=== PATIENT | female | born 2005 | race Caucasian/White ===

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

== ENCOUNTER 2025-02-23 19:00 | Inpatient (IN) | payer BC, MEDICAID, SELFPAY ==
--- OUTSIDE RECORDS SUMMARY | 2025-02-23 19:08 | XMS RPT_ITS | CCD ---
Author Organization [facility] Care Team Providers Care Porcelain Turner Name Role Phone Arcelia, Julisa Unavailable Unavailable LacledeKaterineah D Unavailable Unavailable Arcelia, Julisa Unavailable Unavailable Arcelia, Julisa L Unavailable Unavailable Laclede, Deyanira D Unavailable Unavailable Arcelia, Julisa L Unavailable Unavailable Unavailable Vivian, Deyanira D Unavailable Arcelia, Julisa L Unavailable Stentz, Freddy Unavailable Unavailable Alonso Schaeffer Unavailable Unavailable [place] Unavailable Unavailable Stentz, Freddy Unavailable Unavailable Unavailable Stentz, Freddy Unavailable Keerthi Rankin Unavailable Unavailabl e Moomaw, Juancarlos I Unavailable Unavailable Unavailable Primary Care Provider Unavailabl e Stentz, Mr. Freddy Primary Care Unavailable Stentz, Mr. Freddy Referring Unavailable Stentz, Mr. Freddy Attending Unavailable Stentz, Mr. Freddy Primary Care Unavailable Stentz, Mr. Freddy Referring Unavailable Stentz, Mr. Freddy Attending Unavailable Stentz, Mr. Freddy Primary Care Unavailable Stentz, Mr. Freddy Referring Unavailable Stentz, Mr. Freddy Attending Unavailable Stentz, Mr. Freddy Referring Unavailable Stentz, Mr. Freddy Primary Care Unavailable [place] Attending Unavailabl e Sandra Arreaga Attending Unavailable Stentz, Mr. Freddy Primary Care Unavailable Stentz, Mr. Freddy Attending Unavailable Stentz, Mr. Freddy Primary Care Unavailable Stentz, Mr. Freddy Referring Unavailable Stentz, Mr. Freddy Primary Care Unavailable Stentz, Mr. Freddy Referring Unavailable Stentz, Mr. Freddy Attending Unavailable Stentz, Mr. Freddy Primary Care Unavailable [place]oomaw, Mr. Juancarlos Hitchcock Attending Unavailable Stentz, Mr. Freddy Primary Care Unavailable Chucho, Keerthi Attending Unavailabl e Stentz, Mr. Freddy Primary Care Unavailable Bilderback, Keerthi Attending Unavailabl e Stentz, Mr. Freddy Primary Care Unavailable Bilderback, Keerthi Attending Unavailabl e Stentz PA-C, Freddy Primary Care Provider Unavailable Primary Care Provider Unavailabl e STENTZ, FREDDY Primary Care Unavailable STENTZ, FREDDY Primary Care Unavailable MECCA CABRAL Attending Unavailable STENTZ, FREDDY Primary Care Unavailable STENTZ, FREDDY Attending Unavailable STENTZ, FREDDY Primary Care Unavailable HEATHER ALCANTARA Attending Unavailable STENTZ, FREDDY Primary Care Unavailable Stentz PA-C, Freddy Primary Care Provider ETHEL CENTENO Attending Unavailable STENTZ, FREDDY Primary Care Unavailable ETHEL CENTENO Referring Unavailable STENTZ, FREDDY Primary Care Unavailable SHAN HAMMER Attending Unavailable Care Physician, No Primary Primary Care Unava ilable Katerine Gomeza Attending Unavailable Stentz PA-C, Freddy Primary Care Provider Kristel SALEH, Zohaib Unavailable Unavailable STENTZ, FREDDY Primary Care Unavailable AHMED, AHMED Referring Unavailable RAJESH DO Attending Unavailable STENTZ, FREDDY Primary Care Unavailable AHMED, AHMED Referring Unavailable STENTZ, FREDDY Primary Care Unavailable WISWELL, CHANCE Referring Unavailable WISWELL, CHANCE Referring Unavailable STENTZ, FREDDY Primary Care Unavailable TRAVIS BROWNE Attending Unavailable STENTZ, FREDDY Primary Care Unavailable STENTZ, FREDDY Primary Care Unavailable BACKIMBERLY MARCIANO Referring Unavailable STENTZ, FREDDY Primary Care Unavailable AHMED, AHMED Attending Unavailable AHMED, AHMED Referring Unavailable AHMED, AHMED Attending Unavailable STENTZ, FREDDY Primary Care Unavailable SIDDIQUI, NICOLE Referring Unavailable STENTZ, FREDDY Primary Care Unavailable STENTZ, FREDDY Primary Care Unavailable AHMED, AHMED Referring Unavailable WISWELL, CHANCE Attending Unavailable CHAMP RAWLS Referring Unavailable STENTZ, FREDDY Primary Care Unavailable STENTZ, FREDDY Primary Care Unavailable DIGNA FERNÁNDEZ Attending Unavail able SIDDIQUI, NICOLE Referring Unavailable STENTZ, FREDDY Primary Care Unavailable STENTZ, FREDDY Primary Care Unavailable COLLEEN ROTHMAN Attending Unavailable STENTZ, FREDDY Primary Care Unavailable PRIMITIVO DELGADO Referring Unavailable STENTZ, FREDDY Primary Care Unavailable PRIMITIVO DELGADO Referring Unavailable COLLEEN ROTHMAN Attending Unavailable HAURY, CHAMP Attending Unavailable STENTZ, FREDDY Primary Care Unavailable HAURY, CHAMP Referring Unavailable STENTZ, FREDDY Primary Care Unavailable STENTZ, FREDDY Primary Care Unavailable AMANDA AHMED Referring Unavailable TOAN OLIVARES Attending Unavailable COLLEEN ROTHMAN Attending Unavailable PRIMITIVO DELGADO Attending Unavailable HAURY, CHAMP Referring Unavailable STENTZ, FREDDY Primary Care Unavailable PRIMITIVO DELGADO Attending Unavailable AHMED, ROSALIOMED Attending Unavailable LOIS SEVILLAA B Attending Unavailable STENTZ, FREDDY Primary Care Unavailable BACKIMBERLY MARCIANO Referring Unavailable BRYCE NICOLE Referring Unavailable STENTZ, FREDDY Primary Care Unavailable LEILA MOODY Attending Unavailable WISWELL CHANCE Attending Unavailable STENTZ, FREDDY Primary Care Unavailable WISWELL CHANCE Referring Unavailable STENTZ, FREDDY Primary Care Unavailable Allergies Allergy Classification Reported Allergen(s) Allergy Type Date of Onset Reaction(s) Facility Penicillins (antibiotic) (4 sources) Penicillins; Translations: [Penicillins] Drug Allergy [facility] Work Phone: (20 sources) Amoxicillin; Translations: [amoxicillin] Drug Allergy [facility] (20 sources) Penicillins; Translations: [Penicillins] Allergy to drug (finding) [address] [facility] Work Phone: (1 source) Penicillins Allergy to substance 3 PT UNSURE OF REACTION [facility] (3 sources) Penicillins Drug Allergy [facility] Work Phone: (20 sources) NITROFURANTOIN, MACROCRYSTALS / Nitrofurantoin, Monohydrate; Translations: [NITROFURANTOIN MONOHYD/M-CRYST] Drug Allergy [facility] (4 sources) Ciprofloxacin; Translations: [CIPROFLOXACIN HCL] Drug Allergy [facility] (20 sources) Ciprofloxacin; Translations: [CIPROFLOXACIN] Drug Allergy 4 [facility] (20 sources) Penicillins Drug Allergy 3 [facility] (1 source) Penicillins Drug allergy (disorder) 3 [facility] Medications Current Medications Medication Drug Class(es) Dates Sig (Normalized) Sig (Original) aspirin 81 mg delayed release oral tablet (15 sources) Platelet Aggregation Inhibitor, Nonsteroidal Anti-inflammatory Drug Start: 11-24-2024 take 1 tablet by mouth once daily at bedtime aspirin, enteric coated (ECOTRIN LOW STRENGTH) 81 mg EC tablet Indications: Encounter for supervision of other normal in first trimester (HCC) Take 1 tablet by mouth daily at bedtime. Starting at 12 weeks. 90 tablet 2 11/24/2024 Active cetirizine hydrochloride 10 mg oral tablet (2 sources) Histamine-1 Receptor Antagonist Start: 09-16-2021 End: 09-30-2021 take 1 tablet by mouth once daily ZyrTEC 10 mg oral tablet ; 1 tab(s) orally once a day Quantity: 15 Refills: 0 Ordered: 16-Sep-2021 Alonso Schaeffer Start: 16-Sep-2021 End: 30-Sep-2021 Generic Substitution Allowed Comments: May cause drowsiness. Alcohol may intensify this effect. Use care when operating dangerous machinery.Obtain medical advice before taking any non-prescription drugs as some may affect the action of this medication. Comment on above: May cause drowsiness . Alcohol may intensify this effect. Use care when operating dangerous machinery.Obtain medical advice before taking any non-prescription drugs as some may affect the action of this medication. ciprofloxacin 500 mg oral tablet (3 sources) Quinolone Antimicrobial Start: 08-14-2023 End: 08-17-2023 take 1 tablet by mouth twice daily ciprofloxacin (Cipro) 500 mg tablet Indications: Urinary tract infection without hematuria, site unspecified Take 1 tablet (500 mg) by mouth 2 times a day for 3 days. 6 tablet 0 08/14/2023 08/16/2023 Discontinued (Med List Cleanup) diphenhydrAMINE hydrochloride 25 mg oral tablet (4 sources) Histamine-1 Receptor Antagonist Start: 08-14-2023 End: 08-19-2023 diphenhydrAMINE (Sominex) 25 mg tablet Indications: Hives Take 2 tablets (50 mg) by mouth every 6 hours for 5 days. May take 1 or 2 tablets every 6 hours as needed for allergies and rash 40 tablet 0 08/14/2023 08/19/2023 Active Start: 08-14-2023 diphenhydrAMIN E (BENADryl) capsule 50 mg [id number] 0.15 ml EPINEPHrine 1 mg/ml auto-injector (1 source) alpha-Adrenergic Agonist, beta-Adrenergic Agonist, Catecholamine Start: 08-16-2023 EPINEPHrine (AUVI -Q) 0.15 mg/0.15 mL inj auto-injector injection Indications: Allergy, initial encounter Use as directed. 1 each 1 08/16/2023 Active Start: 08-16-2023 EPINEPHrine (A UVI-Q) 0.15 mg/0.15 mL inj auto-injector injection Indications: Allergy, initial encounter Use as directed. 1 each 1 08/16/2023 Active Ethinyl Estradiol / norgestimate (20 sources) Progestin, Estrogen Start: 08-31-2022 End: 08-16-2023 take 1 tablet by mouth once daily norgestimate-ethinyl estradioL (Ortho Tri-Cyclen,Trinessa) 0.18/0.215/0.25 mg-35 mcg (28) tablet Indications: Menorrhagia with regular cycle Take 1 tablet by mouth once daily. 28 tablet 12 08/31/2022 08/16/2023 Discontinued (Med List Cleanup) Start: 08-31-2022 take 1 tablet by [facility] once daily norgestimate-ethinyl estradioL (Ortho Tri-Cyclen,Trinessa) 0.18/0.215/0.25 mg-35 mcg (28) tablet Indications: Menorrhagia with regular cycle Take 1 tablet by mouth once daily. 28 tablet 12 08/31/2022 Active Start: 07-20-2022 Norgestimate-E thinyl Estradiol Active TABLET July 20, 2022 12:00am Start: 06-29-2020 End: 11-02-2024 take 1 tablet by mouth once daily Norgestimate-Ethinyl Estradiol 0.18/0.215/0.25 mg-35 mcg (28) Take 1 tablet by mouth once daily. 06/29/2020 11/02/2024 Discontinued Start: 06-29-2020 take 1 tablet by tanvi th once daily Norgestimate-Ethinyl Estradiol 0.18/0.215/0.25 mg-35 mcg (28) Take 1 tablet by mouth once daily. 06/29/2020 Active Start: 06-29-2020 take 1 tablet by tanvi th once daily Norgestimate-Ethinyl Estradiol 0.18/0.215/0.25 mg-35 mcg (28) Take 1 tablet by mouth once daily. 0 06/29/2020 Active take 1 tablet by tanvi th once daily in the evening norgestimate-ethinyl estradiol 0.25 mg-35 mcg oral tablet ; 1 tab(s) orally once a day (in the evening) Quantity: 0 Refills: 0 Ordered: 12-Sep-2022 Erika Monae Generic Substitution Allowed take 1 tablet by tanvi th once daily Norgestim-Eth Estrad Triphasic 0.18/0.215/0.25 MG-35 MCG Oral Tablet TAKE 1 TABLET DAILY. Quantity: 1 Refills: 12 Julisa Burgos Active 28 Tablet Pack Comment on above: Take 1 tablet by tanvi th once daily. famotidine 20 mg oral tablet (15 sources) Histamine-2 Receptor Antagonist Start: 12-22-2024 take 1 tablet by mouth twice daily famotidine (PEPCID) 20 mg tablet Take 1 tablet by mouth two times a day. 60 tablet 5 12/22/2024 Active Start: 08-14-2023 End: 08-19-2023 take 2 tablets by mouth once daily famotidine (Pepcid) 20 mg tablet Indications: Hives Take 2 tablets (40 mg) by mouth once daily for 5 days. 10 tablet 0 08/14/2023 08/19/2023 Active Start: 08-14-2023 famotidine (Pe pcid) tablet 40 mg ferrous sulfate 325 mg oral tablet (7 sources) ferrous sulfate (IRON) 325 mg (65 mg iron) tablet Take 325 mg by mouth. Active hydrOXYzine hydrochloride 50 mg oral tablet (20 sources) Antihistamine Start: 08-16-2023 End: 08-26-2023 take 1 tablet by mouth every six hours for anxiety hydrOXYzine HCL (Atarax) 50 mg tablet Indications: Pruritus Take 1 tablet (50 mg) by mouth every 6 hours if needed for itching or anxiety for up to 10 days. 40 tablet 0 08/16/2023 08/26/2023 Active Start: 09-16-2021 take 1-2 tablets by mouth once hydrOXYzine hydrochloride 25 mg oral tablet ; 1 - 2 tab(s) orally once (at bedtime) for itching Quantity: 20 Refills: 0 Ordered: 16-Sep-2021 Alonso Schaeffer Start: 16-Sep-2021 Generic Substitution Allowed Comments: May cause drowsiness. Alcohol may intensify this effect. Use care when operating dangerous machinery.Obtain medical advice before taking any non-prescription drugs as some may affect the action of this medication. Start: 09-09-2021 End: 08-14-2023 take 1 tablet by mouth three times daily as needed for anxiety hydrOXYzine HCL (Atarax) 10 mg tablet Take 1 tablet (10 mg) by mouth 3 times a day as needed for anxiety. 0 09/09/2021 08/14/2023 Discontinued (Entered in Error) Start: 09-09-2021 End: 11-02-2024 hydrOXYzine HCl (ATARAX) 25 mg tablet Take by mouth. 09/09/2021 11/02/2024 Discontinued Comment on above: May cause drowsiness . Alcohol may intensify this effect. Use care when operating dangerous machinery.Obtain medical advice before taking any non-prescription drugs as some may affect the action of this medication. Take by mouth. naproxen 500 mg oral tablet (4 sources) Nonsteroidal Anti-inflammatory Drug Start: take 1 tablet by mouth every twelve hours naproxen (Naprosyn) 500 mg tablet Take 1 tablet (500 mg) by mouth every 12 hours if needed. 0 08/14/2023 Active Start: 12-15-2019 take 1 tablet by tanvi th every twelve hours as needed Naproxen 500 MG Oral Tablet TAKE 1 TABLET EVERY 12 HOURS NEEDED. Quantity: 30 Refills: 1 Julisa Burgos Start : 15-Dec-2019 Active nitrofurantoin, macrocrystals 25 mg / nitrofurantoin, monohydrate 75 mg oral capsule (5 sources) Nitrofuran Antibacterial Start: 08-14-2023 End: 08-16-2023 take 1 capsule by mouth twice daily nitrofurantoin, macrocrystal-monohydrate, (Macrobid) 100 mg capsule Take 1 capsule (100 mg) by mouth 2 times a day. FOR 7 DAYS 0 08/14/2023 08/16/2023 Discontinued (Side effects) Start: 07-15-2022 End: 07-21-2022 take 1 capsule by mouth twice daily at mealtime Macrobid 100 mg oral capsule ; 1 cap(s) orally 2 times a day x 7 days Quantity: 14 Refills: 0 Ordered: 15-Jul-2022 Keerthi Rankin Start: 15-Jul-2022 End: 21-Jul-2022 Generic Substitution Allowed Comments: Finish all this medication unless otherwise directed by prescriber.May discolor urine or feces.Take with food or milk. Comment on above: Finish all this medi cation unless otherwise directed by prescriber.May discolor urine or feces.Take with food or milk. ondansetron 4 mg disintegrating oral tablet (9 sources) Serotonin-3 Receptor Antagonist Start: take 1 tablet by mouth every eight hours as needed for nausea ondansetron orally disintegrating (ZOFRAN ODT) 4 mg disintegrating tablet Indications: Nausea and vomiting in (HCC) Take 1 tablet by mouth every 8 hours as needed for nausea/vomiting. 30 tablet 1 01/02/2025 Active PNV no.95/ferrous fum/folic ac ( ORAL) (17 sources) PNV no.95/ferrou s fum/folic ac ( ORAL) Take by mouth. Active predniSONE 10 mg oral tablet (8 sources) Start: End: predniSONE (DELTASONE) 10 mg tablet Take 4 tabs daily x 3 days, then 3 tabs x 3 days, 2 tabs x 3 days, then 1 tab x3 days with food. 30 tablet 10/07/2024 10/19/2024 Active Start: 08-15-2023 End: 08-15-2023 predniSONE (Deltasone) table t 40 mg Start: 08-14-2023 End: 08-19-2023 take 4 tablets by mouth once daily predniSONE (Deltasone) 10 mg tablet Indications: Hives Take 4 tablets (40 mg) by mouth once daily for 5 days. 20 tablet 0 08/14/2023 08/19/2023 Active Start: 08-14-2023 End: 08-14-2023 predniSONE (Deltasone) table t 40 mg Start: 09-16-2021 End: 09-20-2021 take 1 tablet by mouth once daily at mealtime predniSONE 50 mg oral tablet ; 1 tab(s) orally once a day Quantity: 5 Refills: 0 Ordered: 16-Sep-2021 Alonso Schaeffer Start: 16-Sep-2021 End: 20-Sep-2021 Generic Substitution Allowed Comments: It is very important that you take or use this exactly as directed. Do not skip doses or discontinue unless directed by your doctor.Obtain medical advice before taking any non-prescription drugs as some may affect the action of this medication.Take with food or milk. Comment on above: It is very important that you take or use this exactly as directed. Do not skip doses or discontinue unless directed by your doctor.Obtain medical advice before taking any non-prescription drugs as some may affect the action of this medication.Take with food or milk. vit 75/iron/folic/om3 (DAILY ORAL) (7 sources) vit 75/iron/folic/om3 (DAILY ORAL) Take by mouth. Active sertraline 50 mg oral tablet (4 sources) Serotonin Reuptake Inhibitor Start: 08-14-19 24 End: 08-16-19 24 take 1.5 tablets by mouth once daily sertraline (Zoloft) 50 mg tablet Take 1.5 tablets (75 mg) by mouth once daily. 0 08/14/2023 08/16/2023 Discontinued (Therapy completed) Start: 04-07-2019 Sertraline HCl - 50 MG Oral Tablet TAKE 1 AND 1/2 TABLETS DAILY. Quantity: 45 Refills: 2 Arcelia KENIAJulisa Start : 07-Apr-2019 Active Completed/Discontinued Medications Medication Drug Class(es) Dates Sig (Normalized) Sig (Original) brompheniramine maleate 0.4 mg/ml / dextromethorphan hydrobromide 2 mg/ml / pseudoephedrine hydrochloride 6 mg/ml oral solution (1 source) alpha-Adrenergic Agonist, Uncompetitive M-xsazsg-J-aspartat e Receptor Antagonist, Sigma-1 Agonist Start: 03-29-2022 Pseudoeph-Bromphe n-DM 30-2-10 MG/5ML Oral Syrup Quantity: 250 Refills: 0 Ordered: 29-Mar-2022 DO Start : 29-Mar-2022 Complete citalopram 10 mg oral tablet (13 sources) Serotonin Reuptake Inhibitor Start: 10-16-2021 End: 08-14-2023 take 1 tablet by mouth once daily Citalopram Hydrobromide 20 MG Oral Tablet Take 1 tablet daily Quantity: 90 Refills: 3 Ordered: 24-Jul-2022 Freddy Lee PA-C Start : 16-Oct-2021 Active Start: 10-16-2021 Citalopram Hyd robromide 10 MG Oral Tablet Quantity: 30 Refills: 0 Ordered: 14-Feb-2022 DO Start : 14-Feb-2022 Complete doxycycline monohydrate 100 mg oral capsule (2 sources) Tetracycline-class Drug Start: 08-25-2022 End: 09-04-2022 take 1 capsule by mouth twice daily doxycycline monohydrate (MONODOX) 100 mg capsule Take 1 capsule by mouth twice daily for 10 days. 20 capsule 0 08/25/2022 09/04/2022 Comment on above: Take 1 capsule by [facility] twice daily for 10 days. fluconazole 150 mg oral tablet (1 source) Azole Antifungal Start: 03-29-2022 take 1 tablet by mouth once Fluconazole 150 MG Oral Tablet take 1 tablet by mouth A ONE TIME DOSE repeat if needed in 72 ... (REFER TO PRESCRIPTION NOTES). Quantity: 2 Refills: 0 Ordered: 29-Mar-2022 DO Start : 29-Mar-2022 Complete FLUoxetine 10 mg oral capsule (20 sources) Serotonin Reuptake Inhibitor Start: 09-16-2020 End: 10-31-2020 take 1 capsule by mouth once daily FLUoxetine HCl - 10 MG Oral Capsule TAKE 1 CAPSULE Daily Quantity: 7 Refills: 0 Ordered: 16-Sep-2020 Julisa Burgos Start : 16-Sep-2020 End : 31-Oct-2020 Complete Start: 09-16-2020 End: 11-02-2024 take 1 capsule by mouth once daily FLUoxetine HCl - 20 MG Oral Capsule TAKE 1 CAPSULE Daily Quantity: 30 Refills: 3 Ordered: 21-Jan-2021 Julisa Burgos Start : 16-Sep-2020 Active Comment on above: Take 20 mg by mouth once daily. meloxicam 7.5 mg oral tablet (13 sources) Nonsteroidal Anti-inflammatory Drug Start: 08-26-19 End: 11-03-19 take 1 tablet by mouth once daily meloxicam (MOBIC) 7.5 mg tablet Take 1 tablet by mouth once daily. 14 tablet 08/25/2022 11/02/2024 Discontinued Comment on above: Take 1 tablet by tanvi th once daily. metroNIDAZOLE 0.0075 mg/mg vaginal gel (1 source) Nitroimidazole Antimicrobial Start: 08-27-19 End: 07-20-19 metroNIDAZOLE (METROGEL VAGINAL) 0.75 % Vaginal Gel Use 1 Applicator vaginally daily at bedtime. 1 Tube 0 08/26/2020 07/20/2022 Discontinued (Other) Comment on above: Use 1 Applicator vag inally daily at bedtime. Norgestim-Eth Estrad Triphasic 0.18/0.215/0.25 MG-35 MCG Oral Tablet (13 sources) Start: 02-12-20 take 1 tablet by mouth once daily Norgestim-Eth Estrad Triphasic 0.18/0.215/0.25 MG-35 MCG Oral Tablet take 1 tablet by mouth once daily Quantity: 28 Refills: 11 Ordered: 09-Sep-2021 Freddy Lee PA-C Start : 11-Feb-2021 Active Start: 02-11-2021 take 1 tablet by tanvi th once daily Norgestim-Eth Estrad Triphasic 0.18/0.215/0.25 MG-35 MCG Oral Tablet take 1 tablet by mouth once daily Quantity: 28 Refills: 8 Ordered: 11-Feb-2021 Javier AQUINO, Jessica Start : 11-Feb-2021 Active take 1 tablet by tanvi th once daily Norgestim-Eth Estrad Triphasic 0.18/0.215/0.25 MG-35 MCG Oral Tablet TAKE 1 TABLET DAILY. Quantity: 1 Refills: 1 Ordered: 23-Dec-2020 Javier CANDELARIA-RATNA, Jessica Active take 1 tablet by tanvi th once daily Norgestim-Eth Estrad Triphasic 0.18/0.215/0.25 MG-35 MCG Oral Tablet TAKE 1 TABLET DAILY. Quantity: 1 Refills: 12 Ordered: 15-Dec-2019 Julisa Burgos Active phenazopyridine hydrochloride 200 mg oral tablet (2 sources) Start: 05-21-2021 End: 07-20-2022 take 1 tablet by mouth every eight hours as needed phenazopyridine (PYRIDIUM) 200 mg tablet Take 1 tablet by mouth three times daily as needed. 6 tablet 0 05/21/2021 07/20/2022 Discontinued (Other) Start: 11-07-2020 End: 07-20-2022 take 1 tablet by mouth every eight hours as needed phenazopyridine (PYRIDIUM) 100 mg tablet Take 1 tablet by mouth three times daily as needed. 30 tablet 0 11/07/2020 07/20/2022 Discontinued (Other) Comment on above: Take 1 tablet by tanvi th three times daily as needed. SUMAtriptan 100 mg oral tablet (20 sources) Serotonin-1b and Serotonin-1d Receptor Agonist Start: 12-18-2021 End: 11-02-2024 SUMAtriptan (IMITREX) 100 mg tablet 06/01/2022 11/02/2024 Discontinued Start: 12-18-2021 SUMAtriptan Salguero ccinate 50 MG Oral Tablet Quantity: 2 Refills: 0 Ordered: 18-Dec-2021 DO Start : 18-Dec-2021 Complete Start: 12-18-2021 take 1 tablet by tanvi th every two hours SUMAtriptan Succinate 50 MG Oral Tablet TAKE 1 TABLET FOR MIGRAINE RELIEF. MAY REPEAT EVERY 2 HOURS. MAX 200MG/DAY. Quantity: 1 Refills: 3 Ordered: 18-Dec-2021 Freddy Lee PA-C Start : 18-Dec-2021 Active Comment on above: take 1 tablet by tanvi th AT ONSET OF HEADACHE may repeat in 2 hours... (REFER TO PRESCRIPTION NOTES). topiramate 25 mg oral tablet (11 sources) Start: 12-19-19 End: 08-16-19 24 take 1 tablet by mouth once daily Topiramate 25 MG Oral Tablet Take 1 tablet daily Quantity: 90 Refills: 3 Ordered: 24-Jul-2022 Jesus GOFF Freddy Start : 18-Dec-2021 Active 24 hr venlafaxine 75 mg extended release oral capsule (1 source) Serotonin and Norepinephrine Reuptake Inhibitor Start: 09-10-19 take 1 capsule by mouth once daily at mealtime Venlafaxine HCl ER 75 MG Oral Capsule Extended Release 24 Hour TAKE 1 CAPSULE ONCE DAILY WITH FOOD. Quantity: 90 Refills: 0 Ordered: 09-Sep-2021 Jesus GOFF Freddy Start : 09-Sep-2021 Active Problems Active Problems Problem Classification Problem Date Documented Date Episodic/Chronic Allergic reactions (20 sources) Acute urticaria; Translations: [Other specified urticaria] Onset: 01-27-2023 09-16-2021 Episodic Anxiety disorders (18 sources) Generalized anxiety disorder; Translations: [Generalized anxiety disorder] Onset: 07-15-2022 09-15-2022 Chronic Genitourinary symptoms and ill-defined conditions (8 sources) Dysuria; Translations: [Frequency of micturition] Onset: 07-18-2022 Episodic Headache; including migraine (9 sources) Migraine; Translations: [Migraine, unspecified, without mention of intractable migraine without mention of status migrainosus] Onset: 07-15-2022 09-15-2022 Chronic Hemorrhage during ; abruptio placenta; placenta previa (6 sources) Antepartum hemorrhage; Translations: [Hemorrhage in early , unspecified] Onset: 07-28-2024 07-31-2024 Episodic Immunizations and screening for infectious disease (4 sources) Patient encounter status; Translations: [Encounter for screening for infections with a predominantly sexual mode of transmission] Onset: 11-24-2024 11-24-2024 Episodic Inflammatory diseases of female pelvic organs (1 source) Bacterial vaginosis; Translations: [Bacterial vaginosis] Episodic Menstrual disorders (17 sources) Menorrhagia; Translations: [Excessive or frequent menstruation] Onset: 09-15-2022 09-15-2022 Chronic Mood disorders (18 sources) Depressive disorder; Translations: [Depressive disorder, not elsewhere classified] Onset: 09-15-2022 09-15-2022 Chronic Mood disorders (1 source) Mood disorders; Translations: [Depression, unspecified] Onset: 07-15-2022 Other acquired deformities (1 source) Curvature of spine; Translations: [Curvature of spine] Chronic Other acquired deformities (1 source) Scoliosis, unspecified; Translations: [Scoliosis, unspecified] Onset: 07-15-2022 Chronic Other aftercare (1 source) Other custodial (current) drug therapy; Translations: [Other custodial (current) drug therapy] Onset: 01-27-2023 Episodic Other bone disease and musculoskeletal deformities (10 sources) Adolescent idiopathic scoliosis; Translations: [Scoliosis [and kyphoscoliosis], idiopathic] Chronic Other bone disease and musculoskeletal deformities (3 sources) Adolescent idiopathic lumbosacral scoliosis; Translations: [Adolescent idiopathic scoliosis, lumbosacral region] Onset: 09-15-2022 09-15-2022 Chronic Other complications of ; puerperium affecting management of mother (8 sources) condition affecting obstetrical care of mother; Translations: [ complicated by cerebral ventriculomegaly, single or unspecified fetus (HCC)] Onset: 02-16-2025 02-16-2025 Episodic Other complications of ; puerperium affecting management of mother (1 source) Maternal care for (suspected) abnormality and damage, unspecified, not applicable or unspecified; Translations: [Suspected anomaly, antepartum, single or unspecified fetus (HCC)] Onset: 02-19-2025 Episodic Other complications of ; puerperium affecting management of mother (1 source) Maternal care for (suspected) abnormality and damage, unspecified, other fetus; Translations: [Suspected abnormality affecting management of mother, antepartum, other fetus (HCC)] Onset: 02-19-2025 Episodic Other complications of (3 sources) Pain in female pelvis; Translations: [Other specified related conditions, unspecified trimester] 11-03-2024 Episodic Other complications of (1 source) Uterine contractions problem; Translations: [Other specified related conditions, unspecified trimester] 11-10-2024 Episodic Other complications of (20 sources) Vomiting of , unspecified; Translations: [Unspecified vomiting of , unspecified as to episode of care or not applicable] Onset: 11-24-2024 11-24-2024 Episodic Other complications of (18 sources) Other mental disorders complicating , unspecified trimester; Translations: [Mental disorders of mother, antepartum condition or complication] Onset: 11-24-2024 11-24-2024 Episodic Other complications of (3 sources) Central nervous system malformation in fetus affecting obstetrical care; Translations: [Central nervous system malformation in fetus affecting obstetrical care, single or unspecified fetus (HCC)] 02-17-2025 Episodic Other connective tissue disease (1 source) Bilateral localized swelling of hands; Translations: [Swelling of limb] 09-16-2021 Episodic Other connective tissue disease (1 source) Swelling of bilateral feet; Translations: [Swelling of limb] 09-16-2021 Episodic Other female genital disorders (2 sources) Vaginal discharge; Translations: [Other specified noninflammatory disorders of vagina] 11-03-2024 Episodic Other female genital disorders (1 source) Vaginal odor; Translations: [Vaginal odor] Episodic Other injuries and conditions due to external causes (1 source) Allergic reaction to drug; Translations: [Allergy, unspecified, subsequent encounter] 08-15-2023 Episodic Other nutritional; endocrine; and metabolic disorders (1 source) Overweight in adulthood with body mass index of 25 or more but less than 30; Translations: [Overweight] Episodic Other and delivery including normal (20 sources) Early stage of ; Translations: [Encounter for supervision of normal , unspecified, unspecified trimester] Onset: 11-03-2024 11-03-2024 Episodic Other screening for suspected conditions (not mental disorders or infectious disease) (3 sources) Cancer cervix screening status; Translations: [Encounter for screening for malignant neoplasm of cervix] Onset: 11-24-2024 11-24-2024 Episodic Residual codes; unclassified (10 sources) Body mass index 20-24 - normal; Translations: [Body Mass Index between 19-24, adult] Episodic Residual codes; unclassified (9 sources) Normal body mass index; Translations: [Body Mass Index, pediatric, 5th percentile to less than 85th percentile for age] Episodic Residual codes; unclassified (18 sources) H/O: miscarriage; Translations: [Personal history of other complications of , childbirth and the puerperium] Onset: 11-24-2024 11-03-2024 Episodic Residual codes; unclassified (1 source) Gestation period, 6 weeks; Translations: [Less than 8 weeks gestation of ] 11-10-2024 Episodic Residual codes; unclassified (1 source) Gestation period, 8 weeks; Translations: [8 weeks gestation of ] 11-24-2024 Episodic Residual codes; unclassified (2 sources) Gestation period, 12 weeks; Translations: [12 weeks gestation of ] 12-22-2024 Episodic Residual codes; unclassified (1 source) Gestation period, 13 weeks; Translations: [13 weeks gestation of ] 01-02-2025 Episodic Residual codes; unclassified (1 source) Gestation period, 16 weeks; Translations: [16 weeks gestation of ] 01-19-2025 Episodic Residual codes; unclassified (2 sources) Gestation period, 20 weeks; Translations: [20 weeks gestation of ] 02-16-2025 Episodic Residual codes; unclassified (1 source) 16 weeks gestation of ; Translations: [16 weeks gestation of (HCC)] Onset: 01-19-2025 Episodic Residual codes; unclassified (1 source) 12 weeks gestation of ; Translations: [12 weeks gestation of (HCC)] Onset: 12-22-2024 Episodic Residual codes; unclassified (1 source) 8 weeks gestation of ; Translations: [8 weeks gestation of ([facility])] Onset: 11-24-2024 Episodic Residual codes; unclassified (1 source) Personal history of other complications of , childbirth and the puerperium; Translations: [History of miscarriage] Onset: 11-24-2024 Episodic Unclassified (2 sources) SKIN RASH, RED, SWOLLEN 09-16-2021 Comment on above: SKIN RASH, RED, SWOL SEVEN Unclassified (1 source) 1 MONTH OV 09-09-2021 Comment on above: 1 MONTH OV Unclassified (1 source) SCOLIOSIS/LUMBAR/ XRAY IN FILE/ NO MRI 09-15-2021 Comment on above: SCOLIOSIS/LUMBAR/ XR AY IN FILE/ NO MRI Unclassified (1 source) Localized swelling of both hands 09-16-2021 Unclassified (1 source) Bilateral swelling of feet 09-16-2021 Unclassified (2 sources) 3 MONTHS 04-21-2022 Comment on above: 3 MONTHS Unclassified (1 source) Cyst of right ovary 07-18-2022 Unclassified (1 source) Ovarian cyst 09-12-2022 Unclassified (15 sources) [facility] - COMMON Onset: 11-24-2024 11-24-2024 Unclassified (15 sources) Education - [place] Onset: 11-24-2024 11-24-2024 Unclassified (2 sources) complicated by cerebral ventriculomegaly, single or unspecified fetus (HCC); Translations: [ complicated by cerebral ventriculomegaly, single or unspecified fetus (HCC)] Onset: 02-16-2025 Unclassified (1 source) Central nervous system malformation in fetus affecting obstetrical care, single or unspecified fetus (HCC); Translations: [Central nervous system malformation in fetus affecting obstetrical care, single or unspecified fetus (HCC)] Onset: 02-19-2025 Past or Other Problems Problem Classification Problem Date Documented Date Episodic/Chronic Abdominal pain (20 sources) Flank pain; Translations: [Abdominal pain, other specified site] Onset: 07-18-2022 07-15-2022 Episodic Comment on above: ABD PAIN ABDOMINAL PAIN Asthma (9 sources) Exercise induced bronchospasm; Translations: [Exercise induced bronchospasm] Resolved: 12-18-2021 Chronic Nausea and vomiting (2 sources) Nausea; Translations: [Nausea] Onset: 09-12-2022 Episodic Other acquired deformities (16 sources) Curvature of spine; Translations: [Unspecified curvature of spine] Onset: 09-15-2022 09-15-2022 Episodic Other acquired deformities (16 sources) Finding of nasal deformity; Translations: [Acquired deformity of nose] Onset: 09-15-2022 09-15-2022 Episodic Other complications of (2 sources) Other specified related conditions, unspecified trimester; Translations: [Pelvic pain in (HCC)] Onset: 11-03-2024 Episodic Other female genital disorders (1 source) Other specified noninflammatory disorders of vagina; Translations: [Vaginal discharge] Onset: 11-03-2024 Episodic Other inflammatory condition of skin (3 sources) Pruritus, unspecified; Translations: [Unspecified pruritic disorder] Onset: 08-16-2023 08-16-2023 Episodic Other injuries and conditions due to external causes (2 sources) Allergy, unspecified, subsequent encounter; Translations: [Allergy, unspecified, subsequent encounter] Onset: 08-15-2023 Episodic Other lower respiratory disease (8 sources) Dyspnea; Translations: [Shortness of breath] Onset: 09-15-2022 09-15-2022 Episodic Ovarian cyst (10 sources) Cyst of ovary; Translations: [Other and unspecified ovarian cyst] Onset: 09-12-2022 07-18-2022 Episodic Residual codes; unclassified (14 sources) Tobacco use; Translations: [Nicotine-filled electronic cigarette user] Resolved: 09-09-2021 Episodic Spondylosis; intervertebral disc disorders; other back problems (15 sources) Low back pain; Translations: [Lumbago] Onset: 07-15-2022 07-15-2022 Episodic Comment on above: BACK PAIN Spontaneous (2 sources) Miscarriage; Translations: [Complete or unspecified spontaneous without complication] Onset: 08-04-2024 07-31-2024 Episodic Unclassified (1 source) Onset: 08-16-2023 08-16-2023 Urinary tract infections (6 sources) Urinary tract infectious disease; Translations: [Urinary tract infection, site not specified] Onset: 07-18-2022 07-15-2022 Episodic NEGATED: Highlighted row has not occurred!Residual codes; unclassified (2 sources) Disease Episodic NEGATED: Highlighted row has been ruled out!Unclassified (2 sources) No known active problems 11-10-2024 Results Test Name Value Interpretation Reference Range Facility [facility] 02-21-2025 [facility]CO Letter Text Normal [facility] MRI FETUS WO IVCONon 025 MRI FETUS WO IVCON * * *Final Report* * * DATE OF EXAM: Feb 21 2025 9:42AM QBM 0717 - MRI FETUS WO IVCON / PROCEDURE REASON: Encounter for screening of mother ([facility]) * * * * Physician Interpretation * * * * MRI: CLINICAL HISTORY: . Encounter for screening of mother ([facility]) . 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 COMPARISON: Prior obstetric ultrasound TECHNIQUE: MRI was performed without contrast to evaluate the uterus and fetus. This information is essential for the proper counseling and clinical care of the fetus by the care team. RESULTS: The gestational age of the is 21 weeks and 0 days by last menstrual period with ALCIRA of 07/04/2025. IMAGE QUALITY: Good Maternal findings: Unremarkable Findings of : : Bass Placental location: Anterior and fundal Placenta previa: No Placental signal: Homogeneous Placental thickness: 3 cm Uterus: Normal gravid Cervix: Closed Cervical length: 4.5 cm Findings: position: Vertex/normal motion: While not specifically assessed, motion is seen throughout the examination. Amniotic fluid volume: Subjectively normal Number of vessels in umbilical cord: Three Placental umbilical cord insertion site: Central Brain: Head size: Frontal-occipital diameter: 59 mm, normal for gestational age Cerebral biparietal diameter: 47 mm, normal for gestational age Bone biparietal diameter: 52 mm, normal for gestational age Sulcation: normal for age Pericerebral spaces: Normal Brain parenchyma signal: Normal Germinal matrix: Normal Lateral Ventricles: Right - 17 mm; Left - 17 mm Third/Fourth Ventricles: The third ventricle is mildly dilated. The fourth ventricle is normal. Midline Structures: Cavum septum pellucidum: There is a single septation at the midline the lateral ventricles. This is favored to be coapted leaflets of the cavum septum pellucidum from the severe hydrocephalus. Corpus callosum: Severely thinned. Posterior Fossa: Brainstem morphology: Normal Cerebellar Hemispheres: Normal Transverse cerebellar diameter: 20 mm, normal for gestational age Cerebellar vermis: Normal Vermis CC 9 mm, normal for gestational age Vermis AP: 6 mm, normal for gestational age Craniocervical junction/Posterior fossa fluid: patent Cerebral venous sinuses: Normal Face/Neck: Oropharynx/cervical airway: patent Facial profile: Normal Other: None Eyes Interocular distance: 14 mm Binocular distance: 32 mm Lips and nose: Normal Mandible: Normal Ears: within normal limits Spine: Vertebrae: Normal Spinal cord: Normal Conus position: normal Chest: Chest size/shape: Normal Airway/trachea: Patent Esophagus: Patent Mediastinum/thymus: Normal Lungs: Normal Diaphragm: Normal Pleural effusion: None Heart: Left sided apex Aorta: Left sided Abdomen: Abdominal wall/soft tissues: Normal Situs: Normal Liver: Normal Gallbladder: Normal Spleen: Normal Stomach: Normal Small bowel: Normal Colon: Normal Rectal cul-de-sac length: 11 mm Adrenals: Normal Right kidney: Mild pelviectasis with AP renal pelvis diameter of 4 mm Left kidney: Normal Urinary bladder: Normal Genitalia: Unremarkable Extremities: normal 2 x2 Note: Detailed evaluation of the extremities is limited on MRI. IMPRESSION: FINDINGS: 1. Severe hydrocephalus. Findings may represent aqueductal stenosis, although pattern is somewhat unusual as the third ventricle is only mildly enlarged compared to the severe enlargement of the lateral ventricles. 2. Corpus callosum is not well visualized but overall configuration of the brain suggest it is severely thinned rather than absent. 3. 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 4. Mild/borderline UTD A1 pelviectasis of the RIGHT kidney. Maternal findings: None. Road Traffic Controller: TYRESE Transcribe Date/Time: Feb 21 2025 9:52A Dictated by : LASHAWN CAPPS MD This examination was interpreted and the report reviewed and electronically signed by: YURIY FONG MD on Feb 21 2025 11:24AM EST [id number] Normal [facility] ([facility]) -- MICHELLE CHOI ([id number]) 1 F Date Time Provider Department 02/19/25 ZOHAIB HUMPHRIES [facility] During your visit today, we recorded the following information about you: Zohaib Humphries RN 02/19/2025 8:51 AM Signed Call to Michelle at the request of Dr Verduzco to introduce myself as customer care specialist and the Care Center. Michelle is able to go to [place] today for an Us and a consult with Dr Patel. Discussion of the services offered including support, education, coordination of care and appointment scheduling. My contact information was provided as well at directions via and Michelle was invited to call with any questions or concerns. Also reviewed the multi-disciplinary team meetings in which patient's case will be discussed to optimize care planning. Patient's questions answered to the best of my ability. 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 - ferrous sulfate (IRON) 325 mg (65 mg iron) tablet Take 325 mg by mouth. - ondansetron orally disintegrating (ZOFRAN ODT) 4 mg disintegrating tablet Take 1 tablet by mouth every 8 hours as needed for nausea/vomiting. - famotidine (PEPCID) 20 mg tablet Take 1 tablet by mouth two times a day. - aspirin, enteric coated (ECOTRIN LOW STRENGTH) 81 mg EC tablet Take 1 tablet by mouth daily at bedtime. Starting at 12 weeks. - PNV no.95/ferrous fum/folic ac ( ORAL) Take by mouth. Problem List As Of Date 02/19/2025 Noted Resolved Anxiety disorder affecting , antepartu*11/24/2024 History of miscarriage [Z87.59] 11/24/2024 Nausea and vomiting during (HCC) [O21*11/24/2024 Penicillin allergy [Z88.0] 11/24/2024 Supervision of normal (HCC) [Z34.90] 11/24/2024 complicated by cerebral ventric*02/16/2025 Encounter Status:Closed by ZOHAIB HUMPHRIES on 02/19/25 [facility] ECHO FETALon 02-19-2025 + --+-+ Pediatric Cardiology Echocardiogram Report + --+-+ NAME: MICHELLE CHOI : 2005 PT ID#: [id number] Age: 19 years Sex: F STUDY DATE: 02/19/2025 2:34:17 PM ALCIRA: 07/04/2025 GA: 20w5d Image Quality: The images were of adequate diagnostic quality. Referring Physician: Amanda Patel Diagnosing Physician: Rajesh Do MD Aboriginal Education Teacher: Isa Motta [facility] 2nd Aboriginal Education Teacher: Diagnosis: [id number] abnormality and damage, single fetus or unspecified Procedure Code: 59748, 30792, 38861 Echo, Complete (w/Doppler and color) Exam Location: OP (). Indications: Evaluate cardiac anatomy and function Color Doppler was utilized to interrogate the cardiac valves assessed. Spectral Doppler was utilized to determine the flow velocities and pressure gradients reported in this exam. 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 Umbilical artery flow Doppler is normal. Umbilical venous flow Doppler is normal. Ductus Venosus Doppler is normal. UA S/D 3.9 UA PI 1.31 MCA PI 2.92 Rate and Rhythm: heart rate is normal and regular. Normal heart rate and rhythm. HR 143 bpm Mechanical RI 114 ms Segmental Anatomy, Cardiac Position and Situs: The segmental anatomy and situs are normal. Normal visceral situs. The heart position is within the left hemithorax (levo position). Levocardia (apex to the left). The aorta is to the right of the pulmonary artery. Segmental anatomy is S,D,S. Systemic Veins: Right superior vena cava is right sided and drains normally to the right atrium. The inferior vena cava is right sided and inserts normally into the right atrium. Pulmonary Veins: At least one pulmonary vein on each side drains to the left atrium. Atria: The right atrium is normal in size. The left atrium is normal in size. Widely patent foramen ovale with normal intrauterine right to left flow. Tricuspid Valve: The tricuspid valve is normal. Tricuspid valve inflow Doppler is biphasic. There is trace tricuspid valve regurgitation. Right Ventricle: There is qualitatively normal right ventricular size and wall thickness with normal systolic function. Mitral Valve: The mitral valve is normal. There is no mitral valve regurgitation. Mitral valve inflow Doppler is biphasic. Left Ventricle: Normal left ventricular size and wall thickness with normal systolic function. VSD: There is no obvious ventricular septal defect. Conotruncal Anatomy: There is normal conotruncal anatomy. RVOT: There is no right ventricular outflow tract obstruction. Pulmonary Valve: The pulmonary valve is normal. There is no pulmonary valve stenosis. There is no pulmonary valve regurgitation. Pulmonary Arteries: The main and branch pulmonary arteries appear normal. LVOT: There is no left ventricular outflow tract obstruction. Aortic Valve: The aortic valve is normal with no stenosis and no regurgitation. Aorta: Aortic arch is widely patent. There is a left aortic arch. Ductus Arteriosus: Ductal arch is widely patent with normal intrauterine right to left flow. Pericardium: There is no pericardial effusion. Prior Exam's: No prior studies or reports for comparison. Measurements: 2D: Z-Score Aortic annulus 3.1 mm -0.58 MV annulus 5.1 mm -0.06 Pulmonary annulus 4.0 mm 0.18 TV annulus 5.0 mm -0.30 Summary 1. Segmental anatomy and situs are normal. 2. No structural abnormalities seen. 3. Normal left ventricular size and wall thickness with normal systolic function. 4. Qualitatively normal right ventricular size and wall thickness with normal systolic function. 5. No valvar abnormalities seen. 6. Trace tricuspid valve regurgitation. 7. Aortic arch is widely patent. 8. Ductal arch is widely patent with normal intrauterine right to left flow. 9. Normal heart rate and rhythm. 10. No pericardial effusion. 11. No prior studies or reports. The results and limitations of the echocardiogram and echocardiography in general, including the inability to exclude ASDs, some VSDs, minor valvar abnormalities, partial anomalous pulmonary venou (more content not included)... [facility] FETALon 02-19-2025 + ------ --+-+ Pediatric Cardiology Echocardiogram Report + --+-+ NAME: MICHELLE CHOI : 2005 PT ID#: [id number] Age: 19 years Sex: F STUDY DATE: 02/19/2025 2:34:17 PM ALCIRA: 07/04/2025 GA: 20w5d Image Quality: The images were of adequate diagnostic quality. Referring Physician: Amanda Patel Diagnosing Physician: Rajesh Do MD Aboriginal Education Teacher: Isa Motta [facility] 2nd Aboriginal Education Teacher: Diagnosis: [id number] abnormality and damage, single fetus or unspecified Procedure Code: 62558, 77659, 72088 Echo, Complete (w/Doppler and color) Exam Location: OP (). Indications: Evaluate cardiac anatomy and function Color Doppler was utilized to interrogate the cardiac valves assessed. Spectral Doppler was utilized to determine the flow velocities and pressure gradients reported in this exam. 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 Umbilical artery flow Doppler is normal. Umbilical venous flow Doppler is normal. Ductus Venosus Doppler is normal. UA S/D 3.9 UA PI 1.31 MCA PI 2.92 Rate and Rhythm: heart rate is normal and regular. Normal heart rate and rhythm. HR 143 bpm Mechanical RI 114 ms Segmental Anatomy, Cardiac Position and Situs: The segmental anatomy and situs are normal. Normal visceral situs. The heart position is within the left hemithorax (levo position). Levocardia (apex to the left). The aorta is to the right of the pulmonary artery. Segmental anatomy is S,D,S. Systemic Veins: Right superior vena cava is right sided and drains normally to the right atrium. The inferior vena cava is right sided and inserts normally into the right atrium. Pulmonary Veins: At least one pulmonary vein on each side drains to the left atrium. Atria: The right atrium is normal in size. The left atrium is normal in size. Widely patent foramen ovale with normal intrauterine right to left flow. Tricuspid Valve: The tricuspid valve is normal. Tricuspid valve inflow Doppler is biphasic. There is trace tricuspid valve regurgitation. Right Ventricle: There is qualitatively normal right ventricular size and wall thickness with normal systolic function. Mitral Valve: The mitral valve is normal. There is no mitral valve regurgitation. Mitral valve inflow Doppler is biphasic. Left Ventricle: Normal left ventricular size and wall thickness with normal systolic function. VSD: There is no obvious ventricular septal defect. Conotruncal Anatomy: There is normal conotruncal anatomy. RVOT: There is no right ventricular outflow tract obstruction. Pulmonary Valve: The pulmonary valve is normal. There is no pulmonary valve stenosis. There is no pulmonary valve regurgitation. Pulmonary Arteries: The main and branch pulmonary arteries appear normal. LVOT: There is no left ventricular outflow tract obstruction. Aortic Valve: The aortic valve is normal with no stenosis and no regurgitation. Aorta: Aortic arch is widely patent. There is a left aortic arch. Ductus Arteriosus: Ductal arch is widely patent with normal intrauterine right to left flow. Pericardium: There is no pericardial effusion. Prior Exam's: No prior studies or reports for comparison. Measurements: 2D: Z-Score Aortic annulus 3.1 mm -0.58 MV annulus 5.1 mm -0.06 Pulmonary annulus 4.0 mm 0.18 TV annulus 5.0 mm -0.30 Summary 1. Segmental anatomy and situs are normal. 2. No structural abnormalities seen. 3. Normal left ventricular size and wall thickness with normal systolic function. 4. Qualitatively normal right ventricular size and wall thickness with normal systolic function. 5. No valvar abnormalities seen. 6. Trace tricuspid valve regurgitation. 7. Aortic arch is widely patent. 8. Ductal arch is widely patent with normal intrauterine right to left flow. 9. Normal heart rate and rhythm. 10. No pericardial effusion. 11. No prior studies or reports. The results and limitations of the echocardiogram and echocardiography in general, including the inability to exclude ASDs, some VSDs, minor valvar abnormalities, partial anomalous pulmonary venous return, persistent patent ductus arteriosus, and coarctation of the aorta, were explained to the patient. Rajesh Do MD *Electronically signed on 02/19/2025 at 3:34:51 PM [id number] Final CC [employer] Image : [id number] [employer] (more content not included)... Normal [facility] Examination level ultrasound on 02-17-2025 Indication Detailed anatomic survey ENTRY LEVEL ASSISTANT MANAGER anomalies Impression REMOTE READ The patient is referred for a detailed anatomic survey. - Single, live, intrauterine . - biometry is consistent with the established gestational age. - Several ENTRY LEVEL ASSISTANT MANAGER abnormalities were visualized including bilateral ventriculomegaly (right lateral ventricle 1.4 cm, left lateral ventricle 1.7 cm), third ventricle dilation, and absent CSP. No additional malformations were visualized on a detailed anatomic survey, although some anatomical structures were suboptimally seen as detailed below. - The amniotic fluid volume is normal amount. - The placenta is anterior, fundal. - The Transabdominal cervical length measures 37.4 mm with no evidence of funneling or other dynamic changes. - Not all structural malformations can be detected by ultrasound examination. Ultrasound Consultation See Epic note Recommendations - Referral to the care center. - Additional follow up as clinically indicated. Maternal Assessment Height 155 cm Height (ft) 5 ft Height (in) 1 in Physical Exam Initial weight (lb) 135 lb Initial BMI 25.51 kg/m Maternal assessment other: 2 Para 0 Method Transabdominal ultrasound examination. View: Suboptimal view: limited by position Bass . Number of fetuses: 1 Dating LMP on: 09/27/2024 GA by LMP 20 w + 2 d ALCIRA by LMP: 07/04/2025 GA by prior assessment 20 w + 2 d ALCIRA by prior assessment: 07/04/2025 Ultrasound examination on: 02/16/2025 GA by U/S based upon: AC, BPD, Femur, HC GA by U/S 20 w + 4 d ALCIRA by U/S: 07/02/2025 Assigned: based on stated ALCIRA, selected on 02/16/2025 Assigned GA 20 w + 2 d Assigned ALCIRA: 07/04/2025 General Evaluation Cardiac activity present. FHR 141 bpm. movements: present. Presentation: breech Placenta: Placental site: anterior, fundal Umbilical cord: Cord vessels: 3 vessel cord. Insertion site: normal insertion Amniotic fluid: Amount of AF: normal amount. MVP 4.0 cm Growth Overview Exam date GA BPD (mm) HC (mm) AC (mm) FL (mm) HL (mm) EFW (g) 02/16/2025 20w 2d 49 72% 185.2 68% 148.5 38% 32.1 53% 30.7 47% 336 38% Biometry Standard BPD 49.0 mm 20w 6d 72% Hadlock OFD 66.4 mm 20w 6d 94% Nicolaides HC 185.2 mm 20w 6d 68% Dagmar Cerebellum tr 20.5 mm 19w 4d 48% Hill Nuchal fold 3.9 mm AC 148.5 mm 20w 1d 38% Hadlock Femur 32.1 mm 20w 1d 53% Dagmar Humerus 30.7 mm 20w 1d 47% Dagmar EFW 336 g 20w 1d 38% Hadlock EFW (lb) 0 lb EFW (oz) 12 oz EFW by: Hadlock (HC-AC-FL) Extended Bridge Leverman 12.8 mm CM 4.7 mm 37% Nicolaides Extremities / Bony Struc FL / HC 0.17 4% Hadlock Other Structures FHR 141 bpm Anatomy Cranium: normal Choroid plexus: normal Midline falx: normal Cavum septi pellucidi: not visualized Cerebellum: normal Cisterna magna: normal Head / Neck Rt lateral ventricle: abnormal Rt lateral ventricle: ventriculomegaly 1.4 cm Lt lateral ventricle: abnormal Lt lateral ventricle: ventriculomegaly 1.7 cm Vermis: normal Neck: normal Nuchal fold: normal Lips: normal Profile: normal Nose: normal Face Maxilla: normal Mandible: normal Orbits: normal Lens: normal 4-chamber view: normal RVOT view: normal LVOT view: normal 3-vessel view: normal 5-xhyqvu-ykydumc view: normal Heart / Thorax Situs: situs solitus (normal) Aortic arch view: normal SVC: normal IVC: normal Cardiac axis: normal Rt lung: normal Lt lung: normal Diaphragm: normal Cord insertion: normal Stomach: normal Kidneys: normal Bladder: normal Genitals: normal Abdomen Abdom. wall: normal Cervical spine: normal Thoracic spine: suboptimally visualized Lumbar spine: suboptimally visualized Sacral spine: suboptimally visualized Arms: normal Legs: normal Rt upper arm: normal Rt forearm: normal Rt hand: normal Rt fingers: normal Lt upper arm: normal Lt forearm: normal Lt hand: normal Lt fingers: normal Rt upper leg: normal Rt lower leg: normal Rt foot: normal Lt upper leg: normal Lt lower leg: normal Lt foot: normal sex: female Wants to know sex: yes Maternal Structures Uterus / Cervix Uterus: Visualized Cervix: Visualized Approach: Transabdominal Cervical length 37.4 mm Other: Patient declined transvaginal ultrasound for cervical length. Ovaries / Tubes / Adnexa Rt ovary: Not visualized Lt ovary: Visualized Performed By: Ban Andres RDMS, RVT Read By: Marciano Verduzco D.O. MATERNAL MEDICINE [facility] Examination level ultrasound on 02-16-2025 Radiology Study observation (narrative) [facility] [id number] PLUSon 01-08-2025 Cell-free DNA./Cell-adilia e DNA.total Dosage of chromosome-specifi c cfDNA (cfDNA) [Molar fraction] 20% Normal [facility] Comment on above: Order Comment: Speci men Type: BLOOD SPECIMEN Ordering Facility: [facility] Address: [address] [place] [address] Performed By: #### 5 195-3, 08544-2, 75813-1 #### [facility] CLIA [id number] [address] [place] [address] [place] Chr 13+18+21+X+Y aneuploidy Dosage of chromosome-specifi c cfDNA Ql (cfDNA) Negative Normal [facility] Comment on above: Order Comment: Speci men Type: BLOOD SPECIMEN Ordering Facility: [facility] Address: [address] [place] [address] Performed By: #### 5 195-3, 34917-0, 56396-2 #### [facility] CLIA [id number] [address] [place] [address] [place] Chr 21 trisomy Dosage of chromosome-specifi c cfDNA Ql (cfDNA) Negative Normal [facility] Comment on above: Order Comment: Speci men Type: BLOOD SPECIMEN Ordering Facility: [facility] Address: [address] [place] [address] Performed By: #### 5 195-3, 95838-8, 47546-5 #### [facility] CLIA [id number] [address] [place] [address] [place] Chr X and Y aneuploidy risk Sequencing Ql (cfDNA) [Interp] Not detected Normal [facility] Comment on above: Order Comment: Speci men Type: BLOOD SPECIMEN Ordering Facility: [facility] Address: [address] [place] [address] Result Comment: Not Detected Not Detected Performed By: #### 5 195-3, 81500-0, 14320-3 #### [facility] CLIA [id number] [address] [place] [address] [place] Citation Flex (Reference lab test) Comment Normal [facility] Comment on above: Order Comment: Speci men Type: BLOOD SPECIMEN Ordering Facility: [facility] Address: [address] [place] [address] Result Comment: 1. P segun MONTES, et al. [place] Med. 2012;14(3):296-305. 2. Dario PARDO et al. Prenat Diag. 2013;33(6):591-597. 3. Usman Zelaya, et al. Clin Chem. 2015 Apr;61(4):608-616. 4. Rober MONTES, et al. [place] Med. 2011;13(11):913-920. 5. ACOG/SMFM Practice Bulletin No. 226, Mar 2020. Performed By: #### 5 195-3, 80208-9, 02761-4 #### [facility] CLIA [id number] [address] [place] [address] [place] Gestational age Estimated from conception date Bass Normal [facility] Comment on above: Order Comment: Speci men Type: BLOOD SPECIMEN Ordering Facility: [facility] Address: [address] [place] [address] Performed By: #### 5 195-3, 26277-4, 82225-5 #### [facility] CLIA [id number] [address] [place] [address] [place] GESTATIONALAGE AGE > OR = 9W Yes Normal [facility] Comment on above: Order Comment: Speci men Type: BLOOD SPECIMEN Ordering Facility: [facility] Address: [address] [place] [address] Performed By: #### 5 195-3, 84334-6, 48254-3 #### [facility] CLIA [id number] [address] [place] [address] [place] Laboratory comment Felx (Report) Comment Normal [facility] Comment on above: Order Comment: Radha orellana Type: BLOOD SPECIMEN Ordering Facility: [facility] Address: [address] [place] [address] Result Comment: The MaterniT(R) 21 PLUS laboratory-developed test (LDT) analyzes circulating cell-free DNA from a maternal blood sample. This test is used for screening purposes and not diagnostic. Clinical correlation is recommended. Validation data on twin pregnancies is limited and the ability of this test to detect aneuploidy in higher multiple gestations has not yet been validated. Performed By: #### 5 195-3, 53594-9, 32131-7 #### [facility] CLIA [id number] [address] [place], [place] [id number] [place] care program director name Nom (Provider) Comment Normal [facility] Comment on above: Order Comment: Radha orellana Type: BLOOD SPECIMEN Ordering Facility: [facility] Address: [address] [place] [address] Result Comment: This specimen showed an expected representation of chromosome 21, 18 and 13 material. Clinical correlation is suggested. Comment Kory Dee MD, PhD, Director, [employer] Performed By: #### 5 195-3, 24188-1, 29129-8 #### [facility] CLIA [id number] [address] [place], [place] [id number] [place] LIMITATIONS OF THE TEST Comment Normal [facility] Comment on above: Order Comment: Radha orellana Type: BLOOD SPECIMEN Ordering Facility: [facility] Address: [address] [place] [address] Result Comment: Carlos mccann the results of these tests are highly reliable, discordant results, including inaccurate sex prediction, may occur due to placental, maternal, or mosaicism or neoplasm; vanishing twin; prior maternal organ transplant; or other causes. These tests are screening tests and not diagnostic; they do not replace the accuracy and precision of diagnosis with CVS or amniocentesis. A patient with a positive test result should be referred for genetic counseling and offered invasive diagnosis for confirmation of test results.[5] The results of this testing, including the benefits and limitations, should be discussed with a qualified healthcare provider. management decisions, including termination of the , should not be based on the results of these tests alone. The healthcare provider is responsible for the use of this information in the management of their patient. Sex chromosomal aneuploidies are not reportable for known multiple gestations. A negative result does not ensure an unaffected nor does it exclude the possibility of other chromosomal abnormalities or defects which are not a part of these tests. An uninformative result may be reported, the causes of which may include, but are not limited to, insufficient sequencing coverage, noise or artifacts in the region, amplification or sequencing bias, or insufficient fraction. These tests are not intended to identify pregnancies at risk for neural tube defects or ventral wall defects. Testing for whole chromosome abnormalities (including sex chromosomes) and for subchromosomal abnormalities could lead to the potential discovery of both and maternal genomic abnormalities that could have major, minor, or no, clinical significance. Evaluating the significance of a positive or a non-reportable result may involve both invasive testing and additional studies on the mother. Such investigations may lead to a diagnosis of maternal chromosomal or subchromosomal abnormalities, which on occasion may be associated with benign or malignant maternal neoplasms. These tests may not accurately identify triploidy, balanced rearrangements, or the precise location of subchromosomal duplications or deletions; these may be detected by diagnosis with CVS or amniocentesis. The ability to report results may be impacted by maternal BMI, maternal weight, maternal systemic lupus erythematosus (SLE) and/or by certain pharmaceutical agents such as low molecular weight heparin (for example: Lovenox(R), Xaparin(R), Clexane(R) and Fragmin(R)). Performed By: #### 5 195-3, 85507-1, 58824-9 #### [facility] CLIA [id number] [address] [place] [address] [place] Monosomy X risk Dosage of chromosome-specifi c cfDNA Ql (Plasma cell-free+WBC DNA) [Interp] Not detected Normal [facility] Comment on above: Order Comment: Speci men Type: BLOOD SPECIMEN Ordering Facility: [facility] Address: [address] [place] [address] Performed By: #### 5 195-3, 51443-3, 25894-9 #### [facility] CLIA [id number] [address] [place] [address] NEGATIVE PREDICTIVE VALUE Note Normal [facility] Comment on above: Order Comment: Radha esteban Type: BLOOD SPECIMEN Ordering Facility: [facility] Address: [address] [place] [address] Result Comment: The Negative Predictive Value (NPV) for trisomy 21, 18, and 13 is greater than 99%. The NPV for SCA and ESS cannot be calculated as SCA and ESS are only reported when an abnormality is detected. Performed By: #### 5 195-3, 93977-2, 63742-5 #### [facility] CLIA [id number] [address] [place] [address] PERFORMANCE CHARACTERISTICS Note Normal [facility] Comment on above: Order Comment: Radha esteban Type: BLOOD SPECIMEN Ordering Facility: [facility] Address: [address] [place] [address] Result Comment: ! Sex ! Accuracy: 99.4% ! ! ! ! Region (associated syndrome) ! Est. Sens# ! Est. Spec ! ! ! ! Trisomy 21 (Down Syndrome) ! 99.1% ! 99.9% ! ! ! ! Trisomy 18 (Agarwal Syndrome) ! >99.9% ! 99.6% ! ! ! ! Trisomy 13 ([place] Syndrome) ! 91.7% ! 99.7% ! ! ! ! Sex Chromosome Aneuploidies## ! 96.2% ! 99.7% ! ! ! * As reported in ISCA database nstd37 [https://www.ncbi.nlm.nih.gov/dbvar/studies/nstd37/ ] # Estimated Sensitivity. Sensitivity estimated across the observed size distribution of each syndrome [per ISCA database nstd37] and across the range of fractions observed in routine clinical NIPT. Actual sensitivity can also be influenced by other factors such as the size of the event, total sequence counts, amplification bias, or sequence bias. ## Bass gestation only. Performed By: #### 5 195-3, 21533-9, 53834-1 #### [facility] CLIA [id number] [address] [place] [address] [place] POSITIVE PREDICTIVE VALUE N/A Normal [facility] Comment on above: Order Comment: Speci men Type: BLOOD SPECIMEN Ordering Facility: [facility] Address: [address] [place] [address] Performed By: #### 5 195-3, 68235-7, 59210-1 #### [facility] CLIA [id number] [address] [place] [address] [place] Reference Lab Test Method Comment Normal [facility] Comment on above: Order Comment: Speci men Type: BLOOD SPECIMEN Ordering Facility: [facility] Address: [address] [place] [address] Result Comment: Circ ulating cell-free DNA was purified from the plasma component of maternal blood. The extracted DNA was then converted into a genomic DNA library for aneuploidy analysis of chromosomes 21, 18, and 13 via next generation sequencing.[1] Optional findings based on the test order include sex chromosome aneuploidy (SCA)[2], and enhanced sequencing series (ESS)[3], which will only be reported on as an additional finding when an abnormality is detected. SCA testing includes information on X and Y representation, while ESS testing includes deletions in selected regions (22q, 15q, 11q, 8q, 5p, 4p, 1p) and trisomy of chromosomes 16 and 22. Performed By: #### 5 195-3, 16292-9, 91785-9 #### [facility] CLIA [id number] [address] [place] [address] [place] Service comment (Unsp spec) [Interp] Comment Normal [facility] Comment on above: Order Comment: Speci men Type: BLOOD SPECIMEN Ordering Facility: [facility] Address: [address] [place] [address] Result Comment: [employer] is a subsidiary of [employer], using the brand [employer]. This test was developed and its performance characteristics determined by [employer]. It has not been cleared or approved by the Food and Drug Administration. This laboratory is certified under the Clinical Laboratory Improvement Amendments (CLIA) as qualified to perform high complexity clinical laboratory testing and accredited by the [employer] (CAP). If there is future clinical need for adding MaterniT GENOME testing, this specimen will be available until term. [facility] samples will not be retained beyond 60 days. [facility] patients will have to send a new sample for re-sequencing ([facility] Test Code: [id number]). Performed By: #### 5 195-3, 00194-2, 49708-6 #### [facility] CLIA [id number] [address] [place] [address] [place] Sex Dosage of chromosome-specifi c cfDNA Nom (cfDNA) Comment Normal [facility] Comment on above: Order Comment: Speci men Type: BLOOD SPECIMEN Ordering Facility: [facility] Address: [address] [place] [address] Result Comment: Cons istent with Female Performed By: #### 5 195-3, 78016-7, 27530-3 #### [facility] CLIA [id number] [address] [place] [address] [place] Test performance information Flex (Unsp spec) Comment Normal [facility] Comment on above: Order Comment: Speci men Type: BLOOD SPECIMEN Ordering Facility: [facility] Address: [address] [place] [address] Result Comment: The performance characteristics of the MaterniT(R) 21 PLUS laboratory-developed test (LDT) have been determined in a clinical validation study with women at increased risk for chromosomal aneuploidy.[1-4] Performed By: #### 5 195-3, 99918-1, 77944-0 #### [facility] CLIA [id number] [address] [place] [address] [place] Trisomy 13 risk Dosage of chromosome-specifi c cfDNA Ql (cfDNA) [Interp] Negative Normal [facility] Comment on above: Order Comment: Speci men Type: BLOOD SPECIMEN Ordering Facility: [facility] Address: [address] [place] [address] Performed By: #### 5 195-3, 46434-2, 51599-1 #### [facility] CLIA [id number] [address] [place] [address] [place] Trisomy 18 risk Dosage of chromosome-specifi c cfDNA Ql (Plasma cell-free+WBC DNA) [Interp] Negative Normal [facility] Comment on above: Order Comment: Speci men Type: BLOOD SPECIMEN Ordering Facility: [facility] Address: [address] [place] [address] Performed By: #### 5 195-3, 11701-4, 93717-1 #### [facility] CLIA [id number] [address] [place] [address] [place] CNPNon 01-02-2025 CNPN Telephone (OBGYWM) -- MICHELLE CHOI ([id number]) 1 F Date Time Provider Department 01/02/25 SOMMER GARCIA OBGYWM During your visit today, we recorded the following information about you: Livia Mcintosh RN 01/02/2025 8:17 AM Signed 13w6d C/o n/v. Able to keep waffles down last night and milk. Unable to keep anything else down including water/gatorade. She has been taking Vitamin B6, but not Unisom. Asking if she can get something more for nausea. No available openings today to discuss since schedules are on hold. Please advise. THERESE Kennedy Rebecca L, MD 01/02/2025 8:49 AM Signed ok for VV to discuss w/ anyone w/ opening today. MD Yayo Thurston Trisha, RN 01/02/2025 8:53 AM Signed Patient notified and scheduled for today. Livia Mcintosh RN Allergies As of Date: 01/02/2025 Noted Allergy Reaction CIPROFLOXACIN 08/16/2023 4 - Hives AMOXICILLIN 09/15/2022 4 - Hives NITROFURANTOIN MONOHYD/M-CRYST 08/15/2023 4 - Hives PENICILLINS 09/15/2022 4 - Hives Date Reviewed: 12/22/2024 Reviewed by: Primitivo Delgado MD - Fully Assessed Reason for Visit: Nausea AND Vomiting [237] Prescriptions as of 01/02/2025 - famotidine (PEPCID) 20 mg tablet Take 1 tablet by mouth two times a day. - aspirin, enteric coated (ECOTRIN LOW STRENGTH) 81 mg EC tablet Take 1 tablet by mouth daily at bedtime. Starting at 12 weeks. - PNV no.95/ferrous fum/folic ac ( ORAL) Take by mouth. 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 History of miscarriage [Z87.59] 11/24/2024 Nausea and vomiting during (HCC) [O21*11/24/2024 Penicillin allergy [Z88.0] 11/24/2024 Supervision of normal ([facility]) [Z34.90] 11/24/2024 Encounter Status:Closed by LIVIA MCINTOSH on 01/02/25 Normal [facility] CBC W Auto Differential pane l (Bld)on 12-22-2024 Basophils (Bld) [#/Vol] 0.04 10*3/uL Normal <0.11 [facility] Comment on above: Order Comment: Speci men Type: BLOOD SPECIMEN Ordering Facility: [facility] Address: [address] [place] [address] Performed By: #### 5 195-3, 46365-0, 45009-8 #### [facility] CLIA [id number] [address] [place] [address] [place] Basophils/100 WBC (Bld) 0.4 % Normal [facility] Comment on above: Order Comment: Speci men Type: BLOOD SPECIMEN Ordering Facility: [facility] Address: [address] [place] [address] Performed By: #### 5 195-3, 77181-9, 79025-2 #### [facility] CLIA [id number] [address] [id number] [address] [place] Differential cell count method Nom (Bld) Auto Normal [facility] Comment on above: Order Comment: Speci men Type: BLOOD SPECIMEN Ordering Facility: [facility] Address: [address] [place] [address] Performed By: #### 5 195-3, 07965-9, 09605-8 #### [facility] CLIA [id number] [address] [place] [address] [place] Eosinophils (Bld) [#/Vol] 0.11 10*3/uL Normal <0.46 [facility] Comment on above: Order Comment: Speci men Type: BLOOD SPECIMEN Ordering Facility: [facility] Address: [address] [place] [address] Performed By: #### 5 195-3, 08319-5, 13876-0 #### [facility] CLIA [id number] [address] [place] [address] [place] Eosinophils/100 WBC (Bld) 1.2 % Normal [facility] Comment on above: Order Comment: Speci men Type: BLOOD SPECIMEN Ordering Facility: [facility] Address: [address] [place] [address] Performed By: #### 5 195-3, 26572-1, 70653-5 #### [facility] CLIA [id number] [address] [place] [address] [place] Erythrocyte distribution width (RBC) [Ratio] 11.6 % Normal 11.5-15.0 [facility] Comment on above: Order Comment: Speci men Type: BLOOD SPECIMEN Ordering Facility: [facility] Address: [address] [place] [address] Performed By: #### 5 195-3, 62656-8, 60958-4 #### [facility] CLIA [id number] [address] [place] [address] [place] Hematocrit (Bld) [Volume fraction] 37.7 % Normal 36.0-46.0 [facility] Comment on above: Order Comment: Speci men Type: BLOOD SPECIMEN Ordering Facility: [facility] Address: [address] [place] [address] Performed By: #### 5 195-3, 85653-7, 64845-9 #### [facility] CLIA [id number] [address] [place] [address] [place] Hemoglobin (Bld) [Mass/Vol] 13.4 g/dL Normal 11.5-15.5 [facility] Comment on above: Order Comment: Speci men Type: BLOOD SPECIMEN Ordering Facility: [facility] Address: [address] [place] [address] Performed By: #### 5 195-3, 03791-2, 33621-9 #### [facility] CLIA [id number] [address] [place] [address] [place] Immature granulocytes (Bld) [#/Vol] 10*3/uL Normal <0.10 [facility] Comment on above: Order Comment: Speci men Type: BLOOD SPECIMEN Ordering Facility: [facility] Address: [address] [place] [address] Performed By: #### 5 195-3, 22929-0, 26645-4 #### [facility] CLIA [id number] [address] [place] [address] [place] Immature granulocytes/100 WBC (Bld) 0.2 % Normal [facility] Comment on above: Order Comment: Speci men Type: BLOOD SPECIMEN Ordering Facility: [facility] Address: [address] [place] [address] Performed By: #### 5 195-3, 87672-8, 85534-3 #### [facility] CLIA [id number] [address] [place] [address] [place] Lymphocytes (Bld) [#/Vol] 1.93 10*3/uL Normal 1.00-4.00 [facility] Comment on above: Order Comment: Speci men Type: BLOOD SPECIMEN Ordering Facility: [facility] Address: [address] [place] [address] Performed By: #### 5 195-3, 36344-2, 90902-7 #### [facility] CLIA [id number] [address] [place] [address] [place] Lymphocytes/100 WBC (Bld) 20.4 % Normal [facility] Comment on above: Order Comment: Speci men Type: BLOOD SPECIMEN Ordering Facility: [facility] Address: [address] [place] [address] Performed By: #### 5 195-3, 75111-4, 11116-8 #### [facility] CLIA [id number] [address] [place] [address] [place] MCH (RBC) [Entitic mass] 32.4 pg Normal 26.0-34.0 [facility] Comment on above: Order Comment: Speci men Type: BLOOD SPECIMEN Ordering Facility: [facility] Address: [address] [place] [address] Performed By: #### 5 195-3, 40633-0, 16852-2 #### [facility] CLIA [id number] [address] [place] [address] [place] MCHC (RBC) [Mass/Vol] 35.5 g/dL Normal 30.5-36.0 [facility] Comment on above: Order Comment: Speci men Type: BLOOD SPECIMEN Ordering Facility: [facility] Address: [address] [place] [address] Performed By: #### 5 195-3, 17633-1, 57591-8 #### [facility] CLIA [id number] [address] [place] [address] [place] MCV (RBC) [Entitic vol] 91.3 fL Normal 80.0-100.0 [facility] Comment on above: Order Comment: Speci men Type: BLOOD SPECIMEN Ordering Facility: [facility] Address: [address] [place] [address] Performed By: #### 5 195-3, 49501-4, 47220-1 #### [facility] CLIA [id number] [address] [place] [address] [place] Monocytes (Bld) [#/Vol] 0.54 10*3/uL Normal <0.87 [facility] Comment on above: Order Comment: Speci men Type: BLOOD SPECIMEN Ordering Facility: [facility] Address: [address] [place] [address] Performed By: #### 5 195-3, 97226-8, 65293-7 #### [facility] CLIA [id number] [address] [place] [address] [place] Monocytes/100 WBC (Bld) 5.7 % Normal [facility] Comment on above: Order Comment: Speci men Type: BLOOD SPECIMEN Ordering Facility: [facility] Address: [address] [place] [address] Performed By: #### 5 195-3, 42081-2, 86768-3 #### [facility] CLIA [id number] [address] [place] [address] [place] Neutrophils (Bld) [#/Vol] 6.80 10*3/uL Normal 1.45-7.50 [facility] Comment on above: Order Comment: Speci men Type: BLOOD SPECIMEN Ordering Facility: [facility] Address: [address] [place] [address] Performed By: #### 5 195-3, 25877-4, 75865-4 #### [facility] CLIA [id number] [address] [place] [address] [place] Neutrophils/100 WBC (Bld) 72.1 % Normal [facility] Comment on above: Order Comment: Speci men Type: BLOOD SPECIMEN Ordering Facility: [facility] Address: [address] [place] [address] Performed By: #### 5 195-3, 09436-7, 38578-5 #### [facility] CLIA [id number] [address] [place] [address] [place] Nucleated RBC (Bld) [#/Vol] 10*3/uL Normal <0.01 [facility] Comment on above: Order Comment: Speci men Type: BLOOD SPECIMEN Ordering Facility: [facility] Address: [address] [place] [address] Performed By: #### 5 195-3, 31191-4, 31932-4 #### [facility] CLIA [id number] [address] [place] [address] [place] Nucleated RBC/100 WBC (Bld) [Ratio] 0.0 /100 WBC Normal [facility] Comment on above: Order Comment: Speci men Type: BLOOD SPECIMEN Ordering Facility: [facility] Address: [address] [place] [address] Performed By: #### 5 195-3, 99952-3, 42085-1 #### [facility] CLIA [id number] [address] [place] [address] [place] Platelet mean volume (Bld) [Entitic vol] 9.4 fL Normal 9.0-12.7 [facility] Comment on above: Order Comment: Speci men Type: BLOOD SPECIMEN Ordering Facility: [facility] Address: [address] [place] [address] Performed By: #### 5 195-3, 67342-0, 45399-5 #### [facility] CLIA [id number] [address] [place] [address] [place] Platelets (Bld) [#/Vol] 191 10*3/uL Normal 150-400 [facility] Comment on above: Order Comment: Speci men Type: BLOOD SPECIMEN Ordering Facility: [facility] Address: [address] [place] [address] Performed By: #### 5 195-3, 23094-5, 44816-4 #### [facility] CLIA [id number] [address] [place], [place] [address] [place] RBC (Bld) [#/Vol] 4.13 10*6/uL Normal 3.90-5.20 [facility] Comment on above: Order Comment: Speci men Type: BLOOD SPECIMEN Ordering Facility: [facility] Address: [address] [place] [address] Performed By: #### 5 195-3, 89240-7, 20117-9 #### [facility] CLIA [id number] [address] [place] [address] [place] WBC (Bld) [#/Vol] 9.44 10*3/uL Normal 3.70-11.00 [facility] Comment on above: Order Comment: Speci men Type: BLOOD SPECIMEN Ordering Facility: [facility] Address: [address] [place] [address] Performed By: #### 5 195-3, 92989-7, 59230-2 #### [facility] CLIA [id number] [address] [place] [address] [place] Examination level ultrasound on 12-22-2024 Indication First trimester anatomic survey Impression The patient is referred for a first trimester anatomy scan including nuchal translucency measurement as clinically indicated. - Single, live, intrauterine . - [place] rump length measurement is consistent with the established gestational age. - No malformations visualized on a complete first trimester anatomic assessment. - The nuchal translucency measurement is 1.7 mm. - Not all structural malformations can be detected by ultrasound examination. Maternal Structures: Right Ovary: Size 22 mm x 22 mm x 17 mm Recommendations - An anatomic survey at 18-20 weeks is recommended given no identified risk factors. Maternal Assessment Height 155 cm Height (ft) 5 ft Height (in) 1 in Physical Exam Initial weight (lb) 135 lb Initial BMI 25.51 kg/m Maternal assessment other: 2 Para 0 REMOTE READ Method Transabdominal ultrasound examination Bass . Number of fetuses: 1 Dating LMP on: 09/27/2024 GA by LMP 12 w + 2 d ALCIRA by LMP: 07/04/2025 GA by prior assessment 12 w + 2 d ALCIRA by prior assessment: 07/04/2025 Ultrasound examination on: 12/22/2024 GA by U/S based upon: CRL GA by U/S 12 w + 3 d ALCIRA by U/S: 07/03/2025 Assigned: based on stated ALCIRA, selected on 12/22/2024 Assigned GA 12 w + 2 d Assigned ALCIRA: 07/04/2025 General Evaluation Cardiac activity present Placenta: posterior Cord vessels: 3 vessel cord Amniotic fluid: normal amount Biometry Standard FHR 157 bpm CRL 58.9 mm 12w 3d 45% Hadlock NT 1.70 mm First Trimester Anatomy Calvarium: normal Falx cerebri: normal Choroid plexus: normal Profile: normal Nasal bone: normal Retronasal triangle: normal Maxilla: normal Mandible: normal Nuchal translucency: Unremarkable Situs: normal Cardiac position: normal Cardiac axis: normal 4-chamber view: normal 4-chamber view with color: normal 3-mvjrxe-wybvhsr view: normal Abdominal cord insertion: normal Stomach: normal Kidneys: normal Bladder: normal Color doppler of perivesical umbilical arteries: normal Vertebral alignment: normal Arms: normal Hands: normal Legs: normal Feet: normal Maternal Structures Uterus / Cervix Uterus: Visualized Uterus length 98 mm Uterus width 99 mm Uterus height 69 mm Uterus Vol 347.1 cm Ovaries / Tubes / Adnexa Rt ovary: Visualized Rt ovary D1 22 mm Rt ovary D2 22 mm Rt ovary D3 17 mm Rt ovary Vol 4.3 cm Lt ovary: Not visualized Performed By: Ban Andres RDMS, RVT Read By: Carolann Barlow M.D. MATERNAL MEDICINE [facility] Radiology Study observation (narrative) [facility] HBV surface Ag Ser Qlon 12-05 HBV surface Ag Ql (S) Negative Normal Negative [facility] Comment on above: Order Comment: Speci men Type: BLOOD SPECIMEN Ordering Facility: [facility] Address: [address] [place] [address] Performed By: #### 5 195-3, 02726-0, 03610-9 #### [facility] CLIA [id number] [address] [place], [place] [address] [place] HCV Ab Ser Qlon 12-22-2024 HCV Ab Ql (S) Negative Normal Negative [facility] Comment on above: Order Comment: Speci men Type: BLOOD SPECIMEN Ordering Facility: [facility] Address: [address] [place] [address] Result Comment: The result suggests no evidence of infection with Hepatitis C virus. Should recent infection be suspected, repeat testing may be considered 4-6 weeks after this draw. Performed By: #### 5 195-3, 65495-9, 74249-4 #### [facility] CLIA [id number] [address] [place] [address] [place] HIV 1+2 Ab IA Qlon HIV 1 and 2 Ab IA.rapid Nom (S/P/Bld) Normal [facility] Comment on above: Order Comment: Speci men Type: BLOOD SPECIMEN Ordering Facility: [facility] Address: [address] [place] [address] Result Comment: Test not indicated. Performed By: #### 5 195-3, 05656-8, 85616-5 #### [facility] CLIA [id number] [address] [place] [address] [place] HIV 1+2 Ab+HIV1 p24 Ag IA Ql Non-Reactive Normal Nonreactive [facility] Comment on above: Order Comment: Speci men Type: BLOOD SPECIMEN Ordering Facility: [facility] Address: [address] [place] [address] Performed By: #### 5 195-3, 33996-9, 12712-3 #### [facility] CLIA [id number] [address] [place] [address] [place] HIV immunoassay testing algorithm interpretation (S/P/Bld) [Interp] Normal [facility] Comment on above: Order Comment: Speci men Type: BLOOD SPECIMEN Ordering Facility: [facility] Address: [address] [place] [address] Result Comment: No e vidence of HIV-1 or HIV-2 infection. Should recent infection be suspected, repeat testing may be considered 2-3 weeks after this draw. [place] Rev. Code 3701.243(E): This information has been disclosed to you from confidential records protected from disclosure by state law. You shall make no further disclosure of this information without the specific, written, and informed release of the individual to whom it pertains or as otherwise permitted by state law. A general authorization for the release of medical or other information is not sufficient for the purpose of the release of HIV test results or diagnoses. Performed By: #### 5 195-3, 86310-7, 45813-2 #### [facility] CLIA [id number] [address] [place] [address] [place] HbA1c (Bld)on 12-22-2024 Average glucose Estimated from glycated hemoglobin (Bld) [Mass/Vol] 80 mg/dL Normal [facility] Comment on above: Order Comment: Speci men Type: BLOOD SPECIMEN Ordering Facility: [facility] Address: [address] [place] [address] Result Comment: eAG: (Estimated average glucose) is a calculated value from HgbA1c and is representative government relations of the average blood glucose level in the last 2-3 month period. Performed By: #### 5 195-3, 94278-7, 79944-9 #### [facility] CLIA [id number] [address] [place] [address] [place] HbA1c (Bld) [Mass fraction] 4.4 % Normal 4.3-5.6 [facility] Comment on above: Order Comment: Speci men Type: BLOOD SPECIMEN Ordering Facility: [facility] Address: [address] [place] [address] Result Comment: [place] Diabetes Association guidelines indicate that patients with HgbA1c in the range 5.7-6.4% are at increased risk for development of diabetes, and intervention by lifestyle modification may be beneficial. HgbA1c greater or equal to 6.5% is considered diagnostic of diabetes. Performed By: #### 5 195-3, 17350-6, 51904-9 #### [facility] CLIA [id number] [address] [place] [address] [place] RUBELLA IGG ANTIBODYon 12-22 RUBELLA IGG AB, QUAL Positive Normal Positive [facility] Comment on above: Order Comment: Radha orellana Type: BLOOD SPECIMEN Ordering Facility: [facility] Address: [address] [place] [address] Result Comment: The result suggests recent or past exposure to Rubella virus or history of Rubella vaccination. Positive result may also be seen due to presence of passively-transferred antibodies. Please correlate with patient's history. Performed By: #### 5 195-3, 89298-8, 65305-8 #### [facility] CLIA [id number] [address] [place] [address] [place] Reagin and Treponema pallidu m IgG and IgM [Interp]on 12-22-2024 T. pallidum IgG+IgM IA Ql (S) Non-Reactive Normal Nonreactive [facility] Comment on above: Order Comment: Radha orellana Type: BLOOD SPECIMEN Ordering Facility: [facility] Address: [address] [place] [address] Performed By: #### 5 195-3, 82703-9, 22803-1 #### [facility] CLIA [id number] [address] [place] [address] [place] Reagin+T pallidum IgG+IgM Se rPl-Impon 12-22-2024 Reagin and Treponema pallidum IgG and IgM [Interp] Cannot exclude recent Treponemal infection if specimen collected within 7-10 days after appearance of suspect lesions or 2-3 weeks after an exposure. Clinical correlation is required. Normal [facility] Comment on above: Order Comment: Radha orellana Type: BLOOD SPECIMEN Ordering Facility: [facility] Address: [address] [place] [address] Performed By: #### 5 195-3, 56050-7, 76508-2 #### [facility] CLIA [id number] [address] [place] [address] [place] TYPE + SCREEN PRENATALon ABO O Normal [facility] Comment on above: Order Comment: Speci men Type: BLOOD SPECIMEN Ordering Facility: [facility] Address: [address] [place] [address] Performed By: #### 5 195-3, 08605-6, 03283-9 #### [facility] CLIA [id number] [address] [place] [address] [place] Rh Nom (Bld) Positive Normal [facility] Comment on above: Order Comment: Speci men Type: BLOOD SPECIMEN Ordering Facility: [facility] Address: [address] [place] [address] Performed By: #### 5 195-3, 22359-8, 23127-6 #### [facility] CLIA [id number] [address] [place] [address] [place] TYPE AND SCREEN EXPIRATION 12/25/2024 23:59 Normal [facility] Comment on above: Order Comment: Speci men Type: BLOOD SPECIMEN Ordering Facility: [facility] Address: [address] [place] [address] Performed By: #### 5 195-3, 04383-5, 28363-5 #### [facility] CLIA [id number] [address] [place] [address] [place] Bacteria Ur Culton Bacteria identified Cx Nom (U) ORGANISM ID: 1 50,000-<100,000 CFU/ml Normal urogenital cameron Normal [facility] Comment on above: Performed By: #### 6 30-4 ####[facility] [id number] [place] [address] [place] C. trachomatis+N. gonorrhoea e DNA JASMIN+probe Ql (Unsp spec)on 11-24-2024 C. trachomatis rRNA JASMIN+probe Ql (Unsp spec) Not detected Normal Not detected [facility] Comment on above: Order Comment: Speci men Type: BLOOD SPECIMEN Ordering Facility: [facility] Address: [address] [place] [address] Performed By: #### 5 195-3, 79033-4, 21950-2 #### [facility] CLIA [id number] [address] [place] [address] [place] N. gonorrhoeae rRNA JASMIN+probe Ql (Unsp spec) Not detected Normal Not detected [facility] Comment on above: Order Comment: Speci men Type: BLOOD SPECIMEN Ordering Facility: [facility] Address: [address] [place] [address] Performed By: #### 5 195-3, 07968-3, 22176-4 #### [facility] CLIA [id number] [address] [place] [address] [place] PAP TESTon 11-24-2024 ADEQUACY Normal [facility] Comment on above: Order Comment: Speci men Type: BLOOD SPECIMEN Ordering Facility: [facility] Address: [address] [place] [address] Result Comment: Sati sfactory for interpretation. Transformation zone present Performed By: #### 5 195-3, 93897-6, 30111-5 #### [facility] CLIA [id number] [address] [place] [address] [place] CASE REPORT Normal [facility] Comment on above: Order Comment: Speci men Type: BLOOD SPECIMEN Ordering Facility: [facility] Address: [address] [place] [address] Result Comment: Gyne cologic Cytology Report Case: [id number] Authorizing Provider: Champ Rawls APRN.ENGINE DYNAMOMETER TESTER Collected: 11/24/2024 11:37 AM Ordering Location: OB/Gynecology Received: 11/24/2024 04:25 PM First Screen: Giuseppe Colbert Tech Specimen: Pap Test, ThinPrep, Cervix Performed By: #### 5 195-3, 10087-7, 57441-5 #### [facility] CLIA [id number] [address] [place], [place] [address] [place] CLINICAL HISTORY, CYTOLOGY, CLOSET ORGANIZER Routine Exam Normal [facility] Comment on above: Order Comment: Speci men Type: BLOOD SPECIMEN Ordering Facility: [facility] Address: [address] [place] [address] Performed By: #### 5 195-3, 82399-5, 92533-2 #### [facility] CLIA [id number] [address] [place] [address] [place] FINAL PERFORMING LAB Normal [facility] Comment on above: Order Comment: Speci men Type: BLOOD SPECIMEN Ordering Facility: [facility] Address: [address] [place] [address] Result Comment: Maddy nictrey component, ripshear operator screening performed at: [facility], [address] [place], [place] [address] CLIA: [id number] Diagnostic interpretation performed at: [facility], [address] [place], [place] [address] CLIA# [id number] Whizzer Hand: Tien Covarrubias MD Performed By: #### 5 195-3, 74025-5, 28436-2 #### [facility] CLIA [id number] [address] [place] [address] [place] INTERPRETATION, CYTOLOGY, CLOSET ORGANIZER Normal [facility] Comment on above: Order Comment: Speci men Type: BLOOD SPECIMEN Ordering Facility: [facility] Address: [address] [place] [address] Result Comment: Nega tive for intraepithelial lesion or malignancy. at 1446 EDT Performed By: #### 5 195-3, 81684-5, 97054-1 #### [facility] CLIA [id number] [address] [place], [place] [address] [place] LMP 09/27/2024 Normal [facility] Comment on above: Order Comment: Speci men Type: BLOOD SPECIMEN Ordering Facility: [facility] Address: [address] [place] [address] Performed By: #### 5 195-3, 30685-4, 28333-8 #### [facility] CLIA [id number] [address] [place] [address] [place] PAP DISCLAIMER COMMENT The Pap Smear is a screening test for cervical cancer. False negative results occur with all screening tests, emphasizing the need for rescreening at recommended intervals, and clinical correlation. Normal [facility] Comment on above: Order Comment: Speci men Type: BLOOD SPECIMEN Ordering Facility: [facility] Address: [address] [place] [address] Performed By: #### 5 195-3, 90121-3, 06380-3 #### [facility] CLIA [id number] [address] [place] [address] [place] PAP HULL SORTER COMMENT This specimen has be en analyzed by the FDA-approved SapientTM System, which uses digital imaging and an enhanced artificial intelligence image analysis algorithm to identify goff of interest on the microscopic slide, to assist the scientific informatics leader and pathologist in evaluating cells on ThinPrep Pap tests. Following analysis, goff of interest on the microscopic slide selected by the algorithm are reviewed by a scientific informatics leader. If a sample requires hierarchical review, the pathologist will review the same goff of interest selected by the algorithm prior to final interpretation. Normal [facility] Comment on above: Order Comment: Speci men Type: BLOOD SPECIMEN Ordering Facility: [facility] Address: [address] [place] [address] Performed By: #### 5 195-3, 06399-9, 76163-4 #### [facility] CLIA [id number] [address] [place] [address] [place] TRICHOMONAS VAGINALIS NAATon 11-24-2024 T. vaginalis DNA JASMIN+probe Ql (Unsp spec) Not detected Normal Not detected [facility] Comment on above: Order Comment: Speci men Type: BLOOD SPECIMEN Ordering Facility: [facility] Address: [address] [place] [address] Performed By: #### 5 195-3, 93589-3, 03823-3 #### [facility] CLIA [id number] [address] [place] [address] [place] [address] [place] US Pelvison 11-12-2024 Indication Pelvic pain in Impression Multiplanar images of the pelvic organs were obtained. - Single, live, intrauterine . - An intrauterine gestational sac with a yolk sac and pole is present. - [place] rump length measurement is consistent with the established gestational age. - heart rate is within normal limits. Recommendations Follow up for 1st Trimester Anatomy with Nuchal Translucency as clinically indicated if desired. Method Transabdominal ultrasound examination, Transvaginal ultrasound examination, 3D ultrasound examination, Color Doppler examination. View: Adequate visualization Bass . Number of embryos: 1 Dating LMP on: 09/27/2024 GA by LMP 6 w + 2 d ALCIRA by LMP: 07/04/2025 Ultrasound examination on: 11/10/2024 GA by U/S based upon: CRL GA by U/S 6 w + 1 d ALCIRA by U/S: 07/05/2025 Assigned: based on the LMP, selected on 11/10/2024 Assigned GA 6 w + 2 d Assigned ALCIRA: 07/04/2025 Biometry Standard FHR 122 bpm CRL 4.6 mm 6w 1d 5% Hadlock Extended YS 1.8 mm <1% Grisolia Assessment Gestational sac: visualized Location: intrauterine Yolk sac: visualized YS 1.8 mm <1% Grisolia Embryo: visualized CRL 4.6 mm 6w 1d 5% Hadlock Cardiac activity: present FHR 122 bpm Maternal Structures Uterus / Cervix Uterus: Visualized Uterus position: anteverted Description of uterine malformations: normally shaped Myometrium: normal Uterus length 89 mm Uterus width 61 mm Uterus height 46 mm Uterus Vol 129.7 cm Endometrium: normal Fibroids: No fibroids identified Cervix details: normal Ovaries / Tubes / Adnexa Rt ovary: Visualized Rt ovary morphology: premenopausal normal follicular Rt ovary D1 36 mm Rt ovary D2 22 mm Rt ovary D3 18 mm Rt ovary Vol 7.5 cm Rt ovarian corpus luteum: cystic with fine diffuse internal echoes Rt ovarian corpus luteum D1 23.6 mm Rt ovarian corpus luteum D2 15.8 mm Rt ovarian corpus luteum D3 11.7 mm Lt ovary morphology: premenopausal normal follicular Lt ovary D1 35 mm Lt ovary D2 10 mm Lt ovary D3 12 mm Lt ovary Vol 2.1 cm Cul de Sac / Bladder / Kidneys / Other Cul de Sac: Visualized Free fluid: no free fluid visualized Performed By: Itzel Panda RDMS Read By: Slime Calero M.D. MATERNAL MEDICINE [facility] US Pelvison 11-10-2024 Radiology Study observation (narrative) [facility] CNPNon 11-07-2024 CNPN Telephone (OBGYWM) -- MICHELLE CHOI ([id number]) 1 F Date Time Provider Department 11/07/24 NICOLE SIDDIQUI During your visit today, we recorded the following information about you: Livia Mcintosh RN 11/07/2024 8:19 AM Signed Patient had 2nd hcg quant done with [facility]. Scanned into [facility] and linked below. Saw SW on 11/03. Please review since she is out of office today. hCG Quantitative, Blood (mIU/mL) Date Value 11/03/2024 3,845.0 At [facility] 11/06/2024 9,953.0 At [facility] Scan on 11/07/2024 8:13 AM by Provider, External, PAAlondra: HCG Quant THERESE Kennedy Jessica, APRN.CNM 11/07/2024 8:39 AM Signed Serum hCG increasing. Due to pain and history of SAB, would recommend formal ultrasound this week with visit to follow. Thank you, Nicole Siddiqui APRN.Elena Church RN 11/07/2024 9:49 AM Signed Pt notified. Appts scheduled. Elena Ritter RN Allergies As of Date: 11/07/2024 Noted Allergy Reaction CIPROFLOXACIN 08/16/2023 4 - Hives AMOXICILLIN 09/15/2022 4 - Hives NITROFURANTOIN MONOHYD/M-CRYST 08/15/2023 4 - Hives PENICILLINS 09/15/2022 4 - Hives Date Reviewed: 11/03/2024 Reviewed by: Ella Jaimes MA - Fully Assessed Reason for Visit: Results [95] Primary Visit Diagnosis:Bloody show and cramping in early (HCC) [O20.0] Other Visit Diagnosis:Pelvic pain in (HCC) [O26.899, R10.2] Order(s):PELVIC US WHI [[id number]] Order #: [id number]: 1 FUTURE Problem List As Of Date: 11/07/2024 (None) Encounter Status:Closed by ELENA RITTER on 11/07/24 Normal [facility] B-HCG SerPl-aCncon HCG.beta subunit Qn 3845.0 m[IU]/mL High <5.0 [facility] Comment on above: Order Comment: Speci men Type: BLOOD SPECIMEN Ordering Facility: [facility] Address: [address] [place] [address] Result Comment: CHINTAN TITATIVE HCG NORMAL RANGES Weeks of Gestation (Weeks Since LMP) 3 Weeks (5.8-71.2 mIU/mL) 4 Weeks (9.5-750 mIU/mL) 5 Weeks (217-7138 mIU/mL) 6 Weeks (158-01851 mIU/mL) 7 Weeks (3697-853249 mIU/mL) 8 Weeks (02264-201833 mIU/mL) 9 Weeks (94618-360729 mIU/mL) 10 Weeks (21744-839742 mIU/mL) 12 Weeks (40963-883733 mIU/mL) Referenced to 4th IS of [facility] Performed By: #### 5 195-3, 79425-0, 97022-2 #### [facility] CLIA [id number] [address] [place] [address] [place] [address] [place] BACTERIAL VAGINOSIS NAATon 0 11-03-2024 Lactobacillus crispatus+gasseri+ jensenii + Gardnerella vaginalis + Atopobium vaginae rRNA JASMIN+probe Ql (Vag fld) Not detected Normal Not detected [facility] Comment on above: Order Comment: Speci men Type: BLOOD SPECIMEN Ordering Facility: [facility] Address: [address] [place] [address] Performed By: #### 5 195-3, 58211-4, 03536-7 #### [facility] CLIA [id number] [address] [place] [address] [place] C. trachomatis+N. gonorrhoea e DNA JASMIN+probe Ql (Unsp spec)on 11-03-2024 C. trachomatis rRNA JASMIN+probe Ql (Unsp spec) Not detected Normal Not detected [facility] Comment on above: Order Comment: Speci men Type: BLOOD SPECIMEN Ordering Facility: [facility] Address: [address] [place] [address] Performed By: #### 5 195-3, 63777-5, 28253-7 #### [facility] CLIA [id number] [address] [place] [address] [place] N. gonorrhoeae rRNA JASMIN+probe Ql (Unsp spec) Not detected Normal Not detected [facility] Comment on above: Order Comment: Speci men Type: BLOOD SPECIMEN Ordering Facility: [facility] Address: [address] [place] [address] Performed By: #### 5 195-3, 17526-6, 60988-9 #### [facility] CLIA [id number] [address] [place] [address] [place] ANA MARIA/TRICHOMONAS NAATon 0 11-03-2024 C. glabrata RNA JASMIN+probe Ql (Vag fld) Not detected Normal Not detected [facility] Comment on above: Order Comment: Speci men Type: BLOOD SPECIMEN Ordering Facility: [facility] Address: [address] [place] [address] Performed By: #### 5 195-3, 16449-3, 12325-0 #### [facility] CLIA [id number] [address] [place] [address] [place] Ana Maria sp DNA JASMIN+probe Ql (Vag fld) Not detected Normal Not detected [facility] Comment on above: Order Comment: Speci men Type: BLOOD SPECIMEN Ordering Facility: [facility] Address: [address] [place] [address] Result Comment: The Ana Maria species group target includes C. albicans, C. tropicalis, C. parapsilosis, and C. dubliniensis. Performed By: #### 5 195-3, 05952-0, 42488-7 #### [facility] CLIA [id number] [address] [place] [address] [place] T. vaginalis DNA JASMIN+probe Ql (Unsp spec) Not detected Normal Not detected [facility] Comment on above: Order Comment: Speci men Type: BLOOD SPECIMEN Ordering Facility: [facility] Address: [address] [place] [address] Performed By: #### 5 195-3, 72105-9, 08555-8 #### [facility] CLIA [id number] [address] [place] [address] [place] CNOVon 11-03-2024 CNOV Office Visit (OBGYWM ) -- MICHELLE CHOI ([id number]) 1 F Date Time Provider Department 11/03/24 9:00 AM CHANCE GOMEZ OBCHANDLER During your visit today, we recorded the following information about you: Blood pressure Weight 100/64 62.8 kg Chance Gomez MD 11/03/2024 9:45 AM Signed Hat Sizer offered: Patient declines. Michelle Choi is a 19 year old female who presents for problem visit - LLQ pain, diarrhea, vaginal discharge. HPI: LMP approximately 09/26/24. Regular menstrual cycles since SAB. Had recent SAB. Has a left sided pressure pain that started yesterday. At times also has pain on the right side. Pain 3/10. The pain comes and goes. Nothing that makes the pain worse or better. No bleeding. The vaginal discharge and diarrhea started a few days ago. Tolerating PO. One episode of diarrhea a day. No fevers, chills, vomiting. No vaginal itching, burning, discomfort. OB History Gravida0 Para0 Term0 Preterm0 AB0 Living0 SAB0 IAB0 Ectopic0 Multiple0 Live Births0 Hydrochloric Acid Operator History LMP: 09/27/2024 (Exact Date), Having periods Age at Menarche: 8 Age at First : Age at Menopause: Hydrochloric Acid Operator History Comments: Sexual Activity: Yes; Male Contraception: None Menstrual Tracking History Flowsheet Row Office Visit from 05/26/2024 in OB/Gynecology Period Cycle (Days) 4 Period Duration (Days) 3 Menstrual Flow Light PAST MEDICAL HISTORY Diagnosis Date NEGATIVE MEDICAL HISTORY PAST SURGICAL HISTORY Procedure Laterality Date NONE FAMILY HISTORY Problem Relation Age of Onset Cancer Mother 30's- vaginal cancer Social History Tobacco Use Smoking status: Never Smokeless tobacco: Never Vaping Use Vaping status: Former Substance Use Topics Alcohol use: Not Currently Drug use: Not Currently No current outpatient medications on file. No current facility-administered medications for this visit. Allergies As of Date: 11/03/2024 Allergen Noted Reaction CIPROFLOXACIN 08/16/2023 Hives AMOXICILLIN 09/15/2022 Hives NITROFURANTOIN MONOHYD/M-CRYST 08/15/2023 Hives PENICILLINS 09/15/2022 Hives Fully Assessed 11/03/2024 REVIEW OF SYSTEMS Expanded ROS: See HPI. Allergies and current medication updated:Yes SENSITIVE EXAM: The sensitive examination was discussed with the Patient or Patient's Authorized Loan Officer Assistant. As applicable, any other physician, advance practice provider, medical student, or other health professional student that will be observing or involved in the sensitive examination for educational or training purposes was discussed with the Patient or Authorized Loan Officer Assistant. The Patient or Authorized Loan Officer Assistant has agreed to proceed with the sensitive examination. (Sensitive examination includes inspection and/or palpation of the breasts, pelvis, prostate and anorectal regions). EXAM: BP 100/64 Wt 138 lb 6.4 oz (62.8kg) LMP 09/27/2024 GENERAL: pleasant, female in no apparent distress HEENT: Normocephalic and atraumatic NECK: full range of motion DERMATOLOGY: Normal and without lesions CHEST: Normal inspiratory effort ABDOMEN: Non tender, soft, non distended, no rebounding, no guarding, no rigidity PELVIC: external genitalia normal, normal Bartholin's glands, urethra, [place]'s glands, no vulvar lesions, no cervical lesions, good vaginal support, physiologic discharge present, normal appearing perineal body and perianal region NEURO: exam grossly non-focal EXTREMITIES: normal ASSESSMENT AND PLAN: Assessment AND Plan Vaginal discharge Orders: BACTERIAL VAGINOSIS NAAT ANA MARIA/TRICHOMONAS NAAT GONORRHEA/CHLAMYDIA NAAT Early stage of (HCC) Orders: HCG QUANTITATIVE; Future HCG QUANTITATIVE; Future Pelvic pain during (HCC) Orders: HCG QUANTITATIVE; Future HCG QUANTITATIVE; Future History of miscarriage Check vaginal swabs as noted above. Discussed miscarriage and ectopic precautions. Serial HCG ordered. Chance Gomez, Medical Decision Making: Problems: Moderate: New problem with uncertain prognosis Data: Unique test(s) ordered: 3+ Medical Decision Making Level: 4 - Moderate Allergies As of Date: 11/03/2024 Noted Allergy Reaction CIPROFLOXACIN 08/16/2023 4 - Hives AMOXICILLIN 09/15/2022 4 - Hives NITROFURANTOIN MONOHYD/M-CRYST 08/15/2023 4 - Hives PENICILLINS 09/15/2022 4 - Hives Date Reviewed: 11/03/2024 Reviewed by: Ella Jaimes MA - Fully Assessed Reason for Visit: Follow Up [171] Cmt: Cramping Primary Visit Diagnosis:Pelvic pain during (HCC) [O26.899, R10.2] Other Visit Diagnoses:Vaginal discharge [N89.8] Early stage of (HCC) [Z34.90] History of miscarriage [Z87.59] Order(s):BACTERIAL VAGINOSIS NAAT [SQBVAMP] Order #: [id number]. #:[id number] ANA MARIA/TRICHOMONAS NAAT [SQCVTV] Order #: [id number]. #:[id number] GONORRHEA/CH (more content not included)... Normal [facility] CNPNon 11-02-2024 [facility] Telephone (OBGYWM) -- JIMBOMICHELLE M ([id number]) 1 F Date Time Provider Department 11/02/24 SOMMER GARCIA OBGYWM During your visit today, we recorded the following information about you: Elena Ritter RN 11/02/2024 9:20 AM Signed LMP 09/26/24, ega 5w2d Pt states this is her 3rd and other 2 ended in a miscarriage. Pt calling stating she is having left sided lower abdominal cramping. Sitting improves cramping. Has not taken tylenol. Denies vaginal bleeding. States at worse pain is 4/10. Pt states more nervous with past miscarriages. Advised Pt that she can take tylenol to see if it helps and may take 1,000mg every 6 hours as needed. Advised Pt to continue to monitor for severe abdominal pain AND vaginal bleeding and if noted to call the office/go to ER. Pt voiced understanding. Pt has NOB appt scheduled on 11/17. Advised Pt that would route message to o/c MD and if further guidance is needed, she'd be notified. THERESE Mcdonnell Rebecca L, MD 11/02/2024 9:54 AM Signed offer appointment tomorrow w/ SW she will be in office in am. MD Wing Thurston Tara, RN 11/02/2024 10:03 AM Signed Called Pt and offered appt. Appt scheduled with SW tomorrow. Elena Ritter RN Allergies As of Date: 11/02/2024 Noted Allergy Reaction CIPROFLOXACIN 08/16/2023 4 - Hives AMOXICILLIN 09/15/2022 4 - Hives NITROFURANTOIN MONOHYD/M-CRYST 08/15/2023 4 - Hives PENICILLINS 09/15/2022 4 - Hives Date Reviewed: 10/07/2024 Reviewed by: Marion Pulido OCCA - Fully Assessed Reason for Visit: Left lower abdominal cramping early [Other] Problem List As Of Date: 11/02/2024 (None) Medications Discontinued During This Encounter Prescriptions - FLUoxetine (PROZAC) 20 mg capsule (Discontinued) Reported on 08/21/2024 - hydrOXYzine HCl (ATARAX) 25 mg tablet (Discontinued) Reported on 08/21/2024 - meloxicam (MOBIC) 7.5 mg tablet (Discontinued) Reported on 08/21/2024 - Norgestimate-Ethinyl Estradiol 0.18/0.215/0.25 mg-35 mcg (28) (Discontinued) Reported on 08/21/2024 - SUMAtriptan (IMITREX) 100 mg tablet (Discontinued) Reported on 08/21/2024 Encounter Status:Closed by ELENA RITTER on 11/02/24 [facility] CNOVon 10-07-2024 CNOV Office Visit (UCWSTR ) -- MICHELLE CHOI ([id number]) 1 F Date Time Provider Department 10/07/24 1:45 PM [facility] During your visit today, we recorded the following information about you: Temperature Pulse Respiration Blood pressure 97.2 degrees 70/minute 16/minute 110/78 Weight Last Period 62.8 kg 09/27/24 Travis Browne PA 10/07/2024 1:57 PM Signed [facility] Subjective Michelle Choi is a 19 year old female. Patient presents with: Derm Problem: Possible poison fani on bilateral legs, bilateral arms, abdomen and back x 10 days, denies open sores HPI 19-year-old female presents for possible poison fani. She states that she noticed a rash on her legs, arms, abdomen, back for the past 10 days. Started on the arms, but has now spread. She states it is itchy. She has been using poison fani spray and lotion [id number] without improvement. She denies any fevers. No get difficulty swallowing or breathing. She states she was outside, but unknown if she was exposed to anything specific. No new medications, detergents, body washes, foods or medications. PAST MEDICAL HISTORY Diagnosis Date NEGATIVE MEDICAL HISTORY PAST SURGICAL HISTORY Procedure Laterality Date NONE ALLERGIES Ciprofloxacin, Amoxicillin, Nitrofurantoin Monohyd/M-Cryst, and Penicillins MEDICATIONS predniSONE (DELTASONE) 10 mg tablet Take 4 tabs daily x 3 days, then 3 tabs x 3 days, 2 tabs x 3 days, then 1 tab x3 days with food. meloxicam (MOBIC) 7.5 mg tablet Take 1 tablet by mouth once daily. (Patient not taking: Reported on 08/21/2024) hydrOXYzine HCl (ATARAX) 25 mg tablet Take by mouth. (Patient not taking: Reported on 08/21/2024) SUMAtriptan (IMITREX) 100 mg tablet (Patient not taking: Reported on 08/21/2024) FLUoxetine (PROZAC) 20 mg capsule Take 20 mg by mouth once daily. (Patient not taking: Reported on 08/21/2024) Norgestimate-Ethinyl Estradiol 0.18/0.215/0.25 mg-35 mcg (28) Take 1 tablet by mouth once daily. (Patient not taking: Reported on 08/21/2024) FAMILY HISTORY Problem Relation Age of Onset Cancer Mother 30's- vaginal cancer Social History Tobacco Use Smoking status: Never Smokeless tobacco: Never Vaping Use Vaping status: Former Substance Use Topics Alcohol use: Not Currently Drug use: Not Currently Review of Systems Constitutional: Negative for chills and fever. HENT: Negative for sore throat. Skin: Positive for rash. Objective BP 110/78 (BP Site: Left Arm, BP Position: Sitting) Pulse 70 Temp 36.2 ?C (97.2 ?F) Resp 16 Wt 62.8 kg (138 lb 7.2 oz) LMP 09/27/2024 (Exact Date) SpO2 99% BMI 26.79 kg/m? Physical Exam Vitals and nursing note reviewed. Constitutional: General: She is not in acute distress. Appearance: Normal appearance. She is not toxic-appearing. Skin: General: Skin is warm and dry. Findings: Rash present. Comments: Erythematous raised rash noted over bilateral arms, back, abdomen, legs. Some linear lesions. No drainage. No fluctuance or abscess. No oral or facial involvement Neurological: Mental Status: She is alert. {ASSESSMENT/PLAN: 1. Allergic contact dermatitis, unspecified trigger - ICD9: 692.9, ICD10: L23.9 - Oral Steriod tx -Prednisone taper - Anti itch therapy of Calomine lotion and Oral Benydryl recommended prn - discussed skin care of rash - follow up if symptoms persist or worsen. Diagnosis and treatment plan were discussed and questions were answered to the patient's satisfaction. Pt acknowledged understanding of concepts and follow up plan. Specific signs and symptoms that would indicate the need for higher level of care were discussed in detail warranting prompt ER evaluation. NOHEMI Serrato History and Record Review External record(s) reviewed: prior outpatient record. Differential Diagnoses - Contact dermatitis is more likely for the following reason(s): suggested by HANDP - Herpes zoster is less likely for the following reason(s): HANDP not suggestive - Cellulitis is less likely for the following reason(s): HANDP not suggestive Disposition The patient was discharged. Procedures Allergies As of Date: 10/07/2024 Noted Allergy Reaction CIPROFLOXACIN 08/16/2023 4 - Hives AMOXICILLIN 09/15/2022 4 - Hives NITROFURANTOIN MONOHYD/M-CRYST 08/15/2023 4 - Hives PENICILLINS 09/15/2022 4 - Hives Date Reviewed: 10/07/2024 Reviewed by: Marion Pulido OCCA - Fully Assessed Reason for Visit: Derm Problem [33] Cmt: Possible poison fani on bilateral legs, bilateral arms, abdomen and back x 10 days, denies open sores Primary Visit Diagnosis:Allergic contact dermatitis, unspecified trigger [L23.9] Order(s):predniSONE (DELTASONE) 10 mg tabletTake 4 tabs daily x 3 days, then 3 tabs x 3 days, 2 tabs x 3 days, then 1 tab x3 days with food.Disp: 30 tabletRfl: 0 Prescription (more content not included)... Normal [facility] Lactobacillus crispatus+gasseri+ jensenii + Gardnerella vaginalis + Atopobium vaginae rRNA JASMIN+probe Ql (Vag fld) Not detected Normal Not detected [facility] Comment on above: Order Comment: Speci men Type: SWAB Ordering Facility: [facility] Address: [address] [place] [address] Performed By: #### B VAMP #### [facility] CLIA [id number] [address] [place] [address] [place] Bacteria Ur Culton 5 Bacteria identified Cx Nom (U) ORGANISM ID: 1 >=100,000 CFU/ml Normal urogenital cameron Normal [facility] Comment on above: Performed By: #### 5 195-3, 14323-2, 10846-9 #### [facility] CLIA [id number] [address] [place] [address] [place] CNOVon 08-21-2024 CNOV Office Visit (UCWSTR ) -- MICHELLE CHOI Allan ([id number]) 1 F Date Time Provider Department 08/21/24 5:15 PM [facility] During your visit today, we recorded the following information about you: Temperature Pulse Respiration Blood pressure 99.1 degrees 78/minute 16/minute 110/76 Weight 62.2 kg Juancarlos Carmen APRN.ENGINE DYNAMOMETER TESTER 08/21/2024 5:58 PM Signed This note was created using NoteWriter. Subjective Michelle Choi is a 19 year old female. HPI Pt has had pelvic and back pain with intercourse and urination. Review of Systems Constitutional: Negative for fever. Gastrointestinal: Negative for nausea and vomiting. Genitourinary: Positive for dyspareunia and frequency. Negative for hematuria. Objective BP 110/76 Pulse 78 Temp 37.3 ?C (99.1 ?F) Resp 16 Wt 62.2 kg (137 lb 2 oz) LMP 06/09/2024 SpO2 99% BMI 26.54 kg/m? Physical Exam Vitals and nursing note reviewed. Constitutional: General: She is not in acute distress. Appearance: Normal appearance. She is not ill-appearing. HENT: Head: Normocephalic. Mouth/Throat: Mouth: Mucous membranes are moist. Eyes: Conjunctiva/sclera: Conjunctivae normal. Cardiovascular: Rate and Rhythm: Normal rate and regular rhythm. Pulmonary: Effort: Pulmonary effort is normal. Breath sounds: Normal breath sounds. Abdominal: Palpations: Abdomen is soft. Tenderness: There is no abdominal tenderness. There is no right CVA tenderness, left CVA tenderness or guarding. Musculoskeletal: General: Normal range of motion. Cervical back: Normal range of motion. Skin: General: Skin is warm and dry. Neurological: General: No focal deficit present. Mental Status: She is alert. Psychiatric: Mood and Affect: Mood normal. Behavior: Behavior normal. Assessment and Plan ASSESSMENT/PLAN: 1. Pelvic pressure in female - ICD9: 625.8, ICD10: R10.2 -Urinalysis negative today with no nitrates or leukocytes noted. Urine was sent for culture and should be treated based on culture results. Patient denies any concerns for STDs. She is approximately 3 weeks out from miscarriage with a negative test today. She did self swab for trichomonas and BV with no treatment initiated at this time and patient should be treated according to test results. Patient was otherwise instructed that she should continue to follow-up with STONECUTTER if symptoms are not improving - UA DIP, URINE (POC) - BACTERIAL CULTURE, URINE - BACTERIAL VAGINOSIS NAAT - TRICHOMONAS VAGINALIS NAAT Juancarlos Carmen APRN.ENGINE DYNAMOMETER TESTER Allergies As of Date: 08/21/2024 (No Known Allergies) Date Reviewed: 08/21/2024 Reviewed by: Juancarlos Carmen APRN.ENGINE DYNAMOMETER TESTER - Fully Assessed Reason for Visit: Pelvic Pain [282] Cmt: low back pain x 3 days Primary Visit Diagnosis:Pelvic pressure in female [R10.2] Order(s):UA DIP, URINE (POC) [[id number]] Order #: [id number]. #:[id number] 0-LAB BACTERIAL CULTURE, URINE [SQURCUL] Order #: [id number]. #:[id number] BACTERIAL VAGINOSIS NAAT [SQBVAMP] Order #: [id number]. #:[id number] TRICHOMONAS VAGINALIS NAAT [SQTRVAMP] Order #: [id number] FUTURE UA DIP,URINE HCG (POC) [2141150] Order #: [id number]. #:[id number] 0-LAB TRICHOMONAS VAGINALIS NAAT [SQTRVAMP] Order #: [id number]. #:[id number] Prescriptions as of 08/21/2024 - meloxicam (MOBIC) 7.5 mg tablet Take 1 tablet by mouth once daily. - hydrOXYzine HCl (ATARAX) 25 mg tablet Take by mouth. - SUMAtriptan (IMITREX) 100 mg tablet - FLUoxetine (PROZAC) 20 mg capsule Take 20 mg by mouth once daily. - Norgestimate-Ethinyl Estradiol 0.18/0.215/0.25 mg-35 mcg (28) Take 1 tablet by mouth once daily. Problem List As Of Date: 08/21/2024 (None) Encounter Status:Closed by JUANCARLOS CARMEN on 08/21/24 Normal [facility] UA DIP, URINE (POC)on 2024 BILIRUBIN UA (POCT) Negative Negative [facility] CLARITY UA (POCT) Clear [facility] COLOR UA (POCT) Yellow [facility] GLUCOSE UA (POCT) Negative Negative mg/dL [facility] Hemoglobin Ql (U) Trace-intact Abnormal Negative [facility] Interpretation and review of laboratory results Abnormal [facility] KETONE UA (POCT) Negative Negative mg/dL [facility] LEUKOCYTES UA (POCT) Negative Negative [facility] NITRITE UA (POCT) Negative Negative [facility] PH UA (POCT) 6.5 4.5 - 8.0 [facility] Protein Ql (U) Negative Negative mg/dL [facility] SPECIFIC GRAVITY UA (POCT) 1.01 1.005 - 1.030 [facility] UROBILINOGEN UA (POCT) 0.2 Normal E.U./dL [facility] Location:[facility], [address], [place], [address] [facility] POINT OF CARE [facility] UA DIP,URINE HCG (POC)on Beta HCG ( test) Ql (U) Negative Negative [facility] Comment on above: Location:[facility], [address], [place], [address] Occupational Therapist Aide (POCT) Internal QC OK [facility] Location:[facility], [address], [place], [address] [facility] POINT OF CARE [facility] B-HCG SerPl-aCncon 5 HCG.beta subunit Qn 205.0 m[IU]/mL High <5.0 [facility] Comment on above: Order Comment: Speci men Type: BLOOD SPECIMEN Ordering Facility: [facility] Address: [address] [place] [address] Result Comment: CHINTAN TITATIVE HCG NORMAL RANGES Weeks of Gestation (Weeks Since LMP) 3 Weeks (5.8-71.2 mIU/mL) 4 Weeks (9.5-750 mIU/mL) 5 Weeks (217-7138 mIU/mL) 6 Weeks (158-38882 mIU/mL) 7 Weeks (3697-649542 mIU/mL) 8 Weeks (28458-533951 mIU/mL) 9 Weeks (12683-625607 mIU/mL) 10 Weeks (70505-852654 mIU/mL) 12 Weeks (71935-504682 mIU/mL) Referenced to 4th IS of [facility] Performed By: #### 5 195-3, 11813-0, 60422-7 #### [facility] CLIA [id number] [address] [place] [address] [place] B-HCG SerPl-aCncon 5 HCG.beta subunit Qn 564.0 m[IU]/mL High <5.0 [facility] Comment on above: Order Comment: Speci men Type: BLOOD SPECIMEN Ordering Facility: [facility] Address: [address] [place] [address] Result Comment: CHINTAN TITATIVE HCG NORMAL RANGES Weeks of Gestation (Weeks Since LMP) 3 Weeks (5.8-71.2 mIU/mL) 4 Weeks (9.5-750 mIU/mL) 5 Weeks (217-7138 mIU/mL) 6 Weeks (158-86456 mIU/mL) 7 Weeks (3697-599544 mIU/mL) 8 Weeks (12558-964150 mIU/mL) 9 Weeks (92248-007941 mIU/mL) 10 Weeks (15570-094313 mIU/mL) 12 Weeks (14524-618522 mIU/mL) Referenced to 4th IS of [facility] Performed By: #### 5 195-3, 02833-4, 91363-6 #### [facility] CLIA [id number] [address] [place] [address] [place] CNCOon 08-01-2024 CNCO Letter Text Normal [facility] BASIC METABOLIC PANELon 07-09 Anion gap [Moles/Vol] 17 mmol/L Normal 10-20 [facility] Comment on above: Order Comment: [facility] has implemented the eGFR calculation approach that does not have a coefficient for race that conforms to the NKF-ASN Task Force Recommendations. Performed By: #### 4 6124 #### LAB [address] [place], [place] [address] David Santos M.D. [id number] Calcium [Mass/Vol] 9.5 mg/dL Normal 8.4-10.2 [facility] Comment on above: Order Comment: [facility] has implemented the eGFR calculation approach that does not have a coefficient for race that conforms to the NKF-ASN Task Force Recommendations. Performed By: #### 4 6124 #### LAB [address] [place], [place] [address] David Santos M.D. [id number] Chloride [Moles/Vol] 106 mmol/L Normal 98-108 [facility] Comment on above: Order Comment: [facility] has implemented the eGFR calculation approach that does not have a coefficient for race that conforms to the NKF-ASN Task Force Recommendations. Performed By: #### 4 6124 #### LAB [address] [place] [address] David Santos M.D. [id number] Creatinine [Mass/Vol] 0.78 mg/dL Normal 0.40-1.10 [facility] Comment on above: Order Comment: [facility] has implemented the eGFR calculation approach that does not have a coefficient for race that conforms to the NKF-ASN Task Force Recommendations. Performed By: #### 4 6124 #### LAB [address] [place] [address] David Santos M.D. [id number] EGFR 111 mL/min/1.73 m2 Normal >=60 [facility] Comment on above: Order Comment: [facility] has implemented the eGFR calculation approach that does not have a coefficient for race that conforms to the NKF-ASN Task Force Recommendations. Result Comment: Ovi mated GFR was calculated using the 2020 CKD-EPI creatinine equation. Performed By: #### 4 6124 #### LAB [address] [place] [address] David Santos M.D. [id number] Glucose [Mass/Vol] 93 mg/dL Normal 65-99 [facility] Comment on above: Order Comment: [facility] has implemented the eGFR calculation approach that does not have a coefficient for race that conforms to the NKF-ASN Task Force Recommendations. Performed By: #### 4 6124 #### LAB [address] [place] [address] David Santos M.D. [id number] HCO3 (Bld) [Moles/Vol] 22 mmol/L Normal 21-32 [facility] Comment on above: Order Comment: [facility] has implemented the eGFR calculation approach that does not have a coefficient for race that conforms to the NKF-ASN Task Force Recommendations. Performed By: #### 4 6124 #### LAB [address] [place] [address] David Santos M.D. [id number] Potassium [Moles/Vol] 4.6 mmol/L Normal 3.5-5.1 [facility] Comment on above: Order Comment: [facility] has implemented the eGFR calculation approach that does not have a coefficient for race that conforms to the NKF-ASN Task Force Recommendations. Result Comment: Slig htly Hemolyzed Performed By: #### 4 6124 #### [facility] [address] [place] [address] David Santos M.D. [id number] Sodium [Moles/Vol] 140 mmol/L Normal 135-145 [facility] Comment on above: Order Comment: [facility] has implemented the eGFR calculation approach that does not have a coefficient for race that conforms to the NKF-ASN Task Force Recommendations. Performed By: #### 4 6124 #### LAB [address] [place] [address] David Santos M.D. [id number] Urea nitrogen [Mass/Vol] 10 mg/dL Normal 8-25 [facility] Comment on above: Order Comment: [facility] has implemented the eGFR calculation approach that does not have a coefficient for race that conforms to the NKF-ASN Task Force Recommendations. Performed By: #### 4 6124 #### LAB [address] [place] [address] David Santos M.D. [id number] Urea nitrogen/Creatinin e [Mass ratio] 12.8 mg/mg Normal 10.0-20.0 [facility] Comment on above: Order Comment: [facility] has implemented the eGFR calculation approach that does not have a coefficient for race that conforms to the NKF-ASN Task Force Recommendations. Performed By: #### 4 6124 #### LAB [address] [place] [address] David Santos M.D. [id number] CBC WITH AUTO DIFFERENTIALon 07-28-2024 AUTO NRBC 0.0 % Normal [facility] Comment on above: Performed By: #### L [id number] #### [facility] [address] [place] [address] David Santos M.D. [id number] AUTO NRBC ABS COUNT 0.00 K/mcL Normal 0.00-0.00 [facility] Comment on above: Performed By: #### L [id number] #### LAB [address] [place] [address] David Santos M.D. [id number] BASOPHILS ABSOLUTE COUNT 0.04 K/mcL Normal 0.00-0.30 [facility] Comment on above: Performed By: #### L [id number] #### LAB [address] [place] [address] David Santos M.D. [id number] Basophils/100 WBC (Bld) 0.4 % Normal [facility] Comment on above: Performed By: #### L [id number] #### LAB [address] [place] [address] David Santos M.D. [id number] Eosinophils (Bld) [#/Vol] 0.09 10*3/uL Normal 0.00-0.50 [facility] Comment on above: Performed By: #### L [id number] #### LAB [address] [place] [address] David Santos M.D. [id number] Eosinophils/100 WBC (Bld) 0.9 % Normal [facility] Comment on above: Performed By: #### L [id number] #### LAB [address] [place] [address] David Santos M.D. [id number] Erythrocyte distribution width (RBC) [Ratio] 11.8 % Normal 11.6-14.8 [facility] Comment on above: Performed By: #### L [id number] #### LAB [address] [place] [address] David Santos M.D. [id number] Hematocrit (Bld) [Volume fraction] 44.8 % Normal 36.0-46.0 [facility] Comment on above: Performed By: #### L [id number] #### LAB [address] [place] [address] David Santos M.D. [id number] Hemoglobin (Bld) [Mass/Vol] 15.0 g/dL Normal 12.0-16.0 [facility] Comment on above: Performed By: #### L [id number] #### LAB [address] [place] [address] David Santos M.D. [id number] IG ABSOLUTE 0.04 K/mcL Normal 0.00-0.30 [facility] Comment on above: Performed By: #### L [id number] #### [facility] [address] [place] [address] David Santos M.D. [id number] IG PERCENT 0.40 % Normal [facility] Comment on above: Result Comment: The IG parameter is the percentage of metamyelocytes, myelocytes and promyelocytes. An immature granulocyte count (IG) of 1% or more suggests the possibility of infection, an IG count of 3% is very likely related to an infection. Performed By: #### L [id number] #### LAB [address] [place] [address] David Santos M.D. [id number] Lymphocytes (Bld) [#/Vol] 2.67 10*3/uL Normal 0.90-4.00 [facility] Comment on above: Performed By: #### L [id number] #### LAB [address] [place] [address] David Santos M.D. [id number] Lymphocytes/100 WBC (Bld) 28.0 % Normal [facility] Comment on above: Performed By: #### L [id number] #### [facility] [address] [place] [address] David Santos M.D. [id number] MCH (RBC) [Entitic mass] 32.2 pg Normal 26.0-34.0 [facility] Comment on above: Performed By: #### L [id number] #### LAB [address] [place] [address] David Santos M.D. [id number] MCV (RBC) [Entitic vol] 96.1 fL Normal 80.0-100.0 [facility] Comment on above: Performed By: #### L [id number] #### LAB [address] [place] [address] David Santos M.D. [id number] MEAN CORPUSCULAR HEMOGLOBIN CONC 33.5 g/dL Normal 31.0-37.0 [facility] Comment on above: Performed By: #### L [id number] #### LAB [address] [place] [address] David Santos M.D. [id number] Monocytes (Bld) [#/Vol] 0.56 10*3/uL Normal 0.30-0.90 [facility] Comment on above: Performed By: #### L [id number] #### LAB [address] [place] [address] David Santos M.D. [id number] Monocytes/100 WBC (Bld) 5.9 % Normal [facility] Comment on above: Performed By: #### L [id number] #### LAB [address] [place] [address] David Santos M.D. [id number] NEUTROPHILS ABSOLUTE COUNT 6.14 K/mcL Normal 1.70-7.00 [facility] Comment on above: Performed By: #### L [id number] #### LAB [address] [place] [address] David Santos M.D. [id number] Neutrophils/100 WBC (Bld) 64.4 % Normal [facility] Comment on above: Performed By: #### L [id number] #### LAB [address] [place] [address] David Santos M.D. [id number] Platelet mean volume (Bld) [Entitic vol] 9.7 fL Normal 9.4-12.4 [facility] Comment on above: Performed By: #### L [id number] #### LAB [address] [place] [address] David Santos M.D. [id number] Platelets (Bld) [#/Vol] 198 10*3/uL Normal 150-400 [facility] Comment on above: Performed By: #### L [id number] #### [facility] [address] [place], [place] [address] David Santos M.D. [id number] RBC (Bld) [#/Vol] 4.66 10*6/uL Normal 4.00-5.20 [facility] Comment on above: Performed By: #### L [id number] #### [facility] [address] [place], [place] [address] David Santos M.D. [id number] WBC (Bld) [#/Vol] 9.54 10*3/uL Normal 4.50-11.00 [facility] Comment on above: Performed By: #### L [id number] #### [facility] [address] [place], [place] [address] David Santos M.D. [id number] ED Prov Noteon 07-28-2024 ED Prov Note [facility] EMERGENCY DEPARTMENT [place] NOTE: NAME: Michelle Choi CSN: [id number] 19 y.o. PCP: Freddy Lee PA-C History: Chief Complaint: Vaginal Bleeding HPI: The history was obtained from the patient. Michelle is a 19 y.o. female who presents with a chief complaint of Vaginal Bleeding. Patient reports vaginal bleeding for the past 2 to 3 days. She advises it has been light spotting. Today she passed a clot got concerned. She does advise of being approximately 7 weeks . She does have an [facility] appointment set up in [place] for 07/27/2024. She rates her pain currently 2 out of 10. She did present to [facility] and was sent here for ultrasound. She advises they did not do any blood work at that time. She advises this is her first . PMHx: Past Medical History: Diagnosis Date Known health problems: none PMSx: Past Surgical History: Procedure Laterality Date WISDOM TOOTH EXTRACTION FAM. Hx: History reviewed. No pertinent family history. SOC. Hx: Social History Socioeconomic History Marital status: Single Tobacco Use Smoking status: Never Passive exposure: Never Smokeless tobacco: Never Vaping Use Vaping status: Never Used Substance and Sexual Activity Alcohol use: Never Drug use: Never MEDs: Previous Medications Medication Sig omeprazole (PRILOSEC) 40 MG capsule Take 1 (one) capsule (40 mg total) by mouth daily . sucralfate (CARAFATE) 1 gram tablet Take 1 (one) tablet (1 g total) by mouth 4 (four) times a day before meals . ALL: Allergies Allergen Reactions Amoxicillin Hives Ciprofloxacin Hives Macrobid [Nitrofurantoin Monohyd/M-Cryst] Hives Penicillins Hives ROS: Review of Systems All other systems reviewed and are negative. Positives and pertinent negatives as per HPI. All other systems were reviewed and are negative. Physical Exam: Patient Vitals for the past 24 hrs: BP Temp Temp src Pulse Resp SpO2 07/28/24 2250 111/76 98.2 degrees F (36.8 degrees C) Oral 70 18 99 % Physical Exam Vitals and nursing note reviewed. Constitutional: General: She is awake. She is not in acute distress. Appearance: She is not ill-appearing, toxic-appearing or diaphoretic. HENT: Head: Normocephalic and atraumatic. Right Ear: External ear normal. Left Ear: External ear normal. Nose: Nose normal. Mouth/Throat: Mouth: Mucous membranes are moist. Pharynx: Oropharynx is clear. Eyes: General: Lids are normal. No scleral icterus. Extraocular Movements: Extraocular movements intact. Conjunctiva/sclera: Conjunctivae normal. Pupils: Pupils are equal, round, and reactive to light. Cardiovascular: Rate and Rhythm: Normal rate and regular rhythm. Heart sounds: Normal heart sounds. No murmur heard. Pulmonary: Effort: Pulmonary effort is normal. No tachypnea or respiratory distress. Breath sounds: No wheezing. Abdominal: General: Abdomen is flat. Bowel sounds are normal. Palpations: Abdomen is soft. Skin: General: Skin is warm and dry. Capillary Refill: Capillary refill takes less than 2 seconds. Neurological: Mental Status: She is alert and oriented to person, place, and time. Psychiatric: Mood and Affect: Mood is anxious. Laboratory & Radiological Imaging (if done): Labs Reviewed URINALYSIS - Abnormal; Notable for the following components: Result Value Clarity, Urine Hazy (*) Specific [place] 1.029 (*) Blood, Urine Moderate (*) Bacteria, Urine Rare (*) Squamous Epithelial 9 (*) Amorphous Crystals Few (*) Mucus, Urine Few (*) All other components within normal limits Narrative: Microscopic examination is performed on all urinalysis samples and only positive findings are reported. The test for blood on the chemical analytic portion of urinalysis may also be positive due to hemoglobinuria and myoglobinuria and if red blood cells are present they are quantified by microscopic examination. HCG, BLOOD, QUANTITATIVE - Abnormal; Notable for the following components: hCG Quant 11,418 (*) All other components within normal limits Narrative: Males and non females: <5 mIU/mL Females during : 3-4 weeks 9-130 mIU/mL 4-5 weeks 75-2600 mIU/mL 5-6 weeks 850-20,800 mIU/mL 6-7 weeks 4000-100,200 mIU/mL 7-12 weeks 11,500-289,000 mIU/mL 12-16 weeks 18,300-137,000 mIU/mL 16-29 weeks 1,400-53,000 mIU/mL 29-41 weeks 940-60,000 mIU/mL BASIC METABOLIC PANEL - Normal Narrative: [facility] has implemented the eGFR calculation approach that does not have a coefficient for race that conforms to the NKF-ASN Task Force Recommendations. URINE AEROBIC CULTURE CBC AND DIFFERENTIAL Narrative: The following orders were created for panel order CBC w/ Diff. Procedure Abnormality Status --------- ------ CBC Auto Differential[[id number]] Final result Please view results for these tests on the individual orders. T (more content not included)... Normal [facility] ED Prov Note HPI: 07/28/2024, Time: @NORRIS@ Michelle Jimbo is a 19 y.o. female presenting to the ED for vaginal bleeding and crampy in first trimester patient is approximately 7 weeks by dates, beginning today ago. The complaint has been intermittent, moderate in severity, and worsened by nothing. No fever or chills and no urinary complaint. Patient is 1 para 0 ROS: Pertinent positives and negatives are stated within HPI, all other systems reviewed and are negative. PAST HISTORY Past Medical History: @[facility]@ Past Surgical History: has a past surgical history that includes [place] tooth extraction. Social History: reports that she has never smoked. She has never been exposed to tobacco smoke. She has never used smokeless tobacco. She reports that she does not drink alcohol and does not use drugs. Family History: family history is not on file. The patient's home medications have been reviewed. Allergies: Amoxicillin, Ciprofloxacin, Macrobid [nitrofurantoin monohyd/m-cryst], and Penicillins RESULTS All laboratory and radiology results have been personally reviewed by myself LABS: No results found for this or any previous visit. RADIOLOGY: Interpreted by Radiologist. No orders to display NURSING NOTES AND VITALS REVIEWED - The nursing notes within the ED encounter and vital signs as below have been reviewed. BP 107/74 (BP Location: Left arm, Patient Position: Sitting) Pulse 78 Temp 97.8 degrees F (36.6 degrees C) (Temporal) Resp 18 Ht 5' Wt 59 kg (130 lb) SpO2 99% BMI 25.39 kg/m Oxygen Saturation Interpretation: Normal P HYSICAL EXAM Constitutional/General: Alert and oriented x3, well appearing, non toxic in NAD Head: NC/AT Eyes: PERRL, EOMI Mouth: Oropharynx clear, handling secretions, no trismus Neck: Supple, full ROM, no meningeal signs Pulmonary: Lungs clear to auscultation bilaterally, no wheezes, rales, or rhonchi. Not in respiratory distress Cardiovascular: Regular rate and rhythm, no murmurs, gallops, or rubs. 2+ distal pulses Abdomen: Soft, non tender, non distended, Extremities: Moves all extremities x 4. Warm and well perfused Skin: warm and dry without rash Neurologic: GCS 15, Psych: Normal Affect ---- ED COURSE/MEDICAL DECISION MAKING -- Medications - No data to display Medical Decision Making: Will transfer patient over to [facility] for pelvic ultrasound to rule out ectopic patient has normal vital signs and is in no distress therefore would be sent by private auto Counseling: The emergency provider has spoken with the patient and discussed today's results, in addition to providing specific details for the plan of care and counseling regarding the diagnosis and prognosis. Questions are answered at this time and they are agreeable with the plan. ------- IMPRESSION AND DISPOSITION ------- IMPRESSION 1. Vaginal bleeding in , first trimester DISPOSITION Disposition: discharged to home Patient condition is stable Summation Patient Course: Stable ED Medications administered this visit: Medications - No data to display New Prescriptions from this visit: Follow-up: No follow-up provider specified. Final Impression: 1. Vaginal bleeding in , first trimester (Please note that portions of this note were completed with a voice recognition program. Efforts were made to edit the dictations but occasionally words are mis-transcribed.) Ethel Centeno MD 07/28/242137 AUTHENTICATED BY ETHEL CENTENO, ON 07/28/2024 21:38:51 [facility] HCG, BLOOD, QUANTITATIVEon 0 07-28-2024 HCG, QUANTITATIVE 91667 mIU/mL High 0-5 [facility] Comment on above: Order Comment: Males and non females: <5 mIU/mL Females during : 3-4 weeks 9-130 mIU/mL 4-5 weeks 75-2600 mIU/mL 5-6 weeks 850-20,800 mIU/mL 6-7 weeks 4000-100,200 mIU/mL 7-12 weeks 11,500-289,000 mIU/mL 12-16 weeks 18,300-137,000 mIU/mL 16-29 weeks 1,400-53,000 mIU/mL 29-41 weeks 940-60,000 mIU/mL Performed By: #### 4 [id number] #### LAB [address] [place], [place] [address] David Santos M.D. [id number] TYPE AND SCREENon 07-28-2024 TYPE AND SCREEN ABORH: O Positive AB SCREEN: Negative EXPIRATION DATE: 07/31/2024 23:59 EST Normal [facility] URINALYSISon 07-28-2024 AMORPHOUS CRYSTALS Few Abnormal None Seen , Rare [facility] Comment on above: Order Comment: Micro scopic examination is performed on all urinalysis samples and only positive findings are reported. The test for blood on the chemical analytic portion of urinalysis may also be positive due to hemoglobinuria and myoglobinuria and if red blood cells are present they are quantified by microscopic examination. Performed By: #### 4 6625 #### LAB [address] [place], [place] [address] David Santos M.D. [id number] BACTERIA, URINE Rare Abnormal None Seen [facility] Comment on above: Order Comment: Micro scopic examination is performed on all urinalysis samples and only positive findings are reported. The test for blood on the chemical analytic portion of urinalysis may also be positive due to hemoglobinuria and myoglobinuria and if red blood cells are present they are quantified by microscopic examination. Performed By: #### 4 6625 #### LAB [address] [place] [address] David Santos M.D. [id number] BILIRUBIN, URINE Negative Normal Negative [facility] Comment on above: Order Comment: Micro scopic examination is performed on all urinalysis samples and only positive findings are reported. The test for blood on the chemical analytic portion of urinalysis may also be positive due to hemoglobinuria and myoglobinuria and if red blood cells are present they are quantified by microscopic examination. Performed By: #### 4 6625 #### LAB [address] [place] [address] David Santos M.D. [id number] BLOOD, URINE Moderate Abnormal Negative [facility] [facility] Comment on above: Order Comment: Micro scopic examination is performed on all urinalysis samples and only positive findings are reported. The test for blood on the chemical analytic portion of urinalysis may also be positive due to hemoglobinuria and myoglobinuria and if red blood cells are present they are quantified by microscopic examination. Performed By: #### 4 6625 #### LAB [address] [address] David Santos M.D. [id number] Clarity (U) Hazy Abnormal Clear [facility] Comment on above: Order Comment: Micro scopic examination is performed on all urinalysis samples and only positive findings are reported. The test for blood on the chemical analytic portion of urinalysis may also be positive due to hemoglobinuria and myoglobinuria and if red blood cells are present they are quantified by microscopic examination. Performed By: #### 4 6625 #### LAB [address] [address] David Santos M.D. [id number] Color (U) Yellow Normal Colorless, Yellow [facility] Comment on above: Order Comment: Micro scopic examination is performed on all urinalysis samples and only positive findings are reported. The test for blood on the chemical analytic portion of urinalysis may also be positive due to hemoglobinuria and myoglobinuria and if red blood cells are present they are quantified by microscopic examination. Performed By: #### 4 6625 #### LAB [address] [id number] David Santos M.D. [id number] Glucose Ql (U) Negative Normal Negative [facility] Comment on above: Order Comment: Micro scopic examination is performed on all urinalysis samples and only positive findings are reported. The test for blood on the chemical analytic portion of urinalysis may also be positive due to hemoglobinuria and myoglobinuria and if red blood cells are present they are quantified by microscopic examination. Performed By: #### 4 6625 #### LAB [address] [address] David Santos M.D. [id number] Ketones Ql (U) Negative Normal Negative [facility] Comment on above: Order Comment: Micro scopic examination is performed on all urinalysis samples and only positive findings are reported. The test for blood on the chemical analytic portion of urinalysis may also be positive due to hemoglobinuria and myoglobinuria and if red blood cells are present they are quantified by microscopic examination. Performed By: #### 4 6625 #### LAB [address] [address] David Santos M.D. [id number] Leukocyte esterase Test strip Ql (U) Negative Normal Negative [facility] Comment on above: Order Comment: Micro scopic examination is performed on all urinalysis samples and only positive findings are reported. The test for blood on the chemical analytic portion of urinalysis may also be positive due to hemoglobinuria and myoglobinuria and if red blood cells are present they are quantified by microscopic examination. Performed By: #### 4 6625 #### LAB [address] [id number] David Santos M.D. [id number] MUCUS, URINE Few Abnormal None Seen, Rare [facility] Comment on above: Order Comment: Micro scopic examination is performed on all urinalysis samples and only positive findings are reported. The test for blood on the chemical analytic portion of urinalysis may also be positive due to hemoglobinuria and myoglobinuria and if red blood cells are present they are quantified by microscopic examination. Performed By: #### 4 6625 #### LAB [address] [address] David Santos M.D. [id number] NITRITE, URINE Negative Normal Negative [facility] Comment on above: Order Comment: Micro scopic examination is performed on all urinalysis samples and only positive findings are reported. The test for blood on the chemical analytic portion of urinalysis may also be positive due to hemoglobinuria and myoglobinuria and if red blood cells are present they are quantified by microscopic examination. Performed By: #### 4 6625 #### LAB [address] [address] David Santos M.D. [id number] pH (U) 6.5 [pH] Normal 5.0-7.0 [facility] Comment on above: Order Comment: Micro scopic examination is performed on all urinalysis samples and only positive findings are reported. The test for blood on the chemical analytic portion of urinalysis may also be positive due to hemoglobinuria and myoglobinuria and if red blood cells are present they are quantified by microscopic examination. Performed By: #### 4 6625 #### LAB [address] [address] David Santos M.D. [id number] PROTEIN, URINE Negative Normal Negative [facility] Comment on above: Order Comment: Micro scopic examination is performed on all urinalysis samples and only positive findings are reported. The test for blood on the chemical analytic portion of urinalysis may also be positive due to hemoglobinuria and myoglobinuria and if red blood cells are present they are quantified by microscopic examination. Performed By: #### 4 6625 #### LAB [address] [address] David Santos M.D. [id number] RBC LM.HPF (Urine sed) [#/Area] 1 /[HPF] Normal 0-3 [facility] Comment on above: Order Comment: Micro scopic examination is performed on all urinalysis samples and only positive findings are reported. The test for blood on the chemical analytic portion of urinalysis may also be positive due to hemoglobinuria and myoglobinuria and if red blood cells are present they are quantified by microscopic examination. Performed By: #### 4 6625 #### LAB [address] [address] David Santos M.D. [id number] Specific gravity (U) [Rel density] 1.029 High 1.005-1.025 [facility] Comment on above: Order Comment: Micro scopic examination is performed on all urinalysis samples and only positive findings are reported. The test for blood on the chemical analytic portion of urinalysis may also be positive due to hemoglobinuria and myoglobinuria and if red blood cells are present they are quantified by microscopic examination. Performed By: #### 4 6625 #### LAB [address] [place] [address] David Santos M.D. [id number] SQUAMOUS EPITHELIAL 9 /hpf High 0-4 [facility] Comment on above: Order Comment: Micro scopic examination is performed on all urinalysis samples and only positive findings are reported. The test for blood on the chemical analytic portion of urinalysis may also be positive due to hemoglobinuria and myoglobinuria and if red blood cells are present they are quantified by microscopic examination. Performed By: #### 4 6625 #### LAB [address] [place] [address] David Santos M.D. [id number] UROBILINOGEN, URINE <2.0 Normal <2.0 [facility] Comment on above: Order Comment: Micro scopic examination is performed on all urinalysis samples and only positive findings are reported. The test for blood on the chemical analytic portion of urinalysis may also be positive due to hemoglobinuria and myoglobinuria and if red blood cells are present they are quantified by microscopic examination. Performed By: #### 4 6625 #### LAB [address] [place] [address] David Santos M.D. [id number] WBC LM.HPF (Urine sed) [#/Area] 4 /[HPF] Normal 0-5 [facility] Comment on above: Order Comment: Micro scopic examination is performed on all urinalysis samples and only positive findings are reported. The test for blood on the chemical analytic portion of urinalysis may also be positive due to hemoglobinuria and myoglobinuria and if red blood cells are present they are quantified by microscopic examination. Performed By: #### 4 6625 #### LAB [address] [place] [address] David Santos M.D. [id number] URINE AEROBIC CULTUREon 07-09 URINE AEROBIC CULTURE URINE CULTURE No Growth (<1,000 CFU/mL) Normal [facility] Comment on above: Performed By: #### 4 4053 #### [facility] [address] [place], [place] [address] Aurelio Burgos M.D. [id number] US OB 1ST TRIMESTER WITH TRA NSVAGINAL AND TRANSABDOMINAL SINGLE FETUSon 07-28-2024 US OB 1ST TRIMESTER WITH TRANSVAGINAL AND TRANSABDOMINAL SINGLE FETUS EXAMINATION: PELVIC ULTRASOUND HISTORY: ORDERING SYSTEM PROVIDED HISTORY: Abnormal vaginal bleeding during ,, TECHNOLOGIST PROVIDED HISTORY: Illness/Other Reason for exam: APPROX 7 WEEKS ; VAGINAL BLEEDING Cancer History: NONE Surgery, RadiationHistory: NONE Encounter Type: Initial Additional signs and symptoms: NONE ORDERING SYSTEM PROVIDED DIAGNOSIS CODES: COMPARISON: There is no prior ultrasounds for comparison for this . TECHNIQUE: Transabdominal and transvaginal sonography of the pelvis was performed. FINDINGS: MEASUREMENTS: Uterus: 7.7 x 4.8 x 4.0 cm Right Ovary: Not visualized Left Ovary: Not visualized UTERUS: The uterus is normal in size and contour. There are no myometrial masses. There is a gestational sac with a yolk sac, pole and a heartbeat of 133 beats per minute. [place]-rump length is 0.45 cm yielding a gestational age of 6 weeks 2 days with estimated date of delivery of 03/11/2025. ADNEXA: Neither ovary is visualized. There are no adnexal masses. MISC: There is no free fluid in the pelvis. IMPRESSION: Single live intrauterine gestation. Gestational age is 6 weeks 2 days with estimated date of delivery of 03/11/2025. Workstation ID: [id number] Dictated by: CHICA BRASWELL on WedJul 28, 2024 11:49:15 PM EST Transcribed by: CHICA BRASWELL on WedJul 28, 2024 11:49:15 PM EST Finalized by: CHICA BRASWELL on WedJul 28, 2024 11:49:15 PM EST Normal [facility] Comment on above: Order Comment: Injur y/Trauma or Illness?:Illness/Other How long have you had these symptoms (acute/chronic)?:Acute Reason for exam?:APPROX 7 WEEKS ; VAGINAL BLEEDING History of cancer?:NONE Surgeries, chemotherapy, or radiation?:NONE Type of Exam?:Initial Additional signs and symptoms?:NONE Comprehensive metabolic 2000 panelon 06-16-2024 Albumin BCP dye [Mass/Vol] 4.7 g/dL Normal 3.4-5.0 [facility] Comment on above: Performed By: #### 2 4323-8 #### CHEY ANAYA ([id number]) [facility] ([facility]) [facility] [place] [address] ALP [Catalytic activity/Vol] 79 U/L Normal 33-110 [facility] Comment on above: Performed By: #### 2 4323-8 #### CHEY ANAYA ([id number]) [facility] ([facility]) [facility] [place] [address] ALT With P-5'-P [Catalytic activity/Vol] 9 U/L Normal 7-45 [facility] Comment on above: Result Comment: Mecca ents treated with Sulfasalazine may generate falsely decreased results for ALT. Performed By: #### 2 4323-8 #### CHEY ANAYA ([id number]) [facility] ([facility]) [address] [place] [address] Anion gap [Moles/Vol] 13 mmol/L Normal 10-20 [facility] Comment on above: Performed By: #### 2 4323-8 #### CHEY ANAYA ([id number]) [facility] ([facility]) [facility] [place] [address] AST With P-5'-P [Catalytic activity/Vol] 13 U/L Normal 9-39 [facility] Comment on above: Performed By: #### 2 4323-8 #### CHEY ANAYA ([id number]) [facility] ([facility]) [facility] [place] [address] Bilirubin [Mass/Vol] 1.1 mg/dL Normal 0.0-1.2 [facility] Comment on above: Performed By: #### 2 4323-8 #### CHEY ANAYA ([id number]) [facility] ([facility]) [address] [place] [address] Calcium [Mass/Vol] 9.5 mg/dL Normal 8.6-10.3 [facility] Comment on above: Performed By: #### 2 4323-8 #### CHEY ANAYA ([id number]) [facility] ([facility]) [address] [place] [address] Chloride [Moles/Vol] 106 mmol/L Normal 98-107 [facility] Comment on above: Performed By: #### 2 4323-8 #### CHEY ANAYA ([id number]) [facility] ([facility]) [address] [place] [address] CO2 [Moles/Vol] 26 mmol/L Normal 21-32 [facility] Comment on above: Performed By: #### 2 4323-8 #### CHEY ANAYA ([id number]) [facility] ([facility]) [address] [place] [address] Creatinine [Mass/Vol] 0.56 mg/dL Normal 0.50-1.05 [facility] Comment on above: Performed By: #### 2 4323-8 #### CHEY ANAYA ([id number]) [facility] ([facility]) [address] [place] [address] GFR/1.73 sq M.predicted MDRD (S/P/Bld) [Vol rate/Area] mL/min/{1.73_m2} Normal >60 [facility] Comment on above: Result Comment: Calc ulations of estimated GFR are performed using the 2020 CKD-EPI Study Refit equation without the race variable for the IDMS-Traceable creatinine methods. https://jasn.asnjournals.org/content/early//ASN.749777867 8 Performed By: #### 2 4323-8 #### CHEY ANAYA ([id number]) [facility] ([facility]) [address] [place] [address] Glucose [Mass/Vol] 84 mg/dL Normal 74-99 [facility] Comment on above: Performed By: #### 2 4323-8 #### CHEY ANAYA ([id number]) [facility] ([facility]) [address] [place] [address] Potassium [Moles/Vol] 3.8 mmol/L Normal 3.5-5.3 [facility] Comment on above: Performed By: #### 2 4323-8 #### CHEY ANAYA ([id number]) [facility] ([facility]) [address] [place] [address] Protein [Mass/Vol] 7.1 g/dL Normal 6.4-8.2 [facility] Comment on above: Performed By: #### 2 4323-8 #### CHEY ANAYA ([id number]) [facility] ([facility]) [address] [place] [address] Sodium [Moles/Vol] 141 mmol/L Normal 136-145 [facility] Comment on above: Performed By: #### 2 4323-8 #### CHEY ANAYA ([id number]) [facility] ([facility]) [address] [place] [address] Urea nitrogen [Mass/Vol] 8 mg/dL Normal 6-23 [facility] Comment on above: Performed By: #### 2 4323-8 #### CHEY ANAYA ([id number]) [facility] ([facility]) [address] [place] [address] Delmy 05-26-2024 CNOV Office Visit (OBGYWM ) -- MICHELLE CHOI ([id number]) 1 F Date Time Provider Department 05/26/24 8:40 AM COLLEEN ROTHMAN During your visit today, we recorded the following information about you: Blood pressure Weight Height Last Period 122/68 58.4 kg 1.531 m 05/12/24 Colleen Rothman MD 05/26/2024 8:48 AM Signed 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 Michelle is a 19 year old who presents for an annual gynecologic exam without complaints. Stopped BC a year ago. Ok if happens. 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 LMP: 05/12/2024, Having periods Age at Menarche: 8 Age at First : Age at Menopause: Hydrochloric Acid Operator History Comments: Sexual Activity: Yes; No partner data on record Contraception: Pill Menstrual Tracking History Flowsheet Row Office Visit from 05/26/2024 in OB/Gynecology Period Cycle (Days) 4 Period Duration (Days) 3 Menstrual Flow Light PAST MEDICAL HISTORY Diagnosis Date NEGATIVE MEDICAL HISTORY PAST SURGICAL HISTORY Procedure Laterality Date NONE FAMILY HISTORY Problem Relation Age of Onset Cancer Mother 30's- vaginal cancer SOCIAL HISTORY Social History Tobacco Use Smoking status: Never Smokeless tobacco: Never Vaping Use Vaping status: Former Substance Use Topics Alcohol use: Not Currently Drug use: Not Currently REVIEW OF SYSTEMS Abdomen: No abdominal pain, nausea, vomiting, diarrhea, or constipation. No bloating, early satiety, indigestion, or increased flatulence. Bladder: No dysuria, gross hematuria, urinary frequency, urinary urgency, or incontinence. Breast: No breast lumps, nipple d/c, overlying skin changes, redness or skin retraction. Allergies and current medication updated:Yes SENSITIVE EXAM: The sensitive examination was discussed with the Patient or Patient's Authorized Loan Officer Assistant. As applicable, any other physician, advance practice provider, medical student, or other health professional student that will be observing or involved in the sensitive examination for educational or training purposes was discussed with the Patient or Authorized Loan Officer Assistant. The Patient or Authorized Loan Officer Assistant has agreed to proceed with the sensitive examination. (Sensitive examination includes inspection and/or palpation of the breasts, pelvis, prostate and anorectal regions). EXAM: LMP 05/12/2024 GENERAL: pleasant, female in no apparent distress HEENT: Normocephalic, atraumatic, mucus membranes moist, and no lesions NECK: Supple, full range of motion, no adenopathy, and thyroid normal DERMATOLOGY: Normal, without lesions, non-icteric, and non-hirsute BREAST: soft, non-tender, symmetric, no dominant mass, normal nipple-areolar complex, no lymphadenopathy, and no nipple discharge CHEST: Normal inspiratory effort ABDOMEN: soft, non-tender, and no masses PELVIC: external genitalia normal, normal Bartholin's glands, urethra, [place]'s glands, no vulvar lesions, no cervical lesions, good vaginal support, physiologic discharge present, normal appearing perineal body and perianal region BIMANUAL: uterus normal size, shape and consistency, no adnexal masses, and non-tender RECTOVAGINAL: deferred. NEURO: alert and oriented x3,exam grossly non-focal EXTREMITIES: normal ASSESSMENT/PLAN: 1) Health maintenance: Pap done with reflex HPV. 2) Contraception: none. Contraceptive options reviewed and information provided. 3) STD screening: Declined STD check. 4) Follow up one year or sooner as needed Colleen Rothman MD Allergies As of Date: 05/26/2024 (No Known Allergies) Date Reviewed: 05/26/2024 Reviewed by: Colleen Rothman MD - Fully Assessed Reason for Visit: Well Woman [1463] Primary Visit Diagnosis:Encounter for gynecological examination (general) (routine) without abnormal findings [Z01.419] Order(s):PAP TEST [[id number]] Order #: [id number] Prescriptions as of 05/26/2024 - meloxicam (MOBIC) 7.5 mg tablet Take 1 tablet by mouth once daily. - hydrOXYzine HCl (ATARAX) 25 mg tablet Take by mouth. - SUMAtriptan (IMITREX) 100 mg tablet take 1 tablet by mouth AT ONSET OF HEADACHE may repeat in 2 hours... (REFER TO PRESCRIPTION NOTES). - FLUoxetine (PROZAC) 20 mg capsule Take 20 mg by mouth once daily. - Norgestimate-Ethinyl Estradiol 0.18/0.215/0.25 mg-35 mcg (28) Take 1 tablet by tanvi (more content not included)... Normal [facility] PAP TESTon 05-26-2024 ADEQUACY Normal [facility] Comment on above: Order Comment: Speci men Type: BLOOD SPECIMEN Ordering Facility: [facility] Address: [address] [place] [address] Result Comment: Sati sfactory for interpretation. No endocervical component Performed By: #### 5 195-3, 13920-7, 94084-2 #### [facility] CLIA [id number] [address] [place] [address] [place] CASE REPORT Normal [facility] Comment on above: Order Comment: Speci men Type: BLOOD SPECIMEN Ordering Facility: [facility] Address: [address] [place] [address] Result Comment: Gyne cologic Cytology Report Case: [id number] Authorizing Provider: Colleen Rothman MD Collected: 05/26/2024 09:43 AM Ordering Location: OB/Gynecology Received: 05/26/2024 12:13 PM First Screen: Brianna, Nicole, CT, ASCP Specimen: Pap Test, ThinPrep, Cervix Performed By: #### 5 195-3, 69766-9, 96245-4 #### [facility] CLIA [id number] [address] [place] [address] [place] CLINICAL HISTORY, CYTOLOGY, CLOSET ORGANIZER Routine Exam Normal [facility] Comment on above: Order Comment: Speci men Type: BLOOD SPECIMEN Ordering Facility: [facility] Address: [address] [place] [address] Performed By: #### 5 195-3, 44504-5, 92226-8 #### [facility] CLIA [id number] [address] [id number] [place] FINAL PERFORMING LAB Normal [facility] Comment on above: Order Comment: Speci men Type: BLOOD SPECIMEN Ordering Facility: [facility] Address: [address] [place], [place] [address] Result Comment: Tech nical component, ripshear operator screening performed at [facility], [address] [place] [address] CLIA# [id number] Diagnostic interpretation performed at [facility], [address] [place] [address] CLIA# [id number] Whizzer Hand: Ethel Gayle M.D. Performed By: #### 5 195-3, 82421-9, 86774-7 #### [facility] CLIA [id number] [address] [place] [address] [place] INTERPRETATION, CYTOLOGY, CLOSET ORGANIZER Normal [facility] Comment on above: Order Comment: Speci men Type: BLOOD SPECIMEN Ordering Facility: [facility] Address: [address] [place] [address] Result Comment: Nega tive for intraepithelial lesion or malignancy. Performed By: #### 5 195-3, 09874-8, 05865-9 #### [facility] CLIA [id number] [address] [place], [place] [id number] [place] LMP 05/12/2024 Normal [facility] Comment on above: Order Comment: Speci men Type: BLOOD SPECIMEN Ordering Facility: [facility] Address: [address] [place] [address] Performed By: #### 5 195-3, 94106-4, 55239-5 #### [facility] CLIA [id number] [address] [place], [place] [id number] [place] PAP DISCLAIMER COMMENT The Pap Smear is a screening test for cervical cancer. False negative results occur with all screening tests, emphasizing the need for rescreening at recommended intervals, and clinical correlation. Normal [facility] Comment on above: Order Comment: Speci men Type: BLOOD SPECIMEN Ordering Facility: [facility] Address: [address] [place] [address] Performed By: #### 5 195-3, 95864-7, 90928-5 #### [facility] CLIA [id number] [address] [place] [address] [place] PAP HULL SORTER COMMENT This specimen has be en analyzed by the ThinPrep Imaging System, an automated imaging and review system, which assists the laboratory in evaluating cells on ThinPrep Pap tests. Following automated imaging, selected goff from every slide are reviewed by a ripshear operator. Normal [facility] Comment on above: Order Comment: Speci men Type: BLOOD SPECIMEN Ordering Facility: [facility] Address: [address] [place] [address] Performed By: #### 5 195-3, 80474-2, 39993-2 #### [facility] CLIA [id number] [address] [place] [address] [place] Bacteria identifiedon 2023 Bacteria identified Cx Nom (U) Test: Urine Culture Specimen Source: Clean Catch/Voided Specimen Type: Urine Specimen Date: 08/14/2023 11:32 AM Result Date: 08/16/2023 7:29 AM Result Status: Final result Abnormal: No Resulting Lab: [facility] [address] [place] [address] CULTURE No significant growth Normal [facility] Comment on above: Performed By: #### 6 30-4 #### SADI Lai ([id number]) [facility] ([facility]) [address] [place] [address] CBC panel Auto (Bld)on 08-13 Erythrocyte distribution width (RBC) [Ratio] 11.4 % Low 11.5 - 14.5 % [facility] [facility] Hematocrit (Bld) [Volume fraction] 40.7 % 36.0 - 46.0 % [facility] Hemoglobin (Bld) [Mass/Vol] 14.0 g/dL 12.0 - 16.0 g/dL [facility] Interpretation and review of laboratory results Abnormal [facility] MCH (RBC) [Entitic mass] 32.2 pg 26.0 - 34.0 pg [facility] MCHC (RBC) [Mass/Vol] 34.4 g/dL 32.0 - 36.0 g/dL [facility] MCV (RBC) [Entitic vol] 94 fL 80 - 100 fL [facility] Nucleated RBC/100 WBC (Bld) [Ratio] 0.0 % [facility] Platelets (Bld) [#/Vol] 192 10*3/uL [facility] RBC (Bld) [#/Vol] 4.35 10*6/uL [facility] WBC (Bld) [#/Vol] 10.6 10*3/uL [facility] Erythrocyte distribution width (RBC) [Ratio] 11.4 % Low 11.5-14.5 [facility] Comment on above: Performed By: #### 5 8410-2 #### CHEY ANAYA ([id number]) [facility] ([facility]) [address] [place] [address] 56711 Hematocrit (Bld) [Volume fraction] 40.7 % Normal 36.0-46.0 [facility] Comment on above: Performed By: #### 5 8410-2 #### CHEY ANAYA ([id number]) [facility] ([facility]) [address] [place] [address] 71893 Hemoglobin (Bld) [Mass/Vol] 14.0 g/dL Normal 12.0-16.0 [facility] Comment on above: Performed By: #### 5 8410-2 #### CHEY ANAYA ([id number]) [facility] ([facility]) [address] [place] [address] 95986 MCH (RBC) [Entitic mass] 32.2 pg Normal 26.0-34.0 [facility] Comment on above: Performed By: #### 5 8410-2 #### CHEY ANAYA ([id number]) [facility] ([facility]) [address] [place] [address] MCHC (RBC) [Mass/Vol] 34.4 g/dL Normal 32.0-36.0 [facility] Comment on above: Performed By: #### 5 8410-2 #### CHEY ANAYA ([id number]) [facility] ([facility]) [address] [place] [address] MCV (RBC) [Entitic vol] 94 fL Normal 80-100 [facility] Comment on above: Performed By: #### 5 8410-2 #### CHEY ANAYA ([id number]) [facility] ([facility]) [address] [place] [address] Nucleated RBC/100 WBC (Bld) [Ratio] 0.0 /100 WBCs Normal 0.0-0.0 [facility] Comment on above: Performed By: #### 5 8410-2 #### CHEY ANAYA ([id number]) [facility] ([facility]) [address] [place] [address] Platelets (Bld) [#/Vol] 192 x10*3/uL Normal 150-450 [facility] Comment on above: Performed By: #### 5 8410-2 #### CHEY ANAYA ([id number]) [facility] ([facility]) [address] [place] [address] RBC (Bld) [#/Vol] 4.35 x10*6/uL Normal 4.00-5.20 [facility] Comment on above: Performed By: #### 5 8410-2 #### CHEY ANAYA ([id number]) [facility] ([facility]) [address] [place], [place] [id number] WBC (Bld) [#/Vol] 10.6 x10*3/uL Normal 4.4-11.3 [facility] Comment on above: Performed By: #### 5 8410-2 #### CHEY ROMELI ([id number]) [facility] ([facility]) [address] [place] [address] Comprehensive metabolic 2000 panelon 08-14-2023 Albumin BCP dye [Mass/Vol] 4.2 g/dL 3.4 - 5.0 g/dL [facility] ALP [Catalytic activity/Vol] 78 U/L 33 - 110 U/L [facility] ALT With P-5'-P [Catalytic activity/Vol] 17 U/L 7 - 45 U/L [facility] Comment on above: Patients treated wit h Sulfasalazine may generate falsely decreased results for ALT. Anion gap [Moles/Vol] 10 mmol/L 10 - 20 mmol/L [facility] AST With P-5'-P [Catalytic activity/Vol] 10 U/L 9 - 39 U/L [facility] Bilirubin [Mass/Vol] 0.8 mg/dL 0.0 - 1.2 mg/dL [facility] Calcium [Mass/Vol] 9.1 mg/dL 8.6 - 10. 3 mg/dL [facility] Chloride [Moles/Vol] 108 mmol/L High 98 - 107 mmol/L [facility] CO2 [Moles/Vol] 24 mmol/L 21 - 32 mmol/L [facility] Creatinine [Mass/Vol] 0.54 mg/dL 0.50 - 1.05 mg/dL [facility] eGFR - PINF [facility] Comment on above: Calculations of ovi mated GFR are performed using the 2020 CKD-EPI Study Refit equation without the race variable for the IDMS-Traceable creatinine methods. https://jasn.asnjournals.org/content/early//ASN.026355133 8 Glucose [Mass/Vol] 124 mg/dL High 74 - 99 mg/dL [facility] Interpretation and review of laboratory results Abnormal [facility] Potassium [Moles/Vol] 3.7 mmol/L 3.5 - 5.3 mmol/L [facility] Protein [Mass/Vol] 6.9 g/dL 6.4 - 8.2 g/dL [facility] Sodium [Moles/Vol] 138 mmol/L 136 - 145 mmol/L [facility] Urea nitrogen [Mass/Vol] 11 mg/dL 6 - 23 mg/dL [facility] Albumin BCP dye [Mass/Vol] 4.2 g/dL Normal 3.4-5.0 [facility] Comment on above: Performed By: #### 2 4323-8 #### CHEY ANAYA ([id number]) [facility] ([facility]) [address] [place] [address] ALP [Catalytic activity/Vol] 78 U/L Normal 33-110 [facility] Comment on above: Performed By: #### 2 4323-8 #### CHEY ANAYA ([id number]) [facility] ([facility]) [address] [place] [address] ALT With P-5'-P [Catalytic activity/Vol] 17 U/L Normal 7-45 [facility] Comment on above: Result Comment: [place] ents treated with Sulfasalazine may generate falsely decreased results for ALT. Performed By: #### 2 4323-8 #### CHEY ANAYA ([id number]) [facility] ([facility]) [address] [place] [address] 78057 Anion gap [Moles/Vol] 10 mmol/L Normal 10-20 [facility] Comment on above: Performed By: #### 2 4323-8 #### CHEY ANAYA ([id number]) [facility] ([facility]) [address] [place] [address] 41308 AST With P-5'-P [Catalytic activity/Vol] 10 U/L Normal 9-39 [facility] Comment on above: Performed By: #### 2 4323-8 #### CHEY ANAYA ([id number]) [facility] ([facility]) [address] [place] [address] Bilirubin [Mass/Vol] 0.8 mg/dL Normal 0.0-1.2 [facility] Comment on above: Performed By: #### 2 4323-8 #### CHEY ANAYA ([id number]) [facility] ([facility]) [address] [place] [address] Calcium [Mass/Vol] 9.1 mg/dL Normal 8.6-10.3 [facility] Comment on above: Performed By: #### 2 4323-8 #### CHEY ANAYA ([id number]) [facility] ([facility]) [address] [place] [address] 36814 Chloride [Moles/Vol] 108 mmol/L High 98-107 [facility] Comment on above: Performed By: #### 2 4323-8 #### CHEY ANAYA ([id number]) [facility] ([facility]) [address] [place] [address] 85673 CO2 [Moles/Vol] 24 mmol/L Normal 21-32 [facility] Comment on above: Performed By: #### 2 4323-8 #### CHEY ANAYA ([id number]) [facility] ([facility]) [address] [place] [address] 23928 Creatinine [Mass/Vol] 0.54 mg/dL Normal 0.50-1.05 [facility] Comment on above: Performed By: #### 2 4323-8 #### CHEY ANAYA ([id number]) [facility] ([facility]) [address] [place] [address] 55367 GFR/1.73 sq M.predicted MDRD (S/P/Bld) [Vol rate/Area] mL/min/{1.73_m2} Normal >60 [facility] Comment on above: Result Comment: Calc ulations of estimated GFR are performed using the 2020 CKD-EPI Study Refit equation without the race variable for the IDMS-Traceable creatinine methods. https://jasn.asnjournals.org/content//ASN.146218205 8 Performed By: #### 2 4323-8 #### CHEY ANAYA ([id number]) [facility] ([facility]) [address] [place] [address] 00553 Glucose [Mass/Vol] 124 mg/dL High 74-99 [facility] Comment on above: Performed By: #### 2 4323-8 #### CHEY ANAYA ([id number]) [facility] ([facility]) [address] [place] [address] 51705 Potassium [Moles/Vol] 3.7 mmol/L Normal 3.5-5.3 [facility] Comment on above: Performed By: #### 2 4323-8 #### CHEY ANAYA ([id number]) [facility] ([facility]) [address] [place] [address] 92187 Protein [Mass/Vol] 6.9 g/dL Normal 6.4-8.2 [facility] Comment on above: Performed By: #### 2 4323-8 #### CHEY ANAYA ([id number]) [facility] ([facility]) [address] [place] [address] 98945 Sodium [Moles/Vol] 138 mmol/L Normal 136-145 [facility] Comment on above: Performed By: #### 2 4323-8 #### CHEY ANAYA ([id number]) [facility] ([facility]) [address] [place] [address] 65061 Urea nitrogen [Mass/Vol] 11 mg/dL Normal 6-23 [facility] Comment on above: Performed By: #### 2 4323-8 #### CHEY ANAYA ([id number]) [facility] ([facility]) [address] [place] [address] 06239 No Panel Informationon 08-13 Interpretation and review of laboratory results Abnormal [facility] Urinalysis complete W Reflex Culture panel (U)on 08-14-2023 Appearance (U) Hazy Abnormal Clear [facility] Bilirubin (U) [Mass/Vol] Negative NEGATIVE [facility] Color (U) Yellow Straw, Yellow [facility] Glucose Auto test strip (U) [Mass/Vol] Negative NEGATIVE mg/dL [facility] Ketones (U) [Mass/Vol] Negative NEGATIVE mg/dL [facility] Leukocyte esterase Auto test strip Ql (U) TRACE Abnormal NEGATIVE [facility] Nitrite Auto test strip Ql (U) Negative NEGATIVE [facility] pH (U) 5.0 [pH] 5.0, 5.5, 6.0, 6.5, 7.0, 7.5, 8.0 [facility] Protein (U) [Mass/Vol] 30 (1+) Abnormal NEGATIVE mg/dL [facility] RBC (U) [#/Vol] Negative NEGATIVE [facility] Specific gravity (U) [Rel density] 1.026 1.005 - 1.035 [facility] Urobilinogen (U) [Mass/Vol] 2.0 mg/dL Abnormal NINF - 2.0 mg/dL [facility] Comment on above: Due to a manufacturi ng issue, low positive urobilinogen results may be falsely positive. Correlate with urine bilirubin and additional clinical/laboratory findings to assess the risk of hemolytic anemia or liver disease. If clinically indicated, repeat testing with an alternate method is available by contacting the laboratory within 24 hours. Some pigments and medications may cause a false positive urobilinogen. Appearance (U) Hazy Normal Clear [facility] Comment on above: Performed By: #### 5 8077-9 #### CHEY ANAYA ([id number]) [facility] ([facility]) [address] [place] [address] 61400 Bilirubin (U) [Mass/Vol] Negative Normal NEGATIVE [facility] Comment on above: Performed By: #### 5 8077-9 #### CHEY ANAYA ([id number]) [facility] ([facility]) [address] [place] [address] 64055 Color (U) Yellow Normal Straw, Yellow [facility] Comment on above: Performed By: #### 5 8077-9 #### CHEY ANAYA ([id number]) [facility] ([facility]) [address] [place] [address] 77019 Glucose Auto test strip (U) [Mass/Vol] Negative Normal NEGATIVE [facility] Comment on above: Performed By: #### 5 8077-9 #### CHEY ANAYA ([id number]) [facility] ([facility]) [address] [place] [address] 28709 Ketones (U) [Mass/Vol] Negative Normal NEGATIVE [facility] Comment on above: Performed By: #### 5 8077-9 #### CHEY ANAYA ([id number]) [facility] ([facility]) [address] [place] [address] 12397 Leukocyte esterase Auto test strip Ql (U) TRACE Abnormal NEGATIVE [facility] Comment on above: Performed By: #### 5 8077-9 #### CHEY ANAYA ([id number]) [facility] ([facility]) [address] [place] [address] 19035 Nitrite Auto test strip Ql (U) Negative Normal NEGATIVE [facility] Comment on above: Performed By: #### 5 8077-9 #### CHEY ANAYA (41889) [facility] ([facility]) [address] [place] [address] 28126 pH (U) 5.0 [pH] Normal 5.0, 5.5, 6.0, 6.5, 7.0, 7.5, 8.0 [facility] Comment on above: Performed By: #### 5 8077-9 #### CHEY ANAYA ([id number]) [facility] ([facility]) [address] [place] [address] 01324 Protein (U) [Mass/Vol] 30 (1+) Normal NEGATIVE [facility] Comment on above: Performed By: #### 5 8077-9 #### CHEY ANAYA ([id number]) [facility] ([facility]) [address] [place] [address] 86061 RBC (U) [#/Vol] Negative Normal NEGATIVE [facility] Comment on above: Performed By: #### 5 8077-9 #### CHEY ANAYA ([id number]) [facility] ([facility]) [address] [place] [address] 44180 Specific gravity (U) [Rel density] 1.026 Normal 1.005-1.035 [facility] Comment on above: Performed By: #### 5 8077-9 #### CHEY ANAYA ([id number]) [facility] ([facility]) [address] [place] [address] 40012 Urobilinogen (U) [Mass/Vol] 2.0 mg/dL Normal <2.0 [facility] Comment on above: Result Comment: Due to a manufacturing issue, low positive urobilinogen results may be falsely positive. Correlate with urine bilirubin and additional clinical/laboratory findings to assess the risk of hemolytic anemia or liver disease. If clinically indicated, repeat testing with an alternate method is available by contacting the laboratory within 24 hours. Some pigments and medications may cause a false positive urobilinogen. Performed By: #### 5 8077-9 #### CHEY ANAYA ([id number]) [facility] ([facility]) [address] [place] [address] Urinalysis microscopic panel Auto Ql (U)on 08-14-2023 Bacteria Auto (Urine sed) [#/Area] 1+ Abnormal NONE SEEN /HPF [facility] Epithelial cells.squamous Auto (Urine sed) [#/Area] 10-25 (FEW) Reference range not established. /HPF [facility] Mucus Auto (Urine sed) [#/Area] 4+ Reference range not established. /LPF [facility] RBC Auto (Urine sed) [#/Area] 1-2 NONE, 1-2, 3-5 /HPF [facility] WBC Auto (Urine sed) [#/Area] 6-10 Abnormal 1-5, NONE /HPF [facility] Bacteria Auto (Urine sed) [#/Area] 1+ /HPF Abnormal NONE SEEN [facility] Comment on above: Performed By: #### 5 3315-8 #### CHEY ANAYA ([id number]) [facility] ([facility]) [address] [place] [address] Epithelial cells.squamous Auto (Urine sed) [#/Area] 10-25 (FEW) Normal Reference range not established. [facility] Comment on above: Performed By: #### 5 3315-8 #### CHEY ANAYA ([id number]) [facility] ([facility]) [address] [place] [address] Mucus Auto (Urine sed) [#/Area] 4+ /LPF Normal Reference range not established. [facility] Comment on above: Performed By: #### 5 3315-8 #### CHEY ANAYA ([id number]) [facility] ([facility]) [address] [place] [address] 41316 RBC Auto (Urine sed) [#/Area] 1-2 Normal NONE, 1-2, 3-5 [facility] Comment on above: Performed By: #### 5 3315-8 #### CHEY ANAYA ([id number]) [facility] ([facility]) [address] [place] [address] 81334 WBC Auto (Urine sed) [#/Area] 6-10 Abnormal 1-5, NONE [facility] Comment on above: Performed By: #### 5 3315-8 #### CHEY ANAYA ([id number]) [facility] ([facility]) [address] [place] [address] 79464 CBC AND DIFFERENTIALon 01-27 % AUTOMATED IMMATURE GRAN 0.2 % Normal 0.0 - 0.9 [facility] Comment on above: Result Comment: Darlene ture Granulocyte Count (IG) includes promyelocytes, myelocytes and metamyelocytes but does not include bands. Percent differential counts (%) should be interpreted in the context of the absolute cell counts (cells/L). Performed By: #### L IPAS #### [place] [id number] Basophils (Bld) [#/Vol] 0.03 10*3/uL Normal 0.00 - 0.10 [facility] Comment on above: Performed By: #### L IPAS #### [address] [address] Basophils/100 WBC (Bld) 0.3 % Normal 0.0 - 2.0 [facility] Comment on above: Performed By: #### L IPAS #### [address] [address] Eosinophils (Bld) [#/Vol] 0.18 10*3/uL Normal 0.00 - 0.70 [facility] Comment on above: Performed By: #### L IPAS #### [address] [address] Eosinophils/100 WBC (Bld) 2.1 % Normal 0.0 - 6.0 [facility] Comment on above: Performed By: #### L IPAS #### [address] [address] Erythrocyte distribution width (RBC) [Ratio] 11.3 % Low 11.5 - 14.5 [facility] Comment on above: Performed By: #### L IPAS #### [address] [address] Hematocrit (Bld) [Volume fraction] 40.8 % Normal 36.0 - 46.0 [facility] Comment on above: Performed By: #### L IPAS #### [address] [address] Hemoglobin (Bld) [Mass/Vol] 13.8 g/dL Normal 12.0 - 16.0 [facility] Comment on above: Performed By: #### L IPAS #### [address] [address] Lymphocytes (Bld) [#/Vol] 2.98 10*3/uL Normal 1.20 - 4.80 [facility] Comment on above: Performed By: #### L IPAS #### [address] [address] Lymphocytes/100 WBC (Bld) 34.4 % Normal 13.0 - 44.0 [facility] Comment on above: Performed By: #### L IPAS #### [address] [address] MCHC (RBC) [Mass/Vol] 33.8 g/dL Normal 32.0 - 36.0 [facility] Comment on above: Performed By: #### L IPAS #### [address] [address] MCV (RBC) [Entitic vol] 93 fL Normal 80 - 100 [facility] Comment on above: Performed By: #### L IPAS #### [address] [address] Monocytes (Bld) [#/Vol] 0.64 10*3/uL Normal 0.10 - 1.00 [facility] Comment on above: Performed By: #### L IPAS #### [address] [address] Monocytes/100 WBC (Bld) 7.4 % Normal 2.0 - 10.0 [facility] Comment on above: Performed By: #### L IPAS #### [address] [address] Neutrophils (Bld) [#/Vol] 4.81 10*3/uL Normal 1.20 - 7.70 [facility] Comment on above: Result Comment: Perc ent differential counts (%) should be interpreted in the context of the absolute cell counts (cells/L). Performed By: #### L IPAS #### [address] [address] Neutrophils/100 WBC (Bld) 55.6 % Normal 40.0 - 80.0 [facility] Comment on above: Performed By: #### L IPAS #### [place] [address] Platelets (Bld) [#/Vol] 211 10*3/uL Normal 150 - 450 [facility] Comment on above: Performed By: #### L IPAS #### [address] [address] RBC 4.39 x10E12/L Normal 4.00 - 5.20 [facility] Comment on above: Performed By: #### L IPAS #### [address] [address] WBC (Bld) [#/Vol] 8.7 10*3/uL Normal 4.4 - 11.3 [facility] Comment on above: Performed By: #### L IPAS #### [place] [address] COMPREHENSIVE PANELon 2022 Albumin [Mass/Vol] 4.5 g/dL Normal 3.4 - 5.0 [facility] Comment on above: Performed By: #### C MP #### [place] [address] ALP [Catalytic activity/Vol] 86 U/L Normal 33 - 110 [facility] Comment on above: Performed By: #### C MP #### [address] [address] ALT [Catalytic activity/Vol] 41 U/L Normal 7 - 45 [facility] Comment on above: Result Comment: [place] ents treated with Sulfasalazine may generate falsely decreased results for ALT. Performed By: #### C MP #### [place] [address] Anion gap [Moles/Vol] 10 mmol/L Normal 10 - 20 [facility] Comment on above: Performed By: #### C MP #### [place] [address] AST [Catalytic activity/Vol] 23 U/L Normal 9 - 39 [facility] Comment on above: Performed By: #### C MP #### [place] [address] Bilirubin [Mass/Vol] 0.8 mg/dL Normal 0.0 - 1.2 [facility] Comment on above: Performed By: #### C MP #### [place] [address] Calcium [Mass/Vol] 9.5 mg/dL Normal 8.6 - 10.3 [facility] Comment on above: Performed By: #### C MP #### [place] [address] Chloride [Moles/Vol] 103 mmol/L Normal 98 - 107 [facility] Comment on above: Performed By: #### C MP #### [place] [address] Creatinine [Mass/Vol] 0.60 mg/dL Normal 0.50 - 1.05 [facility] Comment on above: Performed By: #### C MP #### [address] [address] eGFR FEMALE >90 Normal >90 [facility] Comment on above: Result Comment: CALC ULATIONS OF ESTIMATED GFR ARE PERFORMED USING THE 2020 CKD-EPI STUDY REFIT EQUATION WITHOUT THE RACE VARIABLE FOR THE IDMS-TRACEABLE CREATININE METHODS. https://jasn.asnjournals.org/content//ASN.108989272 8 Performed By: #### C MP #### [address] [address] Glucose [Mass/Vol] 91 mg/dL Normal 74 - 99 [facility] Comment on above: Performed By: #### C MP #### [address] [address] HCO3 (Bld) [Moles/Vol] 27 mmol/L Normal 21 - 32 [facility] Comment on above: Performed By: #### C MP #### [address] [address] Potassium [Moles/Vol] 3.4 mmol/L Low 3.5 - 5.3 [facility] Comment on above: Performed By: #### C MP #### [address] [address] Protein [Mass/Vol] 7.2 g/dL Normal 6.4 - 8.2 [facility] Comment on above: Performed By: #### C MP #### [address] [address] Sodium [Moles/Vol] 137 mmol/L Normal 136 - 145 [facility] Comment on above: Performed By: #### C MP #### [address] [address] Urea nitrogen [Mass/Vol] 8 mg/dL Normal 6 - 23 [facility] Comment on above: Performed By: #### C MP #### [address] [address] [address] ABDOMEN AND PELVIS W IV C ONTRASTon 01-27-2023 CT ABDOMEN AND PELVIS W IV CONTRAST Patient Name: MICHELLE CHOI STUDY: CT ABDOMEN AND PELVIS W IV CONTRAST; 01/27/2023 8:03 pm INDICATION: RLQ pain . COMPARISON: CT scan of the abdomen pelvis 09/12/2022 ACCESSION NUMBER(S): [id number] ORDERING CLINICIAN: KEERTHI BILDERBACK TECHNIQUE: Axial CT images of the abdomen and pelvis with coronal and sagittal reconstructed images obtained after intravenous administration of 90 mL of Omnipaque 350 FINDINGS: LOWER CHEST: No acute abnormality of the lung bases. ABDOMEN: LIVER: Within normal limits. BILE DUCTS: Normal caliber. GALLBLADDER: No calcified gallstones. No wall thickening. PANCREAS: Within normal limits. SPLEEN: Within normal limits. ADRENALS: Within normal limits. KIDNEYS and URETERS: Symmetric renal enhancement. No hydronephrosis or perinephric fluid collection. VESSELS: No aortic aneurysm. RETROPERITONEUM: No pathologically enlarged retroperitoneal lymph nodes. PELVIS: REPRODUCTIVE ORGANS: Uterus is present. Follicular changes of the ovaries. Left corpus luteal cyst noted. Small amount of free fluid in the pelvis, likely physiologic. BLADDER: Within normal limits. BOWEL: No dilated bowel. Normal appendix. PERITONEUM: Small amount of free fluid in the pelvis, likely physiologic. No free air. ABDOMINAL WALL: Small umbilical hernia contains fat. BONES: Levoconvex scoliosis. IMPRESSION: No acute abdominal or pelvic process. Additional findings as described above. Electronically signed by: BERTHA RAMOS MD Normal [facility] HCG,URINEon 01-27-2023 Beta HCG ( test) Ql (U) Negative Normal Negative [facility] Comment on above: Performed By: #### H CGU #### [address] [address] LACTATEon 01-27-2023 Lactate [Moles/Vol] 1.0 mmol/L Normal 0.4 - 2.0 [facility] Comment on above: Result Comment: Nicole puncture immediately after or during the administration of Metamizole may lead to falsely low results. Testing should be performed immediately prior to Metamizole dosing. Performed By: #### C MP #### [address] [address] [address] LIPASEon 01-27-2023 Lipase [Catalytic activity/Vol] 8 U/L Low 9 - 82 [facility] Comment on above: Result Comment: Nicole puncture immediately after or during the administration of Metamizole may lead to falsely low results. Testing should be performed immediately prior to Metamizole dosing. V-nvwbsz-l-benzoquinone imine (metabolite of Acetaminophen) will generate erroneously low results in samples for patients that have taken toxic doses of acetaminophen. Performed By: #### L IPAS #### [id number] [place] [address] Provider Note - ED v3on 01-06 Provider Note - ED v3 Provider Note: Results/Vital Signs: Pediatric Clinical Scoring (ROSIE) is no recent ROSIE charted on this account Chart Review: HISTORY OF PRESENTING ILLNESS MICHELLE is a 17 year old Female and was seen by me at 27-Jan-2023 17:16 for a chief complaint of abdominal pain (Patient to ED reference lower right side abdominal pain that radiates around thru the lower front of her abdomen with frequent and painful urination x 1 week. Negative any nausea/vomiting.)(1). Triage Information: Most recent Vital Sign Value Date Temp (F): 98.4 01-27-2023 17:16 Temp (C): 36.8 01-27-2023 17:16 Heart Rate (beats/min): 85 01-27-2023 17:16 Respirations (breaths/min): 15 01-27-2023 17:16 SpO2 (%): 99 01-27-2023 17:16 BP Systolic (mm Hg): 119 01-27-2023 17:16 BP Diastolic (mm Hg): 74 01-27-2023 17:16 PAST MEDICAL HISTORY ALLERGIES/INTOLERANCES: Allergy Allergen: penicillin Type: Drug Reaction: Unknown HEALTH HISTORY: No documented data. OUTPATIENT MEDICATIONS: Home Medications Review Status for Reconciliation: N/A Med Status: Patient Currently Takes Medications Drug Name: norgestimate-ethinyl estradiol 0.25 mg-35 mcg oral tablet Instructions: 1 tab(s) orally once a day (in the evening) Drug Name: citalopram 10 mg oral tablet Instructions: 1 tab(s) orally once a day (in the evening) Drug Name: topiramate 25 mg oral tablet Instructions: 1 tab(s) orally once a day (in the evening) SIGNIFICANT EVENTS: Past Medical History Description:none Past Surgical History Description:none CRITICAL CARE RESULTS: Recent Lab Results: I have reviewed these laboratory results: Complete Blood Count + Differential 27-Jan-2023 18:29:00 ResultValue White Blood Cell Count 8.7 Red Blood Cell Count 4.39 HGB 13.8 HCT 40.8 MCV 93 MCHC 33.8 PLT 211 RDW-CV 11.3 L Neutrophil % 55.6 Immature Granulocytes % 0.2 Lymphocyte % 34.4 Monocyte % 7.4 Eosinophil % 2.1 Basophil % 0.3 Neutrophil Count 4.81 Lymphocyte Count 2.98 Monocyte Count 0.64 Eosinophil Count 0.18 Basophil Count 0.03 Comprehensive Metabolic Panel 27-Jan-2023 18:29:00 ResultValue Glucose, Serum 91 NA 137 K 3.4 L CL 103 Bicarbonate, Serum 27 Anion Gap, Serum 10 BUN 8 CREAT 0.60 GFR Female >90 Calcium, Serum 9.5 ALB 4.5 ALKP 86 T Pro 7.2 T Bili 0.8 Alanine Aminotransferase, Serum 41 Aspartate Transaminase, Serum 23 Urine Test 27-Jan-2023 18:29:00 ResultValue HCG, Urine NEGATIVE Urinalysis with Culture if Indicated 27-Jan-2023 18:29:00 ResultValue Color, Urine Straw Reference Range: STRAW,YELLOW Appearance, Urine CLEAR Specific [place], Urine 1.010 pH, Urine 6.0 Protein, Urine NEGATIVE Glucose, Urine NEGATIVE Blood, Urine NEGATIVE Ketones, Urine 5 (TRACE) A Bilirubin, Urine NEGATIVE Urobilinogen, Urine <2.0 Nitrite, Urine Negative Leukocyte Esterase, Urine NEGATIVE Lactate, Level 27-Jan-2023 18:29:00 ResultValue Lactate, Level 1.0 Lipase, Serum 27-Jan-2023 18:29:00 ResultValue Lipase, Serum 8 L Radiology Results: Impression: No acute abdominal or pelvic process. Additional findings as described above. CT Abdomen and Pelvis with IV Contrast [Jan 27 2023 8:44PM] VITAL SIGNS: T PRBP SpO2O2(LPM) %FiO2 Method 27-Jan-2023 21:08:[id number] 98 room air, no respiratory support 27-Jan-2023 20:07:[id number] 98 room air, no respiratory support 27-Jan-2023 19:21:[id number] 100 room air, no respiratory support 27-Jan-2023 17:16:[id number]/74 99 room air, no respiratory support MDM MDM/ED COURSE: PMH: Reviewed PSH: Reviewed Social History: Reviewed. Allergies reviewed. HPI: This is a 17 year old female with past medical history of ovarian cyst who presents to the ED today accompanied by her boyfriend with complaints of right lower quadrant abdominal pain, x1 week. States its in the right lower quadrant, radiates to the left and around to her back. She also has frequent painful urination. Pain comes and goes, feels like a stabbing sensation for couple seconds. No nausea or vomiting. No diarrhea. No fevers. Nothing taken xopn-doo-svgxahw for her pain. Last menstrual period was January 11. REVIEW OF SYSTEMS: All other systems reviewed and negative except as listed in HPI. PHYSICAL EXAM: GENERAL: Vitals noted, no distress. Alert and oriented x 3. Non-toxic. EENT: TMs clear. Posterior oropharynx unremarkable. EOMI, no nystagmus noted. NECK: Supple. No masses. No midline tenderness. No meningeal signs. CARDIAC: Regular rate, rhythm. No murmurs rubs or gallops. No JVD. PULMONARY: Lungs clear and equal bilaterally. No wheezes rales or rhonchi. No respiratory distress. ABDOMEN: Soft, nondistended, and nontender. No peritoneal signs. Bowel sounds are present and normoactive in all 4 quadrants. No pulsatile masses. EXTREMITIES: No perip (more content not included)... [facility] Risk Screen - Adult Emergenc yon 01-27-2023 Risk Screen - Adult Emergency Preferred Language: Preferred Language: Preferred Language for Discussing Health Care (patient/designee)Tristanian Patient Preferred Pharmacy: Patient Preferred Pharmacy Statement: I have reviewed and updated the patient's preferred pharmacy selection for today's visit. Advanced Directives: Advance Directive/DNRno Advance Directive Information Givenpatient/family declined Family Violence Adult: Abuse Screen: Are you or have you been threatened or abused physically, emotionally, or sexually by anyoneno Learning Assessment (Patient): Learning Assessment (Patient): Patient is Able to be Assessed for Learningyes Factors Influencing Readiness to Learnacuteness of illness Factors that Impact Ability to Learnnone Devices/Methods Used to Communicatenone Learning Preferenceswritten material; verbal instruction Cultural Considerationsnone Developmental Considerationsnone Mormonism Considerationsnone Learning Assessment (Other Learner): Learning Assessment (Other Learner): Other learner availableno Pressure Injury/TB/Substance: Pressure Injury: Pressure Injury Present on Admissionno Do you have a coughno Smoking Statusnever smoker Alcohol Usedenies Drug Usedenies Drug 2 Usedenies Admission Risk Screen: Significant IndicatorsComplete CAGE: CAGE: Is this an [place] [place]/Daria/Sharda/Maik Buck/Esvin): no Electronic Signatures: Kellie Melendrez (RN) (Signed 27-Jan-2023 18:43) Authored: Preferred Language, Patient Preferred Pharmacy, Advanced Directives, Family Violence Adult, Learning Assessment (Patient), Learning Assessment (Other Learner), Pressure Injury/TB/Substance, Pressure Injury, CAGE Last Updated: 27-Jan-2023 18:43 by Kellie Melendrez (RN) [facility] Triage - EDon 01-27-2023 Triage - ED Quick Triage: Are You no Have You Given In The Last 6 Weeksno Are You Currently Breastfeedingno The patient and/or guardian verbally acknowledges placement for services into the following (when Urgent Care Service hours are operating):emergency department Chart Review: ARRIVAL INFORMATION Mode of Arrival: private vehicle CHIEF COMPLAINT MICHELLE CHOI is a Female patient with a chief complaint of abdominal pain (Patient to ED reference lower right side abdominal pain that radiates around thru the lower front of her abdomen with frequent and painful urination x 1 week. Negative any nausea/vomiting.). Triage Date/Time: 27-Jan-2023 17:16 MARQUISE: 3 Pain Rating (0-10): 2 = Mild Vital Signs: Temperature: 98.4F ( 36.8C) taken oral Blood Pressure: 119/74 Mean: Heart Rate: 85 Respiratory Rate: 15 Pulse Oximetry: 99% on room air, no respiratory support. Height: 5 feet 0.00 inches. 152.4 CM Weight: 135.5 pounds. Calculated 61.5 kg. (stated) Calculated BMI (kg/m2): 26.479 Calculated BSA (m2) 1.61 Antonia Coma Scale: Best Eye Response: (E4) spontaneous Best Motor Response: (M6) obeys commands Best Verbal Response: (V5) oriented [place] Score: 15 Antonia Assessment Qualifiers: patient not sedated/intubated Cough lasting greater than 3 weeks: no Allergies: yes Mask applied: no Last menstrual period: 11-Jan-2023 Patient has homicidal thoughts: no Symptoms Are Negative For: anorexia, constipation, diaphoresis, diarrhea, distention, fever, nausea, rectal blood and vomiting. Risk Screens Suicide Risk Screen In the Past Month: Have you wished you were or wished you could go to sleep and not wake up no In the Past Month: Have you had any actual thoughts of killing yourself no In Your Lifetime: Have you ever done anything, started to do anything, or prepared to do anything to end your life no Restrepo Fall Scale Screening Has the patient fallen before (or is the patient in the ED as a result of a fall) has not had a fall Does the patient have an impaired gait does not have impaired gait Is the patient cognitively impaired not cognitively impaired Interventions: Restrepo Fall Interventions: LOW INTERVENTIONS: *patient oriented to surroundings and call system, * patient/family falls education completed and documented, *patients fall status communicated during bedside handoff, *whiteboard updated, *mode of toileting discussed with patient, *bed in low position with brakes locked, *call light in reach, * non-skid footwear TRAVEL HISTORY Travel History Coronavirus Screening: no exposure or symptoms Travel Exposure History: NO travel to International locations in the past 30 days PAIN Pain Scale Used: ROSELINE Pain Rating (0-10): 2 = Mild Past Medical History: Past Medical History Reviewedyes Electronic Signatures: Nicanor Ro (EMT-P) (Signed 27-Jan-2023 17:20) Entered: Risk Screens, Pain, Travel History, Chart Review, Scores Authored: Quick Triage, Risk Screens, Pain, Travel History, Chart Review, Scores Kellie Melendrez (RN) (Signed 27-Jan-2023 18:42) Authored: Quick Triage, Chart Review, Past Medical History Last Updated: 27-Jan-2023 18:42 by Kellie Melendrez (RN) [facility] URINALYSIS WITH CULTURE IF I NDICATEDon 01-27-2023 Appearance (U) CLEAR Normal CLEAR [facility] Comment on above: Performed By: #### C MP #### [address] [address] Bilirubin Ql (U) Negative Normal NEGATIVE [facility] Comment on above: Performed By: #### C MP #### [address] [address] Color (U) Straw Normal STRAW,YELLOW [facility] Comment on above: Performed By: #### C MP #### [address] [address] Glucose Ql (U) Negative Normal NEGATIVE [facility] Comment on above: Performed By: #### C MP #### [address] [address] Hemoglobin Ql (U) Negative Normal NEGATIVE [facility] Comment on above: Performed By: #### C MP #### [place] [address] Ketones Ql (U) 5 (TRACE) Abnormal NEGATIVE [facility] Comment on above: Performed By: #### C MP #### [id number] Leukocyte esterase Test strip Ql (U) Negative Normal NEGATIVE [facility] Comment on above: Performed By: #### C MP #### [place] [address] Nitrite Ql (U) Negative Normal NEGATIVE [facility] Comment on above: Performed By: #### C MP #### [place] [address] pH (U) 6.0 [pH] Normal 5.0 - 8.0 [facility] Comment on above: Performed By: #### C MP #### [address] [address] Protein Ql (U) Negative Normal NEGATIVE [facility] Comment on above: Performed By: #### C MP #### [id number] Specific gravity (U) [Rel density] 1.010 Normal 1.005 - 1.035 [facility] Comment on above: Performed By: #### C MP #### [address] [address] Urobilinogen (U) [Mass/Vol] mg/dL Normal 0.0 - 1.9 [facility] Comment on above: Performed By: #### C MP #### [id number] CBC AND DIFFERENTIALon 09-12 % AUTOMATED IMMATURE GRAN 0.3 % Normal 0.0 - 0.9 [facility] Comment on above: Result Comment: Darlene ture Granulocyte Count (IG) includes promyelocytes, myelocytes and metamyelocytes but does not include bands. Percent differential counts (%) should be interpreted in the context of the absolute cell counts (cells/L). Performed By: #### C BCDF ####[address] [address] Basophils (Bld) [#/Vol] 0.03 10*3/uL Normal 0.00 - 0.10 [facility] Comment on above: Performed By: #### C BCDF ####[address] [address] Basophils/100 WBC (Bld) 0.3 % Normal 0.0 - 2.0 [facility] Comment on above: Performed By: #### C BCDF ####[address] [address] Eosinophils (Bld) [#/Vol] 0.07 10*3/uL Normal 0.00 - 0.70 [facility] Comment on above: Performed By: #### C BCDF ####[address] [address] Eosinophils/100 WBC (Bld) 0.8 % Normal 0.0 - 6.0 [facility] Comment on above: Performed By: #### C BCDF ####[address] [address] Erythrocyte distribution width (RBC) [Ratio] 11.3 % Low 11.5 - 14.5 [facility] Comment on above: Performed By: #### C BCDF ####[address] [address] Hematocrit (Bld) [Volume fraction] 41.1 % Normal 36.0 - 46.0 [facility] Comment on above: Performed By: #### C BCDF ####[address] [address] Hemoglobin (Bld) [Mass/Vol] 14.1 g/dL Normal 12.0 - 16.0 [facility] Comment on above: Performed By: #### C BCDF ####[address] [address] Lymphocytes (Bld) [#/Vol] 2.00 10*3/uL Normal 1.20 - 4.80 [facility] Comment on above: Performed By: #### C BCDF ####[address] [address] Lymphocytes/100 WBC (Bld) 22.8 % Normal 13.0 - 44.0 [facility] Comment on above: Performed By: #### C BCDF ####[address] [address] MCHC (RBC) [Mass/Vol] 34.3 g/dL Normal 32.0 - 36.0 [facility] Comment on above: Performed By: #### C BCDF ####[address] [address] MCV (RBC) [Entitic vol] 93 fL Normal 80 - 100 [facility] Comment on above: Performed By: #### C BCDF ####[address] [address] Monocytes (Bld) [#/Vol] 0.44 10*3/uL Normal 0.10 - 1.00 [facility] Comment on above: Performed By: #### C BCDF ####[address] [address] Monocytes/100 WBC (Bld) 5.0 % Normal 2.0 - 10.0 [facility] Comment on above: Performed By: #### C BCDF ####[address] [address] Neutrophils (Bld) [#/Vol] 6.21 10*3/uL Normal 1.20 - 7.70 [facility] Comment on above: Result Comment: Perc ent differential counts (%) should be interpreted in the context of the absolute cell counts (cells/L). Performed By: #### C BCDF ####[address] [address] Neutrophils/100 WBC (Bld) 70.8 % Normal 40.0 - 80.0 [facility] Comment on above: Performed By: #### C BCDF ####[address] [address] Platelets (Bld) [#/Vol] 217 10*3/uL Normal 150 - 450 [facility] Comment on above: Performed By: #### C BCDF ####[address] [id number] RBC 4.40 x10E12/L Normal 4.00 - 5.20 [facility] Comment on above: Performed By: #### C BCDF ####[address] [address] WBC (Bld) [#/Vol] 8.8 10*3/uL Normal 4.4 - 11.3 [facility] Comment on above: Performed By: #### C BCDF ####[place] [address] COMPREHENSIVE PANELon 2022 Albumin [Mass/Vol] 4.6 g/dL Normal 3.4 - 5.0 [facility] Comment on above: Performed By: #### C MP #### [address] [address] ALP [Catalytic activity/Vol] 75 U/L Normal 33 - 110 [facility] Comment on above: Performed By: #### C MP #### [address] [address] ALT [Catalytic activity/Vol] 13 U/L Normal 7 - 45 [facility] Comment on above: Result Comment: [place]cca ents treated with Sulfasalazine may generate falsely decreased results for ALT. Performed By: #### C MP #### [address] [address] Anion gap [Moles/Vol] 12 mmol/L Normal 10 - 20 [facility] Comment on above: Performed By: #### C MP #### [address] [address] AST [Catalytic activity/Vol] 14 U/L Normal 9 - 39 [facility] Comment on above: Performed By: #### C MP #### [address] [address] Bilirubin [Mass/Vol] 0.6 mg/dL Normal 0.0 - 1.2 [facility] Comment on above: Performed By: #### C MP #### [address] [address] Calcium [Mass/Vol] 9.6 mg/dL Normal 8.6 - 10.3 [facility] Comment on above: Performed By: #### C MP #### [address] [address] Chloride [Moles/Vol] 107 mmol/L Normal 98 - 107 [facility] Comment on above: Performed By: #### C MP #### [address] [address] Creatinine [Mass/Vol] 0.67 mg/dL Normal 0.50 - 1.05 [facility] Comment on above: Performed By: #### C MP #### [address] [address] eGFR FEMALE >90 Normal >90 [facility] Comment on above: Result Comment: CALC ULATIONS OF ESTIMATED GFR ARE PERFORMED USING THE 2020 CKD-EPI STUDY REFIT EQUATION WITHOUT THE RACE VARIABLE FOR THE IDMS-TRACEABLE CREATININE METHODS. https://jasn.asnjournals.org/content//ASN.543972098 8 Performed By: #### C MP #### [address] [address] Glucose [Mass/Vol] 82 mg/dL Normal 74 - 99 [facility] Comment on above: Performed By: #### C MP #### [address] [address] HCO3 (Bld) [Moles/Vol] 22 mmol/L Normal 21 - 32 [facility] Comment on above: Performed By: #### C MP #### [address] [address] Potassium [Moles/Vol] 3.5 mmol/L Normal 3.5 - 5.3 [facility] Comment on above: Performed By: #### C MP #### [address] [address] Protein [Mass/Vol] 7.4 g/dL Normal 6.4 - 8.2 [facility] Comment on above: Performed By: #### C MP #### [address] [address] Sodium [Moles/Vol] 137 mmol/L Normal 136 - 145 [facility] Comment on above: Performed By: #### C MP #### [address] [address] Urea nitrogen [Mass/Vol] 9 mg/dL Normal 6 - 23 [facility] Comment on above: Performed By: #### C MP #### [address] [address] [address] ABDOMEN AND PELVIS WO CON TRASTon 09-12-2022 CT ABDOMEN AND PELVIS WO CONTRAST Patient Name: MICHELLE CHOI STUDY: CT ABDOMEN AND PELVIS WO CONTRAST; 09/12/2022 3:34 pm INDICATION: lower abd pain . COMPARISON: 07/18/2022 ACCESSION NUMBER(S): [id number] ORDERING CLINICIAN: KEERTHI RANKIN TECHNIQUE: Contiguous axial images were obtained through the abdomen and pelvis without the use of contrast. Coronal and sagittal reconstructions were performed. FINDINGS: LOWER CHEST: Images through the lung bases demonstrate mild atelectasis. ABDOMEN AND PELVIS: LIVER: Within normal limits. BILE DUCTS: Not abnormally dilated. GALLBLADDER: No calcified stones. No wall thickening. PANCREAS: Appears unremarkable. SPLEEN: Appears unremarkable. ADRENAL GLANDS: Appear unremarkable. KIDNEYS, URETERS, AND BLADDER: No radiopaque calculi are identified within the kidneys. There is no evidence of hydronephrosis. The urinary bladder appears grossly unremarkable. BOWEL: The small and large bowel are normal in caliber and demonstrate no wall thickening. There is no evidence of a bowel obstruction. Appendix is normal in caliber. Although CT has limited sensitivity and specificity for gastric pathology, the stomach appears grossly unremarkable. RETROPERITONEUM, VESSELS: There is no aneurysmal dilatation of the abdominal aorta. The IVC is within normal limits. No pathologically enlarged retroperitoneal lymph nodes are noted. PERITONEUM: There is no evidence of pneumoperitoneum. A small amount of nonspecific free fluid in the pelvis which may be physiologic given the patient's age and gender. The uterus is unchanged in size. There is a cystic lesion in the right adnexal region measuring up to 4.5 cm in size. This has decreased in size when compared to the previous study when it measured 5.5 cm in size. No pathologically enlarged mesenteric lymph nodes are identified. ABDOMINAL WALL, SOFT TISSUES: No acute process. SKELETON: Levoconvex curvature lumbar spine. Mild degenerative changes. No acute process. IMPRESSION: 4.5 cm right adnexal/ovarian cyst which has decreased in size when compared to the previous study. Small amount of free fluid the pelvis which is nonspecific but may be physiologic given the patient's age and gender. Electronically signed by: RIC NÚÑEZ MD Normal [facility] HCG,URINEon 09-12-2022 Beta HCG ( test) Ql (U) Negative Normal Negative [facility] Comment on above: Performed By: #### L IPAS #### [address] [address] LACTATEon 09-12-2022 Lactate [Moles/Vol] 0.7 mmol/L Normal 0.4 - 2.0 [facility] Comment on above: Result Comment: Nicole puncture immediately after or during the administration of Metamizole may lead to falsely low results. Testing should be performed immediately prior to Metamizole dosing. Performed By: #### L ACT #### [address] [address] LIPASEon 09-12-2022 Lipase [Catalytic activity/Vol] 23 U/L Normal 9 - 82 [facility] Comment on above: Result Comment: Nicole puncture immediately after or during the administration of Metamizole may lead to falsely low results. Testing should be performed immediately prior to Metamizole dosing. K-arxmzy-o-benzoquinone imine (metabolite of Acetaminophen) will generate erroneously low results in samples for patients that have taken toxic doses of acetaminophen. Performed By: #### L IPAS #### [address] [address] Provider Note - ED v3on - Provider Note - ED v3 Provider Note: Chart Review: HISTORY OF PRESENTING ILLNESS MICHELLE is a 17 year old Female and was seen by me at 12-Sep-2022 13:14 for a chief complaint of abdominal pain (abdominal pain and right flank pain since last night, +nausea, no vomiting. pt states pain is worse when urinating or having a BM, pt denies constipation reports normal BM's. Denies fever, chills or diarrhea.)(1). Triage Information: Most recent Vital Sign Value Date Temp (F): 98.1 09-12-2022 13:21 Temp (C): 36.7 09-12-2022 13:21 Heart Rate (beats/min): 82 09-12-2022 13:21 Respirations (breaths/min): 16 09-12-2022 13:21 SpO2 (%): 99 09-12-2022 13:21 BP Systolic (mm Hg): 114 09-12-2022 13:21 BP Diastolic (mm Hg): 81 09-12-2022 13:21 PAST MEDICAL HISTORY ALLERGIES/INTOLERANCES: Allergy Allergen: penicillin Type: Drug Reaction: Unknown HEALTH HISTORY: No documented data. OUTPATIENT MEDICATIONS: Home Medications Review Status for Reconciliation: Complete Med Status: Patient Currently Takes Medications Drug Name: norgestimate-ethinyl estradiol 0.25 mg-35 mcg oral tablet Instructions: 1 tab(s) orally once a day (in the evening) Drug Name: citalopram 10 mg oral tablet Instructions: 1 tab(s) orally once a day (in the evening) Drug Name: topiramate 25 mg oral tablet Instructions: 1 tab(s) orally once a day (in the evening) SIGNIFICANT EVENTS: Past Medical History Description:none Past Surgical History Description:none CRITICAL CARE RESULTS: Recent Lab Results: I have reviewed these laboratory results: Complete Blood Count + Differential 12-Sep-2022 15:16:00 ResultValue White Blood Cell Count 8.8 Red Blood Cell Count 4.40 HGB 14.1 HCT 41.1 MCV 93 MCHC 34.3 PLT 217 RDW-CV 11.3 L Neutrophil % 70.8 Immature Granulocytes % 0.3 Lymphocyte % 22.8 Monocyte % 5.0 Eosinophil % 0.8 Basophil % 0.3 Neutrophil Count 6.21 Lymphocyte Count 2.00 Monocyte Count 0.44 Eosinophil Count 0.07 Basophil Count 0.03 Comprehensive Metabolic Panel 12-Sep-2022 15:16:00 ResultValue Glucose, Serum 82 NA 137 K 3.5 CL 107 Bicarbonate, Serum 22 Anion Gap, Serum 12 BUN 9 CREAT 0.67 GFR Female >90 Calcium, Serum 9.6 ALB 4.6 ALKP 75 T Pro 7.4 T Bili 0.6 Alanine Aminotransferase, Serum 13 Aspartate Transaminase, Serum 14 Lactate, Level 12-Sep-2022 15:16:00 ResultValue Lactate, Level 0.7 Lipase, Serum 12-Sep-2022 15:16:00 ResultValue Lipase, Serum 23 Urinalysis with Culture if Indicated 12-Sep-2022 13:39:00 ResultValue Color, Urine Yellow Reference Range: STRAW,YELLOW Appearance, Urine HAZY Specific [place], Urine 1.019 pH, Urine 6.0 Protein, Urine NEGATIVE Glucose, Urine NEGATIVE Blood, Urine NEGATIVE Ketones, Urine NEGATIVE Bilirubin, Urine NEGATIVE Urobilinogen, Urine <2.0 Nitrite, Urine Negative Leukocyte Esterase, Urine SMALL(1+) A Urine Test 12-Sep-2022 13:39:00 ResultValue HCG, Urine NEGATIVE Urinalysis, Microscopic 12-Sep-2022 13:39:00 ResultValue White Cells 7 A WBC Clumps RARE Red Blood Cells 2 Epithelial Cells, Squamous 9 Epithelial Cells, Transitional <1 Bacteria, Urine 1+ A Mucous 1+ Radiology Results: Impression: 4.5 cm right adnexal/ovarian cyst which has decreased in size when compared to the previous study. Small amount of free fluid the pelvis which is nonspecific but may be physiologic given the patient's age and gender. CT Abdomen and Pelvis without Contrast [Sep 12 2022 3:55PM] VITAL SIGNS: T PRBP SpO2O2(LPM) %FiO2 Method 12-Sep-2022 16:23:[id number] 100 12-Sep-2022 13:21:[id number]/81 99 room air, no respiratory support MDM MDM/ED COURSE: PMH: Reviewed PSH: Reviewed Social History: Reviewed. Allergies reviewed. HPI: This is a 17 year old female with history of UTI, ovarian cyst who presents to the ED today accompanied by her boyfriend with complaints of lower abdominal and right flank pain. Symptoms started last night. C/o dysuria, no frequency or urgency. Some nausea, no vomiting. Loose BM, not diarrhea. No fevers. No hematuria. Sexually active with 1 male partner, no history or concern for STD. LMP 08/31/22. Denies kidney stone history. REVIEW OF SYSTEMS: All other systems reviewed and negative except as listed in HPI. PHYSICAL EXAM: GENERAL: Vitals noted, no distress. Alert and oriented x 3. Non-toxic. NECK: Supple. No masses. No midline tenderness. No meningeal signs. CARDIAC: Regular rate, rhythm. No murmurs rubs or gallops. No JVD. PULMONARY: Lungs clear and equal bilaterally. No wheezes rales or rhonchi. No respiratory distress. ABDOMEN: Soft, nondistended, and tender in the mid lower abdomen and right flank without CVA tenderness. No peritoneal signs. Bowel sounds are present and normoactive in all 4 quadrants. No pulsatile masses. EXTREMITIES: No periphera (more content not included)... [facility] Risk Screen - Adult [facility] 09-12-2022 Risk Screen - Adult Emergency Preferred Language: Preferred Language: Preferred Language for Discussing Health Care (patient/designee)Tristanian Patient Preferred Pharmacy: Patient Preferred Pharmacy Statement: I have reviewed and updated the patient's preferred pharmacy selection for today's visit. Advanced Directives: Advance Directive/DNRno Advance Directive Information Givenpatient/family declined Family Violence Adult: Abuse Screen: Are you or have you been threatened or abused physically, emotionally, or sexually by anyoneno Learning Assessment (Patient): Learning Assessment (Patient): Patient is Able to be Assessed for Learningyes Factors Influencing Readiness to Learnacuteness of illness Factors that Impact Ability to Learnnone Devices/Methods Used to Communicatenone Learning Preferencesverbal instruction; written material Cultural Considerationsnone Developmental Considerationsnone Mormonism Considerationsnone Learning Assessment (Other Learner): Learning Assessment (Other Learner): Other learner availableno Pressure Injury/TB/Substance: Pressure Injury: Do you have a coughno Smoking Statusnever smoker Alcohol Usedenies Drug Usedenies Drug 2 Usedenies Admission Risk Screen: Significant IndicatorsComplete CAGE: CAGE: Is this an injured patient [place] [place]Julissa/Daria/Sharda/Maik Buck/Esvin): no Electronic Signatures: Kellie Melendrez (RN) (Signed 12-Sep-2022 13:28) Authored: Preferred Language, Patient Preferred Pharmacy, Advanced Directives, Family Violence Adult, Learning Assessment (Patient), Learning Assessment (Other Learner), Pressure Injury/TB/Substance, Pressure Injury, CAGE Last Updated: 12-Sep-2022 13:28 by Kellie Melendrez (RN) [facility] Triage - EDon 09-12-2022 Triage - ED Quick Triage: Are You no Have You Given In The Last 6 Weeksno Are You Currently Breastfeedingno The patient and/or guardian verbally acknowledges placement for services into the following (when Urgent Care Service hours are operating):emergency department Chart Review: ARRIVAL INFORMATION Mode of Arrival: private vehicle CHIEF COMPLAINT MICHELLE CHOI is a Female patient with a chief complaint of abdominal pain (abdominal pain and right flank pain since last night, +nausea, no vomiting. pt states pain is worse when urinating or having a BM, pt denies constipation reports normal BM's. Denies fever, chills or diarrhea.). Triage Date/Time: 12-Sep-2022 13:21 MARQUISE: 3 Pain Rating (0-10): 4 = Moderate Vital Signs: Temperature: 98.1F ( 36.7C) taken axillary Blood Pressure: 114/81 Mean: Heart Rate: 82 Respiratory Rate: 16 Pulse Oximetry: 99% on room air, no respiratory support. Height: 5 feet 0.00 inches. 152.4 CM Weight: 127.8 pounds. Calculated 58.0 kg. (stated) Calculated BMI (kg/m2): 24.972 Calculated BSA (m2) 1.57 [place] Coma Scale: Best Eye Response: (E4) spontaneous Best Motor Response: (M6) obeys commands Best Verbal Response: (V5) oriented [place] Score: 15 Cough lasting greater than 3 weeks: no Patient immunocompromised related to: N/A Allergies: yes Last menstrual period: 31-Aug-2022 Patient has homicidal thoughts: no Symptoms Are POSITIVE For: nausea. Risk Screens Suicide Risk Screen In the Past Month: Have you wished you were or wished you could go to sleep and not wake up no In the Past Month: Have you had any actual thoughts of killing yourself no In Your Lifetime: Have you ever done anything, started to do anything, or prepared to do anything to end your life no Restrepo Fall Scale Screening Has the patient fallen before (or is the patient in the ED as a result of a fall) has not had a fall Does the patient have an impaired gait does not have impaired gait Is the patient cognitively impaired not cognitively impaired Interventions: Restrepo Fall Interventions: LOW INTERVENTIONS: *patient oriented to surroundings and call system, * patient/family falls education completed and documented, *patients fall status communicated during bedside handoff, *whiteboard updated, *mode of toileting discussed with patient, *bed in low position with brakes locked, *call light in reach, * non-skid footwear TRAVEL HISTORY Travel History Coronavirus Screening: no exposure or symptoms Travel Exposure History: NO travel to International locations in the past 30 days PAIN Pain Scale Used: ROSELINE Pain Rating (0-10): 4 = Moderate Past Medical History: Past Medical History Reviewedyes none: Past Surgical History, Active none: Past Medical History, Active Electronic Signatures: Kellie Melendrez (THERESE) (Signed 12-Sep-2022 13:26) Entered: Risk Screens, Pain, Travel History, Chart Review, Scores, Past Medical History Authored: Quick Triage, Risk Screens, Pain, Travel History, Chart Review, Scores, Past Medical History Last Updated: 12-Sep-2022 13:26 by Kellie Melendrez (RN) [facility] UA MICROSCOPICon 09-12-2022 BACTERIA 1+ /HPF Abnormal [facility] Comment on above: Performed By: #### C MP #### [place] [address] Mucus Ql (Urine sed) 1+ /LPF Normal [facility] Comment on above: Performed By: #### C MP #### [place] [address] RBC 2 /HPF Normal 0-5 [facility] Comment on above: Performed By: #### C MP #### [place] [address] SQUAMOUS EPITH. CELLS 9 /HPF Normal [facility] Comment on above: Performed By: #### C MP #### [place] [address] TRANSITIONAL EPITH.CELLS <1 Normal [facility] Comment on above: Performed By: #### C MP #### [place] [id number] WBC 7 /HPF Abnormal 0-5 [facility] Comment on above: Performed By: #### C MP #### [place] [address] WBC CLUMPS RARE Normal [facility] Comment on above: Performed By: #### C MP #### [place] [address] URINALYSIS WITH CULTURE IF I NDICATEDon 09-12-2022 Appearance (U) HAZY Normal [place] [facility] Comment on above: Performed By: #### L IPAS #### [place] [address] Bilirubin Ql (U) Negative Normal NEGATIVE [facility] Comment on above: Performed By: #### L IPAS #### [place] [address] Color (U) Yellow Normal STRAW,YELLOW [facility] Comment on above: Performed By: #### L IPAS #### [address] [address] Glucose Ql (U) Negative Normal NEGATIVE [facility] Comment on above: Performed By: #### L IPAS #### [place] [address] Hemoglobin Ql (U) Negative Normal NEGATIVE [facility] Comment on above: Performed By: #### L IPAS #### [place] [address] Ketones Ql (U) Negative Normal NEGATIVE [facility] Comment on above: Performed By: #### L IPAS #### [place] [id number] Leukocyte esterase Test strip Ql (U) SMALL(1+) Abnormal NEGATIVE [facility] Comment on above: Performed By: #### L IPAS #### [place] [id number] Nitrite Ql (U) Negative Normal NEGATIVE [facility] Comment on above: Performed By: #### L IPAS #### [address] [address] pH (U) 6.0 [pH] Normal 5.0 - 8.0 [facility] Comment on above: Performed By: #### L IPAS #### [address] [address] Protein Ql (U) Negative Normal NEGATIVE [facility] Comment on above: Performed By: #### L IPAS #### [address] [address] Specific gravity (U) [Rel density] 1.019 Normal 1.005 - 1.035 [facility] Comment on above: Performed By: #### L IPAS #### [address] [address] Urobilinogen (U) [Mass/Vol] mg/dL Normal 0.0 - 1.9 [facility] Comment on above: Performed By: #### L IPAS #### [address] [address] URINE CULTURE,BACTERIALon URINE CULTURE,BACTERIAL PATIENT: MICHELLE CHOI LOCATION: [facility]#: [id number] : [birth year] AGE: SEX: F ORDERED BY: KEERTHI RANKIN SOURCE: URINE COLLECTED: 09/12/22 13:39 ANTIBIOTICS AT [place].: RECEIVED : 09/12/22 22:23 SITE: R E S U L T S URINE CULTURE,BACTERIAL FINAL 09/13/22 15:04 NO SIGNIFICANT GROWTH. Normal [facility] Comment on above: Performed By: #### U [facility] #### [facility] [address] [place] [address] PELVIC US WHIon 09-02-2022 [facility] Office Visit (Family Medicin e)on 07-24-2022 Follow-up visit Diagnoses/Problems Generalized anxiety disorder (300.02) (F41.1) Overweight with body mass index (BMI) of 25 to 25.9 in adult (278.02,V85.21) (E66.3,Z68.25) Orders Generalized anxiety disorder Renew: Citalopram Hydrobromide 20 MG Oral Tablet; Take 1 tablet daily Follow-up visit in 1 year Outpatient Follow-up Status: Complete Done: [id number] Migraine headache Renew: Topiramate 25 MG Oral Tablet; Take 1 tablet daily Provider Impressions Chronic condition stable. Refilled citalopram and Topamax, no changes to medications. Follow up 1 year or sooner prn. Chief Complaint med check. History of Present Illness 17 YOF presents for med check. ER visit 07/18/22. Ovarian cyst, saw [facility] in [place] 5 days ago, was going to have surgery, but cyst popped and she is feeling fine today. ANXIETY: Laid off from work recently, might go to [employer] soon. SOO score of 10 and PHQ score of 9 this visit. Slight increase in scores, but she feels stable. 20mg citalopram effective dose, no SE. Has not needed hydroxyzine. SCOLIOSIS: Saw ortho, not reviewed. No longer in PT, seems stable currently. Has been seeing chiropractor. SOB: PFTs unremarkable 10/30/21. Will monitor for now. HEADACHE/MIGRAINES: Topamax 25mg for prophylaxis has been effective. She was out of Topomax for a couple months, had 2 migraines in this time. Imitrex prn. Feeling well, no concerns. 'Scores and Scales' SOO-7 [id number] 2 SOO-7 Total Score7 17 11 Feeling nervous, anxious or on edgeOver half the days - 2 Nearly every day - 3 Not at all - 0 Not being able to stop or control worryingSeveral days - 1 Nearly every day - 3 Over half the days - 2 Worrying too much about different thingsSeveral days - 1 Nearly every day - 3 Over half the days - 2 Trouble relaxingNot at all - 0 Several days - 1 Several days - 1 Being so restless that it's hard to sit stillNot at all - 0 Over half the days - 2 Over half the days - 2 Becoming easily annoyed or irritableOver half the days - 2 Nearly every day - 3 Over half the days - 2 Feeling afraid as if something awful might happenSeveral days - 1 Over half the days - 2 Over half the days - 2 Review of Systems Review of Systems: Constitutional: no fever, no unintentional weight change Eye: no recent visual problem Respiratory: no shortness of breath Cardiac: no chest pain GI: no reflux, no nausea, no vomiting, no diarrhea, no constipation, no heartburn, no abdominal pain Neurological: no headache Active Problems Adolescent idiopathic scoliosis of lumbosacral spine (737.30) (M41.127) Body mass index (BMI) of 23.0 to 23.9 in adult (V85.1) (Z68.23) Body mass index (BMI) of 5th to 84th percentile for age in child (V85.52) (Z68.52) Curvature of spine (737.9) (M43.9) Depression (311) (F32.A) Generalized anxiety disorder (300.02) (F41.1) Low back pain (724.2) (M54.50) Menorrhagia (626.2) (N92.0) Migraine headache (346.90) (G43.909) History of Nicotine vapor product user (305.1) (Z72.0) Nose deformity (738.0) (M95.0) Shortness of breath (786.05) (R06.02) Past Medical History History of Exercise-induced bronchospasm (493.81) (J45.990) Resolved Date: 18 Dec 2021 Surgical History No history of surgery Family History Family history of asthma (V17.5) (Z82.5) Family history of chronic obstructive pulmonary disease (V17.6) (Z82.5) Family history of asthma (V17.5) (Z82.5) Social History Does not have living will Never a smoker History of Nicotine vapor product user (305.1) (Z72.0) No alcohol use Allergies amoxicillin Hives;; Recorded By: Cadence Rodriguez; 07/26/2019 7:00:31 AM Penicillins Hives;; Recorded By: Cadence Rodriguez; 07/26/2019 7:00:31 AM Current Meds Medication NameInstructionReason Citalopram Hydrobromide 20 MG Oral TabletTake 1 tablet dailyGeneralized anxiety disorder hydrOXYzine HCl - 10 MG Oral TabletTAKE 1 TABLET 3 TIMES DAILY NEEDED.Generalized anxiety disorder Norgestim-Eth Estrad Triphasic 0.18/0.215/0.25 MG-35 MCG Oral Tablettake 1 tablet by mouth once dailyMenorrhagia SUMAtriptan Succinate 100 MG Oral TabletTake 1 tablet by mouth at onset of migraine. May repeat dose in 2 hours if migraine has not resolved. No more than 2 tabs in 24 hours.Migraine headache Topiramate 25 MG Oral TabletTake 1 tablet dailyMigraine headache Vitals Vital Signs Recorded: [id number] 09:09AM Heart Rate72 Sjpboefu804 Qmlqugywl92 Height5 ft 0.5 in 2-20 Stature Percentile7 % Hblohg703 lb 15.94 oz 2-20 Weight Hsuubaffmx48 % BMI Kxbsadyssb76.16 kg/m2 BMI Suhbxpzvhn96 % BSA Calculated1.57 Tobacco Useb) No PHQ-2 #1. Over the last 2 weeks have you felt down, depressed or hopeless? (If yes, answer PHQ-9 below)Yes PHQ-2 #2. Over the last 2 weeks have you felt little interest or pleasure in doing things? (If yes, answer PHQ-9 below)No Falls Screening (Age 18+)b) One or more falls in the last year Physical Exam General: Alert and jerrell (more content not included)... Normal [facility] Tobacco Screening.on 023 Adult depression screening assessment Yes [facility] Work Phone: Adult depression screening assessment No [facility] Work Phone: Fall risk assessment b) One or more falls in the last year [facility] Work Phone: Tobacco use status [facility] b) No [facility] Work Phone: No Panel Informationon 07-21 [facility] CBC AND DIFFERENTIALon 07-18 % AUTOMATED IMMATURE GRAN 0.3 % Normal 0.0 - 0.9 [facility] Comment on above: Result Comment: Darlene ture Granulocyte Count (IG) includes promyelocytes, myelocytes and metamyelocytes but does not include bands. Percent differential counts (%) should be interpreted in the context of the absolute cell counts (cells/L). Performed By: #### C MP #### [place] [id number] [place] [address] Basophils (Bld) [#/Vol] 0.03 10*3/uL Normal 0.00 - 0.10 [facility] Comment on above: Performed By: #### C MP #### [address] [address] Eosinophils (Bld) [#/Vol] 0.36 10*3/uL Normal 0.00 - 0.70 [facility] Comment on above: Performed By: #### C MP #### [address] [address] Eosinophils/100 WBC (Bld) 3.1 % Normal 0.0 - 6.0 [facility] Comment on above: Performed By: #### C MP #### [address] [address] Lymphocytes (Bld) [#/Vol] 2.58 10*3/uL Normal 1.20 - 4.80 [facility] Comment on above: Performed By: #### C MP #### [place] [id number] Monocytes (Bld) [#/Vol] 0.59 10*3/uL Normal 0.10 - 1.00 [facility] Comment on above: Performed By: #### C MP #### [address] [address] Neutrophils (Bld) [#/Vol] 7.95 10*3/uL High 1.20 - 7.70 [facility] Comment on above: Result Comment: Perc ent differential counts (%) should be interpreted in the context of the absolute cell counts (cells/L). Performed By: #### C MP #### [address] [address] RBC 4.43 x10E12/L Normal 4.00 - 5.20 [facility] Comment on above: Performed By: #### C MP #### [address] [address] COMPREHENSIVE PANELon 2022 Albumin [Mass/Vol] 4.4 g/dL Normal 3.4 - 5.0 [facility] Comment on above: Performed By: #### L IPAS #### [address] [address] ALP [Catalytic activity/Vol] 78 U/L Normal 33 - 110 [facility] Comment on above: Performed By: #### L IPAS #### [address] [address] ALT [Catalytic activity/Vol] 9 U/L Normal 7 - 45 [facility] Comment on above: Result Comment: [place] ents treated with Sulfasalazine may generate falsely decreased results for ALT. Performed By: #### L IPAS #### [place] [address] Anion gap [Moles/Vol] 12 mmol/L Normal 10 - 20 [facility] Comment on above: Performed By: #### L IPAS #### [place] [address] AST [Catalytic activity/Vol] 13 U/L Normal 9 - 39 [facility] Comment on above: Performed By: #### L IPAS #### [place] [id number] Bilirubin [Mass/Vol] 0.6 mg/dL Normal 0.0 - 1.2 [facility] Comment on above: Performed By: #### L IPAS #### [place] [address] Calcium [Mass/Vol] 9.4 mg/dL Normal 8.6 - 10.3 [facility] Comment on above: Performed By: #### L IPAS #### [address] [address] Chloride [Moles/Vol] 104 mmol/L Normal 98 - 107 [facility] Comment on above: Performed By: #### L IPAS #### [place] [address] Creatinine [Mass/Vol] 0.62 mg/dL Normal 0.50 - 1.05 [facility] Comment on above: Performed By: #### L IPAS #### [place] [address] eGFR FEMALE >90 Normal >90 [facility] Comment on above: Result Comment: CALC ULATIONS OF ESTIMATED GFR ARE PERFORMED USING THE 2020 CKD-EPI STUDY REFIT EQUATION WITHOUT THE RACE VARIABLE FOR THE IDMS-TRACEABLE CREATININE METHODS. https://jasn.asnjournals.org/content/early//ASN.981624672 8 Performed By: #### L IPAS #### [address] [address] Glucose [Mass/Vol] 109 mg/dL High 74 - 99 [facility] Comment on above: Performed By: #### L IPAS #### [address] [address] HCO3 (Bld) [Moles/Vol] 25 mmol/L Normal 21 - 32 [facility] Comment on above: Performed By: #### L IPAS #### [address] [address] Potassium [Moles/Vol] 3.8 mmol/L Normal 3.5 - 5.3 [facility] Comment on above: Performed By: #### L IPAS #### [address] [address] Protein [Mass/Vol] 7.0 g/dL Normal 6.4 - 8.2 [facility] Comment on above: Performed By: #### L IPAS #### [address] [address] Sodium [Moles/Vol] 137 mmol/L Normal 136 - 145 [facility] Comment on above: Performed By: #### L IPAS #### [address] [address] Urea nitrogen [Mass/Vol] 10 mg/dL Normal 6 - 23 [facility] Comment on above: Performed By: #### L IPAS #### [address] [address] [address] ABDOMEN AND PELVIS W IV C ONTRASTon 07-18-2022 CT ABDOMEN AND PELVIS W IV CONTRAST Patient Name: MICHELLE CHOI STUDY: CT ABDOMEN AND PELVIS W IV CONTRAST; 07/18/2022 8:53 pm INDICATION: R flank pain . COMPARISON: None. ACCESSION NUMBER(S): [id number] ORDERING CLINICIAN: JUANCARLOS CARMEN TECHNIQUE: Contiguous axial images of the abdomen and pelvis were obtained after the intravenous administration of 82 mL Omnipaque 350 contrast. Coronal and sagittal reformatted images were reconstructed from the axial data. FINDINGS: LOWER CHEST: No acute abnormality. ABDOMEN/PELVIS: ABDOMINAL WALL: No significant abnormality. LIVER: No significant parenchymal abnormality. BILE DUCTS: No significant intrahepatic or extrahepatic dilatation. GALLBLADDER: No significant abnormality. PANCREAS: No significant abnormality. SPLEEN: No significant abnormality. ADRENALS: No significant abnormality. KIDNEYS, URETERS, BLADDER: No significant abnormality. REPRODUCTIVE ORGANS: There is a 6.1 cm x 4.9 cm x 5.5 cm unilocular thin-walled right ovarian cyst homogeneous internal contents measuring simple fluid density. VESSELS: No significant abnormality. RETROPERITONEUM/LYMPH NODES: No enlarged lymph nodes. BOWEL/MESENTERY/PERITONEUM : No inflammatory bowel wall thickening or dilatation. Normal appendix. No ascites, free air, or fluid collection. MUSCULOSKELETAL: No acute osseous abnormality. IMPRESSION: 6.1 cm x 4.9 cm x 5.5 cm medial right simple ovarian cyst. No acute process in the abdomen or pelvis. Electronically signed by: MAYI SALOMON MD Normal [facility] CT Abdomen and Pelvis with I V Contraston 07-18-2022 CT Abdomen and Pelvis W contrast IV Normal [facility] Work Phone: Complete Blood Count + Diffe rentialon 07-18-2022 Basophils/100 WBC (Bld) 0.3 % Normal 0.0 - 2.0 [facility] Work Phone: Comment on above: Performed By: #### C MP #### [address] [address] Erythrocyte distribution width (RBC) [Ratio] 11.3 % Low 11.5 - 14.5 [facility] Work Phone: Comment on above: Reference Range: 11. 5 - 14.5 Performed By: #### C MP #### [address] [address] Hematocrit (Bld) [Volume fraction] 41.6 % Normal 36.0 - 46.0 [facility] Work Phone: [phone] Comment on above: Reference Range: 36. 0 - 46.0 Performed By: #### C MP #### [address] [address] Hemoglobin (Bld) [Mass/Vol] 14.2 g/dL Normal 12.0 - 16.0 [facility] Work Phone: [phone] Comment on above: Reference Range: 12. 0 - 16.0 Performed By: #### C MP #### [address] [address] Lymphocytes/100 WBC (Bld) 22.4 % Normal 13.0 - 44.0 [facility] Work Phone: [phone] Comment on above: Reference Range: 13. 0 - 44.0 Performed By: #### C MP #### [address] [address] MCHC (RBC) [Mass/Vol] 34.1 g/dL Normal 32.0 - 36.0 [facility] Work Phone: [phone] Comment on above: Reference Range: 32. 0 - 36.0 Performed By: #### C MP #### [address] [address] MCV (RBC) [Entitic vol] 94 fL Normal 80 - 100 [facility] Work Phone: [phone] Comment on above: Performed By: #### C MP #### [address] [address] Monocytes/100 WBC (Bld) 5.1 % Normal 2.0 - 10.0 [facility] Work Phone: [phone] Comment on above: Performed By: #### C MP #### [address] [address] Neutrophils/100 WBC (Bld) 68.8 % Normal 40.0 - 80.0 [facility] Work Phone: [phone] Comment on above: Reference Range: 40. 0 - 80.0 Performed By: #### C MP #### [address] [address] Platelets (Bld) [#/Vol] 246 10*3/uL Normal 150 - 450 [facility] Work Phone: [phone] Comment on above: Performed By: #### C MP #### [address] [address] WBC (Bld) [#/Vol] 11.5 10*3/uL High 4.4 - 11.3 [facility] Work Phone: [phone] Comment on above: Performed By: #### C MP #### [address] [address] RBC (Bld) [#/Vol] 4.43 {x10E12/L} See Below [facility] Work Phone: [phone] Comment on above: Reference Range: 4.0 0 - 5.20 Complete Blood Count + Differential 0.03 {x10E9/L} See Below [facility] Work Phone: [phone] Comment on above: Reference Range: 0.0 0 - 0.10 Complete Blood Count + Differential 0.36 {x10E9/L} See Below [facility] Work Phone: [phone] Comment on above: Reference Range: 0.0 0 - 0.70 Complete Blood Count + Differential 0.59 {x10E9/L} See Below [facility] Work Phone: [phone] Comment on above: Reference Range: 0.1 0 - 1.00 Complete Blood Count + Differential 2.58 {x10E9/L} See Below [facility] Work Phone: [phone] Comment on above: Reference Range: 1.2 0 - 4.80 Complete Blood Count + Differential 7.95 {x10E9/L} above high threshold See Below [facility] Work Phone: [phone] Comment on above: Reference Range: 1.2 0 - 7.70 Percent differential counts (%) should be interpreted in the context of the absolute cell counts (cells/L). Complete Blood Count + Differential 3.1 % 0.0 - 6.0 [facility] Work Phone: [phone] Complete Blood Count + Differential 0.3 % 0.0 - 0.9 [facility] Work Phone: [phone] Comment on above: Immature Granulocyte Count (IG) includes promyelocytes, myelocytes and metamyelocytes but does not include bands. Percent differential counts (%) should be interpreted in the context of the absolute cell counts (cells/L). LIPASEon 07-18-2022 Lipase [Catalytic activity/Vol] 21 U/L Normal 9 - 82 [facility] Comment on above: Result Comment: Nicole puncture immediately after or during the administration of Metamizole may lead to falsely low results. Testing should be performed immediately prior to Metamizole dosing. J-lloqzn-c-benzoquinone imine (metabolite of Acetaminophen) will generate erroneously low results in samples for patients that have taken toxic doses of acetaminophen. Performed By: #### L IPAS #### [facility] [address] [place] [address] Laboratory - Chemistry and C hemistry - challengeon 07-18-2022 Albumin BCP dye [Mass/Vol] 4.4 g/dL 3.4 - 5.0 [facility] Work Phone: [phone] ALP [Catalytic activity/Vol] 78 U/L 33 - 110 [facility] Work Phone: [phone] With P-5'-P [Catalytic activity/Vol] 9 U/L 7 - 45 [facility] Work Phone: [phone] Comment on above: Patients treated wit h Sulfasalazine may generate falsely decreased results for ALT. Anion gap [Moles/Vol] 12 mmol/L 10 - 20 [facility] Work Phone: [phone] AST With P-5'-P [Catalytic activity/Vol] 13 U/L 9 - 39 [facility] Work Phone: [phone] Bilirubin [Mass/Vol] 0.6 mg/dL 0.0 - 1.2 [facility] Work Phone: Calcium [Mass/Vol] 9.4 mg/dL 8.6 - 10.3 [facility] Work Phone: Chloride [Moles/Vol] 104 mmol/L 98 - 107 [facility] Work Phone: CO2 [Moles/Vol] 25 mmol/L 21 - 32 [facility] Work Phone: Creatinine [Mass/Vol] 0.62 mg/dL See Below [facility] Work Phone: Comment on above: Reference Range: 0.5 0 - 1.05 Glucose [Mass/Vol] 109 mg/dL above high threshold 74 - 99 [facility] Work Phone: Potassium [Moles/Vol] 3.8 mmol/L 3.5 - 5.3 [facility] Work Phone: Protein [Mass/Vol] 7.0 g/dL 6.4 - 8.2 [facility] Work Phone: Sodium [Moles/Vol] 137 mmol/L 136 - 145 [facility] Work Phone: Urea nitrogen [Mass/Vol] 10 mg/dL 6 - 23 [facility] Work Phone: Lipase, Serumon 07-18-2022 Lipase [Catalytic activity/Vol] 21 U/L 9 - 82 [facility] Work Phone: Comment on above: Venipuncture immedia tely after or during the administration of Metamizole may lead to falsely low results. Testing should be performed immediately prior to Metamizole dosing. D-pvzuqh-g-benzoquinone imine (metabolite of Acetaminophen) will generate erroneously low results in samples for patients that have taken toxic doses of acetaminophen. No Panel Informationon 07-18 >90 >90 [facility] Work Phone: Comment on above: CALCULATIONS OF OVI MATED GFR ARE PERFORMED USING THE 2020 CKD-EPI STUDY REFIT EQUATION WITHOUT THE RACE VARIABLE FOR THE IDMS-TRACEABLE CREATININE METHODS.https://jasn.asnjournals.org/content//ASN.[email or web address] 021035786 Provider Note - ED v3on 07-08 Provider Note - ED v3 Provider Note: Chart Review: ED NOTES ED NOTES: HPI: Patient complains of about a week of abdominal pain that initially was in the left abdomen and flank and since has migrated over to the right side. She was seen here about 3 days ago and at that time declined an extensive work-up but had a urinalysis and a test which were both unremarkable. She currently denies any pain but states that is episodic in nature. She does note some pain with urination during the episodes but otherwise denies any nausea vomiting or fever. Patient had a negative test 3 days ago and denies chance of now. Medical/Family HX: No chronic medical history Physical Exam I have reviewed the triage vital signs. Const: Well nourished, well developed, appears stated age, no acute distress Eyes: PERRL, EOM intact, no conjunctival injection, vision grossly normal HENT: Neck supple without meningismus , Moist mucous membranes, no pharyengeal swelling or exudate CV: Regular rate and rhythm, Warm, well-perfused extremities. Chest non tender RESP: Lungs clear bilaterally, Unlabored respiratory effort GI: soft, non-tender, non-distended, no masses : MSK: No gross deformities appreciated Back: Non tender, no pain with ROM Skin: Warm, dry. No rashes Neuro: Alert and oriented x4, GCS 15 , tuckpointer II-XII grossly intact. Sensation and motor function of extremities grossly intact. Psych: Appropriate mood and affect. I have reviewed and confirmed nurses/medics notes for patient past, social and family history. Portions of this note were dictated by speech recognition. An attempt at proof reading was made to minimize errors. Minor errors in pump servicer supervisor may be present. HISTORY OF PRESENTING ILLNESS MICHELLE is a 17 year old Female and was seen by me at 18-Jul-2022 19:10 for a chief complaint of abdominal pain (Patient states she was seen here Wednesday for right flank pain and diagnosed with urinary tract infection, put on Macrobid, states pain has not gotten better since then and has radiated into her left lower quadrant and groin. Denies fever, nausea or vomiting.) . Triage Information: Most recent Vital Sign Value Date Temp (F): 98 07-18-2022 19:10 Temp (C): 36.6 07-18-2022 19:10 Heart Rate (beats/min): 93 07-18-2022 19:10 Respirations (breaths/min): 15 07-18-2022 19:10 SpO2 (%): 98 07-18-2022 19:10 BP Systolic (mm Hg): 115 07-18-2022 19:10 BP Diastolic (mm Hg): 73 07-18-2022 19:10 PAST MEDICAL HISTORY ALLERGIES/INTOLERANCES: Allergy Allergen: penicillin Type: Drug Reaction: Unknown HEALTH HISTORY: No documented data. OUTPATIENT MEDICATIONS: Home Medications Review Status for Reconciliation: Incomplete Med Status: Incomplete Medication History Drug Name: Macrobid 100 mg oral capsule Instructions: 1 cap(s) orally 2 times a day x 7 days SIGNIFICANT EVENTS: No documented data. CRITICAL CARE RESULTS: Recent Lab Results: I have reviewed these laboratory results: Complete Blood Count + Differential 18-Jul-2022 20:00:00 ResultValue White Blood Cell Count 11.5 H Red Blood Cell Count 4.43 HGB 14.2 HCT 41.6 MCV 94 MCHC 34.1 PLT 246 RDW-CV 11.3 L Neutrophil % 68.8 Immature Granulocytes % 0.3 Lymphocyte % 22.4 Monocyte % 5.1 Eosinophil % 3.1 Basophil % 0.3 Neutrophil Count 7.95 H Lymphocyte Count 2.58 Monocyte Count 0.59 Eosinophil Count 0.36 Basophil Count 0.03 Comprehensive Metabolic Panel 18-Jul-2022 19:28:00 ResultValue Glucose, Serum 109 H NA 137 K 3.8 CL 104 Bicarbonate, Serum 25 Anion Gap, Serum 12 BUN 10 CREAT 0.62 GFR Female >90 Calcium, Serum 9.4 ALB 4.4 ALKP 78 T Pro 7.0 T Bili 0.6 Alanine Aminotransferase, Serum 9 Aspartate Transaminase, Serum 13 Lipase, Serum 18-Jul-2022 19:28:00 ResultValue Lipase, Serum 21 Radiology Results: Impression: 6.1 cm x 4.9 cm x 5.5 cm medial right simple ovarian cyst. No acute process in the abdomen or pelvis. CT Abdomen and Pelvis with IV Contrast [Jul 18 2022 9:33PM] MDM MDM/ED COURSE: 2134-final results reviewed with patient who rest in bed in no acute distress. Patient's initial exam was also benign. Lab work today was unremarkable and CT scan is reviewed by myself showed a right-sided simple ovarian cyst. I did discuss with her the risks of ovarian torsion but as she has no current pain I felt that she would be appropriate for outpatient follow-up and she was given the name of our local [facility] group with which to follow. Patient also notes that she occasionally follows up with [facility] and [facility] and may follow-up with them. Patient was given strict return precautions to which she was agreeable. Your lab work today was unremarkable. The CAT scan of your abdomen showed an ovarian cyst on the right side which I do feel is the cause of your episodic pain. As discu (more content not included)... Normal [facility] Risk Screen - Adult Emergenc yon 07-18-2022 Risk Screen - Adult Emergency Preferred Language: Preferred Language: Preferred Language for Discussing Health Care (patient/designee)Tristanian Patient Preferred Pharmacy: Patient Preferred Pharmacy Statement: I have reviewed and updated the patient's preferred pharmacy selection for today's visit. Advanced Directives: Advance Directive/DNRno Advance Directive Information Givenpatient/family declined Family Violence Adult: Abuse Screen: Are you or have you been threatened or abused physically, emotionally, or sexually by anyoneno Learning Assessment (Patient): Learning Assessment (Patient): Patient is Able to be Assessed for Learningyes Factors Influencing Readiness to Learninterest in learning Factors that Impact Ability to Learnnone Devices/Methods Used to Communicatenone Learning Preferencesverbal instruction Cultural Considerationsnone Developmental Considerationsnone Mormonism Considerationsnone Learning Assessment (Other Learner): Learning Assessment (Other Learner): Other learner availableno Pressure Injury/TB/Substance: Pressure Injury: Pressure Injury Present on Admissionno Do you have a coughno Smoking Statusnever smoker Alcohol Usedenies Drug Usedenies Admission Risk Screen: Significant IndicatorsComplete CAGE: CAGE: Is this an injured patient [place] a [place] [place]/Daria/Sharda/[facility]ik Buck/Esvin): no Electronic Signatures: Josephine West) (Signed 18-Jul-2022 19:13) Authored: Preferred Language, Patient Preferred Pharmacy, Advanced Directives, Family Violence Adult, Learning Assessment (Patient), Learning Assessment (Other Learner), Pressure Injury/TB/Substance, Pressure Injury, CAGE Last Updated: 18-Jul-2022 19:13 by Josephine West (RN) [facility] Triage - EDon 07-18-2022 Triage - ED Quick Triage: Are You no Have You Given In The Last 6 Weeksno Are You Currently Breastfeedingno Chart Review: PRIMARY ASSESSMENT MICHELLE CHOI's primary assessment is Within Defined Limits. The airway is open and patent. Breathing spontaneous and unlabored with clear breath sounds bilaterally. Circulation is normal with good peripheral pulses. Skin is warm and dry and color is normal for race. ARRIVAL INFORMATION Means of Arrival: Ambulatory Mode of Arrival: private vehicle Arrival From: home Accompanied By: self Language: Spoken Language Preferred: Tristanian CHIEF COMPLAINT MICHELLE CHOI is a Female patient with a chief complaint of abdominal pain (Patient states she was seen here Wednesday for right flank pain and diagnosed with urinary tract infection, put on Macrobid, states pain has not gotten better since then and has radiated into her left lower quadrant and groin. Denies fever, nausea or vomiting.). Triage Date/Time: 18-Jul-2022 19:10 MARQUISE: 3V Pain Rating (0-10): 0 = None Vital Signs: Temperature: 98.0F ( 36.6C) taken temporal Blood Pressure: 115/73 Mean: Heart Rate: 93 Respiratory Rate: 15 Pulse Oximetry: 98% on room air, no respiratory support. Height: 5 feet 0.00 inches. 152.4 CM Weight: 121.2 pounds. Calculated 55.0 kg. (stated) Calculated BMI (kg/m2): 23.680 Calculated BSA (m2) 1.53 [place] Coma Scale: Best Eye Response: (E4) spontaneous Best Motor Response: (M6) obeys commands Best Verbal Response: (V5) oriented Antonia Score: 15 Allergies: yes Mask applied: yes Last menstrual period: 06-Jul-2022 Patient has homicidal thoughts: no Risk Screens Suicide Risk Screen In the Past Month: Have you wished you were or wished you could go to sleep and not wake up no In the Past Month: Have you had any actual thoughts of killing yourself no In Your Lifetime: Have you ever done anything, started to do anything, or prepared to do anything to end your life no Interventions: Restrepo Fall Interventions: LOW INTERVENTIONS: *patient oriented to surroundings and call system, * patient/family falls education completed and documented, *patients fall status communicated during bedside handoff, *whiteboard updated, *mode of toileting discussed with patient, *bed in low position with brakes locked, *call light in reach, * non-skid footwear TRAVEL HISTORY Travel History Coronavirus Screening: no exposure or symptoms Travel Exposure History: NO travel to International locations in the past 30 days PAIN Pain Scale Used: ROSELINE Pain Rating (0-10): 0 = None Past Medical History: Past Medical History Reviewedyes Electronic Signatures: Josephine West (THEERSE) (Signed 18-Jul-2022 19:12) Entered: Risk Screens, Pain, Arrival, ABCD, Travel History, Chart Review, Scores, Past Medical History Authored: Quick Triage, Risk Screens, Pain, Arrival, ABCD, Travel History, Chart Review, Scores, Past Medical History Last Updated: 18-Jul-2022 19:12 by Josephine West (THERESE) Normal [facility] Cult, Urineon 07-15-2022 Bacteria identified Cx Nom (U) -[facility] Work Phone: HCG,URINEon 07-15-2022 Beta HCG ( test) Ql (U) Negative Normal Negative [facility] Comment on above: Performed By: #### C #### [place] [address] Provider Note - ED v3on Provider Note - ED v3 Provider Note: Chart Review: HISTORY OF PRESENTING ILLNESS MICHELLE is a 17 year old Female and was seen by me at 15-Jul-2022 13:26 for a chief complaint of back pain (2 day hx of flank pain began on LT now is on RT side. No N/V/D No noted hematuria. No hx of stones. Pain is worse when she urinates. Describes pain as sharp. Took Diflucan 2 days ago with no obvious improvement. Denies urgency, frequency, incontinence.) . Triage Information: Most recent Vital Sign Value Date Temp (F): 97.9 07-15-2022 13:28 Temp (C): 36.6 07-15-2022 13:28 Heart Rate (beats/min): 87 07-15-2022 13:28 Respirations (breaths/min): 16 07-15-2022 13:28 SpO2 (%): 95 07-15-2022 13:28 BP Systolic (mm Hg): 124 07-15-2022 13:28 BP Diastolic (mm Hg): 72 07-15-2022 13:28 PAST MEDICAL HISTORY ALLERGIES/INTOLERANCES: Allergy Allergen: penicillin Type: Drug Reaction: Unknown HEALTH HISTORY: No documented data. OUTPATIENT MEDICATIONS: Home Medications Review Status for Reconciliation: Complete Med Status: No Current Medications SIGNIFICANT EVENTS: No documented data. CRITICAL CARE RESULTS: Recent Lab Results: I have reviewed these laboratory results: Urinalysis with Culture if Indicated 15-Jul-2022 13:54:00 ResultValue Color, Urine Yellow Reference Range: STRAW,YELLOW Appearance, Urine HAZY Specific [place], Urine 1.017 pH, Urine 8.0 Protein, Urine NEGATIVE Glucose, Urine NEGATIVE Blood, Urine NEGATIVE Ketones, Urine NEGATIVE Bilirubin, Urine NEGATIVE Urobilinogen, Urine <2.0 Nitrite, Urine Negative Leukocyte Esterase, Urine TRACE A Urine Test 15-Jul-2022 13:54:00 ResultValue HCG, Urine NEGATIVE Urinalysis, Microscopic 15-Jul-2022 13:54:00 ResultValue White Cells 1 Red Blood Cells None Epithelial Cells, Squamous 3 Amorphous Crystals 2+ VITAL SIGNS: T PRBP SpO2O2(LPM) %FiO2 Method 15-Jul-2022 14:00:[id number] 98 room air, no respiratory support 15-Jul-2022 13:28:00-36.22011610/72 95 MDM MDM/ED COURSE: PMH: Reviewed PSH: Reviewed Social History: Reviewed. Allergies reviewed. HPI: This is a 17 year old female with history of depression, anxiety, scoliosis, migraines, who presents to the ED today accompanied by her boyfriend with complaints of flank pain x2 days. Feels sharp, intermittent, and has moved from the left flank to the right flank. No fevers or chills. States pain does worsen when she urinates, but denies dysuria. Denies frequency, urgency, incontinence. She has history of UTI - states she was prescribed diflucan last urgent care visit for UTI and tried taking that 2 days ago without change in her symptoms. Denies vaginal discharge. Denies concern for STD. LMP 07/01/22. REVIEW OF SYSTEMS: All other systems reviewed and negative except as listed in HPI. PHYSICAL EXAM: GENERAL: Vitals noted, no distress. Alert and oriented x 3. Non-toxic. NECK: Supple. No masses. No midline tenderness. No meningeal signs. CARDIAC: Regular rate, rhythm. No murmurs rubs or gallops. No JVD. PULMONARY: Lungs clear and equal bilaterally. No wheezes rales or rhonchi. No respiratory distress. ABDOMEN: Soft, nondistended, and nontender. No peritoneal signs. Bowel sounds are present and normoactive in all 4 quadrants. No pulsatile masses. No CVA tenderness. EXTREMITIES: No peripheral edema. SKIN: No rash. Warm, dry, and intact. NEURO: No focal neurologic deficits. ED COURSE: This patient was seen and examined by myself independently. Urine obtained and sent to lab. Differentials include kidney stone, UTI, , musculoskeletal pain due to history of scoliosis. Urine noted above, trace leukocytes, otherwise negative. Culture pending. We discussed further workup for her flank pain including blood work and CT imaging and she's declining at this time. Will trial her on antibiotics as outpatient and have her followup in 2-3 days if not better, returning to the ED for repeat evaluation if worsening. She verbalized understanding. She is discharged home in a stable condition with computer instructions given and is encouraged to return to the ER for any new or worsening symptoms. DIAGNOSTIC IMPRESSION: #1 flank pain, UTI DISPOSITION Diagnosis/Annotation: ED Dx Name:Flank pain Code:R10.9 Name:UTI (urinary tract infection) Code:N39.0 Disposition: discharged Type: home CONSULT CRITICAL CARE TIME Is this a critically ill patient: no Electronic Signatures: Keerthi Rankin (TIME STUDY OBSERVER-RATNA) (Signed 15-Jul-2022 14:35) Authored: HPI, PMH, Results/Vital Signs, MDM/ED Course, Clinical Impression, Attestation, Chart Review, Scores Last Updated: 15-Jul-2022 14:35 by Keerthi Rankin (TIME STUDY OBSERVER-ENGINE DYNAMOMETER TESTER) References: 1. Data Referenced From Triage - ED 15-Jul-2022 13:28 [facility] Risk Screen - Adult Emergenc yon 07-15-2022 Risk Screen - Adult Emergency Preferred Language: Preferred Language: Preferred Language for Discussing Health Care (patient/designee)Tristanian Patient Preferred Pharmacy: Patient Preferred Pharmacy Statement: I have reviewed and updated the patient's preferred pharmacy selection for today's visit. Advanced Directives: Advance Directive/DNRno Advance Directive Information Givenpatient/family declined Family Violence Adult: Abuse Screen: Are you or have you been threatened or abused physically, emotionally, or sexually by anyoneno Learning Assessment (Patient): Learning Assessment (Patient): Patient is Able to be Assessed for Learningyes Factors Influencing Readiness to Learnna Factors that Impact Ability to Learnnone Devices/Methods Used to Communicatenone Learning Preferencesverbal instruction; written material Cultural Considerationsnone Developmental Considerationsnone Mormonism Considerationsnone Learning Assessment (Other Learner): Learning Assessment (Other Learner): Other learner availableno Pressure Injury/TB/Substance: Pressure Injury: Pressure Injury Present on Admissionno Do you have a coughno Smoking Statusnever smoker Alcohol Usedenies Drug Usedenies Drug 2 Usedenies Admission Risk Screen: Significant IndicatorsComplete CAGE: CAGE: Is this an injured patient at a [place] [place]/Sharda/[facility]/Esvin): no Electronic Signatures: Chica Banks (THERESE) (Signed 15-Jul-2022 13:35) Authored: Preferred Language, Patient Preferred Pharmacy, Advanced Directives, Family Violence Adult, Learning Assessment (Patient), Learning Assessment (Other Learner), Pressure Injury/TB/Substance, Pressure Injury, CAGE Last Updated: 15-Jul-2022 13:35 by Chica Banks (THERESE) [facility] Triage - EDon 07-15-2022 Triage - ED Quick Triage: Are You no Have You Given In The Last 6 Weeksno Are You Currently Breastfeedingno The patient and/or guardian verbally acknowledges placement for services into the following (when Urgent Care Service hours are operating):emergency department Chart Review: ARRIVAL INFORMATION Mode of Arrival: private vehicle CHIEF COMPLAINT MICHELLE CHOI is a Female patient with a chief complaint of back pain (2 day hx of flank pain began on LT now is on RT side. No N/V/D No noted hematuria. No hx of stones. Pain is worse when she urinates. Describes pain as sharp. Took Diflucan 2 days ago with no obvious improvement. Denies urgency, frequency, incontinence.). Onset of the Complaint: 13-Jul-2022 Triage Date/Time: 15-Jul-2022 13:28 MARQUISE: 3 Pain Rating (0-10): 6 = Moderate Acceptable Pain Level (0-10): 0 Pain location: RT flank Vital Signs: Temperature: 97.9F ( 36.6C) taken oral Blood Pressure: 124/72 Mean: Heart Rate: 87 Respiratory Rate: 16 Pulse Oximetry: 95% Height: 5 feet 0.00 inches. 152.4 CM Weight: 130.2 pounds. Calculated 59.1 kg. Calculated BMI (kg/m2): 25.445 Calculated BSA (m2) 1.58 Antonia Coma Scale: Best Eye Response: (E4) spontaneous Best Motor Response: (M6) obeys commands Best Verbal Response: (V5) oriented [place] Score: 15 Antonia Assessment Qualifiers: patient not sedated/intubated Cough lasting greater than 3 weeks: no Patient immunocompromised related to: N/A Allergies: yes Last menstrual period: 30-Jun-2022 Patient has homicidal thoughts: no Symptom Notes: . Symptoms Are POSITIVE For: flank pain. Symptoms Are Negative For: bruising, difficulty bending, difficulty walking, headache, hematuria, muscle cramps, neck pain, numbness and tingling. Mechanism Of Pain/Injury: no known injury Risk Screens Suicide Risk Screen In the Past Month: Have you wished you were or wished you could go to sleep and not wake up no In the Past Month: Have you had any actual thoughts of killing yourself no In Your Lifetime: Have you ever done anything, started to do anything, or prepared to do anything to end your life no Restrepo Fall Scale Screening Has the patient fallen before (or is the patient in the ED as a result of a fall) has not had a fall Does the patient have an impaired gait does not have impaired gait Is the patient cognitively impaired not cognitively impaired Interventions: Kaye Fall Interventions: LOW INTERVENTIONS: *patient oriented to surroundings and call system, * patient/family falls education completed and documented, *patients fall status communicated during bedside handoff, *whiteboard updated, *mode of toileting discussed with patient, *bed in low position with brakes locked, *call light in reach, * non-skid footwear TRAVEL HISTORY Travel History Coronavirus Screening: no exposure or symptoms Travel Exposure History: NO travel to International locations in the past 30 days PAIN Pain Scale Used: ROSELINE Pain Rating (0-10): 6 = Moderate Acceptable Pain Level (0-10): 0 Past Medical History: Past Medical History Reviewedyes Electronic Signatures: Chica Banks) (Signed 15-Jul-2022 13:41) Authored: Quick Triage, Risk Screens, Pain, Travel History, Chart Review, Scores, Past Medical History Last Updated: 15-Jul-2022 13:41 by Chica Banks (THERESE) Normal [facility] UA MICROSCOPICon 07-15-2022 AMORPHOUS CRYSTAL 2+ /HPF Normal [facility] Comment on above: Performed By: #### C MP #### [place] [address] RBC None Normal 0-5 [facility] Comment on above: Performed By: #### C MP #### [place] [address] SQUAMOUS EPITH. CELLS 3 /HPF Normal [facility] Comment on above: Performed By: #### C MP #### [place] [address] WBC 1 /HPF Normal 0-5 [facility] Comment on above: Performed By: #### C MP #### [place] [address] URINALYSIS WITH CULTURE IF I NDICATEDon 07-15-2022 Appearance (U) HAZY Normal [facility] Comment on above: Performed By: #### C MP #### [place] [address] Bilirubin Ql (U) Negative Normal NEGATIVE [facility] Comment on above: Performed By: #### C MP #### [place] [address] Color (U) Yellow Normal STRAW,YELLOW [facility] Comment on above: Performed By: #### C MP #### [address] [address] Glucose Ql (U) Negative Normal NEGATIVE [facility] Comment on above: Performed By: #### C MP #### [address] [address] Hemoglobin Ql (U) Negative Normal NEGATIVE [facility] Comment on above: Performed By: #### C MP #### [address] [address] Ketones Ql (U) Negative Normal NEGATIVE [facility] Comment on above: Performed By: #### C MP #### [address] [address] Leukocyte esterase Test strip Ql (U) TRACE Abnormal NEGATIVE [facility] Comment on above: Performed By: #### C MP #### [address] [address] Nitrite Ql (U) Negative Normal NEGATIVE [facility] Comment on above: Performed By: #### C MP #### [place] [id number] pH (U) 8.0 [pH] Normal 5.0 - 8.0 [facility] Comment on above: Performed By: #### C MP #### [address] [address] Protein Ql (U) Negative Normal NEGATIVE [facility] Comment on above: Performed By: #### C MP #### [address] [address] Specific gravity (U) [Rel density] 1.017 Normal 1.005 - 1.035 [facility] Comment on above: Performed By: #### C MP #### [address] [address] Urobilinogen (U) [Mass/Vol] mg/dL Normal 0.0 - 1.9 [facility] Comment on above: Performed By: #### C MP #### [address] [address] Color (U) Yellow See Below [facility] Work Phone: Comment on above: Reference Range: STR AW,YELLOW Glucose Ql (U) Negative NEGATIVE [facility] Work Phone: Ketones Ql (U) Negative NEGATIVE [facility] Work Phone: [phone] Leukocyte esterase Test strip Ql (U) TRACE Abnormal NEGATIVE [facility] Work Phone: pH (U) 8.0 [pH] 5.0 - 8.0 [facility] Work Phone: Protein (U) [Mass/Vol] Negative NEGATIVE [facility] Work Phone: [phone] (U) [#/Vol] Negative NEGATIVE [facility] Work Phone: [phone] Specific gravity (U) [Rel density] 1.017 1 See Below [facility] Work Phone: [phone] Comment on above: Reference Range: 1.0 05 - 1.035 URINALYSIS WITH CULTURE IF INDICATED Negative NEGATIVE [facility] Work Phone: [phone] URINALYSIS WITH CULTURE IF INDICATED <2.0 0.0 - 1.9 [facility] Work Phone: URINALYSIS WITH CULTURE IF INDICATED HAZY CLEAR [facility] Work Phone: URINE CULTURE,BACTERIALon URINE CULTURE,BACTERIAL PATIENT: MICHELLE CHOI LOCATION: [facility] BILL#: [id number] : [birth year] AGE: SEX: F ORDERED BY: KEERTHI RANKIN SOURCE: URINE COLLECTED: 07/15/22 13:54 ANTIBIOTICS AT [place].: RECEIVED : 07/16/22 03:57 SITE: R E S U L T S URINE CULTURE,BACTERIAL FINAL 07/16/22 20:25 NO GROWTH Normal [facility] Comment on above: Performed By: #### C MP #### [facility] [address] [place] [id number] Urinalysis, Microscopicon Urinalysis, Microscopic 2+ [facility] Work Phone: Urinalysis, Microscopic 3 {/HPF} [facility] Work Phone: Urinalysis, Microscopic None 0-5 [facility] Work Phone: Urinalysis, Microscopic 1 {/HPF} 0-5 [facility] Work Phone: Urine Teston 07-15 HCG ( test) Ql (U) Negative Negative [facility] Work Phone: No Panel Informationon 04-21 Several days - 1 [facility] Work Phone: Over half the days - 2 [facility] Work Phone: Not at all - 0 [facility] Work Phone: Mild Anxiety [facility] Work Phone: Not difficult at all [facility] Work Phone: Comment on above: How difficult have t hose problems made it for you to do your work, take care of things at home, or get along with other people? 7 1 [facility] Work Phone: Comment on above: Over the last two we eks, how often have you been bothered by the following problems? Feeling nervous, anxious, or on edge: Over half the days - 2Not being able to stop or control worrying: Several days - 1Worrying too much about different things: Several days - 1Trouble relaxing: Not at all - 0Being so restless that it's hard to sit still: Not at all - 0Becoming easily annoyed or irritable: Over half the days - 2Feeling afraid as if something awful might happen: Several days - 1 Office Visiton 04-21-2022 Follow-up visit Diagnoses/Problems Generalized anxiety disorder (300.02) (F41.1) Migraine headache (346.90) (G43.909) Body mass index (BMI) of 23.0 to 23.9 in adult (V85.1) (Z68.23) Orders Migraine headache Follow-up visit in 3 months Outpatient Follow-up Status: Complete Done: [id number] Provider Impressions Anxiety/depression stable. Ears unremarkable. We will continue the Topamax at 25mg for the next 3 months until follow up and reassess then. Follow up 3 months or sooner prn. Chief Complaint 2 month med check, pt would like her ears checked Adult Risk Screening Depression/Suicide Screening: During the past 2 weeks, the patient has not felt down, depressed or hopeless. During the past 2 weeks, the patient has not felt little interest or pleasure in doing things. PHQ-9 Depression Scale: 1. Little interest or pleasure in doing things - not at all 2. Feeling down, depressed or hopeless - not at all 3. Trouble falling asleep or sleeping too much - not at all 4. Feeling tired or having little energy - not at all 5. Poor appetite or overeating - not at all 6. Feeling bad about self or failure or letting others down - not at all 7. Trouble concentrating on things - more than half the days 8. Moving / speaking slowly or fidgety / restless - more than half the days 9. Thought would be better off or hurting self - not at all Total Score: 10/01 Severity of depression is in remission. History of Present Illness 16 YOF presents for med check. ANXIETY: Just started new job at [employer] job. SOO down to 7 and PHQ 9 at 4 this visit. 20mg citalopram effective dose, no SE. SCOLIOSIS: Saw ortho, not reviewed. No longer in PT, seems stable currently. SOB: PFTs unremarkable 10/30/21. Will monitor for now. HEADACHE/MIGRAINES: Topamax 25mg for prophylaxis has been effective, but she did have one breakthrough migraine yesterday which was aborted 2 hours after taking her Imitrex. She does endorse some popping or pressure in BL ears when she swims and goes under water. Review of Systems Review of Systems: Constitutional: no fever, no unintentional weight change Eye: no recent visual problem Respiratory: no shortness of breath Cardiac: no chest pain GI: no reflux, no nausea, no vomiting, no diarrhea, no constipation, no heartburn, no abdominal pain Neurological: no headache Active Problems Adolescent idiopathic scoliosis of lumbosacral spine (737.30) (M41.127) Body mass index (BMI) of 23.0 to 23.9 in adult (V85.1) (Z68.23) Body mass index (BMI) of 5th to 84th percentile for age in child (V85.52) (Z68.52) Curvature of spine (737.9) (M43.9) Depression (311) (F32.A) Generalized anxiety disorder (300.02) (F41.1) Low back pain (724.2) (M54.50) Menorrhagia (626.2) (N92.0) Migraine headache (346.90) (G43.909) History of Nicotine vapor product user (305.1) (Z72.0) Nose deformity (738.0) (M95.0) Shortness of breath (786.05) (R06.02) Past Medical History History of Exercise-induced bronchospasm (493.81) (J45.990) Resolved Date: 18 Dec 2021 Surgical History No history of surgery Social History Does not have living will Never a smoker History of Nicotine vapor product user (305.1) (Z72.0) No alcohol use Allergies amoxicillin Hives;; Recorded By: Cadence Rodriguez; 07/26/2019 7:00:31 AM Penicillins Hives;; Recorded By: Cadence Rodriguez; 07/26/2019 7:00:31 AM Current Meds Medication NameInstruction Citalopram Hydrobromide 20 MG Oral TabletTake 1 tablet daily hydrOXYzine HCl - 10 MG Oral TabletTAKE 1 TABLET 3 TIMES DAILY NEEDED. Norgestim-Eth Estrad Triphasic 0.18/0.215/0.25 MG-35 MCG Oral Tablettake 1 tablet by mouth once daily SUMAtriptan Succinate 100 MG Oral TabletTake 1 tablet by mouth at onset of migraine. May repeat dose in 2 hours if migraine has not resolved. No more than 2 tabs in 24 hours. Topiramate 25 MG Oral TabletTake 1 tablet daily Vitals Vital Signs Recorded: [id number] 04:25PM Heart Rate72 Bncoaquk206 Ypxfnkbnz83 Height5 ft 0.5 in 2-20 Stature Percentile7 % Kszvqx876 lb 15.90 oz 2-20 Weight Ooakclehkn32 % BMI Parvqkfzgd42.63 kg/m2 BMI Zwkayreavj97 % BSA Calculated1.53 Tobacco Useb) No Physical Exam General: Alert and oriented. No acute distress Eye: Normal conjunctiva HENT: Normocephalic, BL ears unremarkable Respiratory: Respirations not labored Cardiovascular: Normal rate, no edema Gastrointestinal: Nondistended Integumentary: Warm, dry, pink Psychiatric: Cooperative, good affect, eye contact, judgment, insight, voice Signatures Electronically signed by : Freddy Lee PA-C; Apr 21 2022 4:39PM EST (Author) Normal [facility]works Tobacco Screening.on 022 Tobacco use status CPHS b) No [facility] Work Phone: No Panel Informationon 02-19 Over half the days - 2 [facility] Work Phone: [facility] every day - [facility] Several days - 1 [facility] Work Phone: Severe Anxiety [facility] Work Phone: Very difficult [facility] Work Phone: Comment on above: How difficult have t hose problems made it for you to do your work, take care of things at home, or get along with other people? 17 1 [facility] Work Phone: Comment on above: Over the last two we eks, how often have you been bothered by the following problems? Feeling nervous, anxious, or on edge: Nearly every day - 3Not being able to stop or control worrying: Nearly every day - 3Worrying too much about different things: Nearly every day - 3Trouble relaxing: Several days - 1Being so restless that it's hard to sit still: Over half the days - 2Becoming easily annoyed or irritable: Nearly every day - 3Feeling afraid as if something awful might happen: Over half the days - 2 Office Visit (Family Medicin e)on 02-19-2022 Follow-up visit Diagnoses/Problems Generalized anxiety disorder (300.02) (F41.1) Increase citalopram to 20mg daily Hydroxyzine prn Follow up 2 months or sooner prn Migraine headache (346.90) (G43.909) Imitrex 100mg, she will use Good Rx for this medication Cont topiramate Follow up 2 months or sooner prn Orders Generalized anxiety disorder Renew: Citalopram Hydrobromide 20 MG Oral Tablet; Take 1 tablet daily Follow-up visit in 2 months Outpatient Follow-up Status: Hold For - Scheduling Requested for: 19Feb2022 Migraine headache Renew: SUMAtriptan Succinate 100 MG Oral Tablet; Take 1 tablet by mouth at onset of migraine. May repeat dose in 2 hours if migraine has not resolved. No more than 2 tabs in 24 hours SocHx: Never a smoker Tobacco Use Screening; Status:Complete; Done: 19Feb2022 Chief Complaint 2 month med check , would like to increase anxiety medication. Adult Risk Screening Depression/Suicide Screening: During the past 2 weeks, the patient has not felt down, depressed or hopeless. During the past 2 weeks, the patient felt little interest or pleasure in doing things. PHQ-9 Depression Scale: 1. Little interest or pleasure in doing things - several days 2. Feeling down, depressed or hopeless - not at all 3. Trouble falling asleep or sleeping too much - not at all 4. Feeling tired or having little energy - not at all 5. Poor appetite or overeating - not at all 6. Feeling bad about self or failure or letting others down - not at all 7. Trouble concentrating on things - not at all 8. Moving / speaking slowly or fidgety / restless - not at all 9. Thought would be better off or hurting self - not at all Total Score: 07/03 Severity of depression is in remission. How difficult have these problems made it for you to do your work, take care of things at home, or get along with people? Not at all. History of Present Illness 16 YOF presents med check. ANXIETY: Just started new job at [employer] job. She endorses the people are stressful and she is nervous as well. Would like to increase anxiety medication. SOO went from 11 to 17. SCOLIOSIS: Saw ortho, not reviewed. No longer in PT, seems stable currently. SOB: PFTs unremarkable 10/30/21. Will monitor for now. HEADACHE/MIGRAINES: Has only had 2 migraines since last visit. Topiramate effective. Was only able to get 2 tablets of Imitrex d/t insurance. No other concerns. 'Scores and Scales' SOO-7 [id number] 2 SOO-7 Total Score11 11 16 Feeling nervous, anxious or on edgeNot at all - 0 Several days - 1 Over half the days - 2 Not being able to stop or control worryingOver half the days - 2 Over half the days - 2 Nearly every day - 3 Worrying too much about different thingsOver half the days - 2 Over half the days - 2 Nearly every day - 3 Trouble relaxingSeveral days - 1 Not at all - 0 Several days - 1 Being so restless that it's hard to sit stillOver half the days - 2 Several days - 1 Over half the days - 2 Becoming easily annoyed or irritableOver half the days - 2 Nearly every day - 3 Nearly every day - 3 Feeling afraid as if something awful might happenOver half the days - 2 Over half the days - 2 Over half the days - 2 Review of Systems Review of Systems: Constitutional: no fever, no unintentional weight change Eye: no recent visual problem Respiratory: no shortness of breath Cardiac: no chest pain GI: no reflux, no nausea, no vomiting, no diarrhea, no constipation, no heartburn, no abdominal pain Neurological: no headache Active Problems Adolescent idiopathic scoliosis of lumbosacral spine (737.30) (M41.127) Body mass index (BMI) of 23.0 to 23.9 in adult (V85.1) (Z68.23) Body mass index (BMI) of 5th to 84th percentile for age in child (V85.52) (Z68.52) Curvature of spine (737.9) (M43.9) Depression (311) (F32.A) Generalized anxiety disorder (300.02) (F41.1) Low back pain (724.2) (M54.50) Menorrhagia (626.2) (N92.0) Migraine headache (346.90) (G43.909) History of Nicotine vapor product user (305.1) (Z72.0) Nose deformity (738.0) (M95.0) Shortness of breath (786.05) (R06.02) Past Medical History History of Exercise-induced bronchospasm (493.81) (J45.990) Resolved Date: 18 Dec 2021 Surgical History No history of surgery Family History Family history of asthma (V17.5) (Z82.5) Family history of chronic obstructive pulmonary disease (V17.6) (Z82.5) Family history of asthma (V17.5) (Z82.5) Social History Does not have living will Never a smoker History of Nicotine vapor product user (305.1) (Z72.0) No alcohol use Allergies amoxicillin Hives;; Recorded By: Cadence Rodriguez; 07/26/2019 7:00:31 AM Penicillins Hives;; Recorded By: Cadence Rodriguez; 07/26/2019 7:00:31 AM Current Meds Medication NameInstructionReason Citalopram Hydrobromide 10 MG Oral TabletTAKE 1 TABLET DAILY.Generalized anxiety disorder hydrOXYzine HCl - 10 MG Oral TabletTAKE 1 TABLET 3 (more content not included)... Normal PaperG Tobacco Screening.on 022 Tobacco use status CPHS b) No -[facility] Work Phone: No Panel Informationon 12-18 Over half the days - 2 [facility] Work Phone: Several days - 1 [facility] Work Phone: Not at all - 0 [facility] Work Phone: Moderate Anxiety [facility] Work Phone: Somewhat difficult [facility] Work Phone: Comment on above: How difficult have t hose problems made it for you to do your work, take care of things at home, or get along with other people? 11 1 [facility] Work Phone: Comment on above: Over the last two we eks, how often have you been bothered by the following problems? Feeling nervous, anxious, or on edge: Not at all - 0Not being able to stop or control worrying: Over half the days - 2Worrying too much about different things: Over half the days - 2Trouble relaxing: Several days - 1Being so restless that it's hard to sit still: Over half the days - 2Becoming easily annoyed or irritable: Over half the days - 2Feeling afraid as if something awful might happen: Over half the days - 2 Office Visit (Family Verenice mccann)on 12-18-2021 Follow-up visit Diagnoses/Problems Migraine headache (346.90) (G43.909) Generalized anxiety disorder (300.02) (F41.1) Shortness of breath (786.05) (R06.02) History of Exercise-induced bronchospasm (493.81) (J45.990) Orders Migraine headache Start: SUMAtriptan Succinate 50 MG Oral Tablet (Imitrex); TAKE 1 TABLET FOR MIGRAINE RELIEF. MAY REPEAT EVERY 2 HOURS. MAX 200MG/DAY Follow-up visit in 2 months Outpatient Follow-up Status: Complete Done: [id number] Start: Topiramate 25 MG Oral Tablet; Take 1 tablet daily Provider Impressions ANXIETY: Continue Citalopram 10mg for now, recheck SOO at follow up. MIGRAINES: Start toiramate 25mg daily, start imitrex 50mg prn Follow up 2 months or sooner prn. Chief Complaint 2 month med check , pt c/o GARCIA in the back of her head episodes are 2x a week. Adult Risk Screening Depression/Suicide Screening: During the past 2 weeks, the patient felt down, depressed or hopeless. During the past 2 weeks, the patient felt little interest or pleasure in doing things. PHQ-9 Depression Scale: 1. Little interest or pleasure in doing things - more than half the days 2. Feeling down, depressed or hopeless - several days 3. Trouble falling asleep or sleeping too much - not at all 4. Feeling tired or having little energy - more than half the days 5. Poor appetite or overeating - several days 6. Feeling bad about self or failure or letting others down - more than half the days 7. Trouble concentrating on things - several days 8. Moving / speaking slowly or fidgety / restless - several days 9. Thought would be better off or hurting self - not at all Total Score: 10/ Severity of depression is moderate. History of Present Illness ANXIETY: SOO 7 still at 11 on citalopram 10mg, no SE. She mistakenly took hydroxyzine in place of citalopram for a month. PHQ 9 score of 10, moderate. SCOLIOSIS: Saw ortho, not reviewed. They ordered PT and follow up in 1 year. Starts PT next week. SOB: PFTs unremarkable 10/30/21. Will monitor for now. HEADACHE: Pain is located to back of R side of head. She has been getting them for awhile now and will have 2 a week. No photophobia, no nausea. Endorses some aura. Has tried ibuprofen/tylenol/ice/heat ing pad/Excedrin. Pain is pounding/throbbing for hours. 'Scores and Scales' SOO-7 [id number] 2 SOO-7 Total Score11 11 16 Feeling nervous, anxious or on edgeNot at all - 0 Several days - 1 Over half the days - 2 Not being able to stop or control worryingOver half the days - 2 Over half the days - 2 Nearly every day - 3 Worrying too much about different thingsOver half the days - 2 Over half the days - 2 Nearly every day - 3 Trouble relaxingSeveral days - 1 Not at all - 0 Several days - 1 Being so restless that it's hard to sit stillOver half the days - 2 Several days - 1 Over half the days - 2 Becoming easily annoyed or irritableOver half the days - 2 Nearly every day - 3 Nearly every day - 3 Feeling afraid as if something awful might happenOver half the days - 2 Over half the days - 2 Over half the days - 2 Review of Systems Review of Systems: Constitutional: no fever, no unintentional weight change Eye: no recent visual problem Respiratory: no shortness of breath Cardiac: no chest pain GI: no reflux, no nausea, no vomiting, no diarrhea, no constipation, no heartburn, no abdominal pain Neurological: no headache Active Problems Adolescent idiopathic scoliosis of lumbosacral spine (737.30) (M41.127) Body mass index (BMI) of 23.0 to 23.9 in adult (V85.1) (Z68.23) Body mass index (BMI) of 5th to 84th percentile for age in child (V85.52) (Z68.52) Curvature of spine (737.9) (M43.9) Depression (311) (F32.A) Generalized anxiety disorder (300.02) (F41.1) Low back pain (724.2) (M54.50) Menorrhagia (626.2) (N92.0) History of Nicotine vapor product user (305.1) (Z72.0) Nose deformity (738.0) (M95.0) Past Medical History History of Exercise-induced bronchospasm (493.81) (J45.990) Resolved Date: 18 Dec 2021 Surgical History No history of surgery Family History Family history of asthma (V17.5) (Z82.5) Family history of chronic obstructive pulmonary disease (V17.6) (Z82.5) Family history of asthma (V17.5) (Z82.5) Social History Does not have living will History of Nicotine vapor product user (305.1) (Z72.0) No alcohol use Allergies amoxicillin Hives;; Recorded By: Cadence Rodriguez; 07/26/2019 7:00:31 AM Penicillins Hives;; Recorded By: Cadence Rodriguez; 07/26/2019 7:00:31 AM Current Meds Medication NameInstructionReason Citalopram Hydrobromide 10 MG Oral TabletTAKE 1 TABLET DAILY.Generalized anxiety disorder hydrOXYzine HCl - 10 MG Oral TabletTAKE 1 TABLET 3 TIMES DAILY NEEDED.Generalized anxiety disorder Norgestim-Eth Estrad Triphasic 0.18/0.215/0.25 MG-35 MCG Oral Tablettake 1 tablet by mouth once dailyMenorrhagia Vitals Vital Signs Recorded: [id number] 02:51PM Heart Rate72 Kefaibyz86 (more content not included)... Normal PaperG Tobacco Screening.on 022 Fall risk assessment a) No falls within the last year [facility] Work Phone: Tobacco use status CPHS b) No [facility] Work Phone: PT Progress Noteon 2 PT Progress Note No report was sent Normal PaperG Therapy Communicationon 11-05 Therapy Communication Message MICHELLE CHOI canceled today 11/20/21. Pt cancelled recheck and did not reschedule- no reason given per front end developer. If she does not return within 30 days she will be formally d/c from skilled PT per attendance policy. Signatures Electronically signed by : Rolanda Asher, PT; Nov 20 2021 1:03PM EST (Author) Normal [facility]works PT Progress Noteon 2 PT Progress Note Therapy Diagnosis Assessed Adolescent idiopathic scoliosis of lumbosacral spine (737.30) (M41.127) Low back pain (724.2) (M54.50) Plan Goals: Goals set and discussed today. In 2 weeks, pt will be IND and compliant with HEP for participation throughout POC. Pain: In 4 weeks, pt will verbalize max back pain to 5/10 for ease with ADLs. 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 Strength: In 4 weeks, pt will demo 0.5/5 core MMT using Sahrmann scale for ease with picking up heavy objects. , In 4 weeks, pt will score 2% or lower on the MISTI to demo improved QOL. Planned interventions include: aquatic therapy, cryotherapy, dry needling, education/instruction, electrical stimulation, home program, hot pack, kinesiotaping, manual therapy, self care/home management, therapeutic activities, therapeutic exercises and IASTM, cupping . Focus on core, periscap, and lumbar extensor strength. Frequency and duration: 1 time(s) a week, for 4 weeks, for 4 visits. Potential to achieve rehab goals is good Cont. with core and periscapular strengthening to allow improved ease with lifting /carrying objects during ADLs without reports of LBP. Assessment Patient was identified by name and date. This session able to increase resistance with T band exercises. Noted fatigue with Super Brittney and prone Butterflies. After session denied increased Sxs. Adult Risk Screening There are no spiritual/cultural practices/values/needs that are important to know Initial Fall Risk Screening: MICHELLE has not fallen in the last 6 months. MICHELLE does not have a fear of falling. She does not need assistance with sitting, standing or walking. Does not need assistance walking in her home. She does not need assistance in an unfamiliar setting. The patient is not using an assistive device. Pain Scale: On a scale of 0 to 10, the patient rates the pain at 3. Please identify location of pain: LBP. Insurance Insurance reviewed Visit number: 4 09/09 Insurance: primary anthem, secondary medicaid Evaluating therapist: Rolanda Asher PT, DPT PT dx: M54.50 Subjective Patient reports:. She reports LBP 3/10 and states chronic pain since 6th grade. Noted tension in upper thoracic region after session. States difficulty with lifting heavy objects as this aggravates her LBP. Precautions: none. Treatment Time in clinic started at 3:32 pm Time in clinic ended at 4:16 pm Total time in clinic is 44 minutes. Total timed code time is 41 minutes. Therapeutic exercise (43053): timed minutes 41, units 3 . Sci Fit UE/LE 4mins (N) Palloff press [place] TB x15 ea (P resist) Row with TrA Loami tube 2 x 10 Shoulder ext Loami tube 2 x 10 TrA in sitting x15 5 holds seated HS stretch x30 sec ea Cat/[place] x10 3 Super Brittney 3 x20 holds Prone butterfly 3 x 20? Bird dog 2 x 10 bug 2x10 Open Book stretch 10 x 5 holds Plank 2 x 15? Side plank 2 x 15? Seated QL stretch 2 x 15? ea Supine QL stretch 2 x 20? ea side (X) . Provided today: education . 11/06/21 [id number] Provided and reviewed HEP with patient she demonstrated good understanding. 'Scores and Scales' Signatures Electronically signed by : Sigrid Guzmán LACQUER POLISHER; Nov 13 2021 4:22PM EST (Author) Electronically signed by : Rolanda Asher, PT; Nov 13 2021 4:48PM EST Normal [facility] PT Progress Noteon 2 PT Progress Note Therapy Diagnosis Assessed Adolescent idiopathic scoliosis of lumbosacral spine (737.30) (M41.127) Low back pain (724.2) (M54.50) Plan Goals: Goals set and discussed today. In 2 weeks, pt will be IND and compliant with HEP for participation throughout POC. Pain: In 4 weeks, pt will verbalize max back pain to 5/10 for ease with ADLs. 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 Strength: In 4 weeks, pt will demo 0.5/5 core MMT using Sahrmann scale for ease with picking up heavy objects. , In 4 weeks, pt will score 2% or lower on the MISTI to demo improved QOL. Planned interventions include: aquatic therapy, cryotherapy, dry needling, education/instruction, electrical stimulation, home program, hot pack, kinesiotaping, manual therapy, self care/home management, therapeutic activities, therapeutic exercises and IASTM, cupping . Focus on core, periscap, and lumbar extensor strength. Frequency and duration: 1 time(s) a week, for 4 weeks, for 4 visits. Potential to achieve rehab goals is good Plan to continue with core strengthening and stretching to allow for decreased pain when lifting heavy objects with ADLs. Assessment Patient identified by name and date of . Patient was able to progress with core strengthening with fatigue and no increased Sx. She required cues to maintain TrA throughout treatment. She demonstrated difficulty with maintaining TrA with bird dog exercise. Adult Risk Screening There are no spiritual/cultural practices/values/needs that are important to know Initial Fall Risk Screening: MICHELLE has not fallen in the last 6 months. MICHELLE does not have a fear of falling. She does not need assistance with sitting, standing or walking. Does not need assistance walking in her home. She does not need assistance in an unfamiliar setting. The patient is not using an assistive device. Pain Scale: On a scale of 0 to 10, the patient rates the pain at 0. Insurance Insurance reviewed Visit number: 3 08/09 Insurance: primary anthem, secondary medicaid Evaluating therapist: Rolanda Asher PT, SHI PT dx: M54.50 Subjective Patient reports:. Patient reported 0/10 pain after treatment. Home program performing as directed: Yes. Precautions: none. Treatment Time in clinic started at 3:34 Time in clinic ended at 04:14 Total time in clinic is 40 minutes. Total timed code time is 38 minutes. Therapeutic exercise (51035): timed minutes 38, units 3 . Palloff press green TB x15 ea Row with TrA Loami tube 2 x 10 Shoulder ext Loami tube 2 x 10 TrA in sitting x15 5 holds seated HS stretch x30 sec ea Cat/Sara x10 3 Supermans 3 x20 holds Prone butterfly 3 x 20? Bird dog 2 x 10 bug 2x10 Open Book stretch 10 x 5 holds Plank 2 x 15? (N) Side plank 2 x 15? (N) Seated QL stretch 2 x 15? ea (N) Supine QL stretch 2 x 20? ea side (N) . Provided today: education . 06/02/22 [id number] Provided and reviewed HEP with patient she demonstrated good understanding. 'Scores and Scales' Signatures Electronically signed by : Nika Arredondo LACQUER POLISHER; Nov 06 2021 4:35PM EST (Author) Electronically signed by : Rolanda Asher, PT; Nov 06 2021 8:44PM EST Normal [facility] PT Progress Noteon PT Progress Note Therapy Diagnosis Assessed Adolescent idiopathic scoliosis of lumbosacral spine (737.30) (M41.127) Low back pain (724.2) (M54.50) Plan Goals: Goals set and discussed today. In 2 weeks, pt will be IND and compliant with HEP for participation throughout POC. Pain: In 4 weeks, pt will verbalize max back pain to 5/10 for ease with ADLs. 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 Strength: In 4 weeks, pt will demo 0.5/5 core MMT using Sahrmann scale for ease with picking up heavy objects. , In 4 weeks, pt will score 2% or lower on the MISTI to demo improved QOL. Planned interventions include: aquatic therapy, cryotherapy, dry needling, education/instruction, electrical stimulation, home program, hot pack, kinesiotaping, manual therapy, self care/home management, therapeutic activities, therapeutic exercises and IASTM, cupping . Focus on core, periscap, and lumbar extensor strength. Frequency and duration: 1 time(s) a week, for 4 weeks, for 4 visits. Potential to achieve rehab goals is good Plan to continue with core strengthening and stretching to allow for decreased pain when lifting heavy objects with ADLs. Assessment Patient confirmed name and date of . Cues for good scapular engagement with postural strengthening tband exercises, reduced tension to pink band as patient had difficulty completing reps, HEP given. Added additional core strengthening today with patient requiring cues for TrA engagement and posture. HEP given for supermans, open book, mid rows and B/L GH ext, plan to give HEP for others when appropriate. Adult Risk Screening There are no spiritual/cultural practices/values/needs that are important to know Initial Fall Risk Screening: MICHELLE does not have a fear of falling. She does not need assistance with sitting, standing or walking. Does not need assistance walking in her home. She does not need assistance in an unfamiliar setting. The patient is not using an assistive device. Insurance Insurance reviewed Visit number: 2 06/11 Insurance: primary anthem, secondary medicaid Evaluating therapist: Rolanda Asher PT, SHI PT dx: M54.50 Subjective Patient reports:. Patient reports that she isn't having pain currently. Home program performing as directed: Yes. Precautions: none. Treatment Time in clinic started at 3:30 Time in clinic ended at 4:05 Total time in clinic is 35 minutes. Total timed code time is 33 minutes. Therapeutic exercise (29792): timed minutes 33, units 2 . Cat/Sara x10 3 (N) Palloff press green TB x15 ea Row with TrA Loami tube x15 Shoulder ext Loami tube x15 TrA in sitting x15 5 holds seated HS stretch x30 sec ea Supermans 5 x10 holds (N) Bird dog 1x5 (N) bug 2x10 (N) Open Book stretch 10 x 5 holds (N). 'Scores and Scales' Signatures Electronically signed by : Nicole Hernandez PTA; Oct 29 2021 4:13PM EST (Author) Electronically signed by : Rolanda Asher PT; Oct 30 2021 11:28AM EST Normal [facility] Covid 19 Resultson 2 SARS-CoV-2 (COVID-19) RNA JASMIN+probe Ql (Unsp spec) NEGATIVE COVID-19 Test Coronaviruses are common world-wide and are the cause of many common colds. SARS-COV2 is a new coronavirus that began circulating worldwide in 2019 so we are calling it COVID-19. It has been estimated that four out of five patients with COVID-19 will recover at home without the need for medical attention. Symptoms of COVID-19 may include cough, fever, shortness of breath, loss of taste or smell and other flu-like symptoms including chills, sore muscles, sore throat, and headache. Severe illness is more common in older people and people with other health problems such as high blood pressure, obesity, and immune system problems. If the test is positive, you have COVID-19. You will be contacted by the ordering physicians office and instructed to remain on home isolation, in accordance with CDC guidelines. You may also be contacted by the [facility] to see if any of your close contacts may have been exposed to the virus and need to quarantine. If the test is negative, you likely do not have COVID-19 at this time, but you still may have a different illness that can spread to other people (like Influenza, or the Flu) and could still be at risk for getting COVID-19. We recommend that you stay away from other people to limit the spread of illness until your symptoms are improving and you are fever-free for 24 hours without the use of fever lowering medications such as acetaminophen or ibuprofen. No test is 100% accurate so if you are still concerned you may have COVID-19, talk to your doctor about the need to continue to stay away from others. Medicines Unless your provider told you not to use the following: Acetaminophen (Tylenol and others) is generally safe. Anti-inflammatory medications, such as Ibuprofen (Advil or Motrin) or Naproxen (Aleve) can also be used. Hmdr-vmq-oifxovi cough and cold medicines can be used according to the instructions on the package. Some ytki-noa-fptiquj medicines also contain acetaminophen. Make sure you are not taking more than your recommended dose. For those not hospitalized, there is no specific treatment available for this illness. Antibiotics do not treat Coronaviruses. Follow-Up Follow up with your doctor by scheduling a virtual visit or consider follow-up at one of our urgent care fever clinics. If you are having difficulty breathing, or are very weak and having difficulty standing, this is a medical emergency. Call 911 or have someone take you to the nearest emergency room immediately. If possible, wear a facemask. Additional guidance from the CDC for patients who tested POSITIVE for COVID-19 How to isolate: Isolate yourself in a specific room at home and limit your contact with others. Use a separate bathroom from other members of the household, when possible. Leave home only to get essential medical care. Do not go to work, school or public areas. Avoid using public transportation, ride-sharing, or taxis. Restrict contact with pets and other animals. If you must care for your pet or be around animals while you are sick, wash your hands before and after your interaction and wear a facemask. Make sure that shared spaces in the home have good airflow, such as by an air conditioner or an opened window, weather permitting. Personal Hygiene Procedures: Wear a face mask when in the same room as other people or pets. If a face mask interferes with your breathing, others should wear a mask when sharing space with you. Frequent hand-washing: wash your hands with soap and water for at least 20 seconds. If soap and water are not available, use alcohol-based hand principal software engineer. Avoid touching your eyes, nose, and mouth with unwashed hands. Household Hygiene Procedures: Avoid sharing personal household items such as dishes, glassware, cups, eating utensils, towels or bedding with other people or pets in your home. After use, these items should be washed with soap and hot water. Disinfect all high-touch surfaces every day with antibacterial cleaning solutions such as Lysol wipes, bleach, cleansers, etc. High-touch surfaces include tabletops, doorknobs, bathroom fixtures, toilets, phones, keyboards, tablets and bedside tables. Immediately clean any surfaces that may have blood, poop or body fluids on them, using antibacterial cleaning solutions such as Lysol wipes, bleach, cleansers, etc. If clothing or bedding come into contact with blood, poop or body fluids, they should be washed immediately. Follow the directions on the laundry detergent and clothing labels but hot water is recommended when possible. Stopping home isolation precautions: If possible, consult your doctor before stopping home isolation precautions. According to the CDC, you can discontinue home isolation precautions when you have met both of these criteria: Your fever and respiratory symptoms have been gone for 24 jordy (more content not included)... Normal [facility] CORONAVIRUS 2019, SCREEN ASY MPTOMATICon 10-25-2021 SARS-CoV-2 (COVID-19) RNA JASMIN+probe Ql (Unsp spec) Not detected Normal Not Detected [facility] Comment on above: Result Comment: . This assay is designed to detect the N, ORF1ab and/or S genes of SARS-CoV-2 via nucleic acid amplification. A Negative (NOT DETECTED) result does not preclude 2019-nCoV infection since the adequacy of sample collection and/or low viral burden may result in presence of viral nucleic acids below the clinical sensitivity of this test method. Negative (NOT DETECTED) result should not be used as the sole basis for treatment or other patient management decisions. Rather negative results should be combined with clinical observations, patient history, and epidemiological information to make patient management decisions. Fact sheet for providers: https://www.fda.gov/media/152291/download Fact sheet for patients: https://www.fda.gov/media/829358/download This test has received FDA Emergency Use Authorization (EUA) and has been verified by [facility] ([facility]). This test is only authorized for the duration of time that circumstances exist to justify the authorization of the emergency use of in vitro diagnostic tests for the detection of SARS-CoV-2 virus and/or diagnosis of COVID-19 infection under section 564(b)(1) of the Act, 21 U.S.C. 360bbb-3(b)(1), unless the authorization is terminated or revoked sooner. [facility] is certified under CLIA-88 as qualified to perform high complexity testing. Testing is performed in the [facility] laboratories located at [address] [place] [address]. Performed By: #### C [facility] #### [place] [address] Lab Specimen Source Nasal, Nasopharyngeal Normal [facility] Comment on above: Performed By: #### C [facility] #### [place] [address] Coronavirus 2019 RNA by PCR, Screening Asymptomticon 10-25-2021 Coronavirus 2019 RNA by PCR, Screening Asymptomtic Not detected Normal See Below -[facility] Work Phone: Comment on above: SOURCE: Nasal, Nasop haryngealReference Range: Not Detected.This assay is designed to detect the N, ORF1ab and/or S genes of SARS-CoV-2 via nucleic acid amplification. A Negative (NOT DETECTED) result does not preclude 2019-nCoV infection since the adequacy of sample collection and/or low viral burden may result in presence of viral nucleic acids below the clinical sensitivity of this test method. Negative (NOT DETECTED) result should not be used as the sole basis for treatment or other patient management decisions. Rather negative results should be combined with clinical observations, patient history, and epidemiological information to make patient management decisions.Fact sheet for providers: https://www.fda.gov/media/463450/downloadFact sheet for patients: https://www.fda.gov/media/344914/downloadThis test has received FDA Emergency Use Authorization (EUA) and has been verified by [facility] ([facility]). This test is only authorized for the duration of time that circumstances exist to justify the authorization of the emergency use of in vitro diagnostic tests for the detection of SARS-CoV-2 virus and/or diagnosis of COVID-19 infection under section 564(b)(1) of the Act, 21 U.S.C. 360bbb-3(b)(1), unless the authorization is terminated or revoked sooner. [facility] is certified under CLIA-88 as qualified to perform high complexity testing. Testing is performed in the [facility] laboratories located at [address] [place] [address]. PT Initial Evaluationon 10-05 PT Initial Evaluation Therapy Diagnosis Assessed Adolescent idiopathic scoliosis of lumbosacral spine (737.30) (M41.127) Low back pain (724.2) (M54.50) Plan of Care Goals: Goals set and discussed today. In 2 weeks, pt will be IND and compliant with HEP for participation throughout POC. Pain: In 4 weeks, pt will verbalize max back pain to 5/10 for ease with ADLs. 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 Strength: In 4 weeks, pt will demo 0.5/5 core MMT using Sahrmann scale for ease with picking up heavy objects. , In 4 weeks, pt will score 2% or lower on the MISTI to demo improved QOL. Planned interventions include: aquatic therapy, cryotherapy, dry needling, education/instruction, electrical stimulation, home program, hot pack, kinesiotaping, manual therapy, self care/home management, therapeutic activities, therapeutic exercises and IASTM, cupping . Focus on core, periscap, and lumbar extensor strength. Frequency and duration: 1 time(s) a week, for 4 weeks, for 4 visits. Potential to achieve rehab goals is good Plan of care was developed with input and agreement by the patient. Assessment Ms. Choi arrives to outpatient PT with s/s consistent with c/o LBP d/t scoliosis. Pt presents with the following impairments: weakness of core and periscap musculature, decrease endurance of thoracolumbar extensors, tightness of lumbopelvic region. These impairments contribute to difficulty in activity limitations and participation restrictions including heavy lifting, washing hair over the tub, lifting cat litter. The pt will benefit from skilled PT services 1x/week for 4 weeks to address the above stated impairments and functional limitations to maximize participation and ease in household and social related activities. The pt has a good prognosis when considering positive factors including age and activity level with barriers such as chronicity of sytmptoms. The pt verbalized understanding and agreement to goals and POC. Thank you for this referral and please call [phone] with any questions or concerns. Clinical Presentation: Stable and/or uncomplicated characteristics. Level of Complexity: low Problem List: activity limitations, ADLs/IADLs/self care skills, decreased functional level, decreased knowledge of HEP, flexibility, pain, participation restrictions and strength. Reason For Visit Initial Evaluation . Dx: M41.127. Referred by: [facility] Adult Risk Screening There are no spiritual/cultural practices/values/needs that are important to know Initial Fall Risk Screening: MICHELLE does not have a fear of falling. She does not need assistance with sitting, standing or walking. Does not need assistance walking in her home. She does not need assistance in an unfamiliar setting. The patient is not using an assistive device. Insurance Insurance reviewed Visit number: 1 POC: 06/11 Insurance: primary anth, secondary medicaid Evaluating therapist: Rolanda Asher PT, DPT PT dx: M54.50 Subjective Current Episode of Functional Impairment and/or Pain Date of onset: 10/13/21 Mechanism of Injury:. Pt is a 16 y/o F arriving to outpatient PT c/o B LBP d/t scoliosis. Pt reports pain has been present since 6th grade. Pt rates pain 0/10 while sitting at rest currently however can increase to 6-7/10. Pt reports pain as sharp and stabbing. Pt denies N/T or radicular symptoms. Pain increases with heavy lifting, washing hair over the tub, lifting cat litter. Pt has not tried heat, ice, or stretching. Pt does not wear a brace. Pt arrives with boyfriendDoe. Medical Screening: Reviewed medical history form with patient and medical screening assessed. anxiety. Current Medical Management:. Patient confirmed name and date of this session. Precautions: none. Functional Assessment Prior level of function: Pt was previously IND in all ADLs with no restrictions. Patient stated goal(s) for treatment include: relieving pain . Current Status: unchanged. Patient Awareness: Patient is aware of her diagnosis and prognosis. Living Environment: reviewed and no concern. Personal Factors That May Impact Care:. No barriers to learning. Objective Ortho Oswestry LBP Disability Index (MISTI) 8 % MMT Core: 0 /5 on the Sahrmann Scale. Able to activate TrA slightly MMT periscap B- UT, MT, LT: grossly 4 /5 MMT hip R- flex: 5 /5 abd: 5/5 add: 5 /5 ext: 5 /5 L- flex: 5 /5 abd: 5 /5 add: 5 /5 ext: 5 /5 MMT knee flex, ext and ankle DF R- 5 /5 L- 5 /5 AROM back Flex: 75% Ext: 100% P! R- LF: 100% rot: 100% L- LF: 100% rot: 100% TTP: L PSIS Tightness:R HS After session pt verbalizes pain in low back most likely d/t fatigue of thoracolumbar extensors muscles. Outcome Measures Modified Oswestry Low Back Pain Disability Index score: 8% Treatment Time in clinic started at 3:00 pm Time in clinic ended at 3:30 pm Total time in clinic is 30 minutes. (more content not included)... Normal [facility] No Panel Informationon 10-16 Over half the days - 2 [facility] Work Phone: Nearly every day - 3 [facility] Work Phone: Several days - 1 [facility] Work Phone: Not at all - 0 [facility] Work Phone: Moderate Anxiety [facility] Work Phone: Very difficult [facility] Work Phone: Comment on above: How difficult have t hose problems made it for you to do your work, take care of things at home, or get along with other people? 11 1 [facility] Work Phone: Comment on above: Over the last two we eks, how often have you been bothered by the following problems? Feeling nervous, anxious, or on edge: Several days - 1Not being able to stop or control worrying: Over half the days - 2Worrying too much about different things: Over half the days - 2Trouble relaxing: Not at all - 0Being so restless that it's hard to sit still: Several days - 1Becoming easily annoyed or irritable: Nearly every day - 3Feeling afraid as if something awful might happen: Over half the days - 2 Office Visit ([facility] Verenice mccann)on 10-16-2021 Follow-up visit Diagnoses/Problems Generalized anxiety disorder (300.02) (F41.1) Exercise-induced bronchospasm (493.81) (J45.990) Depression (311) (F32.A) Adolescent idiopathic scoliosis of lumbosacral spine (737.30) (M41.127) Body mass index (BMI) of 5th to 84th percentile for age in child (V85.52) (Z68.52) Orders Depression Follow-up visit in 2 months Outpatient Follow-up Status: Hold For - Scheduling Requested for: [id number] Exercise-induced bronchospasm Complete PFT with Pre/Post Bronchodialator; Status:Hold For - Scheduling; Requested for:[id number]; Generalized anxiety disorder Start: Citalopram Hydrobromide 10 MG Oral Tablet; TAKE 1 TABLET DAILY Provider Impressions ANXIETY: Stop Effexor, start citalopram 10mg daily. SCOLIOSIS: Continue with PT and Dr. Bay. SOB: Ordered PFTs. Will call with results and base treatment on results. Follow up 2 months to reassess anxiety medication efficacy. Chief Complaint 1 month f/u med check , pt stated she has some SOB would like to discuss asthma. Adult Risk Screening Depression/Suicide Screening: During the past 2 weeks, the patient felt down, depressed or hopeless. During the past 2 weeks, the patient felt little interest or pleasure in doing things. PHQ-9 Depression Scale: 1. Little interest or pleasure in doing things - more than half the days 2. Feeling down, depressed or hopeless - several days 3. Trouble falling asleep or sleeping too much - not at all 4. Feeling tired or having little energy - more than half the days 5. Poor appetite or overeating - several days 6. Feeling bad about self or failure or letting others down - several days 7. Trouble concentrating on things - not at all 8. Moving / speaking slowly or fidgety / restless - several days 9. Thought would be better off or hurting self - not at all Total Score: 01/31 Severity of depression is mild. How difficult have these problems made it for you to do your work, take care of things at home, or get along with people? Somewhat difficult. History of Present Illness 16 YOF presents for follow up. ANXIETY: Her anxiety has decrease as SOO 7 has improved from 16 to 11, but she feels as if she is going to choke on Effexor capsules due to the small beads inside them and her insurance will not cover the tablets. She would like to switch anxiety/depression medication. SCOLIOSIS: Saw ortho, not reviewed. They ordered PT and follow up in 1 year. Starts PT next week. SOB: When she works out or walks up stairs or hiking she will SOB. This has been going on her whole life. She has never used an inhaler for relief. It is difficult to both breath in and breath out. She has no nighttime symptoms. She has never had dyspnea/SOB to the point of not being able to breath. 11/05/21: PFTs were unremarkable, need to look for other cause of SOB. Will order chest xray and walking pulse ox at follow up to assess further.1 1 Amended By: Freddy Lee; Nov 05 2021 11:53 AM EST'Scores and Scales' SOO-7 [id number] SOO-7 Total Score11 16 10 Feeling nervous, anxious or on edgeSeveral days - 1 Over half the days - 2 Several days - 1 Not being able to stop or control worryingOver half the days - 2 Nearly every day - 3 Several days - 1 Worrying too much about different thingsOver half the days - 2 Nearly every day - 3 Several days - 1 Trouble relaxingNot at all - 0 Several days - 1 Not at all - 0 Being so restless that it's hard to sit stillSeveral days - 1 Over half the days - 2 Nearly every day - 3 Becoming easily annoyed or irritableNearly every day - 3 Nearly every day - 3 Nearly every day - 3 Feeling afraid as if something awful might happenOver half the days - 2 Over half the days - 2 Several days - 1 Review of Systems Review of Systems: Constitutional: no fever, no unintentional weight change Eye: no recent visual problem Respiratory: no shortness of breath Cardiac: no chest pain GI: no reflux, no nausea, no vomiting, no diarrhea, no constipation, no heartburn, no abdominal pain Neurological: no headache Active Problems Adolescent idiopathic scoliosis of lumbosacral spine (737.30) (M41.127) Body mass index (BMI) of 23.0 to 23.9 in adult (V85.1) (Z68.23) Curvature of spine (737.9) (M43.9) Depression (311) (F32.A) Generalized anxiety disorder (300.02) (F41.1) Menorrhagia (626.2) (N92.0) History of Nicotine vapor product user (305.1) (Z72.0) Nose deformity (738.0) (M95.0) Surgical History No history of surgery Family History Family history of asthma (V17.5) (Z82.5) Family history of chronic obstructive pulmonary disease (V17.6) (Z82.5) Family history of asthma (V17.5) (Z82.5) Social History Does not have living will History of Nicotine vapor product user (305.1) (Z72.0) No alcohol use Allergies amoxicillin Hives;; Recorded By: Cadence Rodriguez; 07/26/2019 7:00:31 AM Penicillins Hives;; Recorded By: Cadence Rodriguez; 07/26/2019 7:00:31 AM Curr (more content not included)... Normal Touchworks Tobacco Screening.on 022 Tobacco use status HS a) Yes [facility] Work Phone: Tobacco Screening. Yes [facility] Work Phone: Initial Visit (Orthopaedic S andie)on 10-13-2021 Initial Visit (Orthopaedic Surgery) Diagnoses/Problems Assessed Adolescent idiopathic scoliosis of lumbosacral spine (737.30) (M41.127) Orders Adolescent idiopathic scoliosis of lumbosacral spine Physical Therapy - General Referral Evaluation and Treatment Evaluate AND Treat Status: Hold For - Scheduling Requested for: 13Oct2021 Chief Complaint npv History of Present Illness Michelle Is an 16-year-old female that presents today with her mom and boyfriend to be evaluated for her scoliosis. The patient is attending online high school right now and does not have plans for college afterwards. She is from the [facility]. The patient informed me that she was in sixth grade when she was initially diagnosed by her primary care doctor with scoliosis but recently within the last year or so her new primary care doctor suggested an orthopedic follow-up. The patient is here because she is dealing with thoracolumbar muscle pain and spasm and periodic discomfort with certain activities such as picking up her cat litter. She is not dealing with any lower extremity radiculopathy, weakness and/or dragging or tripping over her feet. She denies any hip or groin pain. She denies any anterior radiation. She denies any shortness of breath or chest pain. She has not had any recent falls or injuries. From a treatment standpoint she has not done anything. She does not take uvnz-iij-cmdiqsc anti-inflammatories. She is not partake in physical therapy and she does not stretch or exercise. Family, social, and medical histories are obtained and reviewed. I reviewed the complete 30-point review of systems that was documented on the scanned patient intake form. All other systems are non-contributory except as defined in history of present illness. Const: Well-appearing, well-nourished female in no distress. Eyes: Normal appearing sclera and conjunctiva, no jaundice, pupils normal in appearance. Resp: breathing comfortably, normal respiratory rate. CV: No upper or lower extremity edema. Musculoskeletal: Normal gait. Able to heel/toe walk without difficulty. Lumbar ROM is supple. Strength exam of the lower extremities reveals 5/5 strength in all major muscle groups negative straight leg raise bilaterally. Neuro: Sensation is intact and equal bilaterally. Deep tendon reflexes are normal and symmetric. No clonus. Skin: Intact without any lesions, normal turgor. Psych: Alert and oriented x3, normal mood and affect. Patient had x-rays of her full spine taken prior to the visit today. Results images reviewed with patient. These do show that she does have an early onset curvature of her thoracolumbar spine. Direct measurements were not provided from the radiologist but it does appear to be less than 20 degrees still. I did inform the patient that this is something we would continue to manage extremely conservatively. I suggested physical therapy, yoga, stretching and exercise. Anti-inflammatories and Tylenol as needed. I would like the patient to get least yearly follow-up x-rays to follow the curvature. She will follow-up with our spine team currently as needed This note was dictated using speech recognition software and was not corrected for spelling or grammatical errors . Active Problems Problems Adolescent idiopathic scoliosis of lumbosacral spine (737.30) (M41.127) Body mass index (BMI) of 23.0 to 23.9 in adult (V85.1) (Z68.23) Curvature of spine (737.9) (M43.9) Depression (311) (F32.A) Generalized anxiety disorder (300.02) (F41.1) Menorrhagia (626.2) (N92.0) History of Nicotine vapor product user (305.1) (Z72.0) Nose deformity (738.0) (M95.0) Surgical History Problems No history of surgery Family History Mother Family history of asthma (V17.5) (Z82.5) Father Family history of chronic obstructive pulmonary disease (V17.6) (Z82.5) Sister Family history of asthma (V17.5) (Z82.5) Social History Problems Does not have living will History of Nicotine vapor product user (305.1) (Z72.0) No alcohol use Allergies amoxicillin Hives;; Recorded By: Cadence Rodriguez; 07/26/2019 7:00:31 AM Penicillins Hives;; Recorded By: Cadence Rodriguez; 07/26/2019 7:00:31 AM Current Meds Medication NameInstruction hydrOXYzine HCl - 10 MG Oral TabletTAKE 1 TABLET 3 TIMES DAILY NEEDED. Norgestim-Eth Estrad Triphasic 0.18/0.215/0.25 MG-35 MCG Oral Tablettake 1 tablet by mouth once daily Venlafaxine HCl ER 75 MG Oral Capsule Extended Release 24 HourTAKE 1 CAPSULE ONCE DAILY WITH FOOD. Signatures Electronically signed by : Corina Bay PA-C; Oct 13 2021 11:25AM EST (Author) Normal Touchworks Office Visit (Family Verenice mccann)on 09-09-2021 Follow-up visit Diagnoses/Problems Curvature of spine (737.9) (M43.9) Depression (311) (F32.A) Generalized anxiety disorder (300.02) (F41.1) Body mass index (BMI) of 23.0 to 23.9 in adult (V85.1) (Z68.23) Orders Curvature of spine Xray Spine Scoliosis Study 2 View; Status:Canceled; Radiologist to Determine Optimal Study : Y What are the patient's signs and symptoms? : Scoliosis Xray Spine Scoliosis Study 2 View; Status:Hold For - Scheduling; Requested for:09Sep2021; Radiologist to Determine Optimal Study : Y What are the patient's signs and symptoms? : back pain Generalized anxiety disorder Start: hydrOXYzine HCl - 10 MG Oral Tablet; TAKE 1 TABLET 3 TIMES DAILY NEEDED Follow-up visit in 1 month Outpatient Follow-up Status: Complete Done: 09Sep2021 SCHEDULED FOR... OV OCT 14 2021 @ 1:45 Start: Venlafaxine HCl ER 37.5 MG Oral Capsule Extended Release 24 Hour; Take 1 capsule twice daily Menorrhagia Renew: Norgestim-Eth Estrad Triphasic 0.18/0.215/0.25 MG-35 MCG Oral Tablet; take 1 tablet by mouth once daily Provider Impressions ANXIETY: Effexor 75mg daily, start with 37.5mg daily for 6 days, then take 75mg daily. Hydroxyzine 10mg TID prn. ANGER: Counselling referral offered. SCOLIOSIS: Xray ordered. Refilled ocp. Follow up 1 month. 09/11/21: Spoke with patient on phone, currently rates back pain 7/10 intermittently throughout day and with different movements. Xray showed s curvature of spine, radiologist did not calculate angle. Would like referral, referral sent to Dr. Stokes in [place] orthopedic surgeon. Thank you. 09/11/21: Insurance did not want to pay for Effexor 37.5mg, new Rx sent for 75mg daily. Spoke with patient and she acknowledged Rx for 75mg daily.1 1 Amended By: Freddy Lee; Sep 11 2021 9:34 AM ESTChief Complaint pt to discuss anxiety and anger issues, would like xray to evaluate scoliosis having back pain. Adult Risk Screening Depression/Suicide Screening: During the past 2 weeks, the patient felt down, depressed or hopeless. During the past 2 weeks, the patient felt little interest or pleasure in doing things. PHQ-9 Depression Scale: 1. Little interest or pleasure in doing things - nearly every day 2. Feeling down, depressed or hopeless - several days 3. Trouble falling asleep or sleeping too much - not at all 4. Feeling tired or having little energy - more than half the days 5. Poor appetite or overeating - several days 6. Feeling bad about self or failure or letting others down - nearly every day 7. Trouble concentrating on things - several days 8. Moving / speaking slowly or fidgety / restless - more than half the days 9. Thought would be better off or hurting self - not at all Total Score: 13/27 Severity of depression is moderate. How difficult have these problems made it for you to do your work, take care of things at home, or get along with people? Very Difficult. History of Present Illness 16 YOF presents for anxiety/anger. ANXIETY: History of taking fluoxetine, wasn't effective. History of counselling at school, she doesn't feel it helped. No difficulty sleeping, no SI/HI. Would like a different medication. Has physical symptoms indicative panic attack including intermittent shakiness, mild lightheadedness and mild SOB. Her living situation at her boyfriend's house is very stressful at the moment and seems to be the cause of the majority of her anxiety/anger. ANGER: Gets angry about little things and simple circumstances. Would not like referral to counselling at this time. SCOLIOSIS: History of scoliosis, back pain currently. Would like Xray. Currently being treated for UTI by urgent care, was told to go to ER after she called them last night with complaints of abdominal pain and vaginal bleeding, she never went. She has no abdominal pain today and has not noticed vaginal bleeding today. She endorses the urgent care switching her after talking to them last night. Advised to follow up with urgent care and/or seek emergent care if these symptoms begin again. 'Scores and Scales' SOO-7 [id number] 1 SOO-7 Total Score16 10 17 Feeling nervous, anxious or on edgeOver half the days - 2 Several days - 1 Several days - 1 Not being able to stop or control worryingNearly every day - 3 Several days - 1 Nearly every day - 3 Worrying too much about different thingsNearly every day - 3 Several days - 1 Nearly every day - 3 Trouble relaxingSeveral days - 1 Not at all - 0 Several days - 1 Being so restless that it's hard to sit stillOver half the days - 2 Nearly every day - 3 Nearly every day - 3 Becoming easily annoyed or irritableNearly every day - 3 Nearly every day - 3 Nearly every day - 3 Feeling afraid as if something awful might happenOver half the days - 2 Several days - 1 Nearly every day - 3 Review of Systems Review of Systems: Constitutional: no fever, no unintentional weight change Eye: no recent visual problem Respiratory: no burt (more content not included)... Normal [facility] No Panel Informationon 10-31 Several days - 1 [facility] Work Phone: Nearly every day - 3 [facility] Work Phone: Not at all - 0 [facility] Work Phone: Moderate Anxiety [facility] Work Phone: Not difficult at all [facility] Work Phone: Comment on above: How difficult have t hose problems made it for you to do your work, take care of things at home, or get along with other people? 10 1 [facility] Work Phone: Comment on above: Over the last two we eks, how often have you been bothered by the following problems? Feeling nervous, anxious, or on edge: Several days - 1Not being able to stop or control worrying: Several days - 1Worrying too much about different things: Several days - 1Trouble relaxing: Not at all - 0Being so restless that it's hard to sit still: Nearly every day - 3Becoming easily annoyed or irritable: Nearly every day - 3Feeling afraid as if something awful might happen: Several days - 1 Tobacco Screening.on 021 Tobacco Screening. b) No -[facility] Work Phone: C Urineon 12-30-2018 C Urine Final Report: >100,0 00 cfu/ml Staphylococcus saprophyticus ORGANISM: Stasap SUSCEPTIBILITY RESULTS Antibiotic WAYNE Dilutn WAYNE Interp ORGANISM: Stasap Amox/Cla : <=4/2 R Amp : <=2 R Amp/Sul : <=8/4 R Ceftri : 32 R Cipro : <=1 S Gent : <=4 S Levo : <=1 S Nitro : <=32 S Ox : 0.5 R Pen : 0.25 R Rif : <=1 S Tetra : <=4 S SXT : <=0.5/9.5 S Vanc : [address] [facility] Comment on above: Performed By: #### 2 [id number] #### BECKY Urinalysis Manual Subsection [facility] [place] [address] UA Completeon 12-28-2018 Color (U) Anupama Abnormal Yellow [facility] Comment on above: Performed By: #### 8 [id number] #### BECKY Urinalysis Automated Subsection [facility] [place] [address] Glucose (U) [Mass/Vol] Negative Normal Negative [facility] Comment on above: Performed By: #### 8 [id number] #### BECKY Urinalysis Automated Subsection [facility] [place] [address] Ketones Ql (U) Negative Normal Negative [facility] Comment on above: Performed By: #### 8 [id number] #### BECKY Urinalysis Automated Subsection [facility] [place] [address] RBC (U) [#/Vol] /uL Abnormal 0-3 [facility] Comment on above: Performed By: #### 8 [id number] #### BECKY Urinalysis Automated Subsection [facility] [place] [address] UA Blood 2+ Abnormal Negative [facility] Comment on above: Performed By: #### 8 [id number] #### BECKY Urinalysis Automated Subsection [facility] [place] [address] UA Clarity Cloudy Abnormal Clear [facility] Comment on above: Performed By: #### 8 [id number] #### BECKY Urinalysis Automated Subsection [facility] [place] [id number] UA Leuk Est 3+ Abnormal Negative [facility] Comment on above: Performed By: #### 8 [id number] #### BECKY Urinalysis Automated Subsection [facility] [place] [address] UA Mucous Trace Abnormal Trace [facility] Comment on above: Performed By: #### 8 [id number] #### BECKY Urinalysis Automated Subsection [address] [place] [address] UA Nitrite Negative Normal Negative [facility] Comment on above: Performed By: #### 8 [id number] #### BECKY Urinalysis Automated Subsection [address] [place] [address] UA pH 7.0 Normal 4.6-8.0 [facility] Comment on above: Performed By: #### 8 [id number] #### BECKY Urinalysis Automated Subsection [address] [place] [address] UA Protein 1+ Abnormal Negative [facility] Comment on above: Performed By: #### 8 [id number] #### BECKY Urinalysis Automated Subsection [address] [place] [address] UA Spec Grav 1.021 Normal 1.003-1.030 [facility] Comment on above: Performed By: #### 8 [id number] #### BECKY Urinalysis Automated Subsection [address] [place] [address] UA Squam Epithelial 0-5 Normal 0-5 [facility] Comment on above: Performed By: #### 8 [id number] #### BECKY Urinalysis Automated Subsection [address] [place] [address] UA Urobilinogen Negative Normal [facility] Comment on above: Result Comment: Due to a manufacturing issue, low positive urobilinogen results may be fasely positive. Correlate with urine bilirubin and additional clinical/laboratory findings to assess the risk of hemolytic anemia or liver disease. If clinically indicated, repeat testing with an alternate method is available by contacting the laboratory within 24 hours. Performed By: #### 8 [id number] #### BECKY Urinalysis Automated Subsection [address] [place] [address] UA WBC >50 Abnormal 0-5 [facility] Comment on above: Performed By: #### 8 [id number] #### BECKY Urinalysis Automated Subsection [address] [place] [address] UA WBC Clump Many Abnormal None [facility] Comment on above: Performed By: #### 8 [id number] #### BECKY Urinalysis Automated Subsection [address] [place] [address] Urobilinogen Qn (U) Negative Normal Negative [facility] Comment on above: Performed By: #### 8 [id number] #### BECKY Urinalysis Automated Subsection [address] [place] [address] C Urineon 12-15-2018 C Urine Final Report: >100,0 00 cfu/ml Escherichia coli ORGANISM: EC SUSCEPTIBILITY RESULTS Antibiotic WAYNE Dilutn WAYNE Interp ORGANISM: EC Amox/Cla : <=8/4 S Amp : >16 R Amp/Sul : 16/8 I Cefaz : <=8 S Cefo : <=2 S Cipro : <=1 S Gent : <=4 S Levo : <=2 S Croa : <=1 S Nitro : <=32 S Pip/Stpehane : <=16 S Tetra : <=4 S Tobra : <=4 S SXT : <=2/[address] [facility] Comment on above: Performed By: #### 2 [id number] #### BECKY Microbiology Subsection [address] [place] [address] C Urineon 09-15-2018 C Urine Final Report: 70,000 cfu/ml Enterococcus faecalis ORGANISM: Entfaeca SUSCEPTIBILITY RESULTS Antibiotic WAYEN Dilutn WAYNE Interp ORGANISM: Entfaeca Amp : <=2 S Cipro : <=1 S Gent-Syn : <=500 S Levo : <=1 S Nitro : <=32 S Pen : 2 S Rif : <=1 S Strep-Syn : <=1000 S Tetra : >8 R Vanc : [address] [facility] Comment on above: Performed By: #### 2 [id number] #### [facility] Microbiology Subsection [address] [place] [address] C Urineon 08-20-2018 C Urine Final Report: >100,0 00 cfu/ml Escherichia coli ORGANISM: EC SUSCEPTIBILITY RESULTS Antibiotic WAYNE Dilutn WAYNE Interp ORGANISM: EC Amox/Cla : <=8/4 S Amp : >16 R Amp/Sul : >16/8 R Cefaz : 16 I Cefo : <=2 S Ceftaz : <=1 S Ceftri : <=8 S Cefur : <=4 S Cipro : <=1 S Gent : <=4 S Levo : <=2 S Cora : <=1 S Nitro : <=32 S Pip/Stephane : <=16 S Tetra : <=4 S Tobra : <=4 S SXT : <=2/[address] [facility] Comment on above: Performed By: #### 2 [id number] #### [facility] Microbiology Subsection [address] [place] [address] C Genitalon 04-07-2018 C Genital Final Report: Modera te growth of Normal vaginal cameron isolated Normal [facility] Comment on above: Performed By: #### 2 [id number] #### B[facility] Microbiology Subsection [address] [place] [address] C Urineon 04-07-2018 C Urine Final Report: >100,0 00 cfu/ml Enterococcus faecalis ORGANISM: Entfaeca SUSCEPTIBILITY RESULTS Antibiotic WAYNE Dilutn WAYNE Interp ORGANISM: Entfaeca Amp : <=2 S Cipro : <=1 S Gent-Syn : <=500 S Levo : <=1 S Nitro : <=32 S Pen : 2 S Rif : <=1 S Strep-Syn : <=1000 S Tetra : >8 R Vanc : [address] [facility] Comment on above: Performed By: #### 2 [id number] #### [facility] Microbiology Subsection [address] [place] [address] Chlamydia GC by PCRon 2017 Chlamydia by PCR. Not Detected Normal Not Detected [facility] Comment on above: Result Comment: Xper t CT/NG Assay performance has not been evaluated in patients less than 14 years of age. Performed By: #### 3 [id number] #### BECKY Misc Micro SubSection , Gonorrhoeae by PCR Not Detected Normal Not Detected [facility] Comment on above: Result Comment: Xper t CT/NG Assay performance has not been evaluated in patients less than 14 years of age. Performed By: #### 3 [id number] #### BECKY Misc Micro SubSection , U BhCG Qlton 04-05-2018 HCG.beta subunit Qn Negative Normal Neg [facility] Comment on above: Performed By: #### 2 [id number] #### BECKY Urinalysis Manual Subsection [address] [place] [address] UA Completeon 04-05-2018 Color (U) Yellow Normal Yellow [facility] Comment on above: Performed By: #### 8 [id number] #### BECKY Urinalysis Automated Subsection [address] [place] [address] Glucose (U) [Mass/Vol] Negative Normal Negative [facility] Comment on above: Performed By: #### 8 [id number] #### BECKY Urinalysis Automated Subsection [address] [place] [address] Ketones Ql (U) Negative Normal Negative [facility] Comment on above: Performed By: #### 8 [id number] #### BECKY Urinalysis Automated Subsection [address] [place] [address] RBC (U) [#/Vol] 0-3 Normal 0-3 [facility] Comment on above: Performed By: #### 8 [id number] #### BECKY Urinalysis Automated Subsection [facility] [place] [address] UA Blood Negative Normal Negative [facility] Comment on above: Performed By: #### 8 [id number] #### BECKY Urinalysis Automated Subsection [address] [place] [address] UA Clarity SltCloudy Abnormal Clear [facility] Comment on above: Performed By: #### 8 [id number] #### BECKY Urinalysis Automated Subsection [address] [place] [address] UA Leuk Est Negative Normal Negative [facility] Comment on above: Performed By: #### 8 [id number] #### BECKY Urinalysis Automated Subsection [address] [place] [address] UA Mucous Trace Abnormal Trace [facility] Comment on above: Performed By: #### 8 [id number] #### BECKY Urinalysis Automated Subsection [address] [place] [address] UA Nitrite Negative Normal Negative [facility] Comment on above: Performed By: #### 8 [id number] #### BECKY Urinalysis Automated Subsection [address] [place] [address] UA pH 7.0 Normal 4.6-8.0 [facility] Comment on above: Performed By: #### 8 [id number] #### BECKY Urinalysis Automated Subsection [address] [place] [address] UA Protein Negative Normal Negative [facility] Comment on above: Performed By: #### 8 [id number] #### B[facility]KY Urinalysis Automated Subsection [address] [place] [address] UA Spec Grav 1.015 Normal 1.003-1.030 [facility] Comment on above: Performed By: #### 8 [id number] #### BECKY Urinalysis Automated Subsection [address] [place] [address] UA Squam Epithelial 0-5 Normal 0-5 [facility] Comment on above: Performed By: #### 8 [id number] #### BECKY Urinalysis Automated Subsection [address] [place] [address] UA Urobilinogen 2.0 mg/dL Abnormal [facility] Comment on above: Performed By: #### 8 [id number] #### BECKY Urinalysis Automated Subsection [address] [place] [address] UA WBC 0-5 Normal 0-5 [facility] Comment on above: Performed By: #### 8 [id number] #### BECKY Urinalysis Automated Subsection [address] [place] [address] Urobilinogen Qn (U) Negative Normal Negative [facility] Comment on above: Performed By: #### 8 [id number] #### BECKY Urinalysis Automated Subsection [address] [place] [address] Wet Mount/Trich & [employer] [employer] None Detected Normal None Detected [facility] Comment on above: Performed By: #### [id number] #### BECKY [facility] , Vital Signs Date Time Vital Sign Value Performing Clinician Facility 02-16-2025 14:49-0400 Body mass index (BMI) [Ratio] 26.83 kg/m2 Colleen Rothman MD Work Phone: [facility] 02-16-2025 14:49-0400 Body weight 64.41 kg Colleen Rothman MD Work Phone: [facility] 02-16-2025 14:49-0400 Diastolic blood pressure 64 mm[Hg] Colleen Rothman MD Work Phone: [facility] 02-16-2025 14:49-0400 Systolic blood pressure 112 mm[Hg] Colleen Rothman MD Work Phone: [facility] 01-19-2025 13:31-0400 Body mass index (BMI) [Ratio] 25.89 kg/m2 Colleen Rothman MD Work Phone: [facility] 01-19-2025 13:31-0400 Body weight 62.14 kg Colleen Rothman MD Work Phone: [facility] 01-19-2025 13:31-0400 Diastolic blood pressure 68 mm[Hg] Colleen Rothman MD Work Phone: [facility] 01-19-2025 13:31-0400 Systolic blood pressure 104 mm[Hg] Colleen Rothman MD Work Phone: [facility] 12-22-2024 09:29-0400 Body mass index (BMI) [Ratio] 26.45 kg/m2 Primitivo Delgado MD Work Phone: [facility] 12-22-2024 09:29-0400 Body weight 63.5 kg Primitivo Delgado MD Work Phone: [facility] 12-22-2024 09:29-0400 Diastolic blood pressure 70 mm[Hg] Primitivo Delgado MD Work Phone: [facility] 12-22-2024 09:29-0400 Systolic blood pressure 110 mm[Hg] Primitivo Delgado MD Work Phone: [facility] 11-24-2024 11:03-0400 Body height 154.9 cm Champ Haury TIME STUDY OBSERVER.ENGINE DYNAMOMETER TESTER Work Phone: [facility] 11-24-2024 11:03-0400 Body mass index (BMI) [Ratio] 26.83 kg/m2 Champ Haury TIME STUDY OBSERVER.ENGINE DYNAMOMETER TESTER Work Phone: [facility] 11-24-2024 11:03-0400 Body weight 64.41 kg Champ Haury TIME STUDY OBSERVER.ENGINE DYNAMOMETER TESTER Work Phone: [facility] 11-24-2024 11:03-0400 Diastolic blood pressure 68 mm[Hg] Champ Haury TIME STUDY OBSERVER.ENGINE DYNAMOMETER TESTER Work Phone: [facility] 11-24-2024 11:03-0400 Systolic blood pressure 112 mm[Hg] Champ Haury TIME STUDY OBSERVER.ENGINE DYNAMOMETER TESTER Work Phone: [facility] 11-10-2024 14:35-0400 Body mass index (BMI) [Ratio] 26.9 kg/m2 Leila Plotts TIME STUDY OBSERVER.CNM Work Phone: [facility] 11-10-2024 14:35-0400 Body weight 63.05 kg Leila Plotts TIME STUDY OBSERVER.CNM Work Phone: [facility] 11-10-2024 14:35-0400 Diastolic blood pressure 68 mm[Hg] Leila Plotts TIME STUDY OBSERVER.CNM Work Phone: [facility] 11-10-2024 14:35-0400 Systolic blood pressure 102 mm[Hg] Leila Plotts TIME STUDY OBSERVER.CNM Work Phone: [facility] 11-03-2024 08:48-0400 Body mass index (BMI) [Ratio] 26.78 kg/m2 Chance Gomez MD Work Phone: [facility] 11-03-2024 08:48-0400 Body weight 62.78 kg Chance Gomez MD Work Phone: [facility] 11-03-2024 08:48-0400 Diastolic blood pressure 64 mm[Hg] Chance Gomez MD Work Phone: [facility] 11-03-2024 08:48-0400 Systolic blood pressure 100 mm[Hg] Chance Gomez MD Work Phone: [facility] 10-07-2024 13:47-0400 Body mass index (BMI) [Ratio] 26.79 kg/m2 Krislyn Aberegg PA Work Phone: [facility] 10-07-2024 13:47-0400 Body temperature 97.2 [degF] Krislyn Aberegg PA Work Phone: [facility] 10-07-2024 13:47-0400 Body weight 62.8 kg Krislyn Aberegg PA Work Phone: [facility] 10-07-2024 13:47-0400 Diastolic blood pressure 78 mm[Hg] Krislyn Aberegg PA Work Phone: [facility] 10-07-2024 13:47-0400 Heart rate 70 /min Krislyn Aberegg PA Work Phone: [facility] 10-07-2024 13:47-0400 Respiratory rate 16 /min Krislyn Aberegg PA Work Phone: [facility] 10-07-2024 13:47-0400 SaO2% (BldA) [Mass fraction] 99 % Krislyn Aberegg PA Work Phone: [facility] 10-07-2024 13:47-0400 Systolic blood pressure 110 mm[Hg] Krislyn Aberegg PA Work Phone: [facility] 08-21-2024 17:21-0400 Body mass index (BMI) [Ratio] 26.54 kg/m2 Juancarlos Carmen APRN.CNP Work Phone: [facility] 08-21-2024 17:21-0400 Body temperature 99.1 [degF] Juancarlos Moomaw TIME STUDY OBSERVER.ENGINE DYNAMOMETER TESTER Work Phone: [facility] 08-21-2024 17:21-0400 Body weight 62.2 kg Juancarlos Moomaw TIME STUDY OBSERVER.ENGINE DYNAMOMETER TESTER Work Phone: [facility] 08-21-2024 17:21-0400 Diastolic blood pressure 76 mm[Hg] Juancarlos Moomaw TIME STUDY OBSERVER.ENGINE DYNAMOMETER TESTER Work Phone: [facility] 08-21-2024 17:21-0400 Heart rate 78 /min Juancarlos Moomaw TIME STUDY OBSERVER.ENGINE DYNAMOMETER TESTER Work Phone: [facility] 08-21-2024 17:21-0400 Respiratory rate 16 /min Juancarlos Moomaw TIME STUDY OBSERVER.ENGINE DYNAMOMETER TESTER Work Phone: [facility] 08-21-2024 17:21-0400 SaO2% (BldA) [Mass fraction] 99 % Juancarlos Moomaw TIME STUDY OBSERVER.ENGINE DYNAMOMETER TESTER Work Phone: [facility] 08-21-2024 17:21-0400 Systolic blood pressure 110 mm[Hg] Juancarlos Moomaw TIME STUDY OBSERVER.ENGINE DYNAMOMETER TESTER Work Phone: [facility] 07-31-2024 09:44-0500 Body mass index (BMI) [Ratio] 24.46 kg/m2 Chance Gomez MD Work Phone: [facility] 07-31-2024 09:44-0500 Body weight 57.34 kg Chance Gomez MD Work Phone: [facility] 07-31-2024 09:44-0500 Diastolic blood pressure 60 mm[Hg] Chance Gomez MD Work Phone: [facility] 07-31-2024 09:44-0500 Systolic blood pressure 100 mm[Hg] Chance Gomez MD Work Phone: [facility] 05-26-2024 08:33-0500 Body height 153.1 cm Colleen Rothman MD Work Phone: [facility] 05-26-2024 08:33-0500 Body mass index (BMI) [Ratio] 24.92 kg/m2 Colleen Rothman MD Work Phone: [facility] 05-26-2024 08:33-0500 Body weight 58.42 kg Colleen Rothman MD Work Phone: [facility] 05-26-2024 08:33-0500 Diastolic blood pressure 68 mm[Hg] Colleen Rothman MD Work Phone: [facility] 05-26-2024 08:33-0500 Systolic blood pressure 122 mm[Hg] Colleen Rothman MD Work Phone: [facility] 08-16-2023 12:22-0400 Body height 152.4 cm Freddy Stentz PA-C Work Phone: [facility] 08-16-2023 12:22-0400 Body mass index (BMI) [Ratio] 25.97 kg/m2 Freddy Stentz PA-C Work Phone: [facility] 08-16-2023 12:22-0400 Body weight 60.33 kg Freddy Stentz PA-C Work Phone: [facility] 08-16-2023 12:22-0400 Diastolic blood pressure 70 mm[Hg] Freddy Stentz PA-C Work Phone: [facility] 08-16-2023 12:22-0400 Heart rate 94 /min Freddy Stentz PA-C Work Phone: [facility] 08-16-2023 12:22-0400 SaO2% (BldA) [Mass fraction] 97 % Freddy Stentz PA-C Work Phone: [facility] 08-16-2023 12:22-0400 Systolic blood pressure 118 mm[Hg] Freddy Stentz PA-C Work Phone: [facility] 08-15-2023 20:39-0400 Body height 152.4 cm Mecca Cabral MD Work Phone: [facility] 08-15-2023 20:39-0400 Body mass index (BMI) [Ratio] 25.39 kg/m2 Mecca Cabral MD Work Phone: [facility] 08-15-2023 20:39-0400 Body temperature 97.81 [degF] Mecca Cabral MD Work Phone: [facility] 08-15-2023 20:39-0400 Body weight 58.97 kg Mecca Cabral MD Work Phone: [facility] 08-15-2023 20:39-0400 Diastolic blood pressure 75 mm[Hg] Mecca Cabral MD Work Phone: [facility] 08-15-2023 20:39-0400 Heart rate 98 /min Mecca Cabral MD Work Phone: [facility] 08-15-2023 20:39-0400 Respiratory rate 18 /min Mecca Cabral MD Work Phone: [facility] 08-15-2023 20:39-0400 SaO2% (BldA) [Mass fraction] 95 % Mecca Cabral MD Work Phone: [facility] 08-15-2023 20:39-0400 Systolic blood pressure 118 mm[Hg] Mecca Cabral MD Work Phone: [facility] 08-14-2023 12:20-0500 Diastolic blood pressure 74 mm[Hg] Freddy Stentz PA-C Work Phone: [facility] 08-14-2023 12:20-0500 Respiratory rate 18 /min Freddy Stentz PA-C Work Phone: [facility] 08-14-2023 12:20-0500 SaO2% (BldA) [Mass fraction] 99 % Freddy Stentz PA-C Work Phone: [facility] 08-14-2023 12:20-0500 Systolic blood pressure 111 mm[Hg] Freddy Stentz PA-C Work Phone: [facility] 08-14-2023 11:02-0500 Body height 152.4 cm Freddy Stentz PA-C Work Phone: [facility] 08-14-2023 11:02-0500 Body mass index (BMI) [Ratio] 25.39 kg/m2 Freddy Stentz PA-C Work Phone: [facility] 08-14-2023 11:02-0500 Body temperature 97.7 [degF] Freddy Stentz PA-C Work Phone: [facility] 08-14-2023 11:02-0500 Body weight 58.97 kg Freddy Stentz PA-C Work Phone: [facility] 08-14-2023 11:02-0500 Heart rate 85 /min Freddy Stentz PA-C Work Phone: [facility] 01-27-2023 23:36-0400 Diastolic blood pressure 69 mm[Hg] Deyanira Laclede Other Phone: [facility] 01-27-2023 23:36-0400 Heart rate 67 /min Deyanira Laclede Other Phone: [facility] 01-27-2023 23:36-0400 Respiratory rate 16 /min Deyanira Vivian Other Phone: [facility] 01-27-2023 23:36-0400 SaO2% (BldA) [Mass fraction] 98 % Deyanira Vivian Other Phone: [facility] 01-27-2023 23:36-0400 Systolic blood pressure 106 mm[Hg] Deyanira Laclede Other Phone: [facility] 01-27-2023 19:16-0400 Body height 152.4 cm Deyanira Vivian Other Phone: [facility] 01-27-2023 19:16-0400 Body temperature 98.24 [degF] Deyanira Laclede Other Phone: [facility] 01-27-2023 19:16-0400 Body weight 61.5 kg Deyanira Vivian Other Phone: [facility] 09-12-2022 18:23-0400 Diastolic blood pressure 86 mm[Hg] Deyanira Vivian Other Phone: [facility] 09-12-2022 18:23-0400 Heart rate 82 /min Deyanira Vivian Other Phone: [facility] 09-12-2022 18:23-0400 Respiratory rate 15 /min Deyanira Vivian Other Phone: [facility] 09-12-2022 18:23-0400 SaO2% (BldA) [Mass fraction] 100 % Deyanira Vivian Other Phone: [facility] 09-12-2022 18:23-0400 Systolic blood pressure 128 mm[Hg] Deyanira Laclede Other Phone: [facility] 09-12-2022 15:21-0400 Body height 152.4 cm Deyanira Vivian Other Phone: [facility] 09-12-2022 15:21-0400 Body temperature 98.06 [degF] Deyanira Laclede Other Phone: [facility] 09-12-2022 15:21-0400 Body weight 58 kg Deyanira Laclede Other Phone: [facility] 07-24-2022 09:09-0500 Body height 153.67 cm Freddy Stentz Work Phone: [facility] Work Phone: 07-24-2022 09:09-0500 Body mass index (BMI) [Ratio] 25.16 kg/m2 Freddy Stentz Work Phone: [facility] Work Phone: 07-24-2022 09:09-0500 Body surface area Derived from formula 1.57 m2 Freddy Stentz Work Phone: [facility] Work Phone: 07-24-2022 09:09-0500 Body weight 59.42 kg Freddy Stentz Work Phone: [facility] Work Phone: 07-24-2022 09:09-0500 Diastolic blood pressure 70 mm[Hg] Freddy Stentz Work Phone: -[facility] Work Phone: 07-24-2022 09:09-0500 Heart rate 72 /min Freddy Stentz Work Phone: -[facility] Work Phone: 07-24-2022 09:09-0500 Systolic blood pressure 110 mm[Hg] Freddy Stentz Work Phone: [facility] Work Phone: 07-24-2022 09:09-0500 7 1 Freddy Stentz Work Phone: [facility] Work Phone: Comment on above: 2-20_SPerc 07-24-2022 09:09-0500 57 1 Freddy Stentz Work Phone: [facility] Work Phone: Comment on above: 2-20_WPerc 07-24-2022 09:09-0500 80 1 Freddy Stentz Work Phone: [facility] Work Phone: Comment on above: BMIPerc 07-20-2022 19:08-0500 Diastolic blood pressure 76 mm[Hg] [facility] 07-20-2022 19:08-0500 Heart rate 62 /min [facility] 07-20-2022 19:08-0500 Respiratory rate 15 /min [facility] 07-20-2022 19:08-0500 SaO2% (BldA) [Mass fraction] 98 % [facility] 07-20-2022 19:08-0500 Systolic blood pressure 108 mm[Hg] [facility] 07-20-2022 17:26-0500 Body height 165.1 cm [facility] 07-20-2022 17:26-0500 Body mass index (BMI) [Percentile] Per age and sex 52.7 % [facility] 07-20-2022 17:26-0500 Body mass index (BMI) [Ratio] 21.8 kg/m2 [facility] 07-20-2022 17:26-0500 Body temperature 97.6 [degF] [facility] 07-20-2022 17:26-0500 Body weight 59.42 kg [facility] 07-20-2022 15:34-0500 Body weight 59.42 kg Sommer Garcia MD Work Phone: [facility] 07-20-2022 15:34-0500 Diastolic blood pressure 66 mm[Hg] Sommer Garcia MD Work Phone: [facility] 07-20-2022 15:34-0500 Systolic blood pressure 104 mm[Hg] Sommer Garcia MD Work Phone: [facility] 07-18-2022 21:10-0500 Body height 152.4 cm Deyanirarosalio Castanotie Other Phone: [facility] 07-18-2022 21:10-0500 Body temperature 97.88 [degF] Deyanira Vivian Other Phone: [facility] 07-18-2022 21:10-0500 Body weight 55 kg Deyanira Laclede Other Phone: [facility] 07-18-2022 21:10-0500 Diastolic blood pressure 73 mm[Hg] Deyanira Laclede Other Phone: [facility] 07-18-2022 21:10-0500 Heart rate 93 /min Deyanira Laclede Other Phone: [facility] 07-18-2022 21:10-0500 Respiratory rate 15 /min Deyanira Laclede Other Phone: [facility] 07-18-2022 21:10-0500 SaO2% (BldA) [Mass fraction] 98 % Deyanira Vivian Other Phone: [facility] 07-18-2022 21:10-0500 Systolic blood pressure 115 mm[Hg] Deyanira Vivian Other Phone: [facility] 07-15-2022 16:41-0500 Diastolic blood pressure 80 mm[Hg] Deyanira Laclede Other Phone: [facility] 07-15-2022 16:41-0500 Heart rate 71 /min Deyanira Laclede Other Phone: [facility] 07-15-2022 16:41-0500 Respiratory rate 16 /min Deyanira Laclede Other Phone: [facility] 07-15-2022 16:41-0500 SaO2% (BldA) [Mass fraction] 97 % Deyanira Vivian Other Phone: [facility] 07-15-2022 16:41-0500 Systolic blood pressure 106 mm[Hg] Deyanira Vivian Other Phone: [facility] 07-15-2022 15:28-0500 Body height 152.4 cm Deyanira Vivian Other Phone: [facility] 07-15-2022 15:28-0500 Body temperature 97.88 [degF] Deyanira Laclede Other Phone: [facility] 07-15-2022 15:28-0500 Body weight 59.1 kg Deyanira Laclede Other Phone: [facility] 04-21-2022 16:25-0500 Body height 153.67 cm [facility] Work Phone: [facility] Work Phone: 04-21-2022 16:25-0500 Body mass index (BMI) [Ratio] 23.63 kg/m2 Freddy Stentz Work Phone: [facility] Work Phone: 04-21-2022 16:25-0500 Body surface area Derived from formula 1.53 m2 Freddy Stentz Work Phone: [facility] Work Phone: 04-21-2022 16:25-0500 Body weight 55.79 kg Freddy Stentz Work Phone: [facility] Work Phone: 04-21-2022 16:25-0500 Diastolic blood pressure 70 mm[Hg] Freddy Stentz Work Phone: [facility] Work Phone: 04-21-2022 16:25-0500 Heart rate 72 /min Freddy Stentz Work Phone: [facility] Work Phone: 04-21-2022 16:25-0500 Systolic blood pressure 110 mm[Hg] Freddy Stentz Work Phone: [facility] Work Phone: 04-21-2022 16:25-0500 7 1 Freddy Stentz Work Phone: [facility] Work Phone: Comment on above: 2-20_SPerc 04-21-2022 16:25-0500 44 1 Freddy Stentz Work Phone: [facility] Work Phone: Comment on above: 2-20_WPerc 04-21-2022 16:25-0500 71 1 Freddy Stentz Work Phone: [facility] Work Phone: Comment on above: BMIPerc 02-19-2022 15:53-0400 Body height 153.67 cm Freddy Stentz Work Phone: [facility] Work Phone: 02-19-2022 15:53-0400 Body mass index (BMI) [Ratio] 23.82 kg/m2 Freddy Stentz Work Phone: [facility] Work Phone: 02-19-2022 15:53-0400 Body surface area Derived from formula 1.53 m2 Freddy Stentz Work Phone: [facility] Work Phone: 02-19-2022 15:53-0400 Body weight 56.24 kg Freddy Stentz Work Phone: [facility] Work Phone: 02-19-2022 15:53-0400 Diastolic blood pressure 70 mm[Hg] Freddy Stentz Work Phone: [facility] Work Phone: 02-19-2022 15:53-0400 Heart rate 72 /min Freddy Stentz Work Phone: [facility] Work Phone: 02-19-2022 15:53-0400 Systolic blood pressure 100 mm[Hg] Freddy Stentz Work Phone: [facility] Work Phone: 02-19-2022 15:53-0400 7 1 Freddy Stentz Work Phone: [facility] Work Phone: Comment on above: 2-20_SPerc 02-19-2022 15:53-0400 46 1 Freddy Stentz Work Phone: [facility] Work Phone: Comment on above: 2-20_WPerc 02-19-2022 15:53-0400 73 1 Freddy Stentz Work Phone: [facility] Work Phone: Comment on above: BMIPerc 12-18-2021 14:51-0400 Body height 153.67 cm Freddy Stentz Work Phone: [facility] Work Phone: 12-18-2021 14:51-0400 Body mass index (BMI) [Ratio] 23.63 kg/m2 Freddy Stentz Work Phone: [facility] Work Phone: 12-18-2021 14:51-0400 Body surface area Derived from formula 1.53 m2 Freddy Stentz Work Phone: [facility] Work Phone: 12-18-2021 14:51-0400 Body weight 55.79 kg Freddy Stentz Work Phone: [facility] Work Phone: 12-18-2021 14:51-0400 Diastolic blood pressure 62 mm[Hg] Freddy Stentz Work Phone: [facility] Work Phone: 12-18-2021 14:51-0400 Heart rate 72 /min Freddy Stentz Work Phone: [facility] Work Phone: 12-18-2021 14:51-0400 Systolic blood pressure 100 mm[Hg] Freddy Stentz Work Phone: [facility] Work Phone: 12-18-2021 14:51-0400 7 1 Freddy Stentz Work Phone: [facility] Work Phone: Comment on above: 2-20_SPerc 12-18-2021 14:51-0400 45 1 Freddy Stentz Work Phone: [facility] Work Phone: Comment on above: 2-20_WPerc 12-18-2021 14:51-0400 72 1 Freddy Stentz Work Phone: [facility] Work Phone: Comment on above: BMIPer 10-16-2021 15:34-0400 Body height 153.67 cm [facility] Work Phone: 10-16-2021 15:34-0400 Body mass index (BMI) [Ratio] 23.63 kg/m2 Freddy Stentz [facility] Work Phone: 10-16-2021 15:34-0400 Body surface area Derived from formula 1.53 m2 Freddy Stentz [facility] Work Phone: 10-16-2021 15:34-0400 Body weight 55.79 kg Freddy Stentz Work Phone: [facility] Work Phone: 10-16-2021 15:34-0400 Diastolic blood pressure 60 mm[Hg] Freddy Stentz Work Phone: [facility] Work Phone: 10-16-2021 15:34-0400 Heart rate 72 /min Freddy Stentz [facility] Work Phone: 10-16-2021 15:34-0400 Systolic blood pressure 100 mm[Hg] Freddy Stentz [facility] Work Phone: 10-16-2021 15:34-0400 7 1 Freddy Stentz [facility] Work Phone: Comment on above: 2-20_SPerc 05-12-2022 15:34-0400 46 1 Freddy Stentz [facility] Work Phone: Comment on above: 2-20_WPerc 10-16-2021 15:34-0400 72 1 Freddy Stentz [facility] Work Phone: Comment on above: BMIPerc 09-16-2021 20:30-0400 Diastolic blood pressure 63 mm[Hg] Deyanira Laclede Other Phone: [facility] 09-16-2021 20:30-0400 Heart rate 83 /min Deyanira Vivian Other Phone: [facility] 09-16-2021 20:30-0400 Respiratory rate 17 /min Deyanira Laclede Other Phone: [facility] 09-16-2021 20:30-0400 SaO2% (BldA) [Mass fraction] 98 % Deyanira Vivian Other Phone: [facility] 09-16-2021 20:30-0400 Systolic blood pressure 109 mm[Hg] Deyanira Laclede Other Phone: [facility] 09-16-2021 20:05-0400 Body height 152.4 cm Deyanira Laclede Other Phone: [facility] 09-16-2021 20:05-0400 Body temperature 98.6 [degF] Deyanira Vivian Other Phone: [facility] 09-16-2021 20:05-0400 Body weight 56.4 kg Deyanira Vivian Other Phone: [facility] 10-31-2020 16:02-0400 Body height 153.67 cm Julisa L Arcelia Work Phone: [facility] Work Phone: 10-31-2020 16:02-0400 Body mass index (BMI) [Ratio] 21.21 kg/m2 Julisa Paniagua Work Phone: [facility] Work Phone: 10-31-2020 16:02-0400 Body surface area Derived from formula 1.46 m2 Julisa Paniagua Work Phone: [facility] Work Phone: 10-31-2020 16:02-0400 Body weight 50.1 kg Julisa Paniagua Work Phone: [facility] Work Phone: 10-31-2020 16:02-0400 Diastolic blood pressure 60 mm[Hg] Julisa Paniagua Work Phone: [facility] Work Phone: 10-31-2020 16:02-0400 Heart rate 84 /min Julisa Paniagua Work Phone: [facility] Work Phone: 10-31-2020 16:02-0400 Systolic blood pressure 110 mm[Hg] Julisa Paniagua Work Phone: [facility] Work Phone: 10-31-2020 16:02-0400 8 1 Julisa Paniagua Work Phone: [facility] Work Phone: Comment on above: 2-20_SPerc 10-31-2020 16:02-0400 24 1 Julisa Paniagua Work Phone: [facility] Work Phone: Comment on above: 2-20_WPerc 10-31-2020 16:02-0400 52 1 Julisa Paniagua Work Phone: [facility] Work Phone: Comment on above: BMIPerc 12-15-2019 12:36-0400 BMI (Body Mass Index) 23.34 kg/m2 [facility] Work Phone: 12-15-2019 12:36-0400 Body weight 55.11 kg [facility] Work Phone: 12-15-2019 12:36-0400 BP Diastolic 60 mm[Hg] [facility] Work Phone: 12-15-2019 12:36-0400 BP Systolic 108 mm[Hg] Julisa [facility] Work Phone: 12-15-2019 12:36-0400 BSA (Body Surface Area) 1.52 m2 [facility] Work Phone: 12-15-2019 12:36-0400 Height 153.67 cm [facility] Work Phone: 12-15-2019 12:36-0400 Pulse (Heart Rate) 88 /min [facility] Work Phone: 12-15-2019 12:36-0400 8 1 [facility]isa [facility] Work Phone: Comment on above: 2-20 Stature Percentile 12-15-2019 12:36-0400 52 1 Julisa [facility] Work Phone: Comment on above: 2-20 Weight Percentile 12-15-2019 12:36-0400 76 1 Julisa [facility] Work Phone: Comment on above: BMI Percentile Encounters Encounter Date Encounter Type Care Provider Facility Start: 02-22-2025 End: 02-22-2025 ambulatory FREDDY STENTZ Facility:[facility] Start: 02-21-2025 End: 02-21-2025 ambulatory FREDDY STENTZ Facility:[facility] Start: 02-21-2025 End: 02-21-2025 ambulatory AHMED AHMED Facility:[facility] Start: 02-21-2025 ambulatory FREDDY STENTZ Facility: [facility] Start: 02-20-2025 End: 02-20-2025 E-mail encounter from caregiver Zohaib Humphries RN [facility] General Maternal Medicine Start: 02-20-2025 End: 02-20-2025 Patient encounter procedure Zohaib Humphries RN [facility] Maternal Medicine Comment on above: Directions Start: 02-19-2025 End: 02-19-2025 ambulatory Rajesh Do MD Work Phone: [facility] Start: 02-19-2025 End: 02-19-2025 E-mail encounter from caregiver Zohaib Humphries RN [facility] General Maternal Medicine Start: 02-19-2025 End: 02-19-2025 Patient encounter procedure Zohaib Humphries RN [facility] Maternal Medicine Comment on above: Directions Start: 02-19-2025 End: 02-19-2025 Telephone encounter Zohaib Humphries RN [facility] Maternal Medicine Comment on above: Dramatic Teacher - O ther ( Care) Start: 02-19-2025 End: 02-19-2025 ambulatory SHAQUILLE SEVILLA Facility:[facility] Start: 02-19-2025 ambulatory FREDDY STENTJaja Facility: [facility] Start: 02-16-2025 End: 02-16-2025 Patient encounter procedure Colleen Rothman MD Work Phone: OB/Gynecology Comment on above: 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, single or unspecified fetus (HCC) (Primary Dx); 20 weeks gestation of (HCC); Encounter for supervision of normal first in second trimester (HCC) 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, single or unspecified fetus (HCC) (Primary Dx); 20 weeks gestation of (HCC); Encounter for anatomic survey (HCC) Start: 02-16-2025 End: 02-16-2025 ambulatory FREDDY STENTJaja Facility:[facility] Start: 01-19-2025 End: 01-19-2025 Patient encounter procedure Colleen Rothman MD Work Phone: OB/Gynecology Comment on above: 16 weeks gestation o f (HCC) (Primary Dx); Encounter for supervision of normal first in second trimester (HCC) Start: 01-19-2025 End: 01-19-2025 ambulatory FREDDY STENTZ Facility:[facility] Start: 01-08-2025 End: 01-08-2025 ambulatory Champ Rawls APRN.ENGINE DYNAMOMETER TESTER Work Phone: OB/Gynecology Comment on above: Nipt testing Start: 01-02-2025 End: 01-02-2025 Telephone encounter Sommer Garcia MD Work Phone: OB/Gynecology Comment on above: Nausea & Vomiting Start: 01-02-2025 End: 01-02-2025 Patient encounter procedure Digna Riggins MD Work Phone: OB/Gynecology Comment on above: Nausea and vomiting in (HCC) (Primary Dx); 13 weeks gestation of ([facility]) Start: 01-02-2025 End: 01-02-2025 ambulatory FREDDY STENTZ Facility:[facility] Start: 12-22-2024 End: 12-22-2024 ambulatory CHAMP RAWLS Facility:[facility] Start: 12-22-2024 End: 12-22-2024 Patient encounter procedure Primitivo Delgado MD Work Phone: OB/Gynecology Comment on above: 12 weeks gestation o f (HCC) (Primary Dx); Encounter for supervision of other normal in first trimester ([facility]) Encounter for antena nick screening for malformation using ultrasound ([facility]) (Primary Dx); 12 weeks gestation of ([facility]) Start: 12-22-2024 End: 12-22-2024 ambulatory CHAMP RAWLS Facility:[facility] Start: 12-04-2024 End: 12-04-2024 ambulatory Champ Rawls APRN.ENGINE DYNAMOMETER TESTER Work Phone: OB/Gynecology Comment on above: Medication Start: 11-27-2024 End: 01-27-2025 Follow-up encounter Khadijah Josue APRN.ENGINE DYNAMOMETER TESTER Work Phone: OB/Gynecology Start: 11-24-2024 End: 11-24-2024 Patient encounter procedure Champ Rawls APRN.ENGINE DYNAMOMETER TESTER Work Phone: OB/Gynecology Comment on above: Encounter for superv ision of other normal in first trimester (HCC) (Primary Dx); 8 weeks gestation of (HCC); History of miscarriage; Screen for STD (sexually transmitted disease); Screening for cervical cancer; Nausea and vomiting during (HCC); Anxiety disorder affecting , antepartum (HCC); Penicillin allergy Start: 11-24-2024 End: 11-24-2024 ambulatory CHAMP RAWLS Facility:[facility] Start: 11-13-2024 End: 01-13-2025 Follow-up encounter Champ Rawls APRN.ENGINE DYNAMOMETER TESTER Work Phone: OB/Gynecology Start: 11-10-2024 End: 11-10-2024 Patient encounter procedure Leila Moody APRN.CNM Work Phone: OB/Gynecology Comment on above: 6 weeks gestation of (HCC) (Primary Dx); Cramping affecting , antepartum (HCC) Start: 11-10-2024 End: 11-10-2024 ambulatory Lime Mixer Tender [employer] Work Phone: OB/Gynecology Start: 11-08-2024 ambulatory No Primary Car e Physician Facility:[facility] Start: 11-07-2024 End: 11-07-2024 Telephone encounter Nicole Siddiqui APRN.CNM Work Phone: OB/Gynecology Comment on above: Results Start: 11-06-2024 End: 11-08-2024 Follow-up encounter Chance Gomez MD Work Phone: OB/Gynecology Start: 11-03-2024 End: 11-03-2024 Patient encounter procedure Chance Gomez MD Work Phone: OB/Gynecology Comment on above: Pelvic pain during p regnancy (HCC) (Primary Dx); Vaginal discharge; Early stage of (HCC); History of miscarriage Start: 11-03-2024 End: 11-03-2024 ambulatory CHANCE GOMEZ Facility:[facility] Start: 11-02-2024 End: 11-02-2024 Telephone encounter Sommer Garcia MD Work Phone: OB/Gynecology Comment on above: Left lower abdominal cramping early Start: 10-07-2024 End: 10-07-2024 Patient encounter procedure Travis SONG Work Phone: [facility] Comment on above: Allergic contact amarjit matitis, unspecified trigger (Primary Dx) Start: 10-07-2024 End: 10-07-2024 ambulatory TRAVIS BROWNE Facility:[facility] Start: 08-23-2024 End: 08-23-2024 ambulatory Juancarlos Carmen APRLakshmiENGINE DYNAMOMETER TESTER Work Phone: [facility] Comment on above: Yeast swab Start: 08-23-2024 End: 08-23-2024 E-mail encounter from caregiver Juancarlos Carmen APRN.ENGINE DYNAMOMETER TESTER Work Phone: [facility] Start: 08-21-2024 End: 08-21-2024 ambulatory FREDDY ANITAJaja Facility:[facility] Start: 08-21-2024 End: 08-21-2024 Patient encounter procedure Juancarlos Carmen APRN.ENGINE DYNAMOMETER TESTER Work Phone: [facility] Comment on above: Pelvic pressure in f emale (Primary Dx) Start: 08-21-2024 End: 10-21-2024 Follow-up encounter Juancarlos Silveiraadrianbronwyn BARI.ENGINE DYNAMOMETER TESTER Work Phone: [facility] Start: 08-08-2024 End: 10-08-2024 Follow-up encounter Sommer Garcia MD Work Phone: OB/Gynecology Start: 08-07-2024 End: 08-07-2024 ambulatory CHANCE GOMEZ Facility:[facility] Start: 08-05-2024 End: 10-05-2024 Follow-up encounter Chance Gomez MD Work Phone: OB/Gynecology Start: 08-04-2024 End: 08-04-2024 ambulatory CHANCE GOMEZ Facility:[facility] Start: 08-01-2024 End: 08-01-2024 ambulatory Chance Gomez MD Work Phone: OB/Gynecology Comment on above: Work excuse Start: 07-31-2024 End: 07-31-2024 ambulatory CHANCE GOMEZ Facility:[facility] Start: 07-31-2024 End: 07-31-2024 Patient encounter procedure Chance Gomez MD Work Phone: OB/Gynecology Comment on above: Spontaneous miscarri age (Primary Dx); Bleeding in early Start: 07-28-2024 End: 07-29-2024 Emergency department [facility] Start: 07-28-2024 End: 07-28-2024 Emergency department patient visit ETHEL B[facility] Start: 06-16-2024 End: 06-16-2024 ambulatory [facility] Start: 05-26-2024 End: 05-26-2024 ambulatory COLLEEN ROTHMAN Facility:[facility] Start: 05-26-2024 End: 05-26-2024 Patient encounter status Colleen Rothman MD Work Phone: [facility] Start: 05-26-2024 End: 05-26-2024 Periodic preventive med est patient 18-39 yrs Colleen Rothman MD Work Phone: OB/Gynecology Comment on above: Encounter for gyneco logical examination (general) (routine) without abnormal findings (Primary Dx) Start: 08-16-2023 End: 08-16-2023 Office outpatient visit 15 minutes Freddy Lee PA-C Work Phone: [facility] Comment on above: Pruritus (Primary Dx ); Allergy, initial encounter Start: 08-16-2023 End: 08-16-2023 ambulatory [facility] Start: 08-15-2023 End: 08-15-2023 Emergency department patient visit Mecca Cabral MD Work Phone: [facility] Emergency Medicine Comment on above: Allergic reaction to drug, subsequent encounter (Primary Dx) Start: 08-14-2023 End: 08-14-2023 Emergency department patient visit [facility] Emergency Medicine Comment on above: Urinary tract infect ion without hematuria, site unspecified (Primary Dx); Hives Start: 01-27-2023 End: 01-27-2023 Emergency department patient visit Keerthi Rankin [facility] Emergency 13 Start: 09-21-2022 ambulatory Sandra Arreaga Facility: [id number] Start: 09-12-2022 End: 09-12-2022 Emergency department patient visit Keerthi Rankin [facility] Emergency 15 Start: 09-12-2022 ambulatory Sommer vang MD Work Phone: OB/Gynecology Comment on above: Ovarian cyst Start: 09-02-2022 End: 09-02-2022 ambulatory Ob Ultrasound Work Phone: OB/Gynecology Start: 09-02-2022 End: 09-02-2022 Patient encounter procedure Lime Mixer Tender [facility] Work Phone: [facility] Start: 08-25-2022 End: 08-25-2022 Manual pelvic examination Sommer Garcia MD Work Phone: OB/Gynecology Comment on above: Pelvic pain in femal e (Primary Dx) Start: 08-25-2022 End: 08-25-2022 Telemedicine consultation with patient Sommer Garcia MD Work Phone: [facility] Start: 07-24-2022 Office outpatient vi sit 25 minutes Freddy Jesus Work Phone: [facility] Work Phone: Start: 07-24-2022 ambulatory Mr. Freddy Lee Facil [id number] Start: 07-22-2022 Telephone encounter Sommer Garcia MD Work Phone: OB/Gynecology Comment on above: Results Start: 07-21-2022 End: 07-21-2022 Subsequent hospital visit by physician [facility] Work Phone: Radiology Comment on above: Cyst of ovary, unspe cified laterality [N83.209] Start: 07-20-2022 End: 07-20-2022 Emergency department patient visit [facility] Start: 07-20-2022 End: 07-20-2022 Patient encounter procedure Sommer Garcia MD Work Phone: OB/Gynecology Comment on above: Cyst of ovary, unspe cified laterality (Primary Dx); Ovarian cyst, right; Colicky RLQ abdominal pain Start: 07-20-2022 Telephone encounter Sommer Garcia MD Work Phone: OB/Gynecology Comment on above: Schedule Surgery Start: 07-18-2022 End: 07-18-2022 Emergency department patient visit Juancarlos Carmen [facility] Emergency 11 Start: 07-15-2022 End: 07-15-2022 Emergency department patient visit Keerthi Rankin [facility] Emergency 14 Start: 05-28-2022 AUDIT Freddy Lee Work Phone: [facility] Work Phone: Start: 04-21-2022 ambulatory Mr. Freddy Lee Facil [id number] Start: 04-21-2022 Office outpatient vi sit 15 minutes Freddy Stentz Work Phone: [facility] Work Phone: Start: 02-19-2022 Office outpatient vi sit 25 minutes Freddy Stentz Work Phone: [facility] Work Phone: Start: 02-19-2022 ambulatory Mr. Freddy Lee Facil [id number] Start: 12-18-2021 Office outpatient vi sit 25 minutes Freddy Stentz Work Phone: [facility] Work Phone: Start: 12-18-2021 ambulatory Mr. Freddy Lee Facil [id number] Start: 11-13-2021 Patient encounter procedure [facility] Lee [facility] Work Phone: Start: 11-06-2021 [id number], Provider : Nika Arredondo, Status: Pen, Time: 3:30 PM Freddy Stentz Work Phone: [facility] Work Phone: Start: 10-29-2021 Patient encounter procedure [facility] Stentz [facility] Work [facility]: Start: 10-23-2021 Patient encounter procedure Freddy Lee Work [facility]: [facility] Work Phone: Start: 10-16-2021 ambulatory Mr. Freddy Lee Facil [id number] Start: 10-16-2021 Office outpatient vi sit 25 minutes Freddy Stentz Work Phone: [facility] Work Phone: Start: 10-13-2021 ambulatory Mr. Freddy Lee Facil ity:[id number] Start: 10-13-2021 Office outpatient ne w 45 minutes Freddy Stentjaja Work Phone: [facility] Work Phone: Start: 09-16-2021 End: 09-16-2021 Emergency department patient visit Alonso Schaeffer [facility] Emergency 08 Start: 02-11-2021 Rx Renewal Julisa Paniagua Work Phone: [facility] Work Phone: Start: 01-21-2021 AUDIT Julisa Paniagua Work Phone: [facility] Work Phone: Start: 10-31-2020 Office outpatient vi sit 15 minutes Julisa Paniagua Work Phone: [facility] Work Phone: Start: 12-15-2019 Patient encounter procedure Julisa Paniagua [facility] Work Phone: Start: 07-27-2019 Patient encounter procedure Julisa Paniagua [facility] Work Phone: Procedures Date Procedure Procedure Detail Performing Clinician Start: 02-19-2025 Echo cardiovas c w/wo m-mode recording Amanda Patel MD Work Phone: Start: 02-16-2025 Us preg uterus after 1st trimest 06/07 gestation Primitivo Delgado MD Work Phone: Start: 12-22-2024 Antibody screen CHANCE ROBINA RILEY Comment on above: Order Comment: Speci men Type: BLOOD SPECIMEN Ordering Facility: [facility] Address: [address] [place] [address] Performed By: #### 5 [id number], [id number], [id number] #### [facility] CLIA [id number] [address] [place] [address] [place] [address] [place] Start: 12-22-2024 Us preg uterus after 1st trimest 06/07 gestation Champ Rawls TIME STUDY OBSERVER.ENGINE DYNAMOMETER TESTER Work Phone: Start: 11-10-2024 Us pelvic nonobstetr ic real-time image complete Nicole Siddiqui TIME STUDY OBSERVER.CNM Work Phone: Start: 08-21-2024 UA DIP,URINE HCG (POC) [facility] Provider Start: 08-21-2024 Urnls dip stick/tabl et rgnt auto w/o microscopy Mala Reis TIME STUDY OBSERVER.ENGINE DYNAMOMETER TESTER Work Phone: Start: 08-14-2023 Bacteria identified in Urine by Culture FREDDY STENTZ Start: 08-14-2023 EXTRA URINE GUZMÁN TUBE J USTIN STENTZ Start: 08-14-2023 MICROSCOPIC ONLY, URINE FREDDY STENTZ Start: 08-14-2023 URINALYSIS WITH REFL EX CULTURE AND MICROSCOPIC FREDDY STENTZ Start: 08-14-2023 Comprehensive metabo lic 2000 panel - Serum or Plasma FREDDY STENTZ Start: 08-14-2023 EXTRA TUBES FREDDY LEON NTZ Start: 08-14-2023 SST TOP FREDDY LEON NTZ Start: 08-14-2023 CBC panel - Blood by Automated count FREDDY STENTZ Start: 08-14-2023 Urinalysis microscop ic panel - Urine Qualitative by Automated Stephanie Le PA-C Work Phone: Start: 08-14-2023 Urnls dip stick/tabl et reagent auto microscopy Stephanie Le PA-C Work Phone: Start: 08-14-2023 End: 03-09-2024 Comprehensive metabolic panel Stephanie Le PA-C Work Phone: Start: 09-02-2022 Us pelvic nonobstetr ic real-time image complete Sommer Garcia MD Work Phone: Start: 07-21-2022 Us pelvic nonobstetr ic image dcmtn limited/f/u Sommer Garcia MD Work Phone: Start: 12-15-2019 Iadna chlamydia trac homatis amplified probe tq Julisa Paniagua Start: 12-15-2019 Trichomonas vaginali s [Presence] in Cervix by Wet preparation Julisa Paniagua Start: 12-15-2019 VAGINITIS GRAM STAIN FOR BACTERIAL VAGINOSIS + YEAST Julisa Paniagua History of No histor y of surgery Julisa Paniagua No history of surgery Julisa Paniagua Work Phone: Plan of Treatment Date Care Activity Detail Author Start: 2053 Zoster Vaccines (1 o f 2) Zoster Vaccines (1 of 2) [facility] Start: 11-25-2027 Screening for malignant neoplasm of cervix Cervical Cancer Screening [facility] Start: 05-26-2027 Screening for malignant neoplasm of cervix Cervical Cancer Screening [facility] Start: 02-17-2026 DTaP/Tdap/Td Vaccine s (6 - Td or Tdap) DTaP/Tdap/Td Vaccines (6 - Td or Tdap) [facility] Start: 02-17-2026 Urine microalbumin profile [facility] Start: 11-24-2025 GC (Gonorrhea) Screening (18-24) GC (Gonorrhea) Screening (18-24) [facility] Start: 11-24-2025 Screening for Chlamydia trachomatis Chlamydia Screening (18-24) [facility] Start: 11-03-2025 GC (Gonorrhea) Screening (18-24) GC (Gonorrhea) Screening (18-24) [facility] Start: 11-03-2025 Screening for Chlamydia trachomatis Chlamydia Screening (18-24) [facility] Start: 05-28-2025 End: 05-28-2025 Patient encounter procedure 05/28/2025 10:15 AM EST Office Visit OB/Gynecology [address] [place] [address] Champ Rawls APRN.ENGINE DYNAMOMETER TESTER [address] [place] [address] Annual OB/Gynecology Comment on above: Annual Start: 05-09-2025 RSV Vaccine (1 - Ris k 1-dose series) RSV Vaccine (1 - Risk 1-dose series) [facility] Start: 03-16-2025 End: 03-16-2025 Patient encounter procedure 03/16/2025 2:40 PM EDT Routine Office Visit OB/Gynecology [address] [place] [address] Primitivo Delgado MD [address] [place] [address] OB OB/Gynecology Comment on above: OB Start: 02-21-2025 End: 02-21-2025 Patient encounter procedure MRI Q Comment on above: MRI follow up MRI Start: 02-21-2025 Subsequent hospital visit by physician 02/21/2025 8:20 AM EDT Hospital Encounter MRI Q [address] [place] [address] Encounter for screening of mother (HCC) [Z36.9] MRI Q Comment on above: Encounter for antena nick screening of mother (HCC) [Z36.9] Start: 02-16-2025 End: 02-16-2026 OBSTETRIC ULTRASOUND WHI OBSTETRIC ULTRASOUND WHI Anc Imaging Routine Central nervous system malformation in fetus affecting obstetrical care, single or unspecified fetus (HCC) Expected: 02/16/2025, Expires: 02/16/2026 [facility] Work Phone: Comment on above: Expected: 02/16/2025 , Expires: 02/16/2026 Start: 02-16-2025 End: 02-16-2025 Patient encounter procedure Maternal Medicine Comment on above: Anatomy Anatomy/OB Start: 02-05-2025 Influenza vaccination [facility] Start: 01-19-2025 End: 01-19-2025 Patient encounter procedure 01/19/2025 1:40 PM EDT Routine Office Visit OB/Gynecology [address] [place] [address] Colleen Rothman MD [address] [place] [address] OB OB/Gynecology Comment on above: OB Start: 01-08-2025 End: 04-09-2025 Chromosome 21 trisomy [Presence] in Blood or Tissue by Cytogenetics [facility] Work Phone: Comment on above: Expected: 01/08/2025 , Expires: 04/09/2025 Start: 12-22-2024 End: 12-22-2025 OBSTETRIC ULTRASOUND WHI OBSTETRIC ULTRASOUND WHI Anc Imaging Routine Encounter for supervision of other normal in first trimester (HCC) Expected: 12/22/2024, Expires: 12/22/2025 [facility] Work Phone: Comment on above: Expected: 12/22/2024 , Expires: 12/22/2025 Start: 12-22-2024 End: 12-22-2024 Patient encounter procedure OB/Gynecology Comment on above: Nuchal Start: 12-06-2024 End: 12-06-2024 ambulatory 12/06/2024 11:30 AM EDT [facility] OB/Gynecology [address] [place] [address] Nicole Siddiqui APRN.[facility] [address] [place] [address] Increase in morning sickness, and nausea OB/Gynecology Comment on above: Increase in morning sickness, and nausea Start: 11-24-2024 End: 02-23-2025 ANEMIA REFLEX PANEL ANEMIA REFLEX PANEL Lab Routine Encounter for supervision of other normal in first trimester (HCC) Expected: 11/24/2024, Expires: 02/23/2025 [facility] Work Phone: Comment on above: Expected: 11/24/2024 , Expires: 02/23/2025 Start: 11-24-2024 End: 02-23-2025 Hemoglobin A1c in Blood HEMOGLOBIN A1C Lab Routine Encounter for supervision of other normal in first trimester (HCC) Expected: 11/24/2024, Expires: 02/23/2025 [facility] Comment on above: Expected: 11/24/2024 , Expires: 02/23/2025 Start: 11-24-2024 End: 02-23-2025 Hepatitis B virus surface Ag [Presence] in Serum HEPATITIS B SURFACE ANTIGEN Lab Routine Encounter for supervision of other normal in first trimester (HCC) Expected: 11/24/2024, Expires: 02/23/2025 [facility] Comment on above: Expected: 11/24/2024 , Expires: 02/23/2025 Start: 11-24-2024 End: 02-23-2025 Hepatitis C virus Ab [Presence] in Serum HEPATITIS C ANTIBODY IA WITH CONFIRMATION Lab Routine Encounter for supervision of other normal in first trimester (HCC) Expected: 11/24/2024, Expires: 02/23/2025 [facility] Comment on above: Expected: 11/24/2024 , Expires: 02/23/2025 Start: 11-24-2024 End: 02-23-2025 HIV 1+2 Ab [Presence] in Serum or Plasma by Immunoassay HIV 1/2 COMBO WITH REFLEX TO DIFFERENTIATION Lab Routine Encounter for supervision of other normal in first trimester (HCC) Expected: 11/24/2024, Expires: 02/23/2025 [facility] Comment on above: Expected: 11/24/2024 , Expires: 02/23/2025 Start: 11-24-2024 End: 02-23-2025 MYRIAD FORESIGHT CARRIER SCREEN Vostu FORESIGHT CARRIER SCREEN Lab Routine Encounter for supervision of other normal in first trimester (HCC) Expected: 11/24/2024, Expires: 02/23/2025 [facility] Comment on above: Expected: 11/24/2024 , Expires: 02/23/2025 Start: 11-24-2024 End: 11-24-2025 OBSTETRIC ULTRASOUND WHI OBSTETRIC ULTRASOUND WHI Anc Imaging Routine Encounter for supervision of other normal in first trimester (HCC) Expected: 11/24/2024, Expires: 11/24/2025 [facility] Comment on above: Expected: 11/24/2024 , Expires: 11/24/2025 Start: 11-24-2024 End: 02-23-2025 RUBELLA IGG ANTIBODY RUBELLA IGG ANTIBODY Lab Routine Encounter for supervision of other normal in first trimester (HCC) Expected: 11/24/2024, Expires: 02/23/2025 [facility] Comment on above: Expected: 11/24/2024 , Expires: 02/23/2025 Start: 11-24-2024 End: 02-23-2025 SYPHILIS TREPONEMAL W/REFLEX SYPHILIS TREPONEMAL W/REFLEX Lab Routine Encounter for supervision of other normal in first trimester ([facility]) Expected: 11/24/2024, Expires: 02/23/2025 [facility] Comment on above: Expected: 11/24/2024 , Expires: 02/23/2025 Start: 11-24-2024 End: 02-23-2025 TYPE + SCREEN TYPE + SCREEN Blood Bank Routine Encounter for supervision of other normal in first trimester ([facility]) Expected: 11/24/2024, Expires: 02/23/2025 [facility] Comment on above: Expected: 11/24/2024 , Expires: 02/23/2025 Start: 11-24-2024 End: 11-24-2024 Patient encounter procedure 11/24/2024 11:00 AM EDT Initial Office Visit OB/Gynecology [address] [place] [address] Champ Rawls, TIME STUDY OBSERVER.ENGINE DYNAMOMETER TESTER [address] [place] [address] New OB LMP 09/26 OB/Gynecology Comment on above: New OB LMP 09/26 Start: 11-17-2024 End: 11-17-2024 Patient encounter procedure 11/17/2024 11:00 AM EDT Initial Office Visit OB/Gynecology [address] [place] [address] Champ Rawls, TIME STUDY OBSERVER.ENGINE DYNAMOMETER TESTER [address] [place] [place] [address] New OB LMP 09/26 OB/Gynecology Comment on above: New OB LMP 09/26 Start: 11-10-2024 End: 11-10-2024 Patient encounter procedure 11/10/2024 2:30 PM EDT Routine Office Visit OB/Gynecology [address] [place] [address] Leila Moody APRN.CN [address] [place] [address] F/U US OB/Gynecology Comment on above: F/U US Start: 11-10-2024 End: 11-10-2024 ambulatory 11/10/2024 2:00 PM EDT Procedure OB/Gynecology [address] [place] [address] Remote, Lime Mixer Tender Wstr Mob Us [address] [place] [address] Early OB/Gynecology Comment on above: Early Start: 11-07-2024 End: 11-07-2025 US Pelvis PELVIC US WHI Anc Imaging Routine Pelvic pain in (HCC) Expected: 11/07/2024 (Approximate), Expires: 11/07/2025 [facility] Work Phone: Comment on above: Expected: 11/07/2024 (Approximate), Expires: 11/07/2025 Start: 11-03-2024 End: 02-02-2025 Choriogonadotropin.bet a subunit [Units/volume] in Serum or Plasma [facility] Work Phone: Comment on above: Expected: 11/03/2024 , Expires: 02/02/2025 Start: 11-03-2024 End: 11-03-2024 Patient encounter procedure 11/03/2024 9:00 AM EDT Office Visit OB/Gynecology [address] [place] [address] Chance Gomez MD [address] [place] [address] Left sided lower abdominal cramping early OB/Gynecology Comment on above: Left sided lower abd ominal cramping early Start: 10-27-2024 End: 10-27-2024 Patient encounter procedure 10/27/2024 8:15 AM EDT Office Visit OB/Gynecology [address] [place] [address] Champ Rawls APRN.ENGINE DYNAMOMETER TESTER [address] [place] [address] Discuss recurring miscarriages OB/Gynecology Comment on above: Discuss recurring mi scarriages Start: 09-01-2024 End: 09-01-2024 Patient encounter procedure 09/01/2024 2:20 PM EDT Routine Office Visit OB/Gynecology [address] [place] [address] Primitivo Delgado MD [address] [place] [place] [address] OB/Gynecology Comment on above: Start: 08-21-2024 End: 11-20-2024 TRICHOMONAS VAGINALIS NAAT TRICHOMONAS VAGINALIS NAAT Lab Routine Pelvic pressure in female Expected: 08/21/2024, Expires: 11/20/2024 [facility] Comment on above: Expected: 08/21/2024 , Expires: 11/20/2024 Start: 08-04-2024 End: 08-04-2024 Patient encounter procedure 08/04/2024 10:30 AM EST Office Visit OB/Gynecology [address] [place] [address] Primitivo Delgado MD [address] [place] [address] miscarriage follow up OB/Gynecology Comment on above: miscarriage follow u p Start: 2024 Screening for malignant neoplasm of cervix Cervical Cancer Screening [facility] Start: 02-06-2024 Covid-19 Vaccine ( season) Covid-19 Vaccine () [facility] Start: 02-06-2024 Influenza vaccination Influenza Vacc ine (#1) [facility] Start: 07-26-2023 EPV, Provider: Freddy Lee, Status: Pen, Time: 9:00 AM EPV, Provider: Freddy Lee, Status: Pen, Time: 9:00 AM [facility] Work Phone: Start: 02-05-2023 Covid-19 Vaccine () Covid-19 Vaccine () [facility] Start: 02-05-2023 Influenza vaccination C [facility] Start: 09-12-2022 End: 09-15-2022 Iohexol (Omnipaque 350-Radiology Contrast) . ; (OMNIPAQUE)DOSE = 87 mL IntraVenous Push OnceCa.5 mL/Kg/DOSE x 58 Kg = 87 mL/Dose (Daily Total is 87 mL) Start: 12-Sep-2022 End: 14-Sep-2022 Ordered: 12-Sep-2022 Keerthi Rankin Intent [facility] Start: 08-25-2022 End: 08-26-2023 PELVIC US WHI PELVIC US I Anc Imaging Routine Pelvic pain in female Expected: 08/25/2022, Expires: 08/26/2023 [facility] Work Phone: Comment on above: Expected: 08/25/2022 , Expires: 08/26/2023 Start: 07-21-2022 EPV, Provider: Freddy Lee, Status: Pen, Time: 4:15 PM EPV, Provider: Freddy Lee, Status: Pen, Time: 4:15 PM [facility] Work Phone: Start: 07-21-2022 Patient encounter procedure [facility] Start: 07-20-2022 Urine test [facility] Start: 06-07-2022 DEPRESSION ASSESSMENT DEPRESSION ASS ESSMENT [facility] Start: 04-21-2022 EPV, Provider: Freddy Lee, Status: Pen, Time: 4:15 PM EPV, Provider: Freddy Lee, Status: Pen, Time: 4:15 PM [facility] Work Phone: Start: 03-06-2022 CHLAMYDIA SCREENING (18-24) CHLAMYDIA SCREENING (18-24) [facility] Start: 03-06-2022 GC (GONORRHEA) SCREENING (18) GC (GONORRHEA) SCREENING (18-) [facility] Start: 03-06-2022 Screening for Chlamydia trachomatis Chlamydia Screening (18) [facility] Start: 02-19-2022 EPV, Provider: Freddy Lee, Status: Pen, Time: 3:45 PM EPV, Provider: Freddy Lee, Status: Pen, Time: 3:45 PM [facility] Work Phone: Start: 02-05-2022 Influenza vaccination INFLUENZA (#1) [facility] Start: 12-18-2021 FUV, Provider: Freddy Lee, Status: Pen, Time: 2:45 PM FUV, Provider: Freddy Lee, Status: Pen, Time: 2:45 PM [facility] Work [facility]: Start: 12-11-2021 COVID-19 VACCINE (4 - Booster for Pfizer series) COVID-19 VACCINE (4 - Booster for Pfizer series) [facility] Start: 12-11-2021 Covid-19 Vaccine (4 - Pfizer series) Covid-19 Vaccine (4 - Pfizer series) [facility] Start: 11-20-2021 PTRECHADUL, Provider : Rolanda Asher, Status: Pen, Time: 3:00 PM PTRECHADUL, Provider: Rolanda Asher, Status: Pen, Time: 3:00 PM [facility] Work [facility]: Start: 11-13-2021 PTFUADULT4, Provider : Sigrid Guzmán, Status: Pen, Time: 3:30 PM PTFUADULT4, Provider: Sigrid Guzmán, Status: Pen, Time: 3:30 PM [facility] Work Phone: Start: 11-06-2021 PTFUADULT4, Provider : Nika Arredondo, Status: Pen, Time: 3:30 PM PTFUADULT4, Provider: Nika Arredondo, Status: Pen, Time: 3:30 PM [facility] Work Phone: Start: 10-29-2021 PTFUADULT4, Provider : Nicole Hernandez, Status: Pen, Time: 3:30 PM PTFUADULT4, Provider: Nicole Hernandez, Status: Pen, Time: 3:30 PM [facility] Work Phone: Start: 10-28-2021 PFT, Provider: CINTHIA PFT ROOM,[id number], Status: Pen, Time: 10:00 AM PFT, Provider: CINTHIA PFT ROOM,[id number], Status: Pen, Time: 10:00 AM [facility] Work Phone: Start: 10-23-2021 PTEVALADUL, Provider : Rolanda Asher, Status: Pen, Time: 3:00 PM PTEVALADUL, Provider: Rolanda Asher, Status: Pen, Time: 3:00 PM [facility] Work Phone: Start: 10-16-2021 FUV, Provider: Freddy Lee, Status: Pen, Time: 3:15 PM FUV, Provider: Freddy Lee, Status: Pen, Time: 3:15 PM [facility] Work Phone: Start: 10-14-2021 Patient encounter procedure [facility] [place] Start: 10-13-2021 Patient encounter procedure [facility] [place] Start: 2021 Anxiety Screening Anxiety Screening [facility] Start: 2021 Depression Screening Depression Scre [facility] Start: 2021 HEPATITIS C SCREENING HEPATITIS C [facility] Start: 2021 Hepatitis C screening Hepatitis C [facility] Start: 2021 HIV SCREENING HIV SCREENING [facility] Start: 2021 HIV screening HIV Screening [facility] Start: 05-09-2021 COVID-19 VACCINE (3 - Booster for Pfizer series) COVID-19 VACCINE (3 - Booster for Pfizer series) [facility] Start: 04-01-2021 EPV, Provider: Julisa Paniagua, Status: Pen, Time: 11:00 AM EPV, Provider: Julisa Paniagua, Status: Pen, Time: 11:00 AM [facility] Work Phone: Start: 02-04-2021 EPV, Provider: Julisa Paniagua, Status: Pen, Time: 4:00 PM EPV, Provider: Julisa Paniagua, Status: Pen, Time: 4:00 PM [facility] Work Phone: Start: 2019 Meningococcal B Vaccine (1 of 2 - Standard) Meningococcal B Vaccine (1 of 2 - Standard) [facility] Start: 2019 Meningococcal B Vaccine: Consider Based On Risk (1 of 2 - Patient Seeks Protection) Meningococcal B Vaccine: Consider Based On Risk (1 of 2 - Patient Seeks Protection) [facility] Start: 2017 PEDS TO ADULT TRANSITION ANNUAL ASSESSMENT PEDS TO ADULT TRANSITION ANNUAL ASSESSMENT [facility] Start: 08-17-2016 HPV VACCINE (3 - 2-dose series) HPV VACCINE (3 - 2-dose series) [facility] Start: 08-17-2016 HPV Vaccines (3 - 2-dose series) HPV Vaccines (3 - 2-dose series) [facility] Start: 2015 PEDS TO ADULT TRANSITION INITIAL DISCUSSION PEDS TO ADULT TRANSITION INITIAL DISCUSSION [facility] Start: 2013 MENINGOCOCCAL B: Consider based on risk (1 of 2 - Risk Bexsero 2-dose series) MENINGOCOCCAL B: Consider based on risk (1 of 2 - Risk Bexsero 2-dose series) [facility] Start: 2006 Well Child Visit (WC V) - Annual Well Child Visit (WCV) - Annual [facility] Start: 2003 Hearing Screening (#1) Hearing Scree dante (#1) [facility] Start: 2003 HIV screening HIV Screening [facility] Start: 2003 Lipid panel Lipid Panel [facility] End: 08-14-2023 Bacteria identified in Urine by Culture [facility] Work Phone: Comment on above: Once (Lab) for 1 Occ urrences starting 08/14/2023 until 08/14/2023 Bacteria identified in Urine by Culture BACTERIAL CULTURE, URINE Microbiology Routine Pelvic pressure in female Ordered: 08/21/2024 [facility] Work Phone: Comment on above: Ordered: 08/21/2024 Bacteria identified in Urine by Culture BACTERIAL CULTURE, URINE Microbiology Routine Encounter for supervision of other normal in first trimester ([facility]) 11/24/2024 11:37 AM EDT [facility] BACTERIAL VAGINOSIS NAAT BACTERIAL VAGINOSIS NAAT Lab Routine Pelvic pressure in female Ordered: 08/21/2024 [facility] Comment on above: Ordered: 08/21/2024 BACTERIAL VAGINOSIS NAAT BACTERIAL VAGINOSIS NAAT Lab Routine Vaginal discharge 11/03/2024 9:26 AM EDT [facility] Bilirubin measuremen t, urine [facility] ANA MARIA/TRICHOMONAS NAAT ANA MARIA/TRICHOMONAS NAAT Lab Routine Vaginal discharge 11/03/2024 9:26 AM T [facility] Chlamydia trachomatis+Neisseria gonorrhoeae DNA [Presence] in Unspecified specimen by JASMIN with probe detection GONORRHEA/CHLAMYDIA NAAT Lab Routine Vaginal discharge 11/03/2024 9:26 AM T [facility] Chlamydia trachomatis+Neisseria gonorrhoeae DNA [Presence] in Unspecified specimen by JASMIN with probe detection GONORRHEA/CHLAMYDIA NAAT Lab Routine Screen for STD (sexually transmitted disease) Encounter for supervision of other normal in first trimester ([facility]) 11/24/2024 11:37 AM T [facility] End: 07-31-2025 Choriogonadotropin.bet a subunit [Units/volume] in Serum or Plasma HCG QUANTITATIVE Lab Routine Spontaneous miscarriage Once per week for 5 Occurrences starting 07/31/2024 until 07/31/2025 [facility] Work Phone: Comment on above: Once per week for 5 Occurrences starting 07/31/2024 until 07/31/2025 End: 08-14-2023 Extra Tubes [facility] Work Phone: Comment on above: Once (Lab) for 1 Occ urrences starting 08/14/2023 until 08/14/2023 End: 08-14-2023 Extra Urine Guzmán Tube Extra Urine Guzmán Tube Lab Timed Once for 1 Occurrences starting 08/14/2023 until 08/14/2023 [facility] Work Phone: Comment on above: Once for 1 Occurrenc es starting 08/14/2023 until 08/14/2023 Hemoglobin [Presence ] in Urine [facility] Measurement of keton es in urine using dipstick [facility] Microscopic urinalysis [facility] PAP TEST PAP TEST Lab Rou fransisca Encounter for gynecological examination (general) (routine) without abnormal findings 05/26/2024 9:[address] [facility] Work Phone: PAP TEST PAP TEST Lab Rou fransisca Screening for cervical cancer Encounter for supervision of other normal in first trimester ([facility]) 11/24/2024 11:37 AM EDT [facility] Patient Education ED Ovarian Cyst [facility] Work Phone: Patient referral [facility] Work Phone: pH of Urine [facility] Specific gravity of Urine [facility] End: 08-14-2023 [facility] Work Phone: Comment on above: Once for 1 Occurrenc es starting 08/14/2023 until 08/14/2023 TRICHOMONAS VAGINALI S NAAT TRICHOMONAS VAGINALIS NAAT Lab Routine Screen for STD (sexually transmitted disease) Encounter for supervision of other normal in first trimester ([facility]) 11/24/2024 11:37 AM EDT [facility] End: 08-14-2023 Urinalysis complete W Reflex Culture panel - Urine [facility] Work Phone: Comment on above: Once (Lab) for 1 Occ urrences starting 08/14/2023 until 08/14/2023 Urinalysis, blood, qualitative [facility] Urine dipstick for glucose [facility] Urine dipstick for leukocyte esterase [facility] Urine dipstick for nitrite [facility] Urine dipstick for protein [facility] Urine examination [facility] Urine microscopy: epithelial cells [facility] Urine Microscopy: white cells [facility] Urobilinogen [Presence] in Urine [facility] End: 08-19-2023 Us pelvic nonobstetric image dcmtn limited/f/u US FEMALE PELVIS TRANSABD LTD Radiology Routine Cyst of ovary, unspecified laterality 1 Occurrences starting 07/20/2022 until 08/19/2023 [facility] Work Phone: Comment on above: 1 Occurrences starti ng 07/20/2022 until 08/19/2023 End: 08-19-2023 Us transvaginal US FEMALE PELVIS TRANSVAG Radiology Routine Cyst of ovary, unspecified laterality 1 Occurrences starting 07/20/2022 until 08/19/2023 [facility] Work Phone: Comment on above: 1 Occurrences starti ng 07/20/2022 until 08/19/2023 [facility] Work Phone: [facility] NEGATED: Highlighted row has been ruled out! Planned Goals not documented [facility] Work Phone: Immunizations Immunization Date Immunization Notes Care Provider Umang emmanuel 10-16-2021 Comirnaty 30 MCG/0.3 ML Intramuscular Suspension Freddy Stentz Work Phone: [facility] Work Phone: 03-14-2021 Pfizer-BioNTech COVI D-19 Vacc 30 MCG/0.3ML Intramuscular Suspension Freddy Stentz Work Phone: [facility] Work Phone: 02-21-2021 Pfizer-BioNTech COVI D-19 Vacc 30 MCG/0.3ML Intramuscular Suspension Freddy Stentz Work Phone: [facility] Work Phone: 04-28-2016 human papilloma viru s vaccine, quadrivalent Freddy Stentz Work Phone: [facility] Work Phone: 04-28-2016 HPV, unspecified formulation Freddy Stentz PA-C Work Phone: [facility] Work Phone: 02-18-2016 hepatitis A vaccine, pediatric/adolescent dosage, 2 dose schedule Freddy Stent Work Phone: [facility] Work Phone: 02-18-2016 Human Papillomavirus 9-valent vaccine Freddy [facility] Work Phone: [facility] Work Phone: 02-18-2016 meningococcal polysaccharide (groups A, C, Y and W-135) diphtheria toxoid conjugate [facility] ([facility]) [facility] Work Phone: 02-18-2016 tetanus toxoid, redu jett diphtheria toxoid, and acellular pertussis vaccine, adsorbed Freddy [employer] Work Phone: [facility] Work Phone: 10-04-2007 diphtheria, tetanus toxoids and acellular pertussis vaccine Freddy Stent Work Phone: [facility] Work Phone: 10-04-2007 hepatitis A vaccine, unspecified formulation Freddy [employer] Work Phone: [facility] Work Phone: 10-04-2007 hepatitis B vaccine, pediatric or pediatric/adolescent dosage Freddy [employer] Work Phone: [facility] Work Phone: 10-04-2007 measles, mumps and rubella virus vaccine Freddy Stentz Work Phone: [facility] Work Phone: 10-04-2007 poliovirus vaccine, inactivated Freddy Stent Work Phone: [facility] Work Phone: 10-04-2007 varicella virus vaccine Just in Stent Work Phone: [facility] Work Phone: 03-04-2007 diphtheria, tetanus toxoids and acellular pertussis vaccine Freddy Stentz Work Phone: [facility] Work Phone: 03-04-2007 poliovirus vaccine, inactivated Freddy Stentz Work Phone: [facility] Work Phone: 03-04-2007 varicella virus vaccine Just in Stentz Work Phone: [facility] Work Phone: 01-27-2007 diphtheria, tetanus toxoids and acellular pertussis vaccine Freddy Stentz Work Phone: [facility] Work Phone: 01-27-2007 haemophilus influenz ae type b conjugate and Hepatitis B vaccine Freddy Stentz Work Phone: [facility] Work Phone: 01-27-2007 measles, mumps and rubella virus vaccine Freddy Stentz Work Phone: [facility] Work Phone: 01-27-2007 poliovirus vaccine, inactivated Freddy Stentz Work Phone: [facility] Work Phone: 2003 diphtheria, tetanus toxoids and acellular pertussis vaccine, unspecified formulation Freddy Stentz Work Phone: [facility] Work Phone: 2003 haemophilus influenz ae type b conjugate and Hepatitis B vaccine Freddy Stentz Work Phone: [facility] Work Phone: 2003 pneumococcal Conjuga te, unspecified formulation Freddy Stentz Work Phone: [facility] Work Phone: 2003 poliovirus vaccine, inactivated Freddy Stentz Work Phone: [facility] Work Phone: 2003 diphtheria, tetanus toxoids and acellular pertussis vaccine, unspecified formulation Freddy Stentz Work Phone: [facility] Work Phone: 2003 haemophilus influenz ae type b vaccine, conjugate unspecified formulation Freddy Stentz Work Phone: [facility] Work Phone: 2003 hepatitis B vaccine, pediatric or pediatric/adolescent dosage Freddy Stentz Work Phone: [facility] Work Phone: 2003 pneumococcal conjuga te vaccine, 7 valent Freddy Stentz Work Phone: [facility] Work Phone: 2003 poliovirus vaccine, unspecified formulation Freddy Stentz Work Phone: [facility] Work Phone: 2003 pneumococcal Conjuga te, unspecified formulation Freddy Stentz Work Phone: [facility] Work Phone: Payers Date Payer Category Payer Self-pay 2022 Private Health Insurance [id number] 2022 Medicaid [facility] [employer] [id number] 2022-Present [address] [address] [place] [address] [id number] 2020 [facility] BLUE CARD PPO OOS [id number] 2020 Unknown 2020 Unknown [id number] 2003 Unknown [id number] [id number]. 356 2003 Unknown [id number] 2.16.840.1.847064.3.579.2. 356 2003 Unknown [id number] 2.16.840.1.558807.3.579.2. 356 2003 Unknown [id number] 2.16.840.1.848791.3.579.2. 1069 2003 Unknown [id number] 2.16.840.1.845463.3.579.2. 1068 2003 Unknown [id number] 2.16.840.1.188677.3.579.2. 1069 2003 Unknown [id number] 2.16.840.1.831286.3.579.2. 1069 2003 Unknown [id number] 2.16.840.1.886261.3.579.2. 1243 2003 Unknown [id number] 2.16.840.1.746465.3.579.2. 1243 2003 Unknown [id number] 2.16.840.1.996064.3.579.2. 1245 2003 Unknown [id number] 2.16.840.1.059882.3.579.2. 1244 2003 Unknown [id number] 2.16.840.1.979164.3.579.2. 1244 2003 Unknown [id number] 2.16.840.1.490134.3.579.2. 902 2003 Unknown [id number] 2.16.840.1.618018.3.579.2. 903 1980 Unknown [id number] 2.16.840.1.956747.3.579.2. 356 1980 Unknown [id number] 2.16.840.1.020236.3.579.2. 356 1980 Unknown [id number] 2.16.840.1.075264.3.579.2. 356 1980 Unknown [id number] 2.16.840.1.723596.3.579.2. 356 Private Health Insurance [id number] Medicaid [id number] Unknown [id number] Unknown [id number] [id number]. 462 Social History Date Type Detail Facility Assertion Unknown if ever smoked [facility] Work Phone: Start: 07-20-2022 End: 05-26-2024 No alcohol use No alcohol use [facility] Start: 07-20-2022 End: 09-15-2022 Tobacco smoking consumption unknown [facility] Start: 2003 Sex Assigned At Female [facility] Start: 07-11-2020 End: 05-26-2024 Tobacco smoking status NHIS Never smoked tobacco [facility] Start: 07-11-2020 End: 05-26-2024 Tobacco use and exposure Smokeless tobacco non-user [facility] Start: 07-20-2022 End: 02-16-2025 Alcohol intake Ex-drinker (finding) [facility] Start: 2003 Sex Assigned At Not on file [facility] Start: 07-20-2022 End: 05-26-2024 Tobacco use panel [facility] Start: 07-09-2020 National Score (1-100), lower number is lower risk 54 [facility] Start: 08-04-2023 End: 08-15-2023 Exposure to SARS-CoV-2 (event) Not sure [facility] Start: 08-15-2023 End: 08-16-2023 Alcohol intake Lifetime non-drinker (finding) [facility] Work Phone: Start: 10-11-2024 [facility] NEGATED: Highlighted row [facility] Goals Date Patient Goal Desired Activity /State Personal health goal Functional Status Date Assessment Result Facility NEGATED: Highlighted row Functional performance Functional status health issues are not documented Disease [facility] Work Phone: Mental Status Date Assessment Result Facility NEGATED: Highlighted row Cognitive function [Interpretation] Cognitive status health issues are not documented Disease [facility] Work Phone: Clinical Notes 10-13-2020 to 02-21-2025 Rajesh Do MD - 02/19/2025 2:31 PM EDTTelephone Encounter - Zohaib Humphries RN - 02/19/2025 8:49 AM EDTTelephone Encounter - Zohaib Humphries RN - 02/19/2025 8:49 AM EDTPatient Instructions Note Date & Type Note Facility 02-21-2025 Note HNO ID: [id number] Author: TOAN OLIVARES MD Service: ? Author Type: Physician Type: Progress Notes Filed: 02/21/2025 16:20 Note Text: February 21, 2025 RE: MICHELLE CHOI : 2005 Referring Clinician SHELL Forrest MD Dear Dr.s Patel and NOHEMI Lee, thank you for your kind referral of Michelle for consultation and evaluation. I realize that her medical history is well known to you, but pleaselet me reiterate portions of it for my records. My final recommendations will be communicated back to the requesting physician by way of shared Medical record or letter to requesting physician via US mail. Michelle is seen via a virtual Distance Health visit today via Zoom technology and with the parent/patient's verbal consent. The visit is conducted synchronously in real-time. The patient and parent/guardian are in attendance. I have communicated my name and active licensure. The patient's identity and physical location were verified at the time of this visit. Either the patient or their legal representative government relations has been informed of the risks and benefits of -- and alternatives to -- treatment through a remote evaluation and consents to proceed with the evaluation remotely. INFORMANT Michelle and the Demetris BOSE Records reviewed: Via connected EMR including [facility] and Genetics HPI Michelle is a 19 year old female at GA21w. The sex is female and they plan to name her Lashae. 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 The is otherwise uncomplicated. A echo is normal. Amniocentesis was completed with test results pending. NIPT is nondiagnostic. HISTORY No pediatric history on file. OTHER SIGNIFICANT MEDICAL HISTORY ACTIVE PROBLEM LIST Complicated By Cerebral Ventriculomegaly ([facility]) - 02/16/2025 Anxiety Disorder Affecting , Antepartum ([facility]) - 11/24/2024 Comment: November 24, 2024 Has been on medication in the past, but coping well at this time. Does not have counselor at this time - declines. Mental health resources provided. To update throughout . Champ Rawls APRN.ENGINE DYNAMOMETER TESTER History of Miscarriage - 11/24/2024 Comment: July 2024 around 6 weeks Nausea and Vomiting During ([facility]) - 11/24/2024 Comment: 11/24/24 Vitamin B6 doses reviewed. To notify if prescription is needed. Champ Rawls APRN.ENGINE DYNAMOMETER TESTER Penicillin Allergy - 11/24/2024 Comment: November 24, 2024 Consider Penicillin allergy consult. Champ Rawls APRN.ENGINE DYNAMOMETER TESTER Supervision of Normal ([facility]) - 11/24/2024 Comment: Care Checklist Vaccines: [] Flu vaccine [] declined [] RSV vaccine 32 0/7 - 36 6/7 (Feb - Jul) [] declined [] COVID vaccine [] declined [] TDaP 27-36 [] declined First trimester: [x] Dating US [] 1st tri labs [x] Pap smear [] Carrier screening [x] declined [x] NIPT screening - considering [] declined [x] First trimester anatomy scan [] declined [x] universal ASA ordered (start 12w-16w) [] declined [] M Power Consult [] not indicated [] declined Second trimester: [] Anatomy scan [] Mode of Delivery - [] Feeding - [] Pump ordered [] Diabetes screen [] CBC, RPR [] Behavioral Health Screening Third trimester (28-30 weeks): [] Consent [] Contraception [] Risk Officer, car seat, safe sleep [] TeamBirth handout Third trimester (36-40 weeks): [] GBS [] Presentation - [] Scheduled [] yes - Hibiclens, pre-op instructions, CBC, TANDS ordered [] no [] HANDP [] Prefere PAST MEDICAL HISTORY Diagnosis Date Mental disorder depression and anxiety NEGATIVE MEDICAL HISTORY PAST SURGICAL HISTORY Procedure Laterality Date NONE SOCIAL HISTORY Social History Social History Narrative Michelle lives with her boyfriend, Demetris FAMILY HISTORY Family History Problem Relation Age of Onset Cancer Mother 30's- vaginal cancer MEDICATIONS Encounter Medications[1] IMPRESSION/PLAN Severe ventriculomegaly with concern of possible aqueductal stenosis; genetic testing in amniocentesis pending We discussed these neuroimaging findings in depth and in the context of no other associated congenital malformations. The known generally concerning neurologic outcomes for children with these findings on imaging in the context of no other congenital malformations and the limitations of our knowledge were discussed. Levels of disability (mild to profound) were discussed as was the expected levels of disability in a child with these findings. The concerns and risk for underlying genetic, infectious and other etiologies for congenital malformations was discussed - with the likelihood of a genetic etiology being most prevalent in this case. Limitations of genetic testing at this stage of and in general were briefly discussed along with the need for add (more content not included)... [facility] 02-21-2025 Note HNO ID: [id number] Author: YAZAN BLOUNT RT(R) Service: Radiology Author Type: Technologist Type: Progress Notes Filed: 02/21/2025 09:44 Note Text: Radiology Service Progress Note PATIENT NAME: Michelle Choi DATE OF SERVICE: February 21, 2025 TIME: 9:43 AM PATIENT IDENTITY VERIFICATION COMPLETED USING TWO (2) IDENTIFIERS: Name and Date of confirmed by patient verbally. FALL SCREENING: Has the patient had 2 falls in the last year or 1 fall with injury or currently using an Ambulatory Assistive Device (Walker, Cane, Wheelchair, Crutches, etc.)? No PATIENT GENDER DATA: Assigned female at . status: : Yes. Radiologist notified: Dr Blue status: NO. PATIENT RELEVANT IMPLANT DATA REVIEWED: Yes PATIENT PRESENTS WITH AN IMPLANTABLE OR ATTACHED CD REACTOR OPERATOR: No RADIOLOGY DEPARTMENT: MR; Exam(s) Completed: . Anesthesia: No. Aromatherapy Administered: No PERIPHERAL IV DATA: Not applicable SIGNED BY: Yazan Blount, RT(R) February 21, 2025 9:43 AM [facility] 02-19-2025 Note HNO ID: [id number] Author: RAJESH DO MD Service: ? Author Type: Physician Type: Progress Notes Filed: 02/19/2025 15:36 Note Text: Amanda Patel MD NAME: Michelle Choi CLINIC Number.: [id number] Date of : 2005 Date of Visit: February 19, 2025 Dear Amanda: Ms. Michelle Choi was seen for echocardiogram and pediatric cardiology consultation on February 19, 2025. 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 She was seen earlier today in the care center and an amniocentesis performed. Scheduled for a MRI in two days to further investigate. She herself has no significant past medical history. There is no family history of congenital heart disease. echocardiogram on February 19, 2025 at 20-5/7 weeks gestation shows atrial situs solitus with levocardia. SVC and IVC return normally to the right atrium. One right and one left pulmonary vein were seen returning normally into the left atrium. The atria were normal in size and there was normal right to left shunting at the atrial level. The left and right ventricles were normal in size and shortening. No ventricular hypertrophy. The ventricular septum appeared intact. Normal mitral and tricuspid valves without significant regurgitation. The left and right ventricular outflow tracts were widely patent. The aortic and ductal arches were widely patent. heart rate and rhythm were regular and no pericardial effusion was seen. Normal Doppler of umbilical artery, vein, ductus venosus. In summary, the echocardiogram today showed normal intracardiac anatomy with normal ventricular function and normal heart rate and rhythm. We discussed these findings with Ms. Michelle Choi. In addition, the limitations of the echocardiogram and echocardiography in general, including the inability to exclude ASDs, some VSDs, minor valvar abnormalities, partial anomalous pulmonary venous return, persistent patent ductus arteriosus, and coarctation of the aorta, were explained. Based on these data we did not recommend any specific further or cardiac evaluation, though we would be happy to see her back should new concerns arise. Thank you for allowing me to participate in the care of your patient and please do not hesitate to contact me if I can be any further assistance. During this patient visit I have reviewed prior notes and imaging including from referring maternal medicine specialists, devoted time to counseling/coordination of care regarding results of the echocardiogram, clincal manifestations of the identified disease, prognosis, test results and treatment options, formulated and provided my recommendations to other caregivers by verbal and written communication as appropriate and assisted in coordination of care as needed. I spent a total of 30 minutes on the date of the service which included preparing to see the patient, [id number] patient care, completing clinical documentation, counseling and educating the patient/family/caregiver, communicating with other HCPs (not separately reported), and communicating results to the patient/family/caregiver. Sincerely, Rajesh Do MD [facility] 02-19-2025 History of Present illness Narrative Amanda Patel MD NAME: Michelle Choi CLINIC Number.: [id number] Date of : 2005 Date of Visit: February 19, 2025 Dear Amanda: Ms. Michelle Choi was seen for echocardiogram and pediatric cardiology consultation on February 19, 2025. 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 She was seen earlier today in the care center and an amniocentesis performed. Scheduled for a MRI in two days to further investigate. She herself has no significant past medical history. There is no family history of congenital heart disease. echocardiogram on February 19, 2025 at 20-5/7 weeks gestation shows atrial situs solitus with levocardia. SVC and IVC return normally to the right atrium. One right and one left pulmonary vein were seen returning normally into the left atrium. The atria were normal in size and there was normal right to left shunting at the atrial level. The left and right ventricles were normal in size and shortening. No ventricular hypertrophy. The ventricular septum appeared intact. Normal mitral and tricuspid valves without significant regurgitation. The left and right ventricular outflow tracts were widely patent. The aortic and ductal arches were widely patent. heart rate and rhythm were regular and no pericardial effusion was seen. Normal Doppler of umbilical artery, vein, ductus venosus. In summary, the echocardiogram today showed normal intracardiac anatomy with normal ventricular function and normal heart rate and rhythm. We discussed these findings with Ms. Michelle Choi. In addition, the limitations of the echocardiogram and echocardiography in general, including the inability to exclude ASDs, some VSDs, minor valvar abnormalities, partial anomalous pulmonary venous return, persistent patent ductus arteriosus, and coarctation of the aorta, were explained. Based on these data we did not recommend any specific further or cardiac evaluation, though we would be happy to see her back should new concerns arise. Thank you for allowing me to participate in the care of your patient and please do not hesitate to contact me if I can be any further assistance. During this patient visit I have reviewed prior notes and imaging including from referring maternal medicine specialists, devoted time to counseling/coordination of care regarding results of the echocardiogram, clincal manifestations of the identified disease, prognosis, test results and treatment options, formulated and provided my recommendations to other caregivers by verbal and written communication as appropriate and assisted in coordination of care as needed. I spent a total of 30 minutes on the date of the service which included preparing to see the patient, [id number]-[id number] patient care, completing clinical documentation, counseling and educating the patient/family/caregiver, communicating with other HCPs (not separately reported), and communicating results to the patient/family/caregiver. Sincerely, Rajesh Do MD documented in this encounter [facility] 02-19-2025 Telephone encounter Note Call to Michelle at the request of Dr Verduzco to introduce myself as customer care specialist and the Care Center. Michelle is able to go to [place] today for an Us and a consult with Dr Patel. Discussion of the services offered including support, education, coordination of care and appointment scheduling. My contact information was provided as well [facility] via and Michelle was invited to call with any questions or concerns. Also reviewed the multi-disciplinary team meetings in which patient's case will be discussed to optimize care planning. Patient's questions answered to the best of my ability. [facility] 02-19-2025 Miscellaneous Notes Call to Michelle at the request of Dr Verduzco to introduce myself as customer care specialist and the Care Center. Michelle is able to go to [place] today for an Us and a consult with Dr Patel. Discussion of the services offered including support, education, coordination of care and appointment scheduling. My contact information was provided as well at [facility] via and Michelle was invited to call with any questions or concerns. Also reviewed the multi-disciplinary team meetings in which patient's case will be discussed to optimize care planning. Patient's questions answered to the best of my ability. documented in this encounter [facility] 02-16-2025 Note HNO ID: [id number] Author: MARCIANO VERDUZCO, DO Service: ? Author Type: Physician Type: Progress Notes Filed: 02/17/2025 07:08 Note Text: Telephone Consultation Patient w/ remote US read. Multiple ENTRY LEVEL ASSISTANT MANAGER anomalies noted. See report for details. A telephone consultation with the patient while in the office was requested by Dr. Rothman. I reviewed today's US findings and limitations via phone. Dr. Rothman was present with Michelle and her partner. I described the ultrasound finding of ventriculomegaly, which refers to the enlargement of one or more of the cerebral ventricles, often caused by excessive amounts of cerebrospinal fluid. We reviewed that ventriculomegaly can be isolated and seen in normal pregnancies or associated with structural brain abnormalities, congenital infections, such as cytomegalovirus (CMV) and toxoplasmosis, chromosome anomalies, such as Down syndrome, spina bifida, other genetic disorders with additional defects and/or intellectual disability, and other adverse outcomes. The prognosis for a with ventriculomegaly depends largely on the presence of other abnormalities. Neurological and cognitive impairment are more likely when associated anomalies are present, with persistence or progression of ventriculomegaly, and with more severe ventriculomegaly. Michelle was additionally counseled that observation of a normal cavum septum pellucidum (CSP) is an important landmark in the evaluation of the brain as it is suggestive of normal central forebrain development. Non-visualization of the CSP can be isolated and considered a variation of normal development. However, an absent CSP may indicate abnormal cerebral development as it is often, but not always, associated with additional midline malformations of the brain, such as agenesis of the corpus callosum or septo-optic dysplasia. Therefore, when the CSP is not visualized, a wide variety of outcomes is possible. However, given the collection of findings, she was counseled on the increased likelihood of a poor neurological prognosis. Her NIPT was low risk for aneuploidy. A referral to [facility] was placed. Options for diagnotic testing and MRI to further elucidate the ultrasound findings were discussed. Finally, Michelle was counseled on the option for termination including gestational age restrictions in the state [facility]. Our customer care specialist was notified to follow up on Wednesday to assess her desire for TOP. All of her questions were answered. I spent a total of 20 minutes on the date of the service which included preparing to see the patient, obtaining and/or reviewing separately obtained history, counseling and educating the patient/family/caregiver, ordering medications, tests, or procedures, communicating with other HCPs (not separately reported), independently interpreting results (not separately reported), and care coordination (not separately reported). Marciano Verduzco DO [facility] 02-16-2025 History of Present illness Narrative Telephone Consultation Patient w/ remote US read. Multiple ENTRY LEVEL ASSISTANT MANAGER anomalies noted. See report for details. A telephone consultation with the patient while in the office was requested by Dr. Rothman. I reviewed today's US findings and limitations via phone. Dr. Rothman was present with Michelle and her partner. I described the ultrasound finding of ventriculomegaly, which refers to the enlargement of one or more of the cerebral ventricles, often caused by excessive amounts of cerebrospinal fluid. We reviewed that ventriculomegaly can be isolated and seen in normal pregnancies or associated with structural brain abnormalities, congenital infections, such as cytomegalovirus (CMV) and toxoplasmosis, chromosome anomalies, such as Down syndrome, spina bifida, other genetic disorders with additional defects and/or intellectual disability, and other adverse outcomes. The prognosis for a with ventriculomegaly depends largely on the presence of other abnormalities. Neurological and cognitive impairment are more likely when associated anomalies are present, with persistence or progression of ventriculomegaly, and with more severe ventriculomegaly. Michelle was additionally counseled that observation of a normal cavum septum pellucidum (CSP) is an important landmark in the evaluation of the brain as it is suggestive of normal central forebrain development. Non-visualization of the CSP can be isolated and considered a variation of normal development. However, an absent CSP may indicate abnormal cerebral development as it is often, but not always, associated with additional midline malformations of the brain, such as agenesis of the corpus callosum or septo-optic dysplasia. Therefore, when the CSP is not visualized, a wide variety of outcomes is possible. However, given the collection of findings, she was counseled on the increased likelihood of a poor neurological prognosis. Her NIPT was low risk for aneuploidy. A referral to [facility] was placed. Options for diagnotic testing and MRI to further elucidate the ultrasound findings were discussed. Finally, Michelle was counseled on the option for termination including gestational age restrictions in the [facility]. Our customer care specialist was notified to follow up on Wednesday to assess her desire for TOP. All of her questions were answered. I spent a total of 20 minutes on the date of the service which included preparing to see the patient, obtaining and/or reviewing separately obtained history, counseling and educating the patient/family/caregiver, ordering medications, tests, or procedures, communicating with other HCPs (not separately reported), independently interpreting results (not separately reported), and care coordination (not separately reported). Marciano Verduzco DO documented in this encounter [facility] 02-16-2025 Progress note Formatting of t his note might be different from the original. S: Michelle Choi is a 19 year old female who presents at 07/04/2025, by Last Menstrual Period for a routine visit. Denies headache, visual changes, chest pain, shortness of breath, vaginal bleeding, leakage of fluid, or dysuria. Feeling well, no complaints. Good movement, No contractions O: See flow sheet Gen: No apparent distress Abd: Gravid, nontender Anatomy US completed today Ventriculomegaly and Absent CSP MFM spoke to patient over the phone. Plan for care center consult possible amino, genetics consult and MRI ASSESSMENT/PLAN: 1. complicated by cerebral ventriculomegaly, single or unspecified fetus (HCC) - ICD9: 655.03, ICD10: O35.09X0 (primary diagnosis) center consult 2. 20 weeks gestation of ([facility]) - ICD9: V22.2, ICD10: Z3A.20 3. Encounter for supervision of normal first in second trimester ([facility]) - ICD9: V22.0, ICD10: Z34.02 Colleen Rothman MD [facility] 02-16-2025 Miscellaneous Notes S: Michelle Choi is a 19 year old female who presents at 07/04/2025, by Last Menstrual Period for a routine visit. Denies headache, visual changes, chest pain, shortness of breath, vaginal bleeding, leakage of fluid, or dysuria. Feeling well, no complaints. Good movement, No contractions O: See flow sheet Gen: No apparent distress Abd: Gravid, nontender Anatomy US completed today Ventriculomegaly and Absent CSP MFM spoke to patient over the phone. Plan for care center consult possible amino, genetics consult and MRI ASSESSMENT/PLAN: 1. complicated by cerebral ventriculomegaly, single or unspecified fetus ([facility]) - ICD9: 655.03, ICD10: O35.09X0 (primary diagnosis) center consult 2. 20 weeks gestation of ([facility]) - ICD9: V22.2, ICD10: Z3A.20 3. Encounter for supervision of normal first in second trimester ([facility]) - ICD9: V22.0, ICD10: Z34.02 Colleen Rothman MD documented in this encounter [facility] 02-16-2025 Instructions Sania Kimbrough MA - 02/16/2025 2:49 PM EDT SEQUENTIAL SCREENINGS The [facility] offers sequential screenings for women who are interested in screenings for chromosomal abnormalities and certain defects during a . The sequential screen combines ultrasound and blood tests to determine the risk of chromosomal abnormalities, including Down's Syndrome (Trisomy 21) and Trisomy 18, as well as open neural tube defects including spina bifida. Ultrasound examination is performed between 11 weeks and 13 weeks gestational age. Blood tests are drawn after the ultrasound and again later in the between 15 and 21 weeks gestational age. Please let your physician know if you are interested in this testing. It will require an appointment with our dairy laboratory technician. This is not an ultrasound performed by a physician in our office during a routine visit. SIGNS AND SYMPTOMS OF LABOR 1. Contractions every 10 minutes or more often 2. Clear, pink, or brownish fluid (water) leaking from vagina 3. Feeling that baby is pushing down, pressure 4. Low, dull backache 5. Cramps that feel like a period 6. Cramps with or without diarrhea If you notice any of the above symptoms, contact our office at [phone] and ask to speak with a nurse. After hours, you can call doctors registry at [phone] OR call [facility] at [phone] and ask to have the doctor manager implementation paged. If you consider this an emergency, dial 9--1 or go to your nearest emergency department. NEED HELP? Are you dealing with a violent or abusive relationship? Are you a victim of rape or sexual assult? Call [facility] ([place]) 24 hour Crisis Hotline: 280.668.5915 or 222-026-6951. MANUAL Your Guide to a Healthy manual is now on-line. Visit [email or web address] to download your free copy documented in this encounter [facility] 01-19-2025 Progress note Formatting of t his note might be different from the original. S: Michelle Choi is a 19 year old female who presents at 07/04/2025, by Last Menstrual Period for a routine visit. Denies headache, visual changes, chest pain, shortness of breath, vaginal bleeding, leakage of fluid, or dysuria. Feeling well, no complaints. O: See flow sheet Gen: No apparent distress Abd: Gravid, nontender Anatomy to be scheduled next visit Carri Bhardwaj ASSESSMENT/PLAN: 1. 16 weeks gestation of (HCC) - ICD9: V22.2, ICD10: Z3A.16 (primary diagnosis) 2. Encounter for supervision of normal first in second trimester ([facility]) - ICD9: V22.0, ICD10: Z34.02 Colleen Rothman MD [facility] 01-19-2025 Miscellaneous Notes S: Michelle Choi is a 19 year old female who presents at 07/04/2025, by Last Menstrual Period for a routine visit. Denies headache, visual changes, chest pain, shortness of breath, vaginal bleeding, leakage of fluid, or dysuria. Feeling well, no complaints. O: See flow sheet Gen: No apparent distress Abd: Gravid, nontender Anatomy to be scheduled next visit Carri Bhardawj ASSESSMENT/PLAN: 1. 16 weeks gestation of ([facility]) - ICD9: V22.2, ICD10: Z3A.16 (primary diagnosis) 2. Encounter for supervision of normal first in second trimester ([facility]) - ICD9: V22.0, ICD10: Z34.02 Colleen Rothman MD documented in this encounter [facility] 01-19-2025 Instructions Huseyin Ramos LPN - 01/19/2025 1:29 PM EDT SEQUENTIAL SCREENINGS The [facility] offers sequential screenings for women who are interested in screenings for chromosomal abnormalities and certain defects during a . The sequential screen combines ultrasound and blood tests to determine the risk of chromosomal abnormalities, including Down's Syndrome (Trisomy 21) and Trisomy 18, as well as open neural tube defects including spina bifida. Ultrasound examination is performed between 11 weeks and 13 weeks gestational age. Blood tests are drawn after the ultrasound and again later in the between 15 and 21 weeks gestational age. Please let your physician know if you are interested in this testing. It will require an appointment with our dairy laboratory technician. This is not an ultrasound performed by a physician in our office during a routine visit. SIGNS AND SYMPTOMS OF LABOR 1. Contractions every 10 minutes or more often 2. Clear, pink, or brownish fluid (water) leaking from vagina 3. Feeling that baby is pushing down, pressure 4. Low, dull backache 5. Cramps that feel like a period 6. Cramps with or without diarrhea If you notice any of the above symptoms, contact our office at [phone] and ask to speak with a nurse. After hours, you can call doctors registry at [phone] OR call [facility] at [phone] and ask to have the doctor manager implementation paged. If you consider this an emergency, dial 9--3 or go to your nearest emergency department. NEED HELP? Are you dealing with a violent or abusive relationship? Are you a victim of rape or sexual assult? Call [facility] ([place]) 24 hour Crisis Hotline: 527.403.8756 or 783-397-8026. MANUAL Your Guide to a Healthy manual is now on-line. Visit [facility]org/HealthyPregna ncyGuide to download your free copy documented in this encounter [facility] 01-08-2025 Telephone encounter Note Called lab client services and no option to expedite results. Livia Mcintosh RN [facility] 01-08-2025 Miscellaneous Notes Called lab client services and no option to expedite results. Livia Mcintosh RN It appears it just didn't get ordered but if she had it on the green paper lab should have called up. So very sorry for this but order is placed. Nicole Siddiqui APRN.CNM Pt called very upset that she knows this test was drawn and doesn't understand why we do not have the results and that she has a gender reveal scheduled this weekend. Explained to the patient that unfortunately the test was not ordered, but we have placed the order and sent to the manager implementation provider to sign. Advised the patient that we would be in contact with her once the provider manager implementation signed the order. Pt voiced understanding. Elena Ritter RN 14w5d NIPT was never ordered. Livia Mcintosh RN documented in this encounter [facility] 01-08-2025 Telephone encounter Note It appears it just didn't get ordered but if she had it on the green paper lab should have called up. So very sorry for this but order is placed. Nicole Siddiqui APRN.CNM [facility] 01-08-2025 Telephone encounter Note Pt called very upset that she knows this test was drawn and doesn't understand why we do not have the results and that she has a gender reveal scheduled this weekend. Explained to the patient that unfortunately the test was not ordered, but we have placed the order and sent to the manager implementation provider to sign. Advised the patient that we would be in contact with her once the provider manager implementation signed the order. Pt voiced understanding. Elena Ritter RN [facility] 01-08-2025 Telephone encounter Note 14w5d NIPT was never ordered. Livia Mcintosh RN [facility] 01-02-2025 Progress note Formatting of t his note might be different from the original. I have communicated my name and active licensure. The patient's identity and physical location were verified at the time of this visit. Either the patient or their legal representative government relations has been informed of the risks and benefits of -- and alternatives to -- treatment through a remote evaluation and consents to proceed with the evaluation remotely. Subjective Michelle Choi is a 19 year old female @ 13.6 weeks c/o N/V and unable to work currently due severe n/v. Pt reports had morning sickness at 9 weeks- it improved but now worse. Pt reports does have GERD and is on pepcid but not keeping it down. Yesterday vomited about 5 x. Denies VB, cramping or other ob complaints. Objective LMP 09/27/2024 (Exact Date) GENERAL: alert and appropriate, in no distress and happy, smiling, interactive Assessment & Plan Nausea and vomiting in (HCC) Start zofran Continue pepcid Upright x 30min-1 hr after eating or drinking - if not tolerating fluids x 24 hrs will need to go to ER for IVF 13 weeks gestation of (HCC) Visit was conducted via [facility] Severiano Madrigal MD [facility] 01-02-2025 Miscellaneous Notes I have communicated my name and active licensure. The patient's identity and physical location were verified at the time of this visit. Either the patient or their legal representative government relations has been informed of the risks and benefits of -- and alternatives to -- treatment through a remote evaluation and consents to proceed with the evaluation remotely. Subjective Michelle Choi is a 19 year old female @ 13.6 weeks c/o N/V and unable to work currently due severe n/v. Pt reports had morning sickness at 9 weeks- it improved but now worse. Pt reports does have GERD and is on pepcid but not keeping it down. Yesterday vomited about 5 x. Denies VB, cramping or other ob complaints. Objective LMP 09/27/2024 (Exact Date) GENERAL: alert and appropriate, in no distress and happy, smiling, interactive Assessment & Plan Nausea and vomiting in (HCC) Start zofran Continue pepcid Upright x 30min-1 hr after eating or drinking - if not tolerating fluids x 24 hrs will need to go to ER for IVF 13 weeks gestation of (HCC) Visit was conducted via MyChart Severiano Madrigal MD documented in this encounter [facility] 01-02-2025 Telephone encounter Note Patient notified and scheduled for today. Livia Mcintosh RN [facility] 01-02-2025 Miscellaneous Notes Patient notified and scheduled for today. Livia Mcintosh RN ok for VV to discuss w/ anyone w/ opening today. Sommer Garcia MD 13w6d C/o n/v. Able to keep waffles down last night and milk. Unable to keep anything else down including water/gatorade. She has been taking Vitamin B6, but not Unisom. Asking if she can get something more for nausea. No available openings today to discuss since schedules are on hold. Please advise. Livia Mcintosh RN documented in this encounter [facility] 01-02-2025 Telephone encounter Note ok for VV to discuss w/ anyone w/ opening today. Sommer Garcia MD [facility] Work Phone: 01-02-2025 Telephone encounter Note 13w6d C/o n/v. Able to keep waffles down last night and milk. Unable to keep anything else down including water/gatorade. She has been taking Vitamin B6, but not Unisom. Asking if she can get something more for nausea. No available openings today to discuss since schedules are on hold. Please advise. Livia Mcintosh RN [facility] 12-22-2024 Progress note Formatting of t his note might be different from the original. KJ - S: Michelle denies LOF, contractions or vaginal bleeding. She reports heartburn. O: 12w2d, see flow sheet SENSITIVE EXAM: Sensitive exam not performed. A/P: Assessment & Plan 12 weeks gestation of (HCC) NIPT & PNB today Encounter for supervision of other normal in first trimester ([facility]) Heartburn - advised on diet and pepcid given. Primitivo Delgado MD [facility] 12-22-2024 Miscellaneous Notes KJ - S: Michelle denies LOF, contractions or vaginal bleeding. She reports heartburn. O: 12w2d, see flow sheet SENSITIVE EXAM: Sensitive exam not performed. A/P: Assessment & Plan 12 weeks gestation of (HCC) NIPT & PNB today Encounter for supervision of other normal in first trimester ([facility]) Heartburn - advised on diet and pepcid given. Primitivo Delgado MD documented in this encounter [facility] 12-22-2024 Instructions Ella Jaimes MA - 12/22/2024 9:28 AM EDT SEQUENTIAL SCREENINGS The [facility] offers sequential screenings for women who are interested in screenings for chromosomal abnormalities and certain defects during a . The sequential screen combines ultrasound and blood tests to determine the risk of chromosomal abnormalities, including Down's Syndrome (Trisomy 21) and Trisomy 18, as well as open neural tube defects including spina bifida. Ultrasound examination is performed between 11 weeks and 13 weeks gestational age. Blood tests are drawn after the ultrasound and again later in the between 15 and 21 weeks gestational age. Please let your physician know if you are interested in this testing. It will require an appointment with our dairy laboratory technician. This is not an ultrasound performed by a physician in our office during a routine visit. SIGNS AND SYMPTOMS OF LABOR 1. Contractions every 10 minutes or more often 2. Clear, pink, or brownish fluid (water) leaking from vagina 3. Feeling that baby is pushing down, pressure 4. Low, dull backache 5. Cramps that feel like a period 6. Cramps with or without diarrhea If you notice any of the above symptoms, contact our office at [phone] and ask to speak with a nurse. After hours, you can call doctors registry at [phone] OR call [facility] at [phone] and ask to have the doctor manager implementation paged. If you consider this an emergency, dial 9-1-2 or go to your nearest emergency department. NEED HELP? Are you dealing with a violent or abusive relationship? Are you a victim of rape or sexual assult? Call [facility] ([place]) 24 hour Crisis Hotline: 584.333.1880 or 935-868-5396. MANUAL Your Guide to a Healthy manual is now on-line. Visit [facility]org/HealthyPregna ncyGuide to download your free copy documented in this encounter [facility] 11-29-2024 Progress note Formatting of t his note might be different from the original. Send letter about normal pap if she does not have mychart. Sommer Garcia MD [facility] Work Phone: 11-29-2024 Miscellaneous Notes Send letter about normal pap if she does not have mychart. Sommer Garcia MD documented in this encounter [facility] 11-24-2024 Instructions Champ Rawls APRN.ENGINE DYNAMOMETER TESTER - 11/24/2024 10:52 AM EDT Images from the original note were not included. Please select the following link to access the [facility] Your Guide to a Healthy . [email or web address]/healthypregnancyguide MORNING SICKNESS IN by Meena Hernandez M.D. for [employer] As you may already know, morning sickness can often be more appropriately called evening sickness or nmfir-enskwx-eb-the-day sickness. While there are the becky few, most women (50-90%) experience some degree of nausea, some have vomiting, and a few develop a severe form of vomiting during called hyperemesis gravidarum. What causes the nausea and vomiting of ? We can't explain why some people feel fine and others are green for months. Even the same woman may feel vastly different in each . There is some relationship between nausea and the level of the hormone hCG. In twin pregnancies, and in other situations where the hCG is greater than expected, nausea and vomiting tend to be worse. In a destined for miscarriage, hCG levels tend to be low, and nausea is often less severe. This being said, a lack of nausea doesn't guarantee that the is destined for miscarriage. The fact that nausea and vomiting are often signs of a healthy can offer a silver lining in the dark cloud of miserable nausea. How long will the nausea last? Fortunately, for most women, nausea and vomiting are a first trimester event, peaking at week 9-10 and waning by week 14-16. When you are feeling bad the weeks can go by slowly but most moms do feel tremendously better by the middle of the . Whether morning sickness is a brief experience or lasts through most of the , there are treatments that can make the weeks or months more tolerable. What can you do about it? Diet: See what works for you. Try eating bland dry foods, and avoid fatty or spicy foods. It is okay to eat a less than perfectly balanced diet in the first trimester. Have your liquids separately from dry foods. Try sports drinks, water, clear juices, Ben-aid, or non-caffeinated tea. Avoid carbonated beverages that fill up your stomach. Try eating lots of little meals. If you tend to feel sick when you first wake up, leave crackers next to the bed for a quick snack before rising. Keeping healthy snacks with you all day to nibble when you feel queasy can sometimes even prevent nausea from starting. vitamins and nausea: Pre- vitamins can sometimes worsen nausea in . While folate is necessary, especially early in the , it comes as a smaller pill that many people find more tolerable than the complete vitamin pill. Ask your practitioner if it is okay to temporarily replace vitamins and iron with just a folate pill if you find a significant worsening in the level of your nausea from the vitamins. Alternative therapies: Acupressure may be used to treat nausea in , and is not known to have any risks for the fetus. Wristbands (marketed for seasickness) that put pressure on an acupressure point at the wrist are often available at drugstores or travel stores. Tyron root is used for nausea in many traditional cultures. Some women take fresh grated tyron or tyron tablets. It is possible that the pill form contains other ingredients or contaminants, so you may want to try fresh tyron first. Medications: Emetrol is the only nausea medication approved for use in . It is available over the counter and is soothing to the stomach. A prescription medication called Bendectin was available in the -s and was shown to be safe in , but the company stopped marketing it in the [place] due to the costs of liability coverage. Bendectin contained 10 milligrams of vitamin B6 and 10 milligrams of Doxylamine. Two tablets were given at bedtime and a total of up to 4 tablets could be used in a 24-hour period. Interestingly, Unisom , which contains a higher dose (25 mg.) of the same medication, Doxylamine, is currently marketed as an wyiq-ktu-ffoxgbi sleeping pill. Ask your practitioner if creating a vitamin B6/Doxylamine combination with qpim-pvy-nhlmiaa medications would be safe for you. Prescription medications like Compazine and Phenergan can be used if the benefits outweigh possible risks, but these have not been clearly shown to be safe in . Zofran , an expensive anti-nausea medication often used to treat nausea from chemotherapy, can also be used. Can I throw up so much it harms the baby? The act of vomiting cannot hurt your fetus, which is protected inside the uterus. If you get dehydrated or develop a metabolic imbalance, this can be unhealthy. As long as you can keep down liquids, you and your baby will generally do all right. Eat when you feel able. If you are unable to keep anything down, or if you notice potential signs of dehydration such as lightheadedness, or concentrated and/or infrequent urination, call your practitioner. Some women need brief hospital admission for intravenous fluids and anti-nausea medications if their condition becomes severe. This severe form of nausea and vomiting is called Hyperemesis Gravidarum. As with many symptoms of , remind yourself that this, too, shall pass, and you'll have a wonderful baby to show for it! TREATMENT OPTIONS, SHORT VERSION: Frequent small meals Hydrate throughout day Sea-[employer]ands wrist pressure point applicators Tyron root (powdered, in capsules) 250mg four times a day Vitamin B6 25 mg tablet three times a day Also may be taken with half a tablet of Unisom three times a day (Doxylamine 12.5 mg) If severe (weight loss, dehydration), call us and come in for IV hydration and possible medication in the form of injections. Prescription medications such as Phenergan, Compazine, Reglan Psychotherapy Services at [facility] Call Behavioral Health Access Line at [phone] to schedule Individual psychotherapy In-person or virtual Wait time for first evaluation may be 12 or more weeks. Wait list spots may be available. Due to the high volume of patients this option is recommended if you are looking for short term acute symptom coping strategies. 1-883-8-KHAA4CQPD - [facility] Mental Health Hotline If you are in suicidal crisis, please call or text 6-817-343-TALK ( ) or visit the National Suicide Prevention Lifeline website. [facility].gov If you are in crisis, call 911 or go to your nearest Emergency Department Here are some links for wonderful Providers here in the community and surrounding areas. Do not hesitate to contact their offices, many are offering virtual visits during this time. Psychotherapy Services outside of [facility] Support International Online Provider Directory https://Pheed/ - can assist in finding providers in your area that might be more extensive then the list below. [facility] [place] [place] [address] [place] [address] [facility] [address] [place] [address] [facility] [address] [place] [address] [facility] [address] [place], [place] [address] Sarah Viveros MD [address] [place], [place] [address] [facility] [address], [address] [place] [address] [facility] [address] [place] [address] [facility] [place] / [place] [phone]/ [phone] Alex Ferro [address] [facility] [phone] [facility] [place] / [place] [phone] [facility] [address] [place] [address]/ [place] [facility] [place] [phone] GALILEO Al[place], BERENICE [facility] Therapy Workshops, telehealth and at home visits. [phone] [facility] 20 locations [place], [place], [place], [place], [place], [place], [place], [facility], [place], [place], [place], [place], [place], [place], [facility], [place], [place] ,[facility], [place], [place],[facility], [facility], [place], [facility], [facility], [place] www.[facility].co [phone] Psychotherapy resources outside of [facility] are listed below [facility] Web: https://www.OneSeed Expeditions/ Support International Online Provider Directory https://Pheed/ [facility] https://iDreamBooks/ [facility] Wellness Web: https://Miproto/ KINAMU [employer] for Effective Living Web: https://TourlandishlivingWinView/ LifeStance Web: https://Mobile Sorcery/location/s [place]/ [facility] Web: https://www.[facility].or / [facility] Passenger Baggage Xpress Web: https://Make YES! Happen.Trony Solar/ Recovery Resources Mental health and substance abuse help Web: https://www.Endoluminal SciencessDestination Media & RESOURCES Support International Direct peer support and connection to professional resources Non-Emergency Helpline Phone: / Text: [phone] Web: https://www..net/ Online Provider Directory: https://Pheed/ Online Support Meetings: https://www..net/get-he lp/uis-yfpaxe-zgeiwqt-meetings/ [facility] Baby [facility] Healthcare Interpreter Services Web: https://wwwLevel Chef/ Star[employer] Technologies Expert information on medication use during and Text: [phone] Web: https://Retrace/ NATIONAL REGISTRY FOR PSYCHIATRIC MEDICATIONS Currently studying the safety of antidepressants, ADHD medications and atypical antipsychotics taken during TO PARTICIPATE CALL TOLL-FREE: Web: https://womensmentalhealth.org/re search/pregnancyregistry/ Support Groups: [facility], [facility]- Follow on facebook Baby Bistro support group led by [facility] department Resilient Mamas - Support Group [facility] Bismarcks.org The POEM support group [phone] Www.poemonline.org Follow on facebook - JEFFREY simon yuli Online support meetings PSI https://www..net/get-he lp/gpg-ksfgvb-xbcqmlg-meetings/ [facility] mommy and me virtual support group 11:30-1pm Support for mothers and new babies and toddlers [place] childbirth education: Childbirth @cc.org or call [phone] CRISIS: CRISIS HOTLINE [phone], 911 or go to the nearest ER. [facility] [phone] / [facility] [phone] https://www.[facility].org Crisis text line text the word HOME to [address] [facility] [address] [place] [address] [facility] [address] www.Plink Marie Cristobal clinical counseling [address] [address] www.Euroffice [phone] Holding space psychotherapy Melva Boothe [facility] MANAGER BR[place]GE-S [address] [facility] www.eSoft [phone]/ [place] [phone] They all offer virtual. All work with trauma Support groups Online support meetings PSI https://www..net/get-he lp/feh-jksltp-fvlabil-meetings/ Here are the support groups they offer: Support of parents of 1 to 4 years old children POEM ( Outreach and Encouragement for Moms) offers free support for mothers experiencing depression, anxiety, and other mood and anxiety disorders. Masks are recommended but not required. No pre-registration required. Babies in arms welcome. meetings now take place on the and Wednesday of each month Location: [facility] [address] [place] [address] Room 122 (library room) 7-8:00 p.m. When you enter the [facility] parking lot off of [address], the entrance door closest to our meeting room is on the front of the building toward the right. For those who are more comfortable with a virtual platform, [employer] offers online support group options several days of the week. To register for an online group or to find out more about POEM, website at: https://Arccos Golfaohio.org/get-help/[facility] hospitalbvgx-rxnljr-wkbfwj/poem-services/ offer a confidential helpline: private Facebook group is called JEFFREY Blackman Here are the groups they offer: Traumatic childbirth resources: Http://pattch.org/ https://www.Burbio.comnirmalExtend Health/ Name Location (s) Phone # (s) Services Website [facility] Psychotherapy [address] [place], [place] - [phone]; [address] [phone] In-Person GROUPS INDIVIDUAL THERAPY MATERNAL-INFANT MENTAL HEALTH MEDICATION MANAGEMENT PLAY AND ART THERAPY TELETHERAPY https://www.OneSeed Expeditions/s ervicjeffry/ [facility]? [address] [address] ? [address], [address] [place], [place] [address] ? [place] [address]? Grief Support Groups Individual Grief Counseling Spiritual Care Memorial Events https://simon.[facility].org/grief-services [facility] [address] [place], [place] [address]; ; Email: [email or web address] Group Women's Mental Health; Couples Counseling; Trauma (EMDR); Stress Management; Mood and Anxiety Related Disorders- and much more https://www.Freight Connection.com/ LifeStance Numerous as they have contract providers: access website to find specific providers near you Counseling including CBT and EMDR as well as many more modalities; Medication Management; Telehealth and In-Person [email or web address].[email or web address]/ [facility] [address] [place], [place] [address]; [phone] Personal, Family and Group Therapy; Psychological Testing and Diagnosis; Medication Management; Life and Career Coaching; Psychoanalysis; Literacy Testing; Yoga and Meditation https://Miproto/ Fit [facility] [address] [facility] [address], [place] [address] [address] ; [address] [facility], [address] [place] [address]; Office # for both sites: Individual and Couples Counseling https://www.Gigmax.Keduo/ paymentinsurance.html OCD & Anxiety [facility] [address], [address], [place] [address]; Specialize in Cognitive-Behavioral Therapy (CBT) for the treatment of anxiety disorders across the lifespan. TELEHEALTH ONLY. https://ocdandanxietycentPangalore/faqs [facility] [address] [facility] [address] [place], [address] [place] [address] [facility] [place], [address] [place] [address] [facility] [place], [address] [place] [address] [place], [address], [address] [place], [address] [place] [address] [place], [address] Transportation Services To minimize patient barriers, [facility] provides transportation services to patients who qualify. If you are unable to get to your appointment at any of our facilities, please let us know. Need help now? Stop by one of our walk-in clinics to establish behavioral health care. Counseling Indvidual, Group, Couples and Family Counseling and EMDR. Medication Management Case Management benefits applications housing assistance Substance abuse treatment Medication assisted treatment https://www.[email or web address].or g/mental-health/ [facility] OFFICE AT [address] [address] [facility] OFFICE [address] [place] [address] [facility] OFFICE [address] [place] [address] [facility] OFFICE (at [facility]) [address] [place] [address] [facility] SYRINGE EXCHANGE PROGRAM & HIV SCREENING [address] [place] [address] [facility] [facility]CH[facility]GRAM [address] [place] [address] Behavioral Health Urgent Care: [facility] Sites Counseling Indvidual and Group Medication Management Case Management benefits applications housing assistance Substance abuse treatment Medication assisted treatment Employment Services/ Job Training https://Make YES! Happen.org/ Recovery [facility] [address] [place], [place] [address]: P: [phone] [address] [facility], [address], [place], [place] [address] P: [phone] Our services include: Addiction Mental Health Treatment Assessment Psychiatry Medical Care Employment Housing Drug and Alcohol Prevention HIV/AIDS Prevention https://www.recres.org/ [facility] [address] [facility] [address] [place] [address] [address] [place], [place] [address] [place] [address] [place] [address] [place] [address] [facility] [address] [place] [address] [place] [address] [place] [address] TMS Therapy/ Counseling Psychocological Testing for ADHD Medication Management In-Person/ Telemedicine https://www.MePlease.com/mecca ents-depression Memory [facility] Psychological services [address], [place] [address] Neuropsychological Testing For ADHD https://www.memoryandpsych.com/ [facility] Office [address] [place] [address] [address] Providing ztul-zm-axys and telehealth services. Adult Case Management Community Education and Prevention Employment Outpatient Treatment - Counseling & Psychotherapy Psychiatric Services http://www.[facility].org/ [facility] [address] [place] [address] [facility]) [address] [place] [address] Virtual Appointments! Now offering safe and convenient virtual client appointments to anyone in [place]! Individual Therapy Couples/Relationship Therapy Trauma/EMDR Therapy Art Therapy Play Therapy Fractionating Still Operator Support: Parenting Skills, Parent Child Interaction Therapy, Parent Interaction Therapy Meditation Dietitian/Manager Work Services Group Therapy Yoga https://www.LiveRail/ Stephanie Randi [phone] Private Practice: Telehealth Only Specializes in EMDR for Trauma None documented in this encounter [facility] 11-23-2024 Note HNO ID: [id number] Author: CHAMP RAWLS APRN.RATNA Service: ? Author Type: Nurse Practitioner Type: Progress Notes Filed: 11/24/2024 11:25 Note Text: Hat Sizer offered: Patient declines. INITIAL OB ASSESSMENT HPI: Michelle is a 19 year old White here to establish Obstetrical Care. Patient's last menstrual period was 09/27/2024 (exact date). from OB Dating Form. was planned Complaints: No OB History Gravida2 Para0 Term0 Preterm0 AB1 Living0 SAB1 IAB0 Ectopic0 Multiple0 Live Births0 Previous history: Prior : never History of 4th degree laceration: NA History of shoulder dystocia: No History of Hypertensive disorders including pre-eclampsia or gestational hypertension: NA History of gestational diabetes: NA Patient's Risk Screening for delivery: Have you had a prior bass between 20w and 36w6d? No How many pregnancies have you had before? 1, SAB Did you have a previous baby with a GBS Infection? No Please select all that apply for any prior : N/A MEDICAL/PSYCHOSOCIAL HISTORY: History of hemorrhage or bleeding concerns: No Thyroid Disease: No History of chronic hypertension: No History of pre-existing diabetes: No No results found for: ABORHD No weight on file for this encounter. Last Pap: never done History of abnormal pap: No Prior treatment for cervical dysplasia: none. Last HPV: never done History of STDs: None Partner History of STDs: None Did you have a partner with Herpes? No Tobacco use: No E-Cigarette/Vaping Use: No Caffeine use: No Drug use: No Alcohol use: No Multivitamin with Folic acid: Yes Would refuse blood transfusion if medically necessary: No Social Needs: How often does this describe you? I don't have enough money to pay my bills: Never Within the past 12 months, have you worried that your food would run out before you had money to buy more? Never In the past 12 months, has lack of reliable transportation kept you from going to medical appointments or work, or from getting things needed for daily living? Never In the past 12 months, have you had any concerns about having a place to live, or about the condition or quality of your housing? Never Would you like more information on any of the following (please check all that apply)? Not interested Social History: Do you have any history of depression, anxiety, PTSD, or other mood problems? Yes Do you have a history of abuse or trauma that may impact your experience? No Are you currently employed? Yes Depression/Anxiety Screening: denies symptoms of depression. OB Depression and Anxiety Screening- This Encounter Feeling down, depressed, or hopeless: Not at all Little interest or pleasure in doing things: Not at all Feeling nervous, anxious, or on edge Several days Not being able to stop or control worrying Several days Anxiety Pre-Screening Total (If >/= 3 additional questions will be reviewed) 2 Genetic Screening: Partner present: Yes Patient verbalized knowledge of partner family health history: No Do you or your partner have any personal or family history of defects not previously discussed: No Do you have history of a complicated by anomaly, genetic condition, or demise: No Preeclampsia Risk Screening: Screening for prevention of preeclampsia: High risk factors: None Moderate risk ractors: Nulliparity OB Risk Screening: Completed, no positive findings documented. 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 No current facility-administered medications for this visit. Allergies As of Date: 11/24/2024 Allergen Noted Reaction CIPROFLOXACIN 08/16/2023 Hives AMOXICILLIN 09/15/2022 Hives NITROFURANTOIN MONOHYD/M-CRYST 08/15/2023 Hives PENICILLINS 09/15/2022 Hives Fully Assessed 11/10/2024 SBIRT Michelle Choi was given the 4's screening tool. Michelle answered as follows: OB Opioid Screening - Last Recorded (since 02/28/2024) Did any of your parents have a problem with alcohol or other drug use? Yes dad Does your partner have a problem with alcohol or other drug use? No In the past, have you had difficulties in your life because of alcohol or other drugs, including prescription medications? No In the past month have you drunk any alcohol or used other drugs? No Are you taking medication for pain during the either prescribed or not? No Based on the screen and further questions, she is considered at Low risk due to:No past or current use. Positive reinforcement of current behavior. Plan to resc (more content not included)... [facility] 11-23-2024 History of Present illness Narrative Images from the original note were not included. Hat Sizer offered: Patient declines. INITIAL OB ASSESSMENT HPI: Michelle is a 19 year old White here to establish Obstetrical Care. Patient's last menstrual period was 09/27/2024 (exact date). from OB Dating Form. was planned Complaints: No OB History Gravida2 Para0 Term0 Preterm0 AB1 Living0 SAB1 IAB0 Ectopic0 Multiple0 Live Births0 Previous history: Prior : never History of 4th degree laceration: NA History of shoulder dystocia: No History of Hypertensive disorders including pre-eclampsia or gestational hypertension: NA History of gestational diabetes: NA Patient's Risk Screening for delivery: Have you had a prior bass between 20w and 36w6d? No How many pregnancies have you had before? 1, SAB Did you have a previous baby with a GBS Infection? No Please select all that apply for any prior : N/A MEDICAL/PSYCHOSOCIAL HISTORY: History of hemorrhage or bleeding concerns: No Thyroid Disease: No History of chronic hypertension: No History of pre-existing diabetes: No No results found for: ABORHD No weight on file for this encounter. Last Pap: never done History of abnormal pap: No Prior treatment for cervical dysplasia: none. Last HPV: never done History of STDs: None Partner History of STDs: None Did you have a partner with Herpes? No Tobacco use: No E-Cigarette/Vaping Use: No Caffeine use: No Drug use: No Alcohol use: No Multivitamin with Folic acid: Yes Would refuse blood transfusion if medically necessary: No Social Needs: How often does this describe you? I don't have enough money to pay my bills: Never Within the past 12 months, have you worried that your food would run out before you had money to buy more? Never In the past 12 months, has lack of reliable transportation kept you from going to medical appointments or work, or from getting things needed for daily living? Never In the past 12 months, have you had any concerns about having a place to live, or about the condition or quality of your housing? Never Would you like more information on any of the following (please check all that apply)? Not interested Social History: Do you have any history of depression, anxiety, PTSD, or other mood problems? Yes Do you have a history of abuse or trauma that may impact your experience? No Are you currently employed? Yes Depression/Anxiety Screening: denies symptoms of depression. OB Depression and Anxiety Screening- This Encounter Feeling down, depressed, or hopeless: Not at all Little interest or pleasure in doing things: Not at all Feeling nervous, anxious, or on edge Several days Not being able to stop or control worrying Several days Anxiety Pre-Screening Total (If >/= 3 additional questions will be reviewed) 2 Genetic Screening: Partner present: Yes Patient verbalized knowledge of partner family health history: No Do you or your partner have any personal or family history of defects not previously discussed: No Do you have history of a complicated by anomaly, genetic condition, or demise: No Preeclampsia Risk Screening: Screening for prevention of preeclampsia: High risk factors: None Moderate risk ractors: Nulliparity OB Risk Screening: Completed, no positive findings documented. 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 No current facility-administered medications for this visit. Allergies As of Date: 11/24/2024 Allergen Noted Reaction CIPROFLOXACIN 08/16/2023 Hives AMOXICILLIN 09/15/2022 Hives NITROFURANTOIN MONOHYD/M-CRYST 08/15/2023 Hives PENICILLINS 09/15/2022 Hives Fully Assessed 11/10/2024 SBIRT Michelle Choi was given the 4P's screening tool. Michelle answered as follows: OB Opioid Screening - Last Recorded (since 02/28/2024) Did any of your parents have a problem with alcohol or other drug use? Yes dad Does your partner have a problem with alcohol or other drug use? No In the past, have you had difficulties in your life because of alcohol or other drugs, including prescription medications? No In the past month have you drunk any alcohol or used other drugs? No Are you taking medication for pain during the either prescribed or not? No Based on the screen and further questions, she is considered at Low risk due to:No past or current use. Positive reinforcement of current behavior. Plan to rescreen early third trimester. Does patient have penicillin allergy: No REVIEW OF SYSTEMS: GENERAL: Negative for: Fever or Chills HEENT: Negative for: Headache, Impaired Vision, Ringing in Ears, Nosebleeds NECK: Negative for: Swelling, Pain, Stiffness RESPIRATORY: Negative for: Cough, Shortness of breath, Wheezing GASTROINTESTINAL: Negative for: Heartburn, Constipation, Diarrhea, Blood in stool + nausea MUSCULOSKELETAL: Negative for: Muscle or joint pain, stiffness, Joint swelling NEUROLOGIC/PSYCHIATRIC: Negative for: Weakness, Paralysis, Numbness, Tingling, Tremor, Depression, Memory loss + anxiety SKIN: Negative for: Rash, Itching GENITOURINARY: Negative for: vaginal itching, vaginal discharge, hematuria or dysuria SENSITIVE EXAM: The sensitive examination was discussed with the Patient or Patient's Authorized Loan Officer Assistant. As applicable, any other physician, advance practice provider, medical student, or other health professional student that will be observing or involved in the sensitive examination for educational or training purposes was discussed with the Patient or Authorized Loan Officer Assistant. The Patient or Authorized Loan Officer Assistant has agreed to proceed with the sensitive examination. (Sensitive examination includes inspection and/or palpation of the breasts, pelvis, prostate and anorectal regions). PHYSICAL EXAM: BP 112/68 Ht 5' 1 (1.55m) Wt 142 lb (64.4kg) LMP 09/27/2024 BMI 26.84 kg/(m^2). GENERAL: pleasant in no apparent distress DERMATOLOGY: Normal, without lesions, non-icteric, and non-hirsute NECK: Supple, full range of motion, no adenopathy, and thyroid normal CHEST: Normal inspiratory effort BREAST: soft, non-tender, symmetric, no dominant mass, normal nipple-areolar complex, no lymphadenopathy, and no nipple discharge ABDOMEN: soft, non-tender, and no masses NEURO: alert and oriented x3,exam grossly non-focal PELVIS: External genitalia normal without lesions. Perineal body intact. No vaginal or cervical lesions. Cervix closed. Uterus 8 week size. No adnexal masses or tenderness. Clinical Pelvimetry: Pelvimetry clinically assessed as adequate Limited OB ultrasound exam: brief pocus confirms cardiac activity, formal scan already done ASSESSMENT: 19 year old at 8w1d wks gestational age PLAN: 1) Patient oriented to practice. Patient given new OB orientation folder. Discussed nutrition, folic acid supplementation, dietary guidelines, exercise, smoking, alcohol, caffeine, and drug use. Discussed gestational weight gain guidelines. Discussed routine OB labs including STD/HIV. Discussed how to access Your guide to a health and the Thoracic Surgeon. Discussed hemoglobin electrophoresis. Patient: carrier screening ordered Patient has penicillin allergy, plan for allergy testing. Reviewed midwifery and candle maker services that are available. 2) Screening: Hemoglobin A1C: ordered Baby Aspirin: The patient has been counseled about the potential benefits of low dose aspirin in and our recommendation that this be offered to all patients, regardless of whether they meet the high risk criteria specified above. She Accepts Aneuploidy Screening: Discussed aneuploidy screening, nuchal translucency/first trimester early anatomy ultrasound and NIPT. The risks/benefits and limitations of NIPT/aneuploidy screening were reviewed including the potential for false negative and false positive results. The availability of genetic counseling was reviewed. Information on aneuploidy screening was provided. The patient chooses to proceed with First trimester early anatomy ultrasound (12-13w6d) Myriad Carrier Screening: Discussed myriad carrier screening. We discussed the availability of professional-society guided carrier screening and reviewed the conditions screened and limitations of screening. The availability of genetic counseling was reviewed. Information on carrier screening was provided. The patient Accepts 3) Patient offered option of Virtual Visits. Patient unsure. May consider in future. ACTIVE PROBLEM LIST Supervision of Normal ([facility]) - 11/24/2024 Comment: Care Checklist Vaccines: [] Flu vaccine [] declined [] RSV vaccine 32 0/7 - 36 6/7 (Feb - Jul) [] declined [] COVID vaccine [] declined [] TDaP 27-36 [] declined First trimester: [x] Dating US [] 1st tri labs [x] Pap smear [] Carrier screening [] declined [] NIPT screening - considering [] declined [x] First trimester anatomy scan [] declined [x] universal ASA ordered (start 12w-16w) [] declined [] M Power Consult [] not indicated [] declined Second trimester: [] Anatomy scan [] Mode of Delivery - [] Feeding - [] Pump ordered [] Diabetes screen [] CBC, RPR [] Behavioral Health Screening Third trimester (28-30 weeks): [] Consent [] Contraception [] Risk Officer, car seat, safe sleep [] TeamBirth handout Third trimester (36-40 weeks): [] GBS [] Presentation - [] Scheduled [] yes - Hibiclens, pre-op instructions, CBC, T&S ordered [] no [] H&P [] Preferenc Anxiety Disorder Affecting , Antepartum ([facility]) - 11/24/2024 Comment: November 24, 2024 Has been on medication in the past, but coping well at this time. Does not have counselor at this time - declines. Mental health resources provided. To update throughout . Champ Rawls APRN.RATNA History of Miscarriage - 11/24/2024 Comment: July 2024 around 6 weeks Nausea and Vomiting During ([facility]) - 11/24/2024 Comment: 11/24/24 Vitamin B6 doses reviewed. To notify if prescription is needed. Champ Rawls APRN.ENGINE DYNAMOMETER TESTER Penicillin Allergy - 11/24/2024 Comment: November 24, 2024 Consider Penicillin allergy consult. Champ Rawls APRN.ENGINE DYNAMOMETER TESTER Follow up in 4 weeks or sooner prn. Plan for NT scan between 12w0d and 13w6d gestation. Champ Rawls APRN.CNP documented in this encounter [facility] 11-13-2024 Note HNO ID: [id number] Author: SLIME CALERO MD Service: ? 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 Please see full report under the Imaging tab in Epic for details. Slime Calero MD [facility] 11-10-2024 Progress note Formatting of t his note might be different from the original. Patient seen in office as follow up possible miscarriage. Seen today and TVUS shows IUP 6w2d with positive cardiac activity. Patient stated she is not having any bleeding or spotting just mild cramping and due to hx of miscarriage became worried. Discussed she does not need to continue HCG levels. Has NOB scheduled for next week. Taking vitamin. ASSESSMENT/PLAN: 1. 6 weeks gestation of 2. Cramping affecting , antepartum Leila Moody APRN.CNM [facility] 11-10-2024 Miscellaneous Notes Patient seen in office as follow up possible miscarriage. Seen today and TVUS shows IUP 6w2d with positive cardiac activity. Patient stated she is not having any bleeding or spotting just mild cramping and due to hx of miscarriage became worried. Discussed she does not need to continue HCG levels. Has NOB scheduled for next week. Taking vitamin. ASSESSMENT/PLAN: 1. 6 weeks gestation of 2. Cramping affecting , antepartum Leila Moody APRN.CNM documented in this encounter [facility] 11-08-2024 Telephone encounter Note Phone note written 11/07/24 regarding serum HCG levels. Please have patient keep scheduled appointment with formal ultrasound. Review pain/ bleeding precautions. Leila Moody APRN.CNM [facility] Work Phone: 11-08-2024 Miscellaneous Notes Phone note written 11/07/24 regarding serum HCG levels. Please have patient keep scheduled appointment with formal ultrasound. Review pain/ bleeding precautions. Leila Moody APRN.CNM Patient had repeat quant done on 11/06 at [facility], result [id number]. On 11/03 HCG quant was 3,845. Patient has ultrasound and follow up on 11/10. New OB is scheduled for 11/17. Can you review results? Ban Robbins RN documented in this encounter [facility] 11-08-2024 Telephone encounter Note Patient had repeat quant done on 11/06 at [facility], result [id number]. On 11/03 HCG quant was 3,845. Patient has ultrasound and follow up on 11/10. New OB is scheduled for 11/17. Can you review results? Ban Robbins RN [facility] 11-07-2024 Telephone encounter Note Pt notified. Appts scheduled. Elena Ritter RN [facility] 11-07-2024 Miscellaneous Notes Pt notified. Appts scheduled. Elena Ritter RN Serum hCG increasing. Due to pain and history of SAB, would recommend formal ultrasound this week with visit to follow. Thank you, Nicole Siddiqui APRN.CNM Patient had 2nd hcg quant [facility] with [facility]. Scanned into epic and linked below. Saw on 11/03. Please review since she is out of office today. hCG Quantitative, Blood (mIU/mL) Date Value 11/03/2024 3,845.0 At [facility] 11/06/2024 9,953.0 At [facility] Scan on 11/07/2024 8:13 AM by Provider, External, PACaroleC: HCG Quant Livia Mcintosh RN documented in this encounter [facility] 11-07-2024 Telephone encounter Note Serum hCG increasing. Due to pain and history of SAB, would recommend formal ultrasound this week with visit to follow. Thank you, Nicole Siddiqui APRN.CNM [facility] 11-07-2024 Telephone encounter Note Patient had 2nd hcg quant [facility] with [facility]. Scanned into epic and linked below. Saw on 11/03. Please review since she is out of office today. hCG Quantitative, Blood (mIU/mL) Date Value 11/03/2024 3,845.0 At [facility] 11/06/2024 9,953.0 At [facility] Scan on 11/07/2024 8:13 AM by Provider, External, BELÉNC: HCG Quant Livia Mcintosh RN [facility] 11-03-2024 Note HNO ID: [id number] Author: CHANCE GOMEZ MD Service: ? Author Type: Physician Type: Progress Notes Filed: 11/03/2024 09:45 Note Text: Hat Sizer offered: Patient declines. Michelle Choi is a 19 year old female who presents for problem visit - LLQ pain, diarrhea, vaginal discharge. HPI: LMP approximately 09/26/24. Regular menstrual cycles since SAB. Had recent SAB. Has a left sided pressure pain that started yesterday. At times also has pain on the right side. Pain 3/10. The pain comes and goes. Nothing that makes the pain worse or better. No bleeding. The vaginal discharge and diarrhea started a few days ago. Tolerating PO. One episode of diarrhea a day. No fevers, chills, vomiting. No vaginal itching, burning, discomfort. OB History Gravida0 Para0 Term0 Preterm0 AB0 Living0 SAB0 IAB0 Ectopic0 Multiple0 Live Births0 Hydrochloric Acid Operator History LMP: 09/27/2024 (Exact Date), Having periods Age at Menarche: 8 Age at First : Age at Menopause: Hydrochloric Acid Operator History Comments: Sexual Activity: Yes; Male Contraception: None Menstrual Tracking History Flowsheet Row Office Visit from 05/26/2024 in OB/Gynecology Period Cycle (Days) 4 Period Duration (Days) 3 Menstrual Flow Light PAST MEDICAL HISTORY Diagnosis Date NEGATIVE MEDICAL HISTORY PAST SURGICAL HISTORY Procedure Laterality Date NONE FAMILY HISTORY Problem Relation Age of Onset Cancer Mother 30's- vaginal cancer Social History Tobacco Use Smoking status: Never Smokeless tobacco: Never Vaping Use Vaping status: Former Substance Use Topics Alcohol use: Not Currently Drug use: Not Currently No current outpatient medications on file. No current facility-administered medications for this visit. Allergies As of Date: 11/03/2024 Allergen Noted Reaction CIPROFLOXACIN 08/16/2023 Hives AMOXICILLIN 09/15/2022 Hives NITROFURANTOIN MONOHYD/M-CRYST 08/15/2023 Hives PENICILLINS 09/15/2022 Hives Fully Assessed 11/03/2024 REVIEW OF SYSTEMS Expanded ROS: See HPI. Allergies and current medication updated:Yes SENSITIVE EXAM: The sensitive examination was discussed with the Patient or Patient's Authorized Loan Officer Assistant. As applicable, any other physician, advance practice provider, medical student, or other health professional student that will be observing or involved in the sensitive examination for educational or training purposes was discussed with the Patient or Authorized Loan Officer Assistant. The Patient or Authorized Loan Officer Assistant has agreed to proceed with the sensitive examination. (Sensitive examination includes inspection and/or palpation of the breasts, pelvis, prostate and anorectal regions). EXAM: BP 100/64 Wt 138 lb 6.4 oz (62.8kg) LMP 09/27/2024 GENERAL: pleasant, female in no apparent distress HEENT: Normocephalic and atraumatic NECK: full range of motion DERMATOLOGY: Normal and without lesions CHEST: Normal inspiratory effort ABDOMEN: Non tender, soft, non distended, no rebounding, no guarding, no rigidity PELVIC: external genitalia normal, normal Bartholin's glands, urethra, [place]'s glands, no vulvar lesions, no cervical lesions, good vaginal support, physiologic discharge present, normal appearing perineal body and perianal region NEURO: exam grossly non-focal EXTREMITIES: normal ASSESSMENT AND PLAN: Assessment AND Plan Vaginal discharge Orders: BACTERIAL VAGINOSIS NAAT ANA MARIA/TRICHOMONAS NAAT GONORRHEA/CHLAMYDIA NAAT Early stage of (HCC) Orders: HCG QUANTITATIVE; Future HCG QUANTITATIVE; Future Pelvic pain during (HCC) Orders: HCG QUANTITATIVE; Future HCG QUANTITATIVE; Future History of miscarriage Check vaginal swabs as noted above. Discussed miscarriage and ectopic precautions. Serial HCG ordered. Chance Gomez DO Medical Decision Making: Problems: Moderate: New problem with uncertain prognosis Data: Unique test(s) ordered: 3+ Medical Decision Making Level: 4 - Moderate [facility] 11-03-2024 History of Present illness Narrative Hat Sizer offered: Patient declines. Michelle Choi is a 19 year old female who presents for problem visit - LLQ pain, diarrhea, vaginal discharge. HPI: LMP approximately 09/26/24. Regular menstrual cycles since SAB. Had recent SAB. Has a left sided pressure pain that started yesterday. At times also has pain on the right side. Pain 3/10. The pain comes and goes. Nothing that makes the pain worse or better. No bleeding. The vaginal discharge and diarrhea started a few days ago. Tolerating PO. One episode of diarrhea a day. No fevers, chills, vomiting. No vaginal itching, burning, discomfort. OB History Gravida0 Para0 Term0 Preterm0 AB0 Living0 SAB0 IAB0 Ectopic0 Multiple0 Live Births0 Hydrochloric Acid Operator History LMP: 09/27/2024 (Exact Date), Having periods Age at Menarche: 8 Age at First : Age at Menopause: Hydrochloric Acid Operator History Comments: Sexual Activity: Yes; Male Contraception: None Menstrual Tracking History Flowsheet Row Office Visit from 05/26/2024 in OB/Gynecology Period Cycle (Days) 4 Period Duration (Days) 3 Menstrual Flow Light PAST MEDICAL HISTORY Diagnosis Date NEGATIVE MEDICAL HISTORY PAST SURGICAL HISTORY Procedure Laterality Date NONE FAMILY HISTORY Problem Relation Age of Onset Cancer Mother 30's- vaginal cancer Social History Tobacco Use Smoking status: Never Smokeless tobacco: Never Vaping Use Vaping status: Former Substance Use Topics Alcohol use: Not Currently Drug use: Not Currently No current outpatient medications on file. No current facility-administered medications for this visit. Allergies As of Date: 11/03/2024 Allergen Noted Reaction CIPROFLOXACIN 08/16/2023 Hives AMOXICILLIN 09/15/2022 Hives NITROFURANTOIN MONOHYD/M-CRYST 08/15/2023 Hives PENICILLINS 09/15/2022 Hives Fully Assessed 11/03/2024 REVIEW OF SYSTEMS Expanded ROS: See HPI. Allergies and current medication updated:Yes SENSITIVE EXAM: The sensitive examination was discussed with the Patient or Patient's Authorized Loan Officer Assistant. As applicable, any other physician, advance practice provider, medical student, or other health professional student that will be observing or involved in the sensitive examination for educational or training purposes was discussed with the Patient or Authorized Loan Officer Assistant. The Patient or Authorized Loan Officer Assistant has agreed to proceed with the sensitive examination. (Sensitive examination includes inspection and/or palpation of the breasts, pelvis, prostate and anorectal regions). EXAM: BP 100/64 Wt 138 lb 6.4 oz (62.8kg) LMP 09/27/2024 GENERAL: pleasant, female in no apparent distress HEENT: Normocephalic and atraumatic NECK: full range of motion DERMATOLOGY: Normal and without lesions CHEST: Normal inspiratory effort ABDOMEN: Non tender, soft, non distended, no rebounding, no guarding, no rigidity PELVIC: external genitalia normal, normal Bartholin's glands, urethra, [place]'s glands, no vulvar lesions, no cervical lesions, good vaginal support, physiologic discharge present, normal appearing perineal body and perianal region NEURO: exam grossly non-focal EXTREMITIES: normal ASSESSMENT AND PLAN: Assessment & Plan Vaginal discharge Orders: BACTERIAL VAGINOSIS NAAT ANA MARIA/TRICHOMONAS NAAT GONORRHEA/CHLAMYDIA NAAT Early stage of (HCC) Orders: HCG QUANTITATIVE; Future HCG QUANTITATIVE; Future Pelvic pain during (HCC) Orders: HCG QUANTITATIVE; Future HCG QUANTITATIVE; Future History of miscarriage Check vaginal swabs as noted above. Discussed miscarriage and ectopic precautions. Serial HCG ordered. Chance Gomez DO Medical Decision Making: Problems: Moderate: New problem with uncertain prognosis Data: Unique test(s) ordered: 3+ Medical Decision Making Level: 4 - Moderate documented in this encounter [facility] 11-02-2024 Telephone encounter Note Called Pt and offered appt. Appt scheduled with SW tomorrow. Elena Ritter RN [facility] 11-02-2024 Miscellaneous Notes Called Pt and offered appt. Appt scheduled with SW tomorrow. Elena Ritter RN offer appointment tomorrow w/ SW she will be in office in am. Sommer Garcia MD LMP 09/26/24, ega 5w2d Pt states this is her 3rd and other 2 ended in a miscarriage. Pt calling stating she is having left sided lower abdominal cramping. Sitting improves cramping. Has not taken tylenol. Denies vaginal bleeding. States at worse pain is 4/10. Pt states more nervous with past miscarriages. Advised Pt that she can take tylenol to see if it helps and may take 1,000mg every 6 hours as needed. Advised Pt to continue to monitor for severe abdominal pain & vaginal bleeding and if noted to call the office/go to ER. Pt voiced understanding. Pt has NOB appt scheduled on 11/17. Advised Pt that would route message to o/c MD and if further guidance is needed, she'd be notified. Elena Ritter RN documented in this encounter [facility] 11-02-2024 Telephone encounter Note offer appointment tomorrow w/ SW she will be in office in am. Sommer Garcia MD [facility] 11-02-2024 Telephone encounter Note LMP 09/26/24, ega 5w2d Pt states this is her 3rd and other 2 ended in a miscarriage. Pt calling stating she is having left sided lower abdominal cramping. Sitting improves cramping. Has not taken tylenol. Denies vaginal bleeding. States at worse pain is 4/10. Pt states more nervous with past miscarriages. Advised Pt that she can take tylenol to see if it helps and may take 1,000mg every 6 hours as needed. Advised Pt to continue to monitor for severe abdominal pain & vaginal bleeding and if noted to call the office/go to ER. Pt voiced understanding. Pt has NOB appt scheduled on 11/17. Advised Pt that would route message to o/c MD and if further guidance is needed, she'd be notified. Elena Ritter RN [facility] 10-07-2024 Note HNO ID: [id number] Author: TRAVIS BROWNE PA Service: ? Author Type: Physician Glass Decorator Type: Progress Notes Filed: 10/07/2024 13:57 Note Text: [facility] Subjective Michelle Choi is a 19 year old female. Patient presents with: Derm Problem: Possible poison fani on bilateral legs, bilateral arms, abdomen and back x 10 days, denies open sores HPI 19-year-old female presents for possible poison fani. She states that she noticed a rash on her legs, arms, abdomen, back for the past 10 days. Started on the arms, but has now spread. She states it is itchy. She has been using poison fani spray and lotion [id number] without improvement. She denies any fevers. No get difficulty swallowing or breathing. She states she was outside, but unknown if she was exposed to anything specific. No new medications, detergents, body washes, foods or medications. PAST MEDICAL HISTORY Diagnosis Date NEGATIVE MEDICAL HISTORY PAST SURGICAL HISTORY Procedure Laterality Date NONE ALLERGIES Ciprofloxacin, Amoxicillin, Nitrofurantoin Monohyd/M-Cryst, and Penicillins MEDICATIONS predniSONE (DELTASONE) 10 mg tablet Take 4 tabs daily x 3 days, then 3 tabs x 3 days, 2 tabs x 3 days, then 1 tab x3 days with food. meloxicam (MOBIC) 7.5 mg tablet Take 1 tablet by mouth once daily. (Patient not taking: Reported on 08/21/2024) hydrOXYzine HCl (ATARAX) 25 mg tablet Take by mouth. (Patient not taking: Reported on 08/21/2024) SUMAtriptan (IMITREX) 100 mg tablet (Patient not taking: Reported on 08/21/2024) FLUoxetine (PROZAC) 20 mg capsule Take 20 mg by mouth once daily. (Patient not taking: Reported on 08/21/2024) Norgestimate-Ethinyl Estradiol 0.18/0.215/0.25 mg-35 mcg (28) Take 1 tablet by mouth once daily. (Patient not taking: Reported on 08/21/2024) FAMILY HISTORY Problem Relation Age of Onset Cancer Mother 30's- vaginal cancer Social History Tobacco Use Smoking status: Never Smokeless tobacco: Never Vaping Use Vaping status: Former Substance Use Topics Alcohol use: Not Currently Drug use: Not Currently Review of Systems Constitutional: Negative for chills and fever. HENT: Negative for sore throat. Skin: Positive for rash. Objective BP 110/78 (BP Site: Left Arm, BP Position: Sitting) Pulse 70 Temp 36.2 ?C (97.2 ?F) Resp 16 Wt 62.8 kg (138 lb 7.2 oz) LMP 09/27/2024 (Exact Date) SpO2 99% BMI 26.79 kg/m? Physical Exam Vitals and nursing note reviewed. Constitutional: General: She is not in acute distress. Appearance: Normal appearance. She is not toxic-appearing. Skin: General: Skin is warm and dry. Findings: Rash present. Comments: Erythematous raised rash noted over bilateral arms, back, abdomen, legs. Some linear lesions. No drainage. No fluctuance or abscess. No oral or facial involvement Neurological: Mental Status: She is alert. {ASSESSMENT/PLAN: 1. Allergic contact dermatitis, unspecified trigger - ICD9: 692.9, ICD10: L23.9 - Oral Steriod tx -Prednisone taper - Anti itch therapy of Calomine lotion and Oral Benydryl recommended prn - discussed skin care of rash - follow up if symptoms persist or worsen. Diagnosis and treatment plan were discussed and questions were answered to the patient's satisfaction. Pt acknowledged understanding of concepts and follow up plan. Specific signs and symptoms that would indicate the need for higher level of care were discussed in detail warranting prompt ER evaluation. NOHEMI Serrato History and Record Review External record(s) reviewed: prior outpatient record. Differential Diagnoses - Contact dermatitis is more likely for the following reason(s): suggested by HANDP - Herpes zoster is less likely for the following reason(s): HANDP not suggestive - Cellulitis is less likely for the following reason(s): HANDP not suggestive Disposition The patient was discharged. Procedures [facility] 10-07-2024 History of Present illness Narrative [facility] Subjective Michelle Choi is a 19 year old female. Patient presents with: Derm Problem: Possible poison fani on bilateral legs, bilateral arms, abdomen and back x 10 days, denies open sores HPI 19-year-old female presents for possible poison fani. She states that she noticed a rash on her legs, arms, abdomen, back for the past 10 days. Started on the arms, but has now spread. She states it is itchy. She has been using poison fani spray and lotion [id number] without improvement. She denies any fevers. No get difficulty swallowing or breathing. She states she was outside, but unknown if she was exposed to anything specific. No new medications, detergents, body washes, foods or medications. PAST MEDICAL HISTORY Diagnosis Date NEGATIVE MEDICAL HISTORY PAST SURGICAL HISTORY Procedure Laterality Date NONE ALLERGIES Ciprofloxacin, Amoxicillin, Nitrofurantoin Monohyd/M-Cryst, and Penicillins MEDICATIONS predniSONE (DELTASONE) 10 mg tablet Take 4 tabs daily x 3 days, then 3 tabs x 3 days, 2 tabs x 3 days, then 1 tab x3 days with food. meloxicam (MOBIC) 7.5 mg tablet Take 1 tablet by mouth once daily. (Patient not taking: Reported on 08/21/2024) hydrOXYzine HCl (ATARAX) 25 mg tablet Take by mouth. (Patient not taking: Reported on 08/21/2024) SUMAtriptan (IMITREX) 100 mg tablet (Patient not taking: Reported on 08/21/2024) FLUoxetine (PROZAC) 20 mg capsule Take 20 mg by mouth once daily. (Patient not taking: Reported on 08/21/2024) Norgestimate-Ethinyl Estradiol 0.18/0.215/0.25 mg-35 mcg (28) Take 1 tablet by mouth once daily. (Patient not taking: Reported on 08/21/2024) FAMILY HISTORY Problem Relation Age of Onset Cancer Mother 30's- vaginal cancer Social History Tobacco Use Smoking status: Never Smokeless tobacco: Never Vaping Use Vaping status: Former Substance Use Topics Alcohol use: Not Currently Drug use: Not Currently Review of Systems Constitutional: Negative for chills and fever. HENT: Negative for sore throat. Skin: Positive for rash. Objective BP 110/78 (BP Site: Left Arm, BP Position: Sitting) Pulse 70 Temp 36.2 C (97.2 F) Resp 16 Wt 62.8 kg (138 lb 7.2 oz) LMP 09/27/2024 (Exact Date) SpO2 99% BMI 26.79 kg/m Physical Exam Vitals and nursing note reviewed. Constitutional: General: She is not in acute distress. Appearance: Normal appearance. She is not toxic-appearing. Skin: General: Skin is warm and dry. Findings: Rash present. Comments: Erythematous raised rash noted over bilateral arms, back, abdomen, legs. Some linear lesions. No drainage. No fluctuance or abscess. No oral or facial involvement Neurological: Mental Status: She is alert. {ASSESSMENT/PLAN: 1. Allergic contact dermatitis, unspecified trigger - ICD9: 692.9, ICD10: L23.9 - Oral Steriod tx -Prednisone taper - Anti itch therapy of Calomine lotion and Oral Benydryl recommended prn - discussed skin care of rash - follow up if symptoms persist or worsen. Diagnosis and treatment plan were discussed and questions were answered to the patient's satisfaction. Pt acknowledged understanding of concepts and follow up plan. Specific signs and symptoms that would indicate the need for higher level of care were discussed in detail warranting prompt ER evaluation. NOHEMI Serrato History and Record Review External record(s) reviewed: prior outpatient record. Differential Diagnoses - Contact dermatitis is more likely for the following reason(s): suggested by H&P - Herpes zoster is less likely for the following reason(s): H&P not suggestive - Cellulitis is less likely for the following reason(s): H&P not suggestive Disposition The patient was discharged. Procedures documented in this encounter [facility] 08-21-2024 Note HNO ID: [id number] Author: JUANCARLOS CARMEN APRN.ENGINE DYNAMOMETER TESTER Service: ? Author Type: Nurse Practitioner Type: Progress Notes Filed: 08/21/2024 17:58 Note Text: This note was created using hopToriter. Subjective Michelle Choi is a 19 year old female. HPI Pt has had pelvic and back pain with intercourse and urination. Review of Systems Constitutional: Negative for fever. Gastrointestinal: Negative for nausea and vomiting. Genitourinary: Positive for dyspareunia and frequency. Negative for hematuria. Objective BP 110/76 Pulse 78 Temp 37.3 ?C (99.1 ?F) Resp 16 Wt 62.2 kg (137 lb 2 oz) LMP 06/09/2024 SpO2 99% BMI 26.54 kg/m? Physical Exam Vitals and nursing note reviewed. Constitutional: General: She is not in acute distress. Appearance: Normal appearance. She is not ill-appearing. HENT: Head: Normocephalic. Mouth/Throat: Mouth: Mucous membranes are moist. Eyes: Conjunctiva/sclera: Conjunctivae normal. Cardiovascular: Rate and Rhythm: Normal rate and regular rhythm. Pulmonary: Effort: Pulmonary effort is normal. Breath sounds: Normal breath sounds. Abdominal: Palpations: Abdomen is soft. Tenderness: There is no abdominal tenderness. There is no right CVA tenderness, left CVA tenderness or guarding. Musculoskeletal: General: Normal range of motion. Cervical back: Normal range of motion. Skin: General: Skin is warm and dry. Neurological: General: No focal deficit present. Mental Status: She is alert. Psychiatric: Mood and Affect: Mood normal. Behavior: Behavior normal. Assessment and Plan ASSESSMENT/PLAN: 1. Pelvic pressure in female - ICD9: 625.8, ICD10: R10.2 -Urinalysis negative today with no nitrates or leukocytes noted. Urine was sent for culture and should be treated based on culture results. Patient denies any concerns for STDs. She is approximately 3 weeks out from miscarriage with a negative test today. She did self swab for trichomonas and BV with no treatment initiated at this time and patient should be treated according to test results. Patient was otherwise instructed that she should continue to follow-up with [facility] if symptoms are not improving - UA DIP, URINE (POC) - BACTERIAL CULTURE, URINE - BACTERIAL VAGINOSIS NAAT - TRICHOMONAS VAGINALIS NAAT Juancarlos Carmen APRN.CNP [facility] 08-21-2024 History of Present illness Narrative This note was created using Replise. Subjective Michelle Choi is a 19 year old female. HPI Pt has had pelvic and back pain with intercourse and urination. Review of Systems Constitutional: Negative for fever. Gastrointestinal: Negative for nausea and vomiting. Genitourinary: Positive for dyspareunia and frequency. Negative for hematuria. Objective BP 110/76 Pulse 78 Temp 37.3 C (99.1 F) Resp 16 Wt 62.2 kg (137 lb 2 oz) LMP 06/09/2024 SpO2 99% BMI 26.54 kg/m Physical Exam Vitals and nursing note reviewed. Constitutional: General: She is not in acute distress. Appearance: Normal appearance. She is not ill-appearing. HENT: Head: Normocephalic. Mouth/Throat: Mouth: Mucous membranes are moist. Eyes: Conjunctiva/sclera: Conjunctivae normal. Cardiovascular: Rate and Rhythm: Normal rate and regular rhythm. Pulmonary: Effort: Pulmonary effort is normal. Breath sounds: Normal breath sounds. Abdominal: Palpations: Abdomen is soft. Tenderness: There is no abdominal tenderness. There is no right CVA tenderness, left CVA tenderness or guarding. Musculoskeletal: General: Normal range of motion. Cervical back: Normal range of motion. Skin: General: Skin is warm and dry. Neurological: General: No focal deficit present. Mental Status: She is alert. Psychiatric: Mood and Affect: Mood normal. Behavior: Behavior normal. Assessment and Plan ASSESSMENT/PLAN: 1. Pelvic pressure in female - ICD9: 625.8, ICD10: R10.2 -Urinalysis negative today with no nitrates or leukocytes noted. Urine was sent for culture and should be treated based on culture results. Patient denies any concerns for STDs. She is approximately 3 weeks out from miscarriage with a negative test today. She did self swab for trichomonas and BV with no treatment initiated at this time and patient should be treated according to test results. Patient was otherwise instructed that she should continue to follow-up with [facility] if symptoms are not improving - UA DIP, URINE (POC) - BACTERIAL CULTURE, URINE - BACTERIAL VAGINOSIS NAAT - TRICHOMONAS VAGINALIS NAAT Juancarlos Carmen APRN.ENGINE DYNAMOMETER TESTER documented in this encounter [facility] 08-01-2024 Telephone encounter Note Letter went through with updated fax #. Colleen Potts RN [facility] 08-01-2024 Miscellaneous Notes Letter went through with updated fax #. Colleen Potts RN Letter prepared and faxed. Colleen Potts RN Please write noted Primitivo Delgado MD Please review in SW absence. Thank you. documented in this encounter [facility] [facility] 08-01-2024 Telephone encounter Note Letter prepared and faxed. Colleen Potts RN [facility] 08-01-2024 Telephone encounter Note Please write noted Primitivo Delgado MD [facility] Work Phone: 08-01-2024 Telephone encounter Note Please review in SW absence. Thank you. [facility] 07-31-2024 Note HNO ID: [id number] Author: CHANCE GOMEZ MD Service: ? Author Type: Physician Type: Progress Notes Filed: 07/31/2024 17:33 Note Text: Michelle Choi is a 19 year old female who presents for ER follow up. HPI: LMP 06/09/24 exact with regular menstrual cycles. Spotting Wednesday and now passing some blood clots with cramping. The clots are the size of a quarter-golf ball. Changing a pad every few hours with dark red blood. Had pelvic US in the ER over the weekend and have live IUP CRL 6w2d. OB History Gravida0 Para0 Term0 Preterm0 AB0 Living0 SAB0 IAB0 Ectopic0 Multiple0 Live Births0 Hydrochloric Acid Operator History LMP: 06/09/2024, Having periods Age at Menarche: 8 Age at First : Age at Menopause: Hydrochloric Acid Operator History Comments: Sexual Activity: Yes; Male Contraception: None Menstrual Tracking History Flowsheet Row Office Visit from 05/26/2024 in OB/Gynecology Period Cycle (Days) 4 Period Duration (Days) 3 Menstrual Flow Light PAST MEDICAL HISTORY Diagnosis Date NEGATIVE MEDICAL HISTORY PAST SURGICAL HISTORY Procedure Laterality Date NONE FAMILY HISTORY Problem Relation Age of Onset Cancer Mother 30's- vaginal cancer Social History Tobacco Use Smoking status: Never Smokeless tobacco: Never Vaping Use Vaping status: Former Substance Use Topics Alcohol use: Not Currently Drug use: Not Currently Current Outpatient Medications Medication Sig meloxicam (MOBIC) 7.5 mg tablet Take 1 tablet by mouth once daily. hydrOXYzine HCl (ATARAX) 25 mg tablet Take by mouth. SUMAtriptan (IMITREX) 100 mg tablet FLUoxetine (PROZAC) 20 mg capsule Take 20 mg by mouth once daily. Norgestimate-Ethinyl Estradiol 0.18/0.215/0.25 mg-35 mcg (28) Take 1 tablet by mouth once daily. No current facility-administered medications for this visit. Allergies As of Date: 07/31/2024 (No Known Allergies) Fully Assessed 07/31/2024 REVIEW OF SYSTEMS Expanded ROS: N/A Allergies and current medication updated:Yes SENSITIVE EXAM: The sensitive examination was discussed with the Patient or Patient's Authorized Loan Officer Assistant. As applicable, any other physician, advance practice provider, medical student, or other health professional student that will be observing or involved in the sensitive examination for educational or training purposes was discussed with the Patient or Authorized Loan Officer Assistant. The Patient or Authorized Loan Officer Assistant has agreed to proceed with the sensitive examination. (Sensitive examination includes inspection and/or palpation of the breasts, pelvis, prostate and anorectal regions). EXAM: BP 100/60 Wt 126 lb 6.4 oz (57.3kg) LMP 06/09/2024 GENERAL: pleasant, female in no apparent distress HEENT: Normocephalic and atraumatic NECK: full range of motion CHEST: Normal inspiratory effort ABDOMEN: soft, non-tender, and no masses PELVIC: external genitalia normal, normal Bartholin's glands, urethra, [place]'s glands, no vulvar lesions, no cervical lesions, good vaginal support, normal appearing perineal body and perianal region, cervix visually closed with scant dark red blood in vaginal vault NEURO: exam grossly non-focal EXTREMITIES: normal ASSESSMENT AND PLAN: Assessment AND Plan Bleeding in early Spontaneous miscarriage Orders: HCG QUANTITATIVE; Standing Reviewed ER records from visit over the weekend. Bedside TVUS performed showing EMS 4 mm and no evidence of IUP or retained tissue. SAB discussed and questions answered. Discussed bleeding expectations. Recommend serial HCG levels and waiting to conceive until negative. Had CBC and TANDS in ER. HCG levels ordered. Chance Gomez, Medical Decision Making: Problems: Moderate: New problem with uncertain prognosis Data: Unique test(s) ordered: 1 Independent interpretation of test from other physician/QHCP Risk: Minimal: Minimal risk from testing/treatment Medical Decision Making Level: 4 - Moderate [facility] 07-31-2024 History of Present illness Narrative Michelle Choi is a 19 year old female who presents for ER follow up. HPI: LMP 06/09/24 exact with regular menstrual cycles. Spotting Wednesday and now passing some blood clots with cramping. The clots are the size of a quarter-golf ball. Changing a pad every few hours with dark red blood. Had pelvic US in the ER over the weekend and have live IUP CRL 6w2d. OB History Gravida0 Para0 Term0 Preterm0 AB0 Living0 SAB0 IAB0 Ectopic0 Multiple0 Live Births0 Hydrochloric Acid Operator History LMP: 06/09/2024, Having periods Age at Menarche: 8 Age at First : Age at Menopause: Hydrochloric Acid Operator History Comments: Sexual Activity: Yes; Male Contraception: None Menstrual Tracking History Flowsheet Row Office Visit from 05/26/2024 in OB/Gynecology Period Cycle (Days) 4 Period Duration (Days) 3 Menstrual Flow Light PAST MEDICAL HISTORY Diagnosis Date NEGATIVE MEDICAL HISTORY PAST SURGICAL HISTORY Procedure Laterality Date NONE FAMILY HISTORY Problem Relation Age of Onset Cancer Mother 30's- vaginal cancer Social History Tobacco Use Smoking status: Never Smokeless tobacco: Never Vaping Use Vaping status: Former Substance Use Topics Alcohol use: Not Currently Drug use: Not Currently Current Outpatient Medications Medication Sig meloxicam (MOBIC) 7.5 mg tablet Take 1 tablet by mouth once daily. hydrOXYzine HCl (ATARAX) 25 mg tablet Take by mouth. SUMAtriptan (IMITREX) 100 mg tablet FLUoxetine (PROZAC) 20 mg capsule Take 20 mg by mouth once daily. Norgestimate-Ethinyl Estradiol 0.18/0.215/0.25 mg-35 mcg (28) Take 1 tablet by mouth once daily. No current facility-administered medications for this visit. Allergies As of Date: 07/31/2024 (No Known Allergies) Fully Assessed 07/31/2024 REVIEW OF SYSTEMS Expanded ROS: N/A Allergies and current medication updated:Yes SENSITIVE EXAM: The sensitive examination was discussed with the Patient or Patient's Authorized Loan Officer Assistant. As applicable, any other physician, advance practice provider, medical student, or other health professional student that will be observing or involved in the sensitive examination for educational or training purposes was discussed with the Patient or Authorized Loan Officer Assistant. The Patient or Authorized Loan Officer Assistant has agreed to proceed with the sensitive examination. (Sensitive examination includes inspection and/or palpation of the breasts, pelvis, prostate and anorectal regions). EXAM: BP 100/60 Wt 126 lb 6.4 oz (57.3kg) LMP 06/09/2024 GENERAL: pleasant, female in no apparent distress HEENT: Normocephalic and atraumatic NECK: full range of motion CHEST: Normal inspiratory effort ABDOMEN: soft, non-tender, and no masses PELVIC: external genitalia normal, normal Bartholin's glands, urethra, [place]'s glands, no vulvar lesions, no cervical lesions, good vaginal support, normal appearing perineal body and perianal region, cervix visually closed with scant dark red blood in vaginal vault NEURO: exam grossly non-focal EXTREMITIES: normal ASSESSMENT AND PLAN: Assessment & Plan Bleeding in early Spontaneous miscarriage Orders: HCG QUANTITATIVE; Standing Reviewed ER records from visit over the weekend. Bedside TVUS performed showing EMS 4 mm and no evidence of IUP or retained tissue. SAB discussed and questions answered. Discussed bleeding expectations. Recommend serial HCG levels and waiting to conceive until negative. Had CBC and T&S in ER. HCG levels ordered. Chance Gomez DO Medical Decision Making: Problems: Moderate: New problem with uncertain prognosis Data: Unique test(s) ordered: 1 Independent interpretation of test from other physician/QHCP Risk: Minimal: Minimal risk from testing/treatment Medical Decision Making Level: 4 - Moderate documented in this encounter [facility] 07-31-2024 Instructions Ella Jaimes MA - 07/31/2024 9:38 AM EST SEQUENTIAL SCREENINGS The [facility] offers sequential screenings for women who are interested in screenings for chromosomal abnormalities and certain defects during a . The sequential screen combines ultrasound and blood tests to determine the risk of chromosomal abnormalities, including Down's Syndrome (Trisomy 21) and Trisomy 18, as well as open neural tube defects including spina bifida. Ultrasound examination is performed between 11 weeks and 13 weeks gestational age. Blood tests are drawn after the ultrasound and again later in the between 15 and 21 weeks gestational age. Please let your physician know if you are interested in this testing. It will require an appointment with our dairy laboratory technician. This is not an ultrasound performed by a physician in our office during a routine visit. SIGNS AND SYMPTOMS OF LABOR 1. Contractions every 10 minutes or more often 2. Clear, pink, or brownish fluid (water) leaking from vagina 3. Feeling that baby is pushing down, pressure 4. Low, dull backache 5. Cramps that feel like a period 6. Cramps with or without diarrhea If you notice any of the above symptoms, contact our office at [phone] and ask to speak with a nurse. After hours, you can call doctors registry at [phone] OR call [facility] at [phone] and ask to have the doctor manager implementation paged. If you consider this an emergency, dial [phone] or go to your nearest emergency department. NEED HELP? Are you dealing with a violent or abusive relationship? Are you a victim of rape or sexual assult? Call [facility] ([place]) 24 hour Crisis Hotline: 374.585.9575 or 720-644-3342. MANUAL Your Guide to a Healthy manual is now on-line. Visit [email or web address] to download your free copy documented in this encounter [facility] 05-26-2024 Note HNO ID: [id number] Author: COLLEEN ROTHMAN MD Service: ? Author Type: Physician Type: Progress Notes Filed: 05/26/2024 08:48 Note Text: Patient declined atomic welderDominga Gordon is a 19 year old who presents for an annual gynecologic exam without complaints. Stopped BC a year ago. Ok if happens. 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 LMP: 05/12/2024, Having periods Age at Menarche: 8 Age at First : Age at Menopause: Hydrochloric Acid Operator History Comments: Sexual Activity: Yes; No partner data on record Contraception: Pill Menstrual Tracking History Flowsheet Row Office Visit from 05/26/2024 in OB/Gynecology Period Cycle (Days) 4 Period Duration (Days) 3 Menstrual Flow Light PAST MEDICAL HISTORY Diagnosis Date NEGATIVE MEDICAL HISTORY PAST SURGICAL HISTORY Procedure Laterality Date NONE FAMILY HISTORY Problem Relation Age of Onset Cancer Mother 30's- vaginal cancer SOCIAL HISTORY Social History Tobacco Use Smoking status: Never Smokeless tobacco: Never Vaping Use Vaping status: Former Substance Use Topics Alcohol use: Not Currently Drug use: Not Currently REVIEW OF SYSTEMS Abdomen: No abdominal pain, nausea, vomiting, diarrhea, or constipation. No bloating, early satiety, indigestion, or increased flatulence. Bladder: No dysuria, gross hematuria, urinary frequency, urinary urgency, or incontinence. Breast: No breast lumps, nipple d/c, overlying skin changes, redness or skin retraction. Allergies and current medication updated:Yes SENSITIVE EXAM: The sensitive examination was discussed with the Patient or Patient's Authorized Loan Officer Assistant. As applicable, any other physician, advance practice provider, medical student, or other health professional student that will be observing or involved in the sensitive examination for educational or training purposes was discussed with the Patient or Authorized Loan Officer Assistant. The Patient or Authorized Loan Officer Assistant has agreed to proceed with the sensitive examination. (Sensitive examination includes inspection and/or palpation of the breasts, pelvis, prostate and anorectal regions). EXAM: LMP 05/12/2024 GENERAL: pleasant, female in no apparent distress HEENT: Normocephalic, atraumatic, mucus membranes moist, and no lesions NECK: Supple, full range of motion, no adenopathy, and thyroid normal DERMATOLOGY: Normal, without lesions, non-icteric, and non-hirsute BREAST: soft, non-tender, symmetric, no dominant mass, normal nipple-areolar complex, no lymphadenopathy, and no nipple discharge CHEST: Normal inspiratory effort ABDOMEN: soft, non-tender, and no masses PELVIC: external genitalia normal, normal Bartholin's glands, urethra, [place]'s glands, no vulvar lesions, no cervical lesions, good vaginal support, physiologic discharge present, normal appearing perineal body and perianal region BIMANUAL: uterus normal size, shape and consistency, no adnexal masses, and non-tender RECTOVAGINAL: deferred. NEURO: alert and oriented x3,exam grossly non-focal EXTREMITIES: normal ASSESSMENT/PLAN: 1) Health maintenance: Pap done with reflex HPV. 2) Contraception: none. Contraceptive options reviewed and information provided. 3) STD screening: Declined STD check. 4) Follow up one year or sooner as needed Colleen Rothman MD [facility] 05-26-2024 History of Present illness Narrative 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 Michelle is a 19 year old who presents for an annual gynecologic exam without complaints. Stopped BC a year ago. Ok if happens. 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 LMP: 05/12/2024, Having periods Age at Menarche: 8 Age at First : Age at Menopause: Hydrochloric Acid Operator History Comments: Sexual Activity: Yes; No partner data on record Contraception: Pill Menstrual Tracking History Flowsheet Row Office Visit from 05/26/2024 in OB/Gynecology Period Cycle (Days) 4 Period Duration (Days) 3 Menstrual Flow Light PAST MEDICAL HISTORY Diagnosis Date NEGATIVE MEDICAL HISTORY PAST SURGICAL HISTORY Procedure Laterality Date NONE FAMILY HISTORY Problem Relation Age of Onset Cancer Mother 30's- vaginal cancer SOCIAL HISTORY Social History Tobacco Use Smoking status: Never Smokeless tobacco: Never Vaping Use Vaping status: Former Substance Use Topics Alcohol use: Not Currently Drug use: Not Currently REVIEW OF SYSTEMS Abdomen: No abdominal pain, nausea, vomiting, diarrhea, or constipation. No bloating, early satiety, indigestion, or increased flatulence. Bladder: No dysuria, gross hematuria, urinary frequency, urinary urgency, or incontinence. Breast: No breast lumps, nipple d/c, overlying skin changes, redness or skin retraction. Allergies and current medication updated:Yes SENSITIVE EXAM: The sensitive examination was discussed with the Patient or Patient's Authorized Loan Officer Assistant. As applicable, any other physician, advance practice provider, medical student, or other health professional student that will be observing or involved in the sensitive examination for educational or training purposes was discussed with the Patient or Authorized Loan Officer Assistant. The Patient or Authorized Loan Officer Assistant has agreed to proceed with the sensitive examination. (Sensitive examination includes inspection and/or palpation of the breasts, pelvis, prostate and anorectal regions). EXAM: LMP 05/12/2024 GENERAL: pleasant, female in no apparent distress HEENT: Normocephalic, atraumatic, mucus membranes moist, and no lesions NECK: Supple, full range of motion, no adenopathy, and thyroid normal DERMATOLOGY: Normal, without lesions, non-icteric, and non-hirsute BREAST: soft, non-tender, symmetric, no dominant mass, normal nipple-areolar complex, no lymphadenopathy, and no nipple discharge CHEST: Normal inspiratory effort ABDOMEN: soft, non-tender, and no masses PELVIC: external genitalia normal, normal Bartholin's glands, urethra, [place]'s glands, no vulvar lesions, no cervical lesions, good vaginal support, physiologic discharge present, normal appearing perineal body and perianal region BIMANUAL: uterus normal size, shape and consistency, no adnexal masses, and non-tender RECTOVAGINAL: deferred. NEURO: alert and oriented x3,exam grossly non-focal EXTREMITIES: normal ASSESSMENT/PLAN: 1) Health maintenance: Pap done with reflex HPV. 2) Contraception: none. Contraceptive options reviewed and information provided. 3) STD screening: Declined STD check. 4) Follow up one year or sooner as needed Colleen Rothman MD documented in this encounter [facility] 08-16-2023 History of Present illness Narrative Subjective Patient ID: Michelle Choi is a 18 y.o. female who presents for Pt here for ER f/u (Pt had reaction to medication, still has swollen lips and hands and c/o all over itchiness ). HPI Recent abx macrobid for UTI, allergic reaction of hives and systemic pruritus, some mild angioedema, 2 days ago ER stopped abx, UTI symptoms gone, ER rx benadryl/prednisone/pepcid Symptoms today have begun to clear, hives looking better, still with generalized pruritus, lip edema has improved Review of Systems Constitutional: Negative. Respiratory: Negative. Cardiovascular: Negative. Gastrointestinal: Negative. Objective BP 118/70 Pulse 94 Ht 1.524 m (5') Wt 60.3 kg (133 lb) LMP 07/27/2023 SpO2 97% BMI 25.97 kg/m Physical Exam Constitutional: General: She is not in acute distress. Appearance: Normal appearance. She is not ill-appearing. HENT: Head: Normocephalic and atraumatic. Eyes: Extraocular Movements: Extraocular movements intact. Conjunctiva/sclera: Conjunctivae normal. Cardiovascular: Rate and Rhythm: Normal rate. Pulmonary: Effort: Pulmonary effort is normal. Abdominal: General: There is no distension. Musculoskeletal: General: Normal range of motion. Cervical back: Normal range of motion. Skin: General: Skin is warm and dry. Comments: Generalized hives to entire body, no significant angioedema noted Neurological: General: No focal deficit present. Mental Status: She is alert and oriented to person, place, and time. Psychiatric: Mood and Affect: Mood normal. Behavior: Behavior normal. Thought Content: Thought content normal. Judgment: Judgment normal. Assessment/Plan Continue ER regimen minus okay to take hydroxyzine instead of Benadryl but not both together Rx Epipen to have on hand for future Follow up prn documented in this encounter [facility] Work Phone: 08-15-2023 Hospital Discharge instructions Mecca Cabral MD - 08/15/2023 8:58 PM EDT Stop taking Cipro. You will be contacted if your urine culture is positive. Return to the emergency department for difficulty breathing or swallowing. The following attachments cannot be sent through Care Everywhere._Allergic Reaction, ER, [facility]documented in this encounter [facility] Work Phone: 08-15-2023 Emergency department Note Patient is a 18-year-old female presents with a chief complaint of hives type rash and swelling of the hands. She was seen here yesterday for the same thing. She was switched from Macrobid to Cipro. It was believed this is a drug reaction. She states there is no improvement and it might be a little bit worse. No difficulty breathing or swallowing Review of Systems Physical Exam Vitals and nursing note reviewed. Constitutional: General: She is not in acute distress. Appearance: She is well-developed. HENT: Head: Normocephalic and atraumatic. Eyes: Conjunctiva/sclera: Conjunctivae normal. Cardiovascular: Rate and Rhythm: Normal rate and regular rhythm. Heart sounds: No murmur heard. Pulmonary: Effort: Pulmonary effort is normal. No respiratory distress. Breath sounds: Normal breath sounds. Abdominal: Palpations: Abdomen is soft. Tenderness: There is no abdominal tenderness. Musculoskeletal: General: No swelling. Cervical back: Neck supple. Skin: General: Skin is warm and dry. Capillary Refill: Capillary refill takes less than 2 seconds. Comments: Hives type rash primarily on the arms and lower legs. It is starting to spread into the upper chest area. Mild swelling of the hands. Neurological: Mental Status: She is alert. Psychiatric: Mood and Affect: Mood normal. Labs Reviewed - No data to display No orders to display Procedures Medical Decision Making Patient presents for evaluation of a rash consistent with hives and some mild joint swelling in the hands. She was seen here yesterday for the same thing. Her antibiotic was switched from Macrobid to Cipro. Urinalysis was still concerning for a mild urinary tract infection. She is currently asymptomatic. Urine culture was sent yesterday. I would have her stop her Cipro pending urine culture results, give her an additional dose of prednisone here in the emergency department of 40 mg p.o. and she is to continue her previous regimen of prednisone Benadryl and Pepcid. She has no difficulty breathing or swallowing. Patient can be discharged. Diagnoses as of 08/15/232058 Allergic reaction to drug, subsequent encounter Mecca Cabral MD 08/15/232058 documented in this encounter [facility] Work Phone: 08-15-2023 Physician Emergency department Note Patient is a 18-year-old female presents with a chief complaint of hives type rash and swelling of the hands. She was seen here yesterday for the same thing. She was switched from Macrobid to Cipro. It was believed this is a drug reaction. She states there is no improvement and it might be a little bit worse. No difficulty breathing or swallowing Review of Systems Physical Exam Vitals and nursing note reviewed. Constitutional: General: She is not in acute distress. Appearance: She is well-developed. HENT: Head: Normocephalic and atraumatic. Eyes: Conjunctiva/sclera: Conjunctivae normal. Cardiovascular: Rate and Rhythm: Normal rate and regular rhythm. Heart sounds: No murmur heard. Pulmonary: Effort: Pulmonary effort is normal. No respiratory distress. Breath sounds: Normal breath sounds. Abdominal: Palpations: Abdomen is soft. Tenderness: There is no abdominal tenderness. Musculoskeletal: General: No swelling. Cervical back: Neck supple. Skin: General: Skin is warm and dry. Capillary Refill: Capillary refill takes less than 2 seconds. Comments: Hives type rash primarily on the arms and lower legs. It is starting to spread into the upper chest area. Mild swelling of the hands. Neurological: Mental Status: She is alert. Psychiatric: Mood and Affect: Mood normal. Labs Reviewed - No data to display No orders to display Procedures Medical Decision Making Patient presents for evaluation of a rash consistent with hives and some mild joint swelling in the hands. She was seen here yesterday for the same thing. Her antibiotic was switched from Macrobid to Cipro. Urinalysis was still concerning for a mild urinary tract infection. She is currently asymptomatic. Urine culture was sent yesterday. I would have her stop her Cipro pending urine culture results, give her an additional dose of prednisone here in the emergency department of 40 mg p.o. and she is to continue her previous regimen of prednisone Benadryl and Pepcid. She has no difficulty breathing or swallowing. Patient can be discharged. Diagnoses as of 08/15/232058 Allergic reaction to drug, subsequent encounter Mecca Cabral MD 08/15/232058 [facility] Work Phone: 08-14-2023 Emergency department Note Images from the original note were not included. HPI Chief Complaint Patient presents with Joint Swelling Patient to ED reference swelling to her hands, elbows, knees and feet that started last night. Negative any difficulty breathing. She as diagnosed with a UTI last Wednesday and is currently on Nitrofurantoin. Patient is concerned with rash and joint swelling. She believes this might be an allergic reaction to a new medication that she started. States she was recently diagnosed with a UTI and placed on nitrofurantoin. She only has a couple more doses left and she noticed joint swelling and an itchy rash. She denies any trouble swallowing or breathing. She does not feel short of breath. She has not noticed any lip or tongue swelling. She took an allergy medication earlier this morning. History provided by: Patient [place]ia Coma Scale Score: 15 Patient History Past Medical History: Diagnosis Date Exercise induced bronchospasm 12/18/2021 Exercise-induced bronchospasm Past Surgical History: Procedure Laterality Date OTHER SURGICAL HISTORY 07/26/2019 No history of surgery Family History Problem Relation Name Age of Onset Asthma Mother COPD Father Asthma Sister Social History Tobacco Use Smoking status: Not on file Smokeless tobacco: Not on file Substance Use Topics Alcohol use: Not on file Drug use: Not on file Physical Exam ED Triage Vitals [08/14/23 1102] Temperature Heart Rate Respirations BP 36.5 C (97.7 F) 85 16 109/74 Pulse Ox Temp Source Heart Rate Source Patient Position 99 % Temporal Monitor -- BP Location FiO2 (%) Left arm -- Physical Exam Vitals and nursing note reviewed. Constitutional: General: She is not in acute distress. Appearance: Normal appearance. She is well-developed, well-groomed and normal weight. She is not ill-appearing or toxic-appearing. HENT: Head: Normocephalic. Right Ear: External ear normal. Left Ear: External ear normal. Nose: Nose normal. Mouth/Throat: Lips: Loami. No lesions. Mouth: Mucous membranes are moist. No oral lesions. Dentition: No gum lesions. Tongue: No lesions. Palate: No lesions. Pharynx: Uvula midline. No pharyngeal swelling, oropharyngeal exudate, posterior oropharyngeal erythema or uvula swelling. Eyes: General: Lids are normal. No scleral icterus. Conjunctiva/sclera: Conjunctivae normal. Cardiovascular: Rate and Rhythm: Normal rate and regular rhythm. Pulses: Radial pulses are 2+ on the right side and 2+ on the left side. Dorsalis pedis pulses are 2+ on the right side and 2+ on the left side. Posterior tibial pulses are 2+ on the right side and 2+ on the left side. Heart sounds: Normal heart sounds. Pulmonary: Effort: Pulmonary effort is normal. Breath sounds: Normal breath sounds and air entry. No stridor. Musculoskeletal: General: Normal range of motion. Comments: Bilateral elbows knees and hands do appear a little swollen without any joint effusion noted. Range of motion is intact. No crepitus with motion. Skin: General: Skin is warm. Capillary Refill: Capillary refill takes less than 2 seconds. Findings: Rash present. Comments: There is some erythema on the dorsum of patient's hands bilaterally without any palm involvement. No rash noted on the face. Neurological: General: No focal deficit present. Mental Status: She is alert and oriented to person, place, and time. Cranial Nerves: No cranial nerve deficit or facial asymmetry. Sensory: No sensory deficit. Motor: No weakness. Gait: Gait normal. Psychiatric: Attention and Perception: Attention and perception normal. Mood and Affect: Mood and affect normal. Speech: Speech normal. Behavior: Behavior normal. Behavior is cooperative. Thought Content: Thought content normal. Cognition and Memory: Cognition and memory normal. Judgment: Judgment normal. ED Course & MDM Diagnoses as of 08/14/23 1208 Urinary tract infection without hematuria, site unspecified Hives Medical Decision Making Patient is concerned with rash and joint swelling. She believes this might be an allergic reaction to a new medication that she started. States she was recently diagnosed with a UTI and placed on nitrofurantoin. She only has a couple more doses left and she noticed joint swelling and an itchy rash. She denies any trouble swallowing or breathing. She does not feel short of breath. She has not noticed any lip or tongue swelling. She took an allergy medication earlier this morning. DDX: Allergic reaction, hives, renal injury, other Due to the odd swelling to patient's joints will obtain basic labs to ensure CBC and chemistries are normal as well as renal function. Patient declined an IV therefore p.o. Pepcid Benadryl and prednisone were given. We did repeat urinalysis that does show continued infection. Based on patient's allergies to penicillins and now nitrofurantoin, without any recent culture will place patient on Cipro for 3 days. Labs do not show any concerning findings. Patient will be discharged home with continued prescriptions for Pepcid Benadryl prednisone with Cipro for 3 additional days. Patient to follow-up with primary care provider. Patient discharged home in improved and stable condition Problems Addressed: Hives: undiagnosed new problem with uncertain prognosis Details: Treated with Pepcid Benadryl and prednisone Urinary tract infection without hematuria, site unspecified: acute illness or injury Details: Treated with Cipro due to allergies Amount and/or Complexity of Data Reviewed Labs: ordered. Decision-making details documented in ED Course. Risk Risk Details: None Procedure Procedures Stephanie Le PA-C 08/14/23 1208 documented in this encounter [facility] Work Phone: 08-14-2023 Physician Emergency department Note Images from the original note were not included. HPI Chief Complaint Patient presents with Joint Swelling Patient to ED reference swelling to her hands, elbows, knees and feet that started last night. Negative any difficulty breathing. She as diagnosed with a UTI last Wednesday and is currently on Nitrofurantoin. Patient is concerned with rash and joint swelling. She believes this might be an allergic reaction to a new medication that she started. States she was recently diagnosed with a UTI and placed on nitrofurantoin. She only has a couple more doses left and she noticed joint swelling and an itchy rash. She denies any trouble swallowing or breathing. She does not feel short of breath. She has not noticed any lip or tongue swelling. She took an allergy medication earlier this morning. History provided by: Patient [place] Coma Scale Score: 15 Patient History Past Medical History: Diagnosis Date Exercise induced bronchospasm 12/18/2021 Exercise-induced bronchospasm Past Surgical History: Procedure Laterality Date OTHER SURGICAL HISTORY 07/26/2019 No history of surgery Family History Problem Relation Name Age of Onset Asthma Mother COPD Father Asthma Sister Social History Tobacco Use Smoking status: Not on file Smokeless tobacco: Not on file Substance Use Topics Alcohol use: Not on file Drug use: Not on file Physical Exam ED Triage Vitals [08/14/23 1102] Temperature Heart Rate Respirations BP 36.5 C (97.7 F) 85 16 109/74 Pulse Ox Temp Source Heart Rate Source Patient Position 99 % Temporal Monitor -- BP Location FiO2 (%) Left arm -- Physical Exam Vitals and nursing note reviewed. Constitutional: General: She is not in acute distress. Appearance: Normal appearance. She is well-developed, well-groomed and normal weight. She is not ill-appearing or toxic-appearing. HENT: Head: Normocephalic. Right Ear: External ear normal. Left Ear: External ear normal. Nose: Nose normal. Mouth/Throat: Lips: Loami. No lesions. Mouth: Mucous membranes are moist. No oral lesions. Dentition: No gum lesions. Tongue: No lesions. Palate: No lesions. Pharynx: Uvula midline. No pharyngeal swelling, oropharyngeal exudate, posterior oropharyngeal erythema or uvula swelling. Eyes: General: Lids are normal. No scleral icterus. Conjunctiva/sclera: Conjunctivae normal. Cardiovascular: Rate and Rhythm: Normal rate and regular rhythm. Pulses: Radial pulses are 2+ on the right side and 2+ on the left side. Dorsalis pedis pulses are 2+ on the right side and 2+ on the left side. Posterior tibial pulses are 2+ on the right side and 2+ on the left side. Heart sounds: Normal heart sounds. Pulmonary: Effort: Pulmonary effort is normal. Breath sounds: Normal breath sounds and air entry. No stridor. Musculoskeletal: General: Normal range of motion. Comments: Bilateral elbows knees and hands do appear a little swollen without any joint effusion noted. Range of motion is intact. No crepitus with motion. Skin: General: Skin is warm. Capillary Refill: Capillary refill takes less than 2 seconds. Findings: Rash present. Comments: There is some erythema on the dorsum of patient's hands bilaterally without any palm involvement. No rash noted on the face. Neurological: General: No focal deficit present. Mental Status: She is alert and oriented to person, place, and time. Cranial Nerves: No cranial nerve deficit or facial asymmetry. Sensory: No sensory deficit. Motor: No weakness. Gait: Gait normal. Psychiatric: Attention and Perception: Attention and perception normal. Mood and Affect: Mood and affect normal. Speech: Speech normal. Behavior: Behavior normal. Behavior is cooperative. Thought Content: Thought content normal. Cognition and Memory: Cognition and memory normal. Judgment: Judgment normal. ED Course & MDM Diagnoses as of 08/14/23 1208 Urinary tract infection without hematuria, site unspecified Hives Medical Decision Making Patient is concerned with rash and joint swelling. She believes this might be an allergic reaction to a new medication that she started. States she was recently diagnosed with a UTI and placed on nitrofurantoin. She only has a couple more doses left and she noticed joint swelling and an itchy rash. She denies any trouble swallowing or breathing. She does not feel short of breath. She has not noticed any lip or tongue swelling. She took an allergy medication earlier this morning. DDX: Allergic reaction, hives, renal injury, other Due to the odd swelling to patient's joints will obtain basic labs to ensure CBC and chemistries are normal as well as renal function. Patient declined an IV therefore p.o. Pepcid Benadryl and prednisone were given. We did repeat urinalysis that does show continued infection. Based on patient's allergies to penicillins and now nitrofurantoin, without any recent culture will place patient on Cipro for 3 days. Labs do not show any concerning findings. Patient will be discharged home with continued prescriptions for Pepcid Benadryl prednisone with Cipro for 3 additional days. Patient to follow-up with primary care provider. Patient discharged home in improved and stable condition Problems Addressed: Hives: undiagnosed new problem with uncertain prognosis Details: Treated with Pepcid Benadryl and prednisone Urinary tract infection without hematuria, site unspecified: acute illness or injury Details: Treated with Cipro due to allergies Amount and/or Complexity of Data Reviewed Labs: ordered. Decision-making details documented in ED Course. Risk Risk Details: None Procedure Procedures Stephanie Le PA-C 08/14/23 1208 [facility] Work Phone: 09-14-2022 Miscellaneous Notes Left message in medical records and faxed release form to [phone] documented in this encounter [facility] 08-25-2022 History of Present illness Narrative VIRTUAL VISIT PROGRESS NOTE This is a virtual visit using Signdat video visit. It required patient-provider interaction for the medical decision making as documented below. Michelle Choi is a 17 year old female seen for pelvic pain that started when she had an ovarian cyst. The cyst resolved but still having pain. Some days worse than others. Doesn't take anything for it. Sometimes worse after BM. No vaginal symptoms. Still taking the OCPs. In last week of pack and should start period soon. Gets cramping w/ menses but other pain is sharp at times and constant. Sometimes cramping. No trauma to the area. Pain not worse than last month. Sometimes some discomfort after intercourse in the same area or when she bends over. HISTORY REVIEWED (electronic chart updated): PAST MEDICAL HISTORY Diagnosis Date NEGATIVE MEDICAL HISTORY PAST SURGICAL HISTORY Procedure Laterality Date NONE FAMILY HISTORY Problem Relation Age of Onset Cancer Mother 30's- vaginal cancer Social History Tobacco Use Smoking status: Never Smokeless tobacco: Never Vaping Use Vaping Use: Former Substance Use Topics Alcohol use: Not Currently Drug use: Not Currently Current Outpatient Medications Medication Sig hydrOXYzine HCl (ATARAX) 25 mg tablet Take by mouth. SUMAtriptan (IMITREX) 100 mg tablet take 1 tablet by mouth AT ONSET OF HEADACHE may repeat in 2 hours... (REFER TO PRESCRIPTION NOTES). FLUoxetine (PROZAC) 20 mg capsule Take 20 mg by mouth once daily. Norgestimate-Ethinyl Estradiol 0.18/0.215/0.25 mg-35 mcg (28) Take 1 tablet by mouth once daily. No current facility-administered medications for this visit. ALLERGIES No Known Allergies REVIEW OF SYSTEMS: GENERAL: feeling well without fatigue, no recent change in weight, no fever GI: normal appetite, tolerating PO well, BMs normal, no abdominal pain, and no melena or hematochezia, denies constipatoin or diarrhea : urination is normal and no change in urine color/smell PHYSICAL EXAMINATION: VIDEO EXAM: (if completed, performed via video enabled technology) GENERAL: alert and appropriate, in no distress, well-hydrated, well nourished, and happy, smiling, interactive ASSESSMENT: pelvic pain, resolved previous ovarian cyst PLAN: d/w her causes of pelvic pain. Has been on OCPs several years and menses regular and cramps light. No h/o pain before this. Trial doxy and Mobic and recheck pelvic US. IF pain not improved return for exam to determine if levator spasm or other issue and determine plan. There are no Patient Instructions on file for this visit. I spent a total of 14 minutes on the date of the service which included preparing to see the patient, [id number] patient care, completing clinical documentation, and ordering medications, tests, or procedures Sommer aGrcia MD documented in this encounter [facility] 07-23-2022 Miscellaneous Notes Spoke w/ patient last evening. Cyst smaller. Surgery cancelled. Patient stated understanding and agree ment w/ plan. Was a functional cyst and seems to be resolving. Risk of torsion minimal. Return to office for routine care or prn. Sommer Garcia MD Patient calling in for ultrasound result. Has surgery tomorrow. I talked with Fiordaliza(train control technician) in Radiology(ext [phone]) and she said it was marked urgent yesterday and she will call up to [place] to get it read GUILLERMO. I called Dr Garcia and let her know that patient is anxious to get results prior to surgery. She states she will send patient a message by [employer] documented in this encounter [facility] 07-21-2022 History of Present illness Narrative Radiology Service Progress Note PATIENT NAME: Michelle Choi DATE OF SERVICE: July 21, 2022 TIME: 3:17 PM PATIENT IDENTITY VERIFICATION COMPLETED USING TWO (2) IDENTIFIERS: Name and Date of confirmed by patient verbally. FALL SCREENING: Has the patient had 2 falls in the last year or 1 fall with injury or currently using an Ambulatory Assistive Device (Walker, Cane, Wheelchair, Crutches, etc.)? No PATIENT GENDER DATA: Female. status: : No status: NO. PATIENT RELEVANT IMPLANT DATA REVIEWED: Not Applicable RADIOLOGY DEPARTMENT: Ultrasound PERIPHERAL IV DATA: Not applicable SIGNED BY: Nicole Brennan RDMS RVT July 21, 2022 3:17 PM documented in this encounter [facility] 07-20-2022 Miscellaneous Notes Completed. Thank you. Sommer Garcia MD Patient is scheduled for surgery at [place] on 07/23/2022. Please approve order documented in this encounter [facility] 07-20-2022 History and physical note Pre-Op History and Physical HPI: The patient is a 17 year old female presenting for pre-operative visit. She is scheduled for laparoscopic right ovarian cystectomy, for right ovarian cyst and RLQ pain on 07/23/2022. Procedure discussed along with risks, benefits and complications. Other alternatives discussed for management. Consent form signed? Yes. PAST MEDICAL HISTORY Diagnosis Date NEGATIVE MEDICAL HISTORY PAST SURGICAL HISTORY Procedure Laterality Date NONE Current Outpatient Medications Medication Sig Dispense Refill hydrOXYzine HCl (ATARAX) 25 mg tablet Take by mouth. SUMAtriptan (IMITREX) 100 mg tablet take 1 tablet by mouth AT ONSET OF HEADACHE may repeat in 2 hours... (REFER TO PRESCRIPTION NOTES). FLUoxetine (PROZAC) 20 mg capsule Take 20 mg by mouth once daily. Norgestimate-Ethinyl Estradiol 0.18/0.215/0.25 mg-35 mcg (28) Take 1 tablet by mouth once daily. No current facility-administered medications for this visit. ALLERGIES: Patient has no known allergies. PERSONAL HISTORY: Social History Tobacco Use Smoking status: Never Smokeless tobacco: Never Vaping Use Vaping Use: Former Substance Use Topics Alcohol use: Not Currently Drug use: Not Currently FAMILY HISTORY: FAMILY HISTORY Problem Relation Age of Onset Cancer Mother 30's- vaginal cancer REVIEW OF SYMPTOMS: GENERAL: denies fevers or chills ENDOCRINOLOGY: has not been on steroids Cardiology : denies palpitations or chest pain Respiratory: denies SOB or cough Hematology: denies history of prolonged bleeding or easy bruising or VTE Allergy: Denies history of personal or family history of allergy to anesthesia PHYSICAL EXAMINATION: VITALS: Blood pressure 104/66, weight 131 lb (59.4 kg), last menstrual period 06/30/2022. GENERAL: The patient is well nourished, well hydrated in no acute distress. , The patient is oriented to time, place, and person. NECK: Supple. No lynphadenopathy, normal thyroid, no thyromegaly. LUNGS: Clear to auscultation bilaterally. no wheezes, rhonchi or rales HEART: Regular rate and rhythm, Normal heart sounds, and No murmurs or gallops IMPRESSION: right ovarian cyst, rlq pain PLAN: The risks/benefits/alternatives and personal involved for the planned right ovarian cystectomy were reviewed with the patient. Her questions were answered to her satisfaction and she desires to proceed. Consent was signed. I reviewed with her postop instructions and expectations. I have reviewed and updated past medical and surgical history, medications and allergies Sommer Garcia M.D. documented in this encounter [facility] 07-20-2022 History of Present illness Narrative Michelle Choi is a 17 year old female who presents for problem visit for pelvic pain. Started last week when she was lying in bed. Started in back and settle in the front. Was left then right and now persistently on right side. Comes in waves, maybe 15 times a day. Pain currently dull 3/10 and then gets sharp and stabbing and is about 7-8/10. Denies abnormal vaginal discharge, itching or burning. No pain w/ urination, no blood in urine. Some loose stools today but normal up until then. Pain doesn't change w/ ;po intake, physical activity. Doesn't take pain meds b/c by the time she took something that wave would be gone. Never had anything like this In the past. 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 PAST SURGICAL HISTORY Procedure Laterality Date NONE No family history on file. Social History Tobacco Use Smoking status: Never Smokeless tobacco: Never Vaping Use Vaping Use: current everyday user Current Outpatient Medications Medication Sig phenazopyridine (PYRIDIUM) 200 mg tablet Take 1 tablet by mouth three times daily as needed. FLUoxetine (PROZAC) 20 mg capsule Take 20 mg by mouth once daily. phenazopyridine (PYRIDIUM) 100 mg tablet Take 1 tablet by mouth three times daily as needed. metroNIDAZOLE (METROGEL VAGINAL) 0.75 % Vaginal Gel Use 1 Applicator vaginally daily at bedtime. (Patient not taking: Reported on 11/07/2020 ) Norgestimate-Ethinyl Estradiol 0.18/0.215/0.25 mg-35 mcg (28) Take 1 tablet by mouth once daily. No current facility-administered medications for this visit. Allergies As of Date: 07/20/2022 (No Known Allergies) Fully Assessed 05/21/2021 REVIEW OF SYSTEMS Abdomen: No bloating, early satiety, indigestion, or increased flatulence. No abdominal pain, nausea, vomiting, or constipation other than some diarrhea today Bladder: No dysuria, gross hematuria, urinary frequency, urinary urgency, or incontinence. Expanded ROS: N/A Allergies and current medication updated:Yes EXAM: LMP 02/10/2021 GENERAL: pleasant, female in no apparent distress HEENT: Normocephalic, atraumatic, mucus membranes moist, and no lesions NECK: Supple, full range of motion, no adenopathy, and thyroid normal CHEST: Normal inspiratory effort ABDOMEN: soft, no masses, mild tenderness right side, no rebound or guarding, no hernia ASSESSMENT AND PLAN: Reviewed CT report, labs from ED visit. D/w her and boyfriend and her mother via phone r/b/a to expectant management and conservative f/u vs surgical removal. D/w her expectations after surgery, restrictions postop. Very low likelihood of malignancy based on CT. Questions answered. She desires to proceed w/ surgery this week. D/w her signs symptoms of torsion or need for emergent intervention and to call or go to ED if these occur in interim. Medical Decision Making: Problems: Moderate: New problem with uncertain prognosis Data: Unique source(s) for external note(s) reviewed: 1 Unique test result(s) reviewed: 2 Unique test(s) ordered: 1 Risk: Moderate: Decision on minor surgery w/ risk factors Medical Decision Making Level: 4 - Moderate Sommer Garcia MD documented in this encounter [facility] 07-20-2022 Discharge summary Note Date/Time July 20, 2022 6:15pm [facility] Medical Records Department [address] [place] [address] Emergency Department Summary 07/20/22 MR#: [id number] Acct: [id number] Name: MICHELLE CHOI Rep #:[id number] : 2005 17 From: Michael Whatley DO PCP: Care Physician,No Primary Status :REG ER Location: ED HPI HPI - Female History of Present Illness Chief Complaint: Abd Pain Narrative Narrative: 17-year-old female presenting with pelvic pain. Patient states she was diagnosed with an ovarian cyst a little while ago by Dr. Sommer Garcia. She states the size of an egg. She states she is scheduled for surgery to have thisremoved on . She states that after leaving the office she started to have more intense pain. It is now improving. She states she called the [facility] office and they told her that she could have a torsion. They sent her into the emergency room. [facility] Medical History Scoliosis Home Medications norgestimate-ethinyl estradiol 0.18 mg/0.215mg/0.25mg-35 mcg(28)tablet tab 07/20/22 [History Last Taken Unknown] Allergy/AdvReac Type Severity Reaction Status Date / Time Penicillins [cillians] Allergy PT UNSURE Verified 07/20/22 17:28 OF REACTION Social History Smoking Status: Never smoker ROS ROS ED Constitutional Constitutional ED: Denies chills, fever(s) or sweats Eyes Eyes: Denies blurry vision or change in vision ENT ENT ED: Denies ear pain or sore throat Cardiovascular Cardiovascular: Denies chest pain, palpitations or racing heartbeat Respiratory/Chest Respiratory/Chest: Denies cough, dyspnea or sputum Gastrointestinal Gastrointestinal: Reports abdominal pain; Denies constipation, diarrhea, nausea or vomiting Genitourinary Genitourinary ED: Denies dysuria, hematuria or urinary frequency Musculoskeletal Musculoskeletal: Denies arthralgias, myalgias or neck pain Integumentary Denies abscess, Abrasions or rash Neurologic Neurologic: Denies headache(s), paresthesias or weakness Psychiatric Psychiatric: Denies anxiety, depression, suicidal ideation or suicidal thoughts Endocrine Endocrinology: Denies polydipsia or polyuria EXAM Physical Exam Const Vital Signs: 07/20/22 17:26 Temperature 97.6 F L Temperature Source Temporal Pulse Rate 99 Respiratory Rate 16 Blood Pressure 116/64 Blood Pressure Mean 81 Pulse Ox 99 Oxygen Delivery Method Room Air General Appearance ED: Negative for pallor HEENT Reports normocephalic, head/scalp atraumatic and moist mucous membranes Eyes PERRL and EOMs intact bilaterally Neck no lymphadenopathy and supple Chest Wall inspection of chest normal and palpation of chest normal Resp normal respiratory effort and clear to auscultation bilaterally Auscultation: Negative for rales, rhonchi or wheezes Cardio regular rate and regular rhythm GI non-distended GI Narrative: Very mild right-sided pelvic pain. Abdomen benign Auscultation: normoactive bowel sounds Palpation: soft Narrative: Deferred Extremity normal to inspection General Extremety ED: Yes edema and tenderness General Extremity: edema Neuro oriented x3 and CN's II-XII intact bilaterally Sensorium / Orientation: alert Motor Exam: strength 5/5 throughout Psych mental status grossly normal Attitude: No agitated Skin no rashes or lesions noted and no wounds General Skin Exam: Negative for jaundice or pallor MDM MDM MDM Narrative Medical decision making narrative: Patient diagnosed with ovarian cyst today. She had a extrusion amount of pain earlier but is now improving. It is possible she could have intermittent torsion. She just had an ultrasound earlier. I will call her Dr. Garcia or whoever is on-call for her to follow. We discussed the patient's case. Since she is currently pain-free Dr. Gomez who is on-call for Dr. Garcia recommended follow-up tomorrow for ultrasound and follow through with surgery on . Patient given return precautions. Impression: 1. Pelvic pain 2. Ovarian cyst Lab Data Attestation: I reviewed the patient's lab results. Discharge Plan Triage Chief Complaint: Abd Pain ED Provider: Michael Whatley Dx/Rx/DC Orders Instructions: ED Ovarian Cyst Prescriptions: No Action norgestimate-ethinyl estradiol 0.18/0.215/0.25 mg-35 mcg (28) tablet Label Comments: take 1 tablet by mouth once daily Primary Care Provider: Care Physician,No Primary Referrals: Chance Gomez DO [Med Staff - Active Staff] - As soon as possible [facility] Doctor,Out of [Non-Staff] - Disposition Disposition: Home, Self Care What to do if you have Problems For any increased pain, shortness of breath, bleeding, nausea or vomiting, chestpain, or any unexpected problems, contact your Primary Care Provider. Call [facility] ([phone]) or report to the closest Emergency Room. Call 911 if necessary. 07/20/221901 <Electronically signed by Michael Whatley DO> Cosigner Signature (if applicable): CC: No Primary Care Physician ~ Signed [facility] Work Phone: 1(391) 818-277002-11-2023 History of Present illness Narrative* 17 YOF presents for med check. * ER visit 07/18/22. Ovarian cyst, saw [facility] in [place] 5 days ago, was going to have surgery, but cyst popped and she is feeling fine today. 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 SOO score of 10 and PHQscore of 9 this visit. Slight increase in scores, but she feels stable. 20mg citalopram effective dose, no SE. Has not needed hydroxyzine. * SCOLIOSIS: Saw ortho, not reviewed. No longer in PT, seems stable currently. Has been seeing chiropractor. * SOB: PFTs unremarkable 10/30/21. Will monitor for now. * HEADACHE/MIGRAINES: Topamax 25mg for prophylaxis has been effective. She was out of Topomax for a couple months, had 2 migraines in this time. Imitrex prn. * Feeling well, no concerns. [facility] Work Phone: 1([phone]) 319-780406-01-2022 History of Present illness Narrative* 16 YOF presents for follow up. * ANXIETY: Her anxiety has decrease as SOO 7 has improved from 16 to 11, but she feels as if she is going to choke on Effexor capsules due to the small beads inside them and her insurance will not cover the tablets. She would like to switch anxiety/depression medication. * SCOLIOSIS: Saw ortho, not reviewed. They ordered PT and follow up in 1 year. Starts PT next week. * SOB: When she works out or walks up stairs or hiking she will SOB. This has been going on her wholelife. She has never used an inhaler for relief. It is difficult to both breath in and breath out. She has no nighttime symptoms. She has never had dyspnea/SOB to the point of not being able to breath. * 11/05/21: PFTs were unremarkable, need to look for other cause of SOB. Will order chest xray and walking pulse ox at follow up to assess further. [facility] Work Phone: [phone]) 603-888505-26-2022 History of Present illness Narrative* ANXIETY: SOO 7 still at 11 on citalopram 10mg, no SE. She mistakenly took hydroxyzine in place of citalopram for a month. PHQ 9 score of 10, moderate. * SCOLIOSIS: Saw ortho, not reviewed. They ordered PT and follow up in 1 year. Starts PT next week. * SOB: PFTs unremarkable 10/30/21. Will monitor for now. * HEADACHE: Pain is located to back of R side of head. She has been getting them for awhile now and will have 2 a week. No photophobia, no nausea. Endorses some aura. Has tried ibuprofen/tylenol/ice/heating pad/Excedrin. Pain is pounding/throbbing for hours. [facility] Work Phone: [phone] 306-343705-26-2022 History of Present illness Narrative* 16 YOF presents for med check. * ANXIETY: Just started new job at [employer] job. SOO down to 7 and PHQ 9 at 4 this visit. 20mg citalopram effective dose, no SE. * SCOLIOSIS: Saw ortho, not reviewed. No longer in PT, seems stable currently. * SOB: PFTs unremarkable 10/30/21. Will monitor for now. * HEADACHE/MIGRAINES: Topamax 25mg for prophylaxis has been effective, but she did have one breakthrough migraine yesterday which was aborted 2 hours after taking her Imitrex. * She does endorse some popping or pressure in BL ears when she swims and goes under water. [facility] Work Phone: [phone]) [phone] History of Present illness Narrative* PHQ-9 Depression Scale: * 1. Little interest or pleasure in doing things - several days * 2. Feeling down, depressed or hopeless - several days * 3. Trouble falling asleep or sleeping too much - nearly every day * 4. Feeling tired or having little energy - several days * 5. Poor appetite or overeating - several days * 6. Feeling bad about self or failure or letting others down - not at all * 7. Trouble concentrating on things - not at all * 8. Moving / speaking slowly or fidgety / restless - more than half the days * 9. Thought would be better off or hurting self - not at all * Severity of depression is mild, total score: 9. * How difficult have these problems made it for you to do your work, take care of things at home, or get along with people? Not at all. * Here with Mom to follow up depression and anxiety * Likes the Prozac. Feeling better. Everything is better. Less anxiety, moods a little better. Feels comfortable with current medication dosage. * GAD7 and PHQ9 have improved * Wondering about her scoliosis. Discussed getting an XRay to measure curvature and see if any concerns * Xray nasal bones without fracture. Does have a deviated septum. [facility] Work Phone: [phone]) [phone] History of Present illness Narrative* Michelle Is an 16-year-old female that presents today with her mom and boyfriend to be evaluated for her scoliosis. The patient is attending online high school right now and does not have plans for college afterwards. She is from the [facility]. * The patient informed me that she was in sixth grade when she was initially diagnosed by her primarycare doctor with scoliosis but recently within the last year or so her new primary care doctor suggested an orthopedic follow-up. The patient is here because she is dealing with thoracolumbar muscle pain and spasm and periodic discomfort with certain activities such as picking up her cat litter. She is not dealing with any lower extremity radiculopathy, weakness and/or dragging or tripping over her feet. She denies any hip or groin pain. She denies any anterior radiation. She denies any shortness of breath or chest pain. She has not had any recent falls or injuries. * From a treatment standpoint she has not done anything. She does not take grct-dbf-jeuuvpp anti-inflammatories. She is not partake in physical therapy and she does not stretch or exercise. * Family, social, and medical histories are obtained and reviewed. * I reviewed the complete 30-point review of systems that was documented on the scanned patient intake form. All other systems are non-contributory except as defined in history of present illness. * Const: Well-appearing, well-nourished female in no distress. * Eyes: Normal appearing sclera and conjunctiva, no jaundice, pupils normal in appearance. * Resp: breathing comfortably, normal respiratory rate. * CV: No upper or lower extremity edema. * Musculoskeletal: Normal gait. Able to heel/toe walk without difficulty. Lumbar ROM is supple. Strength exam of the lower extremities reveals 5/5 strength in all major muscle groups negative straight leg raise bilaterally. * Neuro: Sensation is intact and equal bilaterally. Deep tendon reflexes are normal and symmetric. Noclonus. * Skin: Intact without any lesions, normal turgor. * Psych: Alert and oriented x3, normal mood and affect. * Patient had x-rays of her full spine taken prior to the visit today. Results images reviewed with patient. These do show that she does have an early onset curvature of her thoracolumbar spine. Directmeasurements were not provided from the radiologist but it does appear to be less than 20 degrees still. * I did inform the patient that this is something we would continue to manage extremely conservatively. I suggested physical therapy, yoga, stretching and exercise. Anti-inflammatories and Tylenol as needed. I would like the patient to get least yearly follow-up x-rays to follow the curvature. She will follow- up with our spine team currently as needed * This note was dictated using speech recognition software and was not corrected for spelling or grammatical errors * . [facility] Work Phone: Evaluation noteNo assessment information available [facility] Work Phone: Evaluation note* Diagnosis Cyst of ovary, unspecified laterality- Primary Ovarian cyst, right Other and unspecified ovarian cyst Colicky RLQ abdominal pain Abdominal pain, right lower quadrant [facility] Diagnosis Ovarian cyst, right- Primary Other and unspecified ovarian cyst Pelvic pain in female Unspecified symptom associated with female genital organs Ovarian cyst, right Other and unspecified ovarian cyst Pelvic pain in female Unspecified symptom associated with female genital organs [facility] Diagnosis Pelvic pain in female- Primary Unspecified symptom associated with female genital organs [facility] Diagnosis Pelvic pain in female Unspecified symptom associated with female genital organs [facility] Diagnosis Cyst of ovary, unspecified laterality [facility] Diagnosis Urinary tract infection without hematuria, site unspecified- Primary Hives Unspecified urticaria documented in this encounter [facility] Work Phone: Evaluation note* Diagnosis Allergic reaction to drug, subsequent encounter- Primary documented in this encounter [facility] Work Phone: Evaluation note* Diagnosis Pruritus- Primary Unspecified pruritic disorder Allergy, initial encounter documented in this encounter [facility] Work Phone: Evaluation note* Diagnosis Encounter for gynecological examination (general) (routine) without abnormal findings- Primary [facility] Diagnosis Spontaneous miscarriage- Primary Unspecified spontaneous without mention of complication Bleeding in early Unspecified hemorrhage in early , unspecified as to episode of care documented in this encounter [facility] note* Diagnosis Pelvic pressure in female- Primary Other specified symptom associated with female genital organs documented in this encounter [facility] note* Diagnosis Allergic contact dermatitis, unspecified trigger- Primary documented in this encounter [facility] note* Diagnosis Pelvic pain during (HCC)- Primary Vaginal discharge Leukorrhea, not specified as infective Early stage of ([facility]) state, incidental History of miscarriage Personal history of other genital system and obstetric disorders documented in this encounter [facility] note* Diagnosis 6 weeks gestation of ([facility])- Primary state, incidental Cramping affecting , antepartum ([facility]) documented in this encounter [facility] note* Diagnosis Pelvic pain in ([facility]) Other specified complication of , unspecified as to episode of care documented in this encounter [facility] note* Diagnosis Bloody show and cramping in early ([facility])- Primary Threatened , antepartum Pelvic pain in ([facility]) Other specified complication of , unspecified as to episode of care documented in this encounter [facility] note* Diagnosis Encounter for supervision of other normal in first trimester ([facility])- Primary 8 weeks gestation of ([facility]) state, incidental History of miscarriage Personal history of other genital system and obstetric disorders Screen for STD (sexually transmitted disease) Screening examination for venereal disease Screening for cervical cancer Screening for malignant neoplasm of the cervix Nausea and vomiting during ([facility]) Anxiety disorder affecting , antepartum ([facility]) Penicillin allergy Personal history of allergy to penicillin documented in this encounter [facility] note* Diagnosis 12 weeks gestation of (HCC)- Primary state, incidental Encounter for supervision of other normal in first trimester ([facility]) * Assessment & Plan Note - Primitivo Delgado MD - 12/22/2024 9:46 AM EDTAssociated Problem(s): Supervision of normal ([facility]) documented in this encounter [facility] note* Diagnosis 12 weeks gestation of (HCC)- Primary state, incidental Encounter for supervision of other normal in first trimester ([facility]) Encounter for screening for malformation using ultrasound (HCC)- Primary 12 weeks gestation of (HCC) state, incidental [facility] Diagnosis 12 weeks gestation of (HCC)- Primary state, incidental Encounter for supervision of other normal in first trimester ([facility]) Nausea and vomiting in (HCC)- Primary Unspecified vomiting of , unspecified as to episode of care 13 weeks gestation of (HCC) state, incidental [facility]* Diagnosis 12 weeks gestation of (HCC)- Primary state, incidental Encounter for supervision of other normal in first trimester ([facility]) Encounter for supervision of normal first in second trimester ([facility])- Primary Supervision of normal first documented [facility]* Diagnosis 12 weeks gestation of (HCC)- Primary state, incidental Encounter for supervision of other normal in first trimester ([facility]) 16 weeks gestation of ([facility])- Primary state, incidental Encounter for supervision of normal first in second trimester ([facility]) Supervision of normal first [facility]* Diagnosis 12 weeks gestation of (HCC)- Primary state, incidental Encounter for supervision of other normal in first trimester ([facility]) complicated by cerebral ventriculomegaly, single or unspecified fetus (HCC)- Primary 20 weeks gestation of ([facility]) state, incidental Encounter for supervision of normal first in second trimester ([facility]) Supervision of normal first [facility] Diagnosis 12 weeks gestation of (HCC)- Primary state, incidental Encounter for supervision of other normal in first trimester ([facility]) Central nervous system malformation in fetus affecting obstetrical care, single or unspecified fetus (HCC)- Primary 20 weeks gestation of ([facility]) state, incidental Encounter for anatomic survey ([facility]) Encounter for anatomic survey documented [facility]* Diagnosis 12 weeks gestation of (HCC)- Primary state, incidental Encounter for supervision of other normal in first trimester ([facility]) complicated by cerebral ventriculomegaly, single or unspecified fetus (HCC)- Primary [facility]* Ms. Choi arrives to outpatient PT with s/s consistent with c/o LBP d/t scoliosis. Pt presents with the following impairments: weakness of core and periscap musculature, decrease endurance of thoracolumbar extensors, tightness of lumbopelvic region. These impairments contribute to difficulty in activity limitations and participation restrictions including heavy lifting, washing hair over the tub, lifting cat litter. The pt will benefit from skilled PT services 1x/week for 4 weeks to address the above stated impairments and functional limitations to maximize participation and ease in household and social related activities. The pt has a good prognosis when considering positive factors including age and activity level with barriers such as chronicity of sytmptoms. The pt verbalized unders tanding and agreement to goals and POC. Thank you for this referral and please call [phone] with any questions or concerns. * Clinical Presentation: Stable and/or uncomplicated characteristics. * Level of Complexity: low * Problem List: activity limitations, ADLs/IADLs/self care skills, decreased functional level, decreased knowledge of HEP, flexibility, pain, participation restrictions and strength. [facility] Work Phone: History of Present illness NarrativePatient confirmed name and date of . Cues for good scapular engagement with postural strengthening tband exercises, reduced tension to pink band as patient had difficulty completing reps, HEP given. Added additional core strengthening today with patient requiring cues for TrA engagement and posture. HEP given for supermans, open book, mid rows and B/L GH ext, plan to give HEP for others when appropriate. [facility] Work Phone: History of Present illness NarrativePatient was identified by name and date. This session able to increase resistance with T bandexercises. Noted fatigue with Super Brittney and prone Butterflies. After session denied increased Sxs. [facility] Work Phone: Hisxmkc of Present illness Narrative* 16 YOF presents med check. * ANXIETY: Just started new job at [employer] job. She endorses the people are stressful and she is nervous as well. Would like to increase anxiety medication. SOO went from 11 to 17. * SCOLIOSIS: Saw ortho, not reviewed. No longer in PT, seems stable currently. * SOB: PFTs unremarkable 10/30/21. Will monitor for now. * HEADACHE/MIGRAINES: Has only had 2 migraines since last visit. Topiramate effective. Was only able to get 2 tablets of Imitrex d/t insurance. * No other concerns. [facility] Work Phone: Hospital Discharge instructions* Attachments The following attachments cannot be sent through Care Everywhere. * Allergic Reaction ED ([place]) * Urinary Tract Infection, Adult ED ([place]) documented in this [facility] Work Phone: Reason for referral (narrative)* Diagnostic Procedure Only (Routine) - Authorized Specialty Diagnoses / Procedures Referred By Contac t Referred To Contact US IMAGING Diagnoses Cyst of ovary, unspecified laterality Procedures US FEMALE PELVIS TRANSABD LTD US PELVIC NONOBSTETRIC IMAGE DCMTN LIMITED/F/U Sommer Garcia MD [address] [place] [address] Us Imaging Referral ID Status Reason Start Date Expiration Date Visits Requested Visits Authorized [id number] Authorized Auto-Generat ed Referral 07/20/2022 08/19/2023 1 1 * Diagnostic Procedure Only (Routine) - Pending Review Specialty Diagnoses / Procedures Referred By Contac t Referred To Contact US IMAGING Diagnoses Cyst of ovary, unspecified laterality Procedures US FEMALE PELVIS TRANSVAG US TRANSVAGINAL Sommer Garcia MD [address] [place] [address] Us Imaging Referral ID Status Reason Start Date Expiration Date Visits Requested Visits Authorized [id number] Pending Review Auto-Generat ed Referral 07/20/2022 08/19/2023 1 1 [facility] Diagnostic Procedure Only (Routine) - Pending Review Specialty Diagnoses / Procedures Referred By Contac t Referred To Contact [facility] Diagnoses Pelvic pain in female Procedures PELVIC US WHI US PELVIC NONOBSTETRIC REAL-TIME IMAGE COMPLETE Sommer Garcia MD [address] [place] [address] [facility] [address] [place] [address] Referral ID Status Reason Start Date Expiration Date Visits Requested Visits Authorized [id number] Pending Review Auto-Generat ed Referral 08/25/2022 08/25/2023 1 1 [facility] for referral (narrative)* Diagnostic Procedure Only (Routine) - Closed Specialty Diagnoses / Procedures Referred By Pan alexander Referred To Contact US IMAGING Diagnoses Cyst of ovary, unspecified laterality Procedures US FEMALE PELVIS TRANSABD LTD US PELVIC NONOBSTETRIC IMAGE DCMTN LIMITED/F/U Sommer Garcia MD [address] [place] [address] Us Imaging [id number] Referral ID Status Reason Start Date Expiration Date V isits Requested Visits Authorized [id number] Closed Auto-Generate d Referral 07/20/2022 08/19/2023 1 1 * Diagnostic Procedure Only (Routine) - Closed Specialty Diagnoses / Procedures Referred By Pan alexander Referred To Contact US IMAGING Diagnoses Cyst of ovary, unspecified laterality Procedures US FEMALE PELVIS TRANSVAG US TRANSVAGINAL Sommer Garcia MD [address] [place] [address] Us Imaging [id number] Referral ID Status Reason Start Date Expiration Date V isits Requested Visits Authorized [id number] Closed Auto-Generate d Referral 07/20/2022 08/19/2023 1 1 [facility] for visit Narrative* Initial Evaluation . Dx: M41.127. * Referred by: [facility] Work Phone: Reason for visit Narrative* Diagnostic Procedure Only (Routine) - Closed Specialty Diagnoses / Procedures Referred By Contac t Referred To Contact [facility] Diagnoses Pelvic pain in female Procedures PELVIC US [facility] US PELVIC NONOBSTETRIC REAL-TIME IMAGE COMPLETE Sommer Garcia MD [address] [place] [address] [address] Referral ID Status Reason Start Date Expiration Date V isits Requested Visits Authorized [id number] Closed Auto-Generate d Referral 08/25/2022 08/25/2023 1 1 [facility] for visit Narrative* Diagnostic Procedure Only (Routine) - Closed Specialty Diagnoses / Procedures Referred By Contac t Referred To Contact [facility] Diagnoses Pelvic pain in (HCC) Procedures PELVIC US [facility] US PELVIC NONOBSTETRIC REAL-TIME IMAGE COMPLETE Nicole Siddiqui APRN.[facility] [address] [place] [address] Phone: tel: fax: [address] [address] Referral ID Status Reason Start Date Expiration Date V isits Requested Visits Authorized [id number] Closed Auto-Generate d Referral 11/07/2024 06/06/2025 1 1 [facility] for visit Narrative* Outpatient Procedure (Routine) - Closed Specialty Diagnoses / Procedures Referred By Contac t Referred To Contact [facility] Diagnoses Suspected anomaly, antepartum, single or unspecified fetus (HCC) Procedures ECHO ECHO CARDIOVASC W/[place] [address] [place] [address] Phone: tel: fax: [address] [address] Referral ID Status Reason Start Date Expiration Date V isits Requested Visits Authorized [id number] Closed Auto-Generate d Referral 02/19/2025 06/06/2025 2 2 [facility] Summary Purpose Family History No Family History Records Found Mother Name Dates Details Family history of asthma(V17 .5, Z82.5) Status:Active Father Name Dates Details Family history of chronic ob structive pulmonary disease(V17.6, Z82.5) Status:Active Sister Name Dates Details Family history of asthma(V17 .5, Z82.5) Status:Active Unknown Family Member Name Dates Details Family history of asthma: Mo ther, Sister(V17.5, Z82.5) Status:Active Family history of chronic ob structive pulmonary disease: Father(V17.6, Z82.5) Status:Active Unknown Family Member Name Dates Details Family history of asthma: Mo ther, Sister(V17.5, Z82.5) Status:Active Family history of chronic ob structive pulmonary disease: Father(V17.6, Z82.5) Status:Active Unknown Family Member Name Dates Details Family history of asthma: Mo ther, Sister(V17.5, Z82.5) Status:Active Family history of chronic ob structive pulmonary disease: Father(V17.6, Z82.5) Status:Active Unknown Family Member Name Dates Details Family history of asthma: Mo ther, Sister(V17.5, Z82.5) Status:Active Family history of chronic ob structive pulmonary disease: Father(V17.6, Z82.5) Status:Active Unknown Family Member Name Dates Details Family history of asthma: Mo ther, Sister(V17.5, Z82.5) Status:Active Family history of chronic ob structive pulmonary disease: Father(V17.6, Z82.5) Status:Active Unknown Family Member Name Dates Details Family history of chronic ob structive pulmonary disease: Father(V17.6, Z82.5) Status:Active Family history of asthma: Mo ther, Sister(V17.5, Z82.5) Status:Active Unknown Family Member Name Dates Details Family history of asthma: Mo ther, Sister(V17.5, Z82.5) Status:Active Family history of chronic ob structive pulmonary disease: Father(V17.6, Z82.5) Status:Active Unknown Family Member Name Dates Details Family history of asthma: Mo ther, Sister(V17.5, Z82.5) Status:Active Family history of chronic ob structive pulmonary disease: Father(V17.6, Z82.5) Status:Active Unknown Family Member Name Dates Details Family history of asthma: Mo ther, Sister(V17.5, Z82.5) Status:Active Family history of chronic ob structive pulmonary disease: Father(V17.6, Z82.5) Status:Active Unknown Family Member Name Dates Details Family history of asthma: Mo ther, Sister(V17.5, Z82.5) Status:Active Family history of chronic ob structive pulmonary disease: Father(V17.6, Z82.5) Status:Active Unknown Family Member Name Dates Details Family history of asthma: Mo ther, Sister(V17.5, Z82.5) Status:Active Family history of chronic ob structive pulmonary disease: Father(V17.6, Z82.5) Status:Active Unknown Family Member Name Dates Details Family history of asthma: Mo ther, Sister(V17.5, Z82.5) Status:Active Family history of chronic ob structive pulmonary disease: Father(V17.6, Z82.5) Status:Active Unknown Family Member Name Dates Details Family history of asthma: Mo ther, Sister(V17.5, Z82.5) Status:Active Family history of chronic ob structive pulmonary disease: Father(V17.6, Z82.5) Status:Active Advance Directives No Advanced Directives Records Found Advance Directive Response Recorded Date/ Time Living Will No July 20 6:03pm Power of Crystallographer No July 20, 2022 6:03pm Chief Complaint 1 month.npv1 month f/u med check , pt stated she has some SOB would like to discuss asthma.2 month med check , pt c/o GARCIA in the back of her head episodes are 2x a week.2 month med check , would like to increase anxiety medication.2 month med check, pt would like her ears checkedmed check. Reason for Referral * flank pain, UTIflank pain, UTI * abd pain, ovarian cystabd pain, ovarian cystabd pain, ovarian cyst * abd painabd pain Chief Complaint and Reason for Visit Chief Complaint ABD PAIN Additional Source Comments INFORMATION SOURCE (unrecogn ized section and content) DATE CREATED AUTHOR 02/10/2019 [facility] DATE CREATED AUTHOR AUTHOR'S ORGANIZ ATION 07/25/2022 [employer] DATE CREATED AUTHOR AUTHOR'S ORGANIZ ATION 09/22/2022 [facility] DATE CREATED AUTHOR AUTHOR'S ORGANIZ ATION 01/28/2023 [facility] DATE CREATED AUTHOR AUTHOR'S ORGANIZ ATION 06/03/2024 [facility] DATE CREATED AUTHOR AUTHOR'S ORGANIZ ATION 06/21/2024 [facility] DATE CREATED AUTHOR AUTHOR'S ORGANIZ ATION 07/07/2024 [facility] DATE CREATED AUTHOR AUTHOR'S ORGANIZ ATION 08/22/2024 [facility] DATE CREATED AUTHOR AUTHOR'S ORGANIZ ATION 08/22/2024 [facility] DATE CREATED AUTHOR AUTHOR'S ORGANIZ ATION 11/09/2024 [facility] DATE CREATED AUTHOR AUTHOR'S ORGANIZ ATION 02/20/2025 [facility] DATE CREATED AUTHOR AUTHOR'S ORGANIZ ATION 02/20/2025 [facility] DATE CREATED AUTHOR AUTHOR'S ORGANIZ ATION 02/22/2025 [facility] DATE CREATED AUTHOR AUTHOR'S ORGANIZ ATION 02/22/2025 [facility] <item><item><item><item><item> Privacy Markings (unrecogniz ed section and content) Section Author: Mamta Lundberg PROHIBITION ON REDISCLOSURE OF CONFIDENTIAL INFORMATION This notice accompanies a disclosure of information concerning a client made to you with the consent of such client. Section Author: Mamta Lundberg PROHIBITION ON REDISCLOSURE OF CONFIDENTIAL INFORMATION This notice accompanies a disclosure of information concerning a client made to you with the consent of such client. Section Author: Mamta Lundberg PROHIBITION ON REDISCLOSURE OF CONFIDENTIAL INFORMATION This notice accompanies a disclosure of information concerning a client made to you with the consent of such client. Section Author: Mamta Lundberg PROHIBITION ON REDISCLOSURE OF CONFIDENTIAL INFORMATION This notice accompanies a disclosure of information concerning a client made to you with the consent of such client. Section Author: Mamta Lundberg PROHIBITION ON REDISCLOSURE OF CONFIDENTIAL INFORMATION This notice accompanies a disclosure of information concerning a client made to you with the consent of such client. Care Teams (unrecognized sec tion and content) Team Status: Active Member Role Status Dates No Primary Care Physician Primary Care Provider Active Team Status: Inactive Member Role Status Dates Dr. Michael Whatley , DO Emergency Provider Active No Primary Care Physician Primary Care Provider Active Porcelain Turner Relationship Specialty Start Date End Date Freddy Lee [facility]-C [address] [facility] [place] [address] PCP - General 09/08/21 Porcelain Turner Relationship Specialty Start Date End Date Freddy Lee PA-C [address] [facility] [place] [address] PCP - General 09/08/21 Porcelain Turner Relationship Specialty Start Date End Date Freddy Lee PA-C [address] [facility] [place] [address] PCP - General 09/08/21 Porcelain Turner Relationship Specialty Start Date End Date Freddy Lee PA-C [address] [place] [address] PCP - General Family Medicine 08/21/24 Porcelain Turner Relationship Specialty Start Date End Date Freddy Lee PA-C [address] [place] [address] PCP - General Family Medicine 08/21/24 Porcelain Turner Relationship Specialty Start Date End Date Freddy Lee PA-C [address] [place] [address] PCP - General Family Medicine 08/21/24 Porcelain Turner Relationship Specialty Start Date End Date Freddy Lee PA-C [address] [place] [address] PCP - General Family Medicine 08/21/24 Porcelain Turner Relationship Specialty Start Date End Date Freddy Lee PA-C [address] [place] [address] PCP - General Family Medicine 08/21/24 Porcelain Turner Relationship Specialty Start Date End Date Frdedy Lee PA-C [address] [place] [address] PCP - General Family Medicine 08/21/24 Porcelain Turner Relationship Specialty Start Date End Date Freddy Lee PA-C [address] [facility] [place] [address] PCP - General Family Medicine 08/21/24 Porcelain Turner Relationship Specialty Start Date End Date Freddy Lee PA-C [address] [facility] [place] [address] PCP - General Family Medicine 08/21/24 Porcelain Turner Relationship Specialty Start Date End Date Freddy Lee PA-C [address] [facility] [place] [address] PCP - General Family Medicine 08/21/24 Porcelain Turner Relationship Specialty Start Date End Date Freddy Lee PA-C [address] [facility] [place] [address] PCP - General Family Medicine 08/21/24 Porcelain Turner Relationship Specialty Start Date End Date Freddy Lee PA-C [address] [facility] [place] [address] PCP - General Family Medicine 08/21/24 Porcelain Turner Relationship Specialty Start Date End Date Freddy Lee PA-C [address] [facility] [place] [address] PCP - General Family Medicine 08/21/24 Porcelain Turner Relationship Specialty Start Date End Date Freddy Lee PA-C [address] [facility], [address] [place] [address] PCP - General Family Medicine 08/21/24 Porcelain Turner Relationship Specialty Start Date End Date Freddy Lee PA-C [address] [facility], [place] [address] [place] [address] PCP - General Family Medicine 08/21/24 Porcelain Turner Relationship Specialty Start Date End Date Freddy Lee PA-C [address] [facility] [place] [address] PCP - General Family Medicine 08/21/24 Porcelain Turner Relationship Specialty Start Date End Date Freddy Lee PA-C [address] [facility] [place] [address] PCP - General Family Medicine 08/21/24 Porcelain Turner Relationship Specialty Start Date End Date Freddy Lee PA-C [address] [facility] [place] [address] PCP - General Family Medicine 08/21/24 Porcelain Turner Relationship Specialty Start Date End Date Freddy Lee PA-C [address] [facility] [address] [place] [address] PCP - General Family Medicine 08/21/24 Porcelain Turner Relationship Specialty Start Date End Date Freddy Lee PA-C [address] [facility] [place] [address] PCP - General Family Medicine 08/21/24 Porcelain Turner Relationship Specialty Start Date End Date Freddy Lee PA-C [address] [facility] [place] [address] PCP - General Family Medicine 08/21/24 Porcelain Turner Relationship Specialty Start Date End Date Freddy Lee PA-C [address] [facility] [place] [address] PCP - General Family Medicine 08/21/24 Zohaib Humphries RN Dry Paste Supervisor Medicine 02/19/25 Porcelain Turner Relationship Specialty Start Date End Date Freddy Lee PA-C [address] [facility] [place] [address] PCP - General Family Medicine 08/21/24 Zohaib Humphries RN Dry Paste Supervisor Medicine 02/19/25 Porcelain Turner Relationship Specialty Start Date End Date Freddy Lee PA-C [address] [facility], [place] [place] [address] PCP - General Family Medicine 08/21/24 Zohaib Humphries RN Dry P[employer] Supervisor Medicine 02/19/25 Goals (unrecognized section and content) Goals may be documented in a n alternate section Source Comments (unrecognize d section and content) In the event this informatio n is protected by the Federal Confidentiality of Alcohol and Drug Abuse Patient Records regulations: The Federal rules restrict any use of the information to criminally investigate or prosecute any alcohol or drug abuse patient.[facility] the event this information is protected by the Federal Confidentiality of Alcohol and Drug Abuse Patient Records regulations: The Federal rules restrict any use of the information to criminally investigate or prosecute any alcohol or drug abuse patient.[facility] the event this information is protected by the Federal Confidentiality of Alcohol and Drug Abuse Patient Records regulations: The Federal rules restrict any use of the information to criminally investigate or prosecute any alcohol or drug abuse patient.[facility] the event this information is protected by the Federal Confidentiality of Alcohol and Drug Abuse Patient Records regulations: The Federal rules restrict any use of the information to criminally investigate or prosecute any alcohol or drug abuse patient.[facility] the event this information is protected by the Federal Confidentiality of Alcohol and Drug Abuse Patient Records regulations: The Federal rules restrict any use of the information to criminally investigate or prosecute any alcohol or drug abuse patient.[facility] the event this information is protected by the Federal Confidentiality of Alcohol and Drug Abuse Patient Records regulations: The Federal rules restrict any use of the information to criminally investigate or prosecute any alcohol or drug abuse patient.[facility] the event this information is protected by the Federal Confidentiality of Alcohol and Drug Abuse Patient Records regulations: The Federal rules restrict any use of the information to criminally investigate or prosecute any alcohol or drug abuse patient.[facility] the event this information is protected by the Federal Confidentiality of Alcohol and Drug Abuse Patient Records regulations: The Federal rules restrict any use of the information to criminally investigate or prosecute any alcohol or drug abuse patient.[facility] Hospital[facility] the event this information is protected by the Federal Confidentiality of Alcohol and Drug Abuse Patient Records regulations: The Federal rules restrict any use of the information to criminally investigate or prosecute any alcohol or drug abuse patient.[facility] Hospital[facility] the event this information is protected by the Federal Confidentiality of Alcohol and Drug Abuse Patient Records regulations: The Federal rules restrict any use of the information to criminally investigate or prosecute any alcohol or drug abuse patient.[facility] Hospital[facility] the event this information is protected by the Federal Confidentiality of Alcohol and Drug Abuse Patient Records regulations: The Federal rules restrict any use of the information to criminally investigate or prosecute any alcohol or drug abuse patient.[facility] Hospital[facility] the event this information is protected by the Federal Confidentiality of Alcohol and Drug Abuse Patient Records regulations: The Federal rules restrict any use of the information to criminally investigate or prosecute any alcohol or drug abuse patient.[facility] Hospital[facility] the event this information is protected by the Federal Confidentiality of Alcohol and Drug Abuse Patient Records regulations: The Federal rules restrict any use of the information to criminally investigate or prosecute any alcohol or drug abuse patient.[facility] HospitalIn the event this information is protected by the Federal Confidentiality of Alcohol and Drug Abuse Patient Records regulations: The Federal rules restrict any use of the information to criminally investigate or prosecute any alcohol or drug abuse patient.[facility] HospitalIn the event this information is protected by the Federal Confidentiality of Alcohol and Drug Abuse Patient Records regulations: The Federal rules restrict any use of the information to criminally investigate or prosecute any alcohol or drug abuse patient.[facility] HospitalIn the event this information is protected by the Federal Confidentiality of Alcohol and Drug Abuse Patient Records regulations: The Federal rules restrict any use of the information to criminally investigate or prosecute any alcohol or drug abuse patient.[facility] HospitalIn the event this information is protected by the Federal Confidentiality of Alcohol and Drug Abuse Patient Records regulations: The Federal rules restrict any use of the information to criminally investigate or prosecute any alcohol or drug abuse patient.[facility] HospitalIn the event this information is protected by the Federal Confidentiality of Alcohol and Drug Abuse Patient Records regulations: The Federal rules restrict any use of the information to criminally investigate or prosecute any alcohol or drug abuse patient.[facility] HospitalIn the event this information is protected by the Federal Confidentiality of Alcohol and Drug Abuse Patient Records regulations: The Federal rules restrict any use of the information to criminally investigate or prosecute any alcohol or drug abuse patient.[facility] HospitalIn the event this information is protected by the Federal Confidentiality of Alcohol and Drug Abuse Patient Records regulations: The Federal rules restrict any use of the information to criminally investigate or prosecute any alcohol or drug abuse patient.[facility] HospitalIn the event this information is protected by the Federal Confidentiality of Alcohol and Drug Abuse Patient Records regulations: The Federal rules restrict any use of the information to criminally investigate or prosecute any alcohol or drug abuse patient.[facility] HospitalIn the event this information is protected by the Federal Confidentiality of Alcohol and Drug Abuse Patient Records regulations: The Federal rules restrict any use of the information to criminally investigate or prosecute any alcohol or drug abuse patient.[facility] HospitalIn the event this information is protected by the Federal Confidentiality of Alcohol and Drug Abuse Patient Records regulations: The Federal rules restrict any use of the information to criminally investigate or prosecute any alcohol or drug abuse patient.[facility] HospitalIn the event this information is protected by the Federal Confidentiality of Alcohol and Drug Abuse Patient Records regulations: The Federal rules restrict any use of the information to criminally investigate or prosecute any alcohol or drug abuse patient.[facility] HospitalIn the event this information is protected by the Federal Confidentiality of Alcohol and Drug Abuse Patient Records regulations: The Federal rules restrict any use of the information to criminally investigate or prosecute any alcohol or drug abuse patient.[facility] HospitalIn the event this information is protected by the Federal Confidentiality of Alcohol and Drug Abuse Patient Records regulations: The Federal rules restrict any use of the information to criminally investigate or prosecute any alcohol or drug abuse patient.[facility] HospitalIn the event this information is protected by the Federal Confidentiality of Alcohol and Drug Abuse Patient Records regulations: The Federal rules restrict any use of the information to criminally investigate or prosecute any alcohol or drug abuse patient.[facility] HospitalIn the event this information is protected by the Federal Confidentiality of Alcohol and Drug Abuse Patient Records regulations: The Federal rules restrict any use of the information to criminally investigate or prosecute any alcohol or drug abuse patient.[facility] HospitalIn the event this information is protected by the Federal Confidentiality of Alcohol and Drug Abuse Patient Records regulations: The Federal rules restrict any use of the information to criminally investigate or prosecute any alcohol or drug abuse patient.[facility] HospitalIn the event this information is protected by the Federal Confidentiality of Alcohol and Drug Abuse Patient Records regulations: The Federal rules restrict any use of the information to criminally investigate or prosecute any alcohol or drug abuse patient.[facility] HospitalIn the event this information is protected by the Federal Confidentiality of Alcohol and Drug Abuse Patient Records regulations: The Federal rules restrict any use of the information to criminally investigate or prosecute any alcohol or drug abuse patient.[facility] HospitalIn the event this information is protected by the Federal Confidentiality of Alcohol and Drug Abuse Patient Records regulations: The Federal rules restrict any use of the information to criminally investigate or prosecute any alcohol or drug abuse patient.[facility] HospitalIn the event this information is protected by the Federal Confidentiality of Alcohol and Drug Abuse Patient Records regulations: The Federal rules restrict any use of the information to criminally investigate or prosecute any alcohol or drug abuse patient.[facility] HospitalIn the event this information is protected by the Federal Confidentiality of Alcohol and Drug Abuse Patient Records regulations: The Federal rules restrict any use of the information to criminally investigate or prosecute any alcohol or drug abuse patient.[facility] the event this information is protected by the Federal Confidentiality of Alcohol and Drug Abuse Patient Records regulations: The Federal rules restrict any use of the information to criminally investigate or prosecute any alcohol or drug abuse patient.[facility] the event this information is protected by the Federal Confidentiality of Alcohol and Drug Abuse Patient Records regulations: The Federal rules restrict any use of the information to criminally investigate or prosecute any alcohol or drug abuse patient.[facility] the event this information is protected by the Federal Confidentiality of Alcohol and Drug Abuse Patient Records regulations: The Federal rules restrict any use of the information to criminally investigate or prosecute any alcohol or drug abuse patient.[facility] the event this information is protected by the Federal Confidentiality of Alcohol and Drug Abuse Patient Records regulations: The Federal rules restrict any use of the information to criminally investigate or prosecute any alcohol or drug abuse patient.[facility] Reason for Visit (unrecogniz ed section and content) Reason Comments Follow Up Reason Comments Schedule Surgery Reason Comments Results Reason Comments Pelvic Pain Reason Comments Radiology US Specialty Diagnoses / Procedures Referred By Contac t Referred To Contact US IMAGING Diagnoses Cyst of ovary, unspecified laterality Procedures US FEMALE PELVIS TRANSABD LTD US PELVIC NONOBSTETRIC IMAGE DCMTN LIMITED/F/U Sommer Garcia MD [address] [place] [address] [place] [address] Referral ID Status Reason Start Date Expiration Date V isits Requested Visits Authorized [id number] Closed Auto-Generate d Referral 07/20/2022 08/19/2023 1 1 Reason Comments Joint Swelling Patient to ED refere nce swelling to her hands, elbows, knees and feet that started last night. Negative any difficulty breathing. She as diagnosed with a UTI last Wednesday and is currently on Nitrofurantoin. Reason Comments Allergic Reaction Pt states she starte d taking Macrobid last Wednesday for a UTI and two days later developed swelling, itching and small rash. Pt was seen here yesterday for the same thing and was prescribed Pepcid, benadryl, prednisone and Cipro and she states these have not helped. Pt denies SOB. Reason Comments Pt here for ER f/u Pt had reaction to m edication, still has swollen lips and hands and c/o all over itchiness Reason Comments Well Woman Reason Onset Date Comments Care 07/31/2024 Reason Comments Pelvic Pain low back pain x 3 da ys Reason Comments Derm Problem Possible poison fani on bilateral legs, bilateral arms, abdomen and back x 10 days, denies open sores Reason Comments Left lower abdominal cramping early preg alex Reason Comments Follow Up Cramping Reason Comments Results Reason Comments Initial OB Visit Reason Onset Date Comments Care 12/22/2024 Reason Comments US Specialty Diagnoses / Procedures Referred By Contac t Referred To Contact [facility] Diagnoses Encounter for supervision of other normal in first trimester (HCC) Procedures OBSTETRIC ULTRASOUND WHI US PREG UTERUS AFTER 1ST TRIMEST GESTATION Champ Rawls APRN.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 TESTER [address] [place] [address] Phone: tel: fax: [facility] [address] [place] [address] Referral ID Status Reason Start Date Expiration Date V isits Requested Visits Authorized [id number] Closed Auto-Generate d Referral 12/12/2024 06/06/2025 1 1 Reason Comments Nausea & Vomiting Reason Comments Telemedicine Reason Onset Date Comments Care 01/19/2025 Reason Onset Date Comments Care 02/16/2025 Reason Comments US Specialty Diagnoses / Procedures Referred By Contac t Referred To Contact [facility] Diagnoses Encounter for supervision of other normal in first trimester (HCC) Procedures OBSTETRIC ULTRASOUND WHI US PREG UTERUS AFTER 1ST TRIMEST GESTATION Primitivo Delgado MD [address] [place] [address] Phone: tel: fax: [facility] [address] [place] [address] Referral ID Status Reason Start Date Expiration Date V isits Requested Visits Authorized [id number] Closed Auto-Generate d Referral 02/02/2025 06/06/2025 1 1 Reason Comments 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 Scheduled Active and Recently Administ ered Medications (unrecognized section and content) Medication Order 08/12/2023 08/13/2023 08/14/2023 diphenhydrAMINE (BENADryl) capsule 50 mg (COMPLETED) 50 mg, oral, Once, On 08/14/23 at 1105, For 1 dose 1150 (Given - Provid er: Kellie Melendrez RN) famotidine (Pepcid) tablet 40 mg (COMPLETED) 40 mg, oral, Once, On 08/14/23 at 1105, For 1 dose 1150 (Given - Provid er: Kellie Melendrez RN) predniSONE (Deltasone) tablet 40 mg (COMPLETED) 40 mg, oral, Once, On 08/14/23 at 1105, For 1 dose 1149 (Given - Provid er: Kellie Melendrez RN) Scheduled Medication Order 08/13/2023 08/14/2023 08/15/2023 predniSONE (Deltasone) tablet 40 mg (COMPLETED) 40 mg, oral, Once, On 08/15/23 at 2055, For 1 dose 211 (Given - Provid er: Anupama Morrow RN) FOR RECORDS PERTAINING TO PATIENTS WHO ARE OR HAVE BEEN ENROLLED IN A CHEMICAL DEPENDENCY/SUBSTANCEABUSE PROGRAM, SOME INFORMATION MAY BE OMITTED. This clinical summary was aggregated from multiple sources. Caution should be exercised in using it in the provision of clinical care. This summary normalizes information from multiple sources, and as a consequence, information in this document may materially change the coding, format and clinical context of patient data. In addition, data may be omitted in some cases. CLINICAL DECISIONS SHOULD BE BASED ON THE PRIMARY CLINICAL RECORDS. [employer] [facility]. provides no warranty or guarantee of the accuracy or completeness of information in this document.
[2025-02-23 19:36] VITALS: BP 118/75; PULSE 94; RESP 16; TEMP 37.5
[2025-02-23 19:37] VITALS: PULSE 96; O2SAT 96
[2025-02-23 19:40] VITALS: BMI 27.1
[2025-02-23] MEDS: 0.9% Saline Lock 10 ML Syringe IV (19:44)
[2025-02-23 20:02] LABS: Hematocrit 33.9 % (37-47); Hemoglobin 12.3 g/dL (12.0-15.0); Immature Granulocytes Count 0.110 X10^3/uL (0.0-0.0); Mean Corp Hgb Conc 36.3 g/dL (32-36); Mean Corpuscular Volume 92.4 fL (81-99); Mean Platelet Vol. 9.5 fl (6.2-12.0); NRBC Flagged by Analyzer 0 % (0-5); Platelet Count 213 K/mm3 (150-450); RBC Distribution Width CV 11.9 % (11.6-14.6); RBC Distribution Width SD 39.8 fl (35.1-43.9); Red Blood Count 3.67 M/mm3 (4.2-5.4); White Blood Count 12.8 K/mm3 (4.4-11.0)
[2025-02-23 20:44] LABS: Syphilis Antibodies Nonreactive (Nonreactive)
--- NOTE | 2025-02-23 20:48 | HP.PCM.OB_ITS ---
HPI - General General Date of Admission: 02/23/25 Date of Service: 02/23/25 Chief Complaint: induction of labor HPI Narrative MICHELLE CHOI, is a 19 F who presents after KCL injection of fetus for termination due to severe ventriculomegaly at 21 weeks. Amniocentesis performed in [facility] office this afternoon. Documented loss of heart activity after injection of KCL. Here for induction of labor. No pain or bleeding at this time. Maternal Data Information Final ALCIRA: 07/04/25 Gestational age: 21+2 [facility] Medical History Depression Anxiety Scoliosis Home Medications ?Medication ?Instructions ?Recorded ?Last Taken ?Type norgestimate-ethinyl estradiol tab 07/20/22 Unknown Hi story 0.18mg/0.215mg/0.25mg-0.035mg(28)tablet Allergy/AdvReac Type Severity Reaction Status Date / Time nitrofurantoin (From Allergy Mild Hives Verified 02/23/25 19:42 Macrobid) Penicillins (cillians) Allergy PT UNSURE Verified 02/23/25 19:42 OF REACTION Surgical History Knott teeth extracted Social History Smoking Status: Never smoker History 2 Elective abortions Hx Para 0 Spontaneous abortions Hx # Term Pregnancies Ectopic pregnancies Hx # Pregnancies Multiple births # of living children ROS Constitutional Constitutional: Denies fatigue, fever(s) or malaise Eyes Eyes: Denies change in vision ENT HEENT: Denies dizziness or headache(s) Cardiovascular Cardiovascular: Denies chest pain, dyspnea or lightheadedness Respiratory/Chest Respiratory/Chest: Denies cough or dyspnea Gastrointestinal Gastrointestinal: Denies change in bowel habits Genitourinary Genitourinary: Denies burning urination or genital lesions Integumentary Integumentary: Denies rash Neurologic Neurologic: Denies confusion, dizziness, headache(s), numbness or weakness Vital Signs Vital Signs Vital Signs: 02/23/25 19:36 02/23/25 19:36 02/23/25 19:36 Temperature Temperature Source Temporal Pulse Rate 94 Respiratory Rate Blood Pressure 118/75 BP Systolic 118 BP Diastolic 75 Pulse Ox 02/23/25 19:36 02/23/25 19:36 02/23/25 19:37 Temperature 99.5 F H Temperature Source Pulse Rate 96 Respiratory Rate 16 Blood Pressure BP Systolic BP Diastolic Pulse Ox 02/23/25 19:37 Temperature Temperature Source Pulse Rate Respiratory Rate Blood Pressure BP Systolic BP Diastolic Pulse Ox 96 Weight Weight: 63.049 kg Body Mass Index (BMI) 27.1 Physical Exam Const alert and no apparent distress General Appearance: cooperative HEENT normocephalic Resp normal respiratory effort Cardio regular rate GI soft to palpation GI Narrative: gravid, nontender, appropriate for gestational age Extremity no calf tenderness General Extremity: edema Skin no wounds Rashes: No rashes noted Psych activity/motor behavior normal Labs Labs Labs: Blood Type Pending Antibody Screen Pending Hct, (37-47) 33.9 % L Hgb, (12.0-15.0) 12.3 g/dL Syphilis Total Ab, (Nonreactive) Nonreactive Assessment & Plan (1) 21 weeks gestation of : (2) complicated by cerebral ventriculomegaly: QUALIFIERS: Fetus number: single or unspecified fetus Qualified Code(s): O35.09X0 - Maternal care for (suspected) other central nervous system malformation or damage in fetus, not applicable or unspecified (3) Termination of (fetus): PLAN: Plan Cytotec induction
[2025-02-24] VITALS (13 sets, daily range): BP systolic 96–113; BP diastolic 57–63; PULSE 74–88; RESP 16–18; TEMP 36.4–37.2; O2SAT 91–98
--- NOTE | 2025-02-24 17:06 | CASEMGMT ---
Social Work Date of referral: 02/24/25 Reason for referral: Demise Referred by: Social Work Identification Patient provided consent for social work visit. Patient was surrounded by family, room was dark. Mesh Man offered support which patient expressed appreciation for. Mesh Man provided patient's nurse with written resources for loss/grief/individual and group supports to be given to mother of baby and father of baby once baby delivers. Colleen Hernandez, VISUAL EDUCATION TEACHER, COUNTERSINKER
[2025-02-25] VITALS (9 sets, daily range): BP systolic 103–119; BP diastolic 57–75; PULSE 80–98; RESP 16–18; TEMP 36.6–37.6; O2SAT 94–95
--- NOTE | 2025-02-25 00:59 | PCM.PN.OB ---
Subjective Subjective Now one cm. No bleeding. Wants to defer gonzalez until next check. Feeling a lot cramping. Objective Data Objective Data Vital Signs: Vital Signs Temp Pulse Resp BP Pulse Ox 97.5 F L 77 16 96/57 L 91 02/24/25 23:40 02/24/25 23:40 02/24/25 23:40 02/24/25 23:40 02/24/25 19:47 Weight: 63.049 kg Body Mass Index (BMI) 27.1 Intake & Output: Intake and Output for Last 24 Hours 02/23/25 02/24/25 02/25/25 23:59 23:59 23:59 Intake Total 200 / 200 300 / 300 Output Total 200 / 200 Balance 200 / 200 100 / 100 Lab / Micro Data 02/23/25 19:45 Assessment & Plan (1) Termination of (fetus): (2) complicated by cerebral ventriculomegaly: QUALIFIERS: Fetus number: single or unspecified fetus Qualified Code(s): O35.09X0 - Maternal care for (suspected) other central nervous system malformation or damage in fetus, not applicable or unspecified (3) 21 weeks gestation of :
--- NOTE | 2025-02-25 16:05 | PCM.PN.OB ---
Subjective Subjective 1.5 cm with a little bloody show. Cramping is more intense. Would like to try one more cytotec before the gonzalez bulb Objective Data Objective Data Vital Signs: Vital Signs Temp Pulse Resp BP Pulse Ox 99.0 F 81 16 103/64 95 02/25/25 11:51 02/25/25 16:04 02/25/25 07:43 02/25/25 16:04 02/25/25 11:51 Weight: 63.049 kg Body Mass Index (BMI) 27.1 Intake & Output: Intake and Output for Last 24 Hours 02/23/25 02/24/25 02/25/25 23:59 23:59 23:59 Intake Total 200 / 200 500 / 500 Output Total 500 / 500 Balance 200 / 200 0 / 0 Lab / Micro Data 02/23/25 19:45 Assessment & Plan (1) Termination of (fetus): (2) complicated by cerebral ventriculomegaly: QUALIFIERS: Fetus number: single or unspecified fetus Qualified Code(s): O35.09X0 - Maternal care for (suspected) other central nervous system malformation or damage in fetus, not applicable or unspecified (3) 21 weeks gestation of :
[2025-02-25] MEDS: 0.9% Normal Saline Single 100 ML IV.SOLN. INTRA-UTER (20:30)
[2025-02-25] MEDS: fentaNYL 100 MCG/2 ML Ampul IV ×2 (20:31→22:31)
--- NOTE | 2025-02-25 20:36 | PCM.PN.OB ---
Subjective Subjective Mccrary bulb placed. Some bloody show. 1-2/80/0. Requests IV medication Objective Data Objective Data Vital Signs: Vital Signs Temp Pulse Resp BP Pulse Ox 99.0 F 80 16 114/75 94 02/25/25 11:51 02/25/25 20:23 02/25/25 07:43 02/25/25 20:23 02/25/25 20:23 Weight: 63.049 kg Body Mass Index (BMI) 27.1 Intake & Output: Intake and Output for Last 24 Hours 02/23/25 02/24/25 02/25/25 23:59 23:59 23:59 Intake Total 200 / 200 500 / 500 Output Total 500 / 500 Balance 200 / 200 0 / 0 Lab / Micro Data 02/23/25 19:45 Assessment & Plan (1) Termination of (fetus): (2) complicated by cerebral ventriculomegaly: QUALIFIERS: Fetus number: single or unspecified fetus Qualified Code(s): O35.09X0 - Maternal care for (suspected) other central nervous system malformation or damage in fetus, not applicable or unspecified (3) 21 weeks gestation of : PLAN: Plan Continue management Delivery expected
[2025-02-26] VITALS (22 sets, daily range): BP systolic 91–121; BP diastolic 52–76; PULSE 96–157; RESP 16–18; TEMP 37.1; O2SAT 94
[2025-02-26] MEDS: 0.9% Saline Lock 10 ML Syringe IV ×2 (00:28→00:48)
[2025-02-26] MEDS: Lactated Ringers 1,000 ML 999 ML IV (00:35)
[2025-02-26] MEDS: fentaNYL 100 MCG/2 ML Ampul IV (00:48)
[2025-02-26] MEDS: fentaNYL-bupivacaine (epidural) 100 ML BAG EPIDURAL (01:27)
--- NOTE | 2025-02-26 01:52 | EX.PCM.OBVAG ---
Assessment & Plan (1) Termination of (fetus): (2) complicated by cerebral ventriculomegaly: QUALIFIERS: Fetus number: single or unspecified fetus Qualified Code(s): O35.09X0 - Maternal care for (suspected) other central nervous system malformation or damage in fetus, not applicable or unspecified (3) 21 weeks gestation of : (4) Vaginal delivery: Maternal Data Information Final ALCIRA: 07/04/25 Gestational age: 21+2 Vaginal Delivery Maternal Presentation Maternal Presentation: Medically Indicated Induction Maternal Presentation: anomaly. S/p KCL injection for therapeutic termination of Type of Induction: Mccrary Bulb and Cytotec Medical Reason for Induction: demise (severe ventriculomegaly) Vaginal Delivery Information Procedure Performed: Spontaneous Vaginal Delivery Surgeon/Practitioner: Colleen Rothman Date of Procedure: 02/26/25 Pre-Procedure Diagnosis: anomaly Post-Procedure Diagnosis: vaginal delivery Type of anesthesia: Epidural Estimated Blood Loss: 100 cc Time of Delivery: 01:42 Findings Description of procedure: Presented to unit for induction of labor. Received multiple doses of Cytotec. A Mccrary bulb was placed when cervix was 1 -2 cm. Mccrary bulb came out after 2 hours. Membranes ruptured spontaneously. Patient requested an epidural. After epidural placement patient was completely dilated. She pushed a few time and delivered the fetus spontaneously. The cord was clamped and cut. The was wrapped in a blanket and given to mom to hold. She was given a dose of Cytotec to help deliver the placenta. After 30 minutes her bladder was drained. With maternal effort and fundal pressure the placenta delivered intact. There were no lacerations. 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
--- NOTE | 2025-03-08 07:43 | PCM.DC.SUM ---
Providers Date of Admission: 02/23/25 Date of Discharge: 02/26/25 Primary Care Physician: Michelle Primary Care Phys Reason For Visit: DEMISE Diagnosis Discharge Diagnosis (1) Termination of (fetus): Status: Acute Code(s): Z33.2 - Encounter for elective termination of (2) complicated by cerebral ventriculomegaly: Status: Acute Code(s): O35.09X0 - Maternal care for (suspected) other central nervous system malformation or damage in fetus, not applicable or unspecified Qualifiers: Fetus number: single or unspecified fetus Qualified Code(s): O35.09X0 - Maternal care for (suspected) other central nervous system malformation or damage in fetus, not applicable or unspecified (3) 21 weeks gestation of : Status: Acute Code(s): Z3A.21 - 21 weeks gestation of (4) Vaginal delivery: Status: Acute Code(s): O80 - Encounter for full-term uncomplicated delivery Plan Continue management Delivery expected Medications at Discharge Home Medications norgestimate-ethinyl estradiol 0.18mg/0.215mg/0.25mg-0.035mg(28)tablet tab control 07/20/22 Held on 02/23/25. Instructions: aspirin 81 mg tablet 81 mg PO DAILY 02/23/25 Hospital Course Operations None Procedures None Summary of Care Provided Minutes Spent on Discharge: 10 Hospital Course: Induction for demise cytotec and gonzalez bulb Weight / BMI Weight Weight: 63.049 kg Body Mass Index (BMI) 27.1 ABG / Lab / Microbiology Data 02/23/25 19:45 D/C Instructions DC O2, CPAP, BIPAP Needs Home O2 Discharge instructions: No Meaningful Use Info Meaningful Use Meaningful Use Diagnoses (Choose all that apply): None applicable Discharge Plan Admission Admit Date/Time: 02/23/25 19:00 Attending Provider: Colleen Rothman Primary Care Provider: Care Physician,No Primary Instructions Patient Instructions: After a Vaginal Delivery (WP) Discharge Orders/Prescriptions Prescriptions: No Action norgestimate-ethinyl estradiol 0.18/0.215/0.25 mg-35 mcg (28) tablet Patient Comments: take 1 tablet by mouth once daily aspirin 81 mg tablet 81 mg PO DAILY Referrals / Follow Up: Care Physician,No Primary [Primary Care Provider, Medical] Disposition Disposition (needs filled in before D/C Order can be placed): Home, Self Care
== END 2025-02-26 06:42 | disposition home or self-care (01) | DRG 807 ==
PROVIDERS: Admitting Provider Obstetrics & Gynecology; Referring Provider Obstetrics & Gynecology; Visit Provider Obstetrics & Gynecology
DX: O03.4 Incomplete spontaneous abortion without complication (principal); Z37.1 Single stillbirth; O35.09X0 Maternal care for (suspected) other central nervous system malformation or damage in fetus, not applicable or unspecified; Z3A.21 21 weeks gestation of pregnancy
CPT/HCPCS: 59050; 85025; 86780; 86850; 86900; 86901; 99221; A4216; G0378; J2405